=== PATIENT | male | born 1955 | race Caucasian/White ===

== ENCOUNTER 2022-06-01 15:01 | Emergency (ER) | payer MEDICARE, BC, SELFPAY ==
[2022-06-01] VITALS (10 sets, daily range): BP systolic 110–140; BP diastolic 61–76; PULSE 71–82; RESP 18–20; TEMP 37.1; O2SAT 93–95; BMI 34.2
[2022-06-01 15:33] LABS: Appearance Urine Clear (Clear); Bilirubin Urine Negative (Negative); Blood Urine Negative (Negative); Color Urine Yellow (Yellow); Glucose Urine 2+ (Negative); Ketones Urine 1+ (Negative); Leukocyte Esterase Urine Negative (Negative); Nitrite Urine Negative (Negative); Protein Urine Negative (Negative); Specific Gravity Urine <= 1.005 (1.000-1.030); Urobilinogen Urine 0.2 (0.2-1.0)
[2022-06-01] MEDS: 0.9 % SODIUM CHLORIDE 1000 ml 1,000 ML IV ×2 (15:42→17:25)
[2022-06-01 15:43] LABS: Basophils Absolute Auto 0.07 K/uL (0.00-0.30); Basophils Percent Auto 1.2 % (0.0-3.0); Eosinophils Absolute Auto 0.28 K/uL (0.00-0.50); Eosinophils Percent Auto 4.6 % (0.0-7.0); Hematocrit 47.5 % (37.0-53.0); Immature Granulocytes Abs Auto 0.03 K/uL (0.00-0.30); Lymphocytes Absolute Auto 1.66 K/uL (0.90-2.90); Lymphocytes Percent Auto 27.5 % (20-44); Mean Corpuscular HGB Conc 34 gm/dL (32-36); Mean Corpuscular Hemoglobin 29 pg (26-34); Mean Corpuscular Volume 86 fL (80-100); Monocytes Percent Auto 6.3 % (0.0-11.0); Neutrophils Absolute Auto 3.62 K/uL (1.7-7.0); Neutrophils Percent Auto 59.9 % (42.0-72.0); Platelet Count* 199 K/uL (140-440); Red Blood Count 5.53 m/uL (4.30-5.90); White Blood Count* 6.04 K/uL (4.50-11.00)
[2022-06-01 15:45] LABS: Slide Review Reflex No
--- NOTE | 2022-06-01 15:52 | ED.GENADULT ---
HPI - General Adult General Chief complaint: Diabetic Related Problem Stated complaint: Blood Sugar High Time Seen by Provider: 06/01/22 15:08 History of Present Illness HPI narrative: Patient is a 66-year-old gentleman with diabetes who presents with general malaise polyuria polydipsia fatigue and mild confusion. Patient's symptoms started today. He is had no focal neurologic defects. He describes no chest pain no shortness of breath orthopnea no PND no nausea no vomiting although his intake has been limited. Patient states his blood sugars have been in the 500 range today. Related Data Home Medications Medication Instructions Recorded Confirmed amlodipine 10 mg tablet mg 06/01/22 blood sugar diagnostic (OneTouch 06/01/22 06/01/22 Ultra Test strips) empagliflozin 10 mg tablet mg 06/01/22 (Jardiance) hydrochlorothiazide 25 mg tablet mg 06/01/22 lisinopril 40 mg tablet mg 06/01/22 metformin 500 mg tablet,extended mg PO 06/01/22 release 24 hr simvastatin 20 mg tablet mg 06/01/22 Allergies Allergy/AdvReac Type Severity Reaction Status Date / Time No Known Drug Allergies Allergy Verified 06/01/22 15:09 Review of Systems Status of ROS: Reports: 10 or more systems reviewed and unremarkable except as noted in History and below Exam Narrative: Exam Narrative: EXAM GENERAL: Patient appears comfortable and well. EYES: No scleral icterus. LYMPH: No supraclavicular or cervical lymphadenopathy. SKIN: Visible skin seen during exam normal or with benign process only. EXT: No dependent lower extremity pedal edema. HEART: Regular rate and rhythm with no murmurs, rubs, or gallops. LUNGS: Clear to auscultation bilaterally with no crackles or wheezes. ABD: Soft, non tender, non distended. PSYCH: Good eye contact, speech is not pressured. Const: Vital Signs, click to edit/add: Vital Signs - 24 hr 06/01/22 15:09 Temperature 98.7 F Pulse Rate [Pulse Oximeter] 82 Respiratory Rate 20 Blood Pressure [Ri ght Upper Arm] 135/75 Pulse Oximetry 95 Course Course Hospital Course: Comprehensive metabolic panel CBC and UA ordered and are pending. 1 L normal saline given Vital Signs Vital signs: Initial Vital Signs Temperature 98.7 F 06/01/22 15:09 Temperature Source Temporal Artery Scan 06/01/22 15:09 Pulse Rate 82 06/01/22 15:09 Pulse Rhythm 06/01/22 15:09 Respiratory Rate 20 06/01/22 15:09 Blood Pressure 135/75 06/01/22 15:09 Blood Pressure Mean 95 06/01/22 15:09 Pulse Oximetry 95 06/01/22 15:09 Oxygen Delivery Method 06/01/22 15:09 Vital Signs Temperature 98.7 F 06/01/22 15:09 Pulse Rate 82 06/01/22 15:09 Respiratory Rate 20 06/01/22 15:09 Blood Pressure 135/75 06/01/22 15:09 Pulse Oximetry 95 06/01/22 15:09 Temperature 98.7 F 06/01/22 15:09 Pulse Rate 82 06/01/22 15:09 Respiratory Rate 20 06/01/22 15:09 Blood Pressure 135/75 06/01/22 15:09 Pulse Oximetry 95 06/01/22 15:09 Medical Decision Making MDM Narrative Medical decision making narrative: At this time I am concerned that he may have a hyperosmotic hyperglycemia situation. Will begin aggressive hydration as labs are pending. [facility] Lab Data Labs: Lab Results 06/01/22 06/01/22 Range/Units 15:23 15:36 WBC 6.04 (4.50-11.00) K/uL RBC 5.53 (4.30-5.90) m/uL Hgb 16.0 (13.5-17.5) gm/dL Hct 47.5 (37.0-53.0) % MCV 86 (80-100) fL MCH 29 (26-34) pg MCHC 34 (32-36) gm/dL RDW Coeff of Dylan 12.0 (11.5-15.5) % Plt Count 199 (140-440) K/uL Neut % (Auto) 59.9 (42.0-72.0) % Lymph % (Auto) 27.5 (20-44) % [place] % (Auto) 6.3 (0.0-11.0) % Eos % (Auto) 4.6 (0.0-7.0) % Baso % (Auto) 1.2 (0.0-3.0) % Neut # (Auto) 3.62 (1.7-7.0) K/uL Lymph # (Auto) 1.66 (0.90-2.90) K/uL [place] # (Auto) 0.40 (0.00-0.90) K/UL Eos # (Auto) 0.28 (0.00-0.50) K/uL Baso # (Auto) 0.07 (0.00-0.30) K/uL Abs Immat Gran (auto) 0.03 (0.00-0.30) K/uL Urine Color Yellow (Yellow) Urine Appearance Clear (Clear) Urine pH 5.0 (5.0-8.5) Ur Specific [place] <= 1.005 (1.000-1.030) Urine Protein Negative (Negative) Urine Glucose (UA) 2+ A (Negative) Urine Ketones 1+ A (Negative) Urine Blood Negative (Negative) Urine Nitrite Negative (Negative) Urine Bilirubin Negative (Negative) Urine Urobilinogen 0.2 (0.2-1.0) Ur Leukocyte Esterase Negative (Negative) Discharge Plan Discharge Prescriptions: No Action (DME) OneTouch Ultra Test Strip MISCELLANEOUS 0RF Label Comments: USE 1 STRIP TO CHECK GLUCOSE TWICE DAILY NEEDED amlodipine 10 mg tablet 0RF Label Comments: TAKE 1 TABLET BY MOUTH ONCE DAILY simvastatin 20 mg tablet 0RF Label Comments: TAKE 1 TABLET BY MOUTH AT BEDTIME hydrochlorothiazide 25 mg tablet 0RF Label Comments: TAKE 1 TABLET BY MOUTH ONCE DAILY lisinopril 40 mg tablet 0RF Label Comments: TAKE 1 TABLET BY MOUTH ONCE DAILY metformin 500 mg tablet extended release 24 hr PO 0RF Label Comments: TAKE 2 TABLETS BY MOUTH ONCE DAILY Jardiance 10 mg tablet 0RF Label Comments: TAKE 1 TABLET BY MOUTH ONCE DAILY Follow Up/Referrals: Kang Mcgee MD [Primary Care Provider] -
[2022-06-01 15:55] LABS: Albumin* 4.8 g/dL (3.3-5.0); Chloride* 95 mmol/L (96-114); Potassium* 4.4 mmol/L (3.6-5.1); Sodium* 131 mmol/L (135-149)
[2022-06-01 15:57] LABS: Creatinine* 1.1 mg/dL (0.5-1.5); Est. Creatinine Clearance* 71.31
[2022-06-01 15:58] LABS: Alanine Aminotransferase* 33 U/L (4-50); Alkaline Phosphatase* 108 U/L (40-150); Aspartate Amino Transferase* 28 U/L (12-35); Bilirubin Total* 0.6 mg/dL (0.1-1.5); Blood Urea Nitrogen* 36 mg/dL (7-30); Calcium* 9.7 mg/dL (8.4-10.6); Carbon Dioxide* 27 mmol/L (20-32); Total Protein* 8.2 g/dL (6.0-8.3)
[2022-06-01 16:00] LABS: Glucose* 520 mg/dL (60-115)
--- NOTE | 2022-06-01 17:12 | ED.GENADULT ---
HPI - General Adult General Chief complaint: Diabetic Related Problem Stated complaint: Blood Sugar High Time Seen by Provider: 06/01/22 15:08 Related Data Home Medications Medication Instructions Recorded Confirmed amlodipine 10 mg tablet mg 06/01/22 blood sugar diagnostic (OneTouch 06/01/22 06/01/22 Ultra Test strips) empagliflozin 10 mg tablet mg 06/01/22 (Jardiance) hydrochlorothiazide 25 mg tablet mg 06/01/22 lisinopril 40 mg tablet mg 06/01/22 metformin 500 mg tablet,extended mg PO 06/01/22 release 24 hr simvastatin 20 mg tablet mg 06/01/22 Previous Rx's Medication Instructions Recorded pen needle, diabetic 32 gauge x #100 ea 06/01/22 (Ultra Thin Pen Needle) Allergies Allergy/AdvReac Type Severity Reaction Status Date / Time No Known Drug Allergies Allergy Verified 06/01/22 15:09 [facility] Social History Smoking Status: Former smoker What tobacco products do you use: cigarettes Smoking quit date/years: >15 years ago Do you use any of these nicotine containing products: None Second hand tobacco smoke exposure: No How often do you have a drink containing alcohol: never How often do you have six or more drinks on one occasion: Never AUDIT-C Alcohol total score: 0 Non-prescribed substance use: denies use Exam Const: Vital Signs, click to edit/add: Vital Signs - 24 hr 06/01/22 15:05 06/01/22 15:09 06/01/22 15:35 Temperature 98.7 F Pulse Rate [Pulse Oximeter] 82 Respiratory Rate 20 Blood Pressure [Ri ght Upper Arm] 135/75 135/75 140/61 H Pulse Oximetry 95 06/01/22 15:55 06/01/22 16:00 06/01/22 16:30 Temperature Pulse Rate [Pulse Oximeter] 78 77 76 Respiratory Rate Blood Pressure [Ri ght Upper Arm] 110/66 115/61 116/68 Pulse Oximetry 94 94 95 Course Course Hospital Course: Comprehensive metabolic panel CBC and UA ordered and are pending. 1 L normal saline given Reevaluation(s) Reevaluation #1: Have received Mr. Crooks in handoff from Dr. Macias change of shift. Labs reviewed. Corrected sodium would be 138. He has completed 1 L normal saline. He reports feeling better. Did review further recent events. About 3 weeks ago reports increasing Jardiance and metformin due to elevating blood sugars. Also reports a history of insulin use but discontinued that as got tired of giving himself injections. Jardiance was added at that point. Will give another L of normal saline Past medical also reviewed and listed here-- Medical Problems: Hyperlipidemia Hypertension Obstructive sleep apnea Detached retina, right S/p surgical correction Retinal detachment Diabetes mellitus, type II Cervical spinal stenosis s/p surgical intervention 2017 Obesity First degree AV block Allergic rhinitis Annual physical exam No actinve diabetic retinopathy Jha's palsy Pre-op exam Welcome to Medicare preventive visit Surgical Problems: History of colonoscopy Repeat in 5 yrs, Next Due- 04/29/2022. Time: 17:08 Vital Signs Vital signs: Initial Vital Signs Blood Pressure 135/75 06/01/22 15:05 Blood Pressure Mean 95 06/01/22 15:05 Blood Pressure Position Supine 06/01/22 15:05 Vital Signs Blood Pressure 135/75 06/01/22 15:05 Temperature 98.7 F 06/01/22 15:09 Pulse Rate 76 06/01/22 16:30 Respiratory Rate 20 06/01/22 15:09 Blood Pressure 116/68 06/01/22 16:30 Pulse Oximetry 95 06/01/22 16:30 Medical Decision Making MDM Narrative Medical decision making narrative: Spent some time looking in past medical and discussing with patient prior treatment. Looks like but we can document most recently was 15 units of Lantus daily. He will receive equivalent here 10 units though. Also 12 units of regular insulin. They do have Lantus at in the form of a Solostar pen. He unfortunately is out of needles; this is represcribed. Dosing here today as I think I will have trouble getting him those needles this evening on the 01 of June. Medical Records Medical records reviewed: Yes I reviewed the patient's medical records Lab Data Lab results reviewed: Yes I reviewed the patient's lab results Labs: Lab Results 06/01/22 06/01/22 06/01/22 Range/Units 15:23 15:36 15:36 WBC 6.04 (4.50-11.00) K/uL RBC 5.53 (4.30-5.90) m/uL Hgb 16.0 (13.5-17.5) gm/dL Hct 47.5 (37.0-53.0) % MCV 86 (80-100) fL MCH 29 (26-34) pg MCHC 34 (32-36) gm/dL RDW Coeff of Dylan 12.0 (11.5-15.5) % Plt Count 199 (140-440) K/uL Neut % (Auto) 59.9 (42.0-72.0) % Lymph % (Auto) 27.5 (20-44) % [place] % (Auto) 6.3 (0.0-11.0) % Eos % (Auto) 4.6 (0.0-7.0) % Baso % (Auto) 1.2 (0.0-3.0) % Neut # (Auto) 3.62 (1.7-7.0) K/uL Lymph # (Auto) 1.66 (0.90-2.90) K/uL [place] # (Auto) 0.40 (0.00-0.90) K/UL Eos # (Auto) 0.28 (0.00-0.50) K/uL Baso # (Auto) 0.07 (0.00-0.30) K/uL Abs Immat Gran (auto) 0.03 (0.00-0.30) K/uL Sodium 131 L (135-149) mmol/L Potassium 4.4 (3.6-5.1) mmol/L Chloride 95 L (96-114) mmol/L Carbon Dioxide 27 (20-32) mmol/L BUN 36 H (7-30) mg/dL Creatinine 1.1 (0.5-1.5) mg/dL Estimated Creat Clear 71.31 Glucose 520 H* (60-115) mg/dL Calcium 9.7 (8.4-10.6) mg/dL Total Bilirubin 0.6 (0.1-1.5) mg/dL AST 28 (12-35) U/L ALT 33 (4-50) U/L Alkaline Phosphatase 108 (40-150) U/L Total Protein 8.2 (6.0-8.3) g/dL Albumin 4.8 (3.3-5.0) g/dL Urine Color Yellow (Yellow) Urine Appearance Clear (Clear) Urine pH 5.0 (5.0-8.5) Ur Specific [place] <= 1.005 (1.000-1.030) Urine Protein Negative (Negative) Urine Glucose (UA) 2+ A (Negative) Urine Ketones 1+ A (Negative) Urine Blood Negative (Negative) Urine Nitrite Negative (Negative) Urine Bilirubin Negative (Negative) Urine Urobilinogen 0.2 (0.2-1.0) Ur Leukocyte Esterase Negative (Negative) Discharge Plan Discharge Clinical Impression: Hyperosmolar hyperglycemic state (HHS), Ketosis due to diabetes Patient Disposition: Home w/ Parent or Adult Condition: Improved Additional Instructions: Stay well hydrated with unsugared liquids Check your blood sugar before bed this evening. Start with 10 units evening dosing of Lantus. Aiming for blood sugars less than 150 fasting in the morning. Every 2-3 days could increase your Lantus dosing by 2 units to get into goal. I would also begin checking blood sugars a couple hours after eating 1 or 2 meals a day. Please schedule follow-up with your doctor for later this week. It is important to get exercise in daily if possible as this does lower your insulin resistance. As a team you both can also practice careful food/diet management together. Discharge Diet: Diabetic Prescriptions: New (DME) pen needle, diabetic [Ultra Thin Pen Needle] 32 gauge x 5/32 needle See Rx Instructions .Route Qty: 100 0RF Rx Instructions: As directed No Action (DME) OneTouch Ultra Test Strip MISCELLANEOUS 0RF Label Comments: USE 1 STRIP TO CHECK GLUCOSE TWICE DAILY NEEDED amlodipine 10 mg tablet 0RF Label Comments: TAKE 1 TABLET BY MOUTH ONCE DAILY simvastatin 20 mg tablet 0RF Label Comments: TAKE 1 TABLET BY MOUTH AT BEDTIME hydrochlorothiazide 25 mg tablet 0RF Label Comments: TAKE 1 TABLET BY MOUTH ONCE DAILY lisinopril 40 mg tablet 0RF Label Comments: TAKE 1 TABLET BY MOUTH ONCE DAILY metformin 500 mg tablet extended release 24 hr PO 0RF Label Comments: TAKE 2 TABLETS BY MOUTH ONCE DAILY Jardiance 10 mg tablet 0RF Label Comments: TAKE 1 TABLET BY MOUTH ONCE DAILY Follow Up/Referrals: Kang Mcgee MD [Primary Care Provider] - Stand Alone Forms: [facility] Info Instructions
--- NOTE | 2022-06-01 19:44 | ED.NURSE ---
pt sent with james ivory rx dr amaya
== END 2022-06-01 19:48 ==
PROVIDERS: Internal Medicine; Emergency Provider Family Medicine; PCP Family Medicine
DX: E11.00 Type 2 diabetes mellitus with hyperosmolarity without nonketotic hyperglycemic-hyperosmolar coma (NKHHC) (principal); Z79.4 Long term (current) use of insulin
CPT/HCPCS: 96360; 96361; 36415; 80053; 81003; 85025; 99283; 99284; J7030

== ENCOUNTER 2022-07-06 11:10 | Outpatient (CLI) | payer MEDICARE, BC, SELFPAY ==
[2022-07-06 22:51] LABS: Chloride* 107 mmol/L (96-114); Sodium* 140 mmol/L (135-149)
[2022-07-06 22:52] LABS: Potassium* 4.6 mmol/L (3.6-5.1)
[2022-07-06 22:54] LABS: Creatinine* 0.8 mg/dL (0.5-1.5); Estimated Glomerular Filt Rate 98 ml/min
[2022-07-06 22:55] LABS: Blood Urea Nitrogen* 20 mg/dL (7-30); Calcium* 9.3 mg/dL (8.4-10.6); Carbon Dioxide* 21 mmol/L (20-32); Glucose* 127 mg/dL (60-115)
== END 2022-07-06 11:11 | disposition home or self-care (01) ==
LOC: LKVREF 11:11
PROVIDERS: PCP Family Medicine; Visit Provider Family Medicine
DX: E11.10 Type 2 diabetes mellitus with ketoacidosis without coma (principal)
CPT/HCPCS: 80048

== ENCOUNTER 2022-08-11 08:22 | Outpatient (CLI) | payer MEDICARE, BC, SELFPAY ==
--- OUTSIDE RECORDS SUMMARY | 2022-08-11 08:29 | XMS_ITS | Clinical Summary ---
:1955 Author Organization [facility] Address [address] [place] [address] Care Team Providers Name Role Phone Nimesh Jo MD Primary Care Provider [phone] Allergies No known active allergies Medications Medication Sig Dispensed Refills Start Date End Date Status ORDER FOR Equipment being 1 each 0 11/03/2012 Act opal DMEIndications: HTN ordered: Blood (hypertension) pressure monitor aspirin 81 MG tablet Take 1 tablet by 0 Active mouth daily simvastatin (ZOCOR) 20 Take 1 tablet (20 90 tablet 3 4 Active MG tabletIndications: mg) by mouth At Hyperlipidemia LDL goal Bedtime MD/LABS <130 DUE NOW lisinopril Take 1 tablet (5 30 tablet 0 04/03/2015 A ctive (PRINIVIL,ZESTRIL) 5 MG mg) by mouth tabletIndications: daily SEE Benign hypertension amLODIPine (NORVASC) 5 Take 1 tablet (5 0 09/27/2015 Active MG tabletIndications: mg) by mouth HTN, goal below 140/90 daily Active Problems Problem Noted Date Ventral hernia 12/26/2012 LVH (left ventricular hypertrophy) 11/04/2012 HTN, goal below 140/90 11/04/2012 Hepatic steatosis 11/03/2012 Gallstones 11/03/2012 Advanced directives, counseling/discussion 11/03/2012 Overview: Discussed advance care planning with jarred alberto; however, patient declined at this time. 11/03/2012 Obesity 11/02/2012 ADRIEN (obstructive sleep apnea) 10/27/2012 Venous stasis of lower extremity 10/27/2012 HYPERLIPIDEMIA LDL GOAL <130 09/28/2010 Chronic rhinitis 01/30/2010 Trigger finger, acquired 01/30/2010 Overview: Problem list name updated by mack iraheta Provider to review Eczema 05/16/2008 Immunizations Name Administration Dates Next Due TD (ADULT, 7+) 11/29/2006 TDAP Vaccine (Adacel) 10/27/2012 Family History Medical History Relation Comments Heart Disease Father Relation Status Comments Brother 1 Alive Brother 2 Alive Brother 3 Alive Brother 4 Alive Brother 5 Alive Father (Age 52) heart Maternal Grandfather Maternal Grandmother Mother Alive Paternal Grandfather Paternal Grandmother Sister Alive Son 1 Alive Kasi Son 2 Alive Abiodun Son 3 Alive Lewis Social History Tobacco Use Types Packs/Day Years Used Date Former Smoker Cigarettes 1 35 Quit: 11/06/20 07 Smokeless Tobacco: Never Used Alcohol Use Standard Drinks/Week Comments No 0 (1 standard drink = 0.6 oz pure alcoho l) Sex Assigned at Date Recorded Not on file Last Filed Vital Signs Vital Sign Reading Time Taken Comments Blood Pressure 138/78 03/28/2014 9:35 AM CDT Pulse 52 03/28/2014 9:35 AM CDT Temperature 36.6 ??C (97.9 ??F) 03/28/2014 9:35 AM CDT Respiratory Rate 12 03/28/2014 9:35 AM CDT Oxygen Saturation 96% 03/28/2014 9:35 AM CDT Inhaled Oxygen Concentration - - Weight 120.7 kg (266 lb) 03/28/2014 9:35 AM CDT Height 182.9 cm (6') 03/28/2014 9:35 AM CDT Body Mass Index 36.08 03/28/2014 9:35 AM CDT Plan of Treatment Health Maintenance Due Date Last Done Comments ANNUAL REVIEW OF HM ORDERS 1955 CT COLONOGRAPHY 1955 FIT-DNA (Cologuard) 1955 FIT 1955 FLEX SIG 1955 HIV SCREENING 1971 HEPATITIS C SCREENING 1974 LUNG CANCER SCREENING 2006 ADVANCE CARE PLANNING 11/03/2017 11/03/2012 COLONOSCOPY 08/27/2018 08/27/2008 COLORECTAL CANCER SCREENING 08/27/2018 LIPID 03/28/2019 03/28/2014, 08/17/2012, 10/30/2010, Additional history exists COVID-19 Vaccine (3 - 08/04/2021 03/04/2021, 02/11/2021 Booster for Pfizer series) PHQ-2 (once per calendar 11/29/2021 year) AORTIC ANEURYSM SCREENING 2021 (SYSTEM ASSIGNED) FALL RISK ASSESSMENT 2021 MEDICARE ANNUAL WELLNESS 2021 03/28/2014, 11/12/2006 VISIT Pneumococcal Vaccine: 65+ 2021 Years (1 - PCV) INFLUENZA VACCINE (#1) 2022 DTAP/TDAP/TD IMMUNIZATION 10/27/2022 10/27/2012, 11/29/2006 (3 - Td or Tdap) ZOSTER IMMUNIZATION Completed 01/11/2020, 11/06/2019 HEPATITIS B IMMUNIZATION Aged Out No long er eligible based on patient 's age to complete this topic IPV IMMUNIZATION Aged Out No longer eligi ble based on patient 's age to complete this topic MENINGITIS IMMUNIZATION Aged Out No longe r eligible based on patient 's age to complete this topic Insurance Payer Benefit Plan / Subscriber ID Effective Phone Address T ype Group Dates BCBS [place] OF [place] [id number] 2021-Prese [phone] [address] [id number] [place] [address] MEDICARE MEDICARE [id number] 2021-Prese [phone] ATTN CLAI [place] Medicare nt 40 [address] [place] [address] SELECTCARE SELECTCARE - [id number] 2012-Pres [phone] [address] Indemnity [employer] ent [id number] [place] [address] 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
--- OUTSIDE RECORDS SUMMARY | 2022-08-11 08:29 | XMS_ITS | Encounter Summary ---
:1955 Author Organization [facility] Address [address] [place] [address] Care Team Providers Name Role Phone Nimesh Jo MD Primary Care Provider Encounter Details Date Type Department Care Team Description 12/31/2021 Travel Social History Tobacco Use Types Packs/Day Years Used Date Former Smoker Cigarettes 1 35 Quit: 11/06/20 07 Smokeless Tobacco: Never Used Alcohol Use Standard Drinks/Week Comments No 0 (1 standard drink = 0.6 oz pure alcoho l) Sex Assigned at Date Recorded Not on file COVID-19 Exposure Response Date Recorded In the last month, have you been in contact with No / Unsure 12/31/2021 10:41 AM 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 documented as of this encounter Plan of Treatment Not on filedocumented as of this encounter Visit Diagnoses Not on filedocumented in this encounter Care Teams Vocational Nursing Instructor Relationship Specialty Start Date End Date Nimesh Jo MD PCP - General 11/05/06 documented as of this encounter
--- OUTSIDE RECORDS SUMMARY | 2022-08-11 08:29 | XMS_ITS | Encounter Summary ---
:1955 Author Organization [facility] Address [address] [place] [address]. [place] [address] Care Team Providers Name Role Phone Nimesh Jo MD Primary Care Provider Reason for Referral Diagnostic Imaging Ultrasound (Routine) - Pending Review Specialty Diagnoses / Procedures Referred By Contact Refer red To Contact Diagnoses Cyst of epididymis Willie Buckner MD Procedures US Testicular & Scrotum w Doppler Ltd [facility] [address] [place] [address] Referral ID Status Reason Start Date Expiration Date Visits V isits Requested Authorized [id number] Pending 12/23/2021 12/23/2022 1 1 Review RAM DIR Reason for Visit Diagnostic Imaging Ultrasound (Routine) - Pending Review Specialty Diagnoses / Procedures Referred By Contact Refer red To Contact Diagnoses Cyst of epididymis Willie Buckner MD Procedures US Testicular & Scrotum w Kongregate Ltd [facility] [place] [address] [place] [address] Referral ID Status Reason Start Date Expiration Date Visits V isits Requested Authorized [id number] Pending 12/23/2021 12/23/2022 1 1 Review Encounter Details Date Type Department Care Team Description 12/31/2021 Hospital Encounter [facility] Willie Buckner C yst of epididymis [facility] [id number] [place] [address] [facility] [place] [address] [facility] [place] [facility] [address] [place] [address] [phone] Social History Tobacco Use Types Packs/Day Years [...] with No / Unsure 12/31/2021 10:41 AM PROGRAM DIR someone who was confirmed or suspected to have Coronavirus / COVID-19? documented as of this encounter Medications at Time of Discharge Medication Sig Dispensed Refills Start Date End Date amLODIPine (NORVASC) 5 MG Take 1 tablet (5 mg) 0 09/27/2015 tabletIndications: HTN, by mouth daily goal below 140/90 aspirin 81 MG tablet Take 1 tablet by 0 mouth daily lisinopril Take 1 tablet (5 mg) 30 tablet 0 04/03/2015 (PRINIVIL,ZESTRIL) 5 MG by mouth daily SEE MD tabletIndications: Benign hypertension ORDER FOR DMEIndications: Equipment being 1 each 0 11/03 HTN (hypertension) ordered: Blood pressure monitor simvastatin (ZOCOR) 20 MG Take 1 tablet (20 mg) 90 tablet 3 03/28/2014 tabletIndications: by mouth At Bedtime Hyperlipidemia LDL goal MD/LABS DUE NOW <130 documented as of this encounter Plan of Treatment Not on filedocumented as of this encounter Procedures Procedure Name Priority Date/Time Associated Comments Diagnosis US TESTICULAR AND Routine 12/31/2021 11:44 AM Cyst of epididym is Results for this SCROTUM WITH DOPPLER PROGRAM DIR procedu re are in LIMITED the results section. documented in this encounter Results US Testicular & Scrotum w Doppler Ltd (12/31/2021 11:44 AM PROGRAM DIR) Anatomical Region Laterality Modality Abdomen/Pelvis Ultrasound Specimen (Source) Anatomical Location Collection Method / Collectio n Time Received Time / Laterality Volume Impressions 12/31/2021 12:20 PM PROGRAM DIR IMPRESSION: 1. Large number of bilateral epididymal cysts, the largest on the right measures 5.8 cm in the epididymal body and the largest on the left measures 3.6 cm in the epididymal t ail. 2. Small left hydrocele. No right hydroc alana. 3. Diffuse scrotal skin thickening, of i ndeterminate etiology. AURORA BRUCE MD Narrative 12/31/2021 12:20 PM PROGRAM DIR US TESTICULAR AND SCROTUM WITH DOPPLER LIMITED 12/31/2021 11:44 AM HISTORY: Cyst of epididymis. FINDINGS: Right Scrotum: ? Testis: Measures 5.1 x 3.3 x 2.5 cm. It demonstrates normal parenchymal echogenicity. No focal lesio n. ? Epididymis: Multiple epididymal c ysts, including multiple small cysts in the epididymal head, with the l argest two cysts measuring 4.6 x 5.8 x 3.4 cm in the epididymal body an d 4.2 x 4.9 x 3.0 cm in the epididymal tail. ? No hydrocele. No varicocele. Left Scrotum ? Testis: Measures 5.2 x 2.9 x 2.3 cm. It demonstrates normal parenchymal echogenicity. No focal lesio n. ? Epididymis: Multiple epididymal c ysts, including multiple small cysts in the epididymal head and 3.5 x 3 .6 x 2.5 cm cyst in the epididymal tail. ? Small hydrocele. No varicocele. Doppler waveform analysis demonstrates b ilateral testicular flow without evidence for torsion. Diffuse scrotal skin thickening. ? Procedure Note Aurora Bruce MD - 12/31/2021Forma tting of this note might be different from the original. US TESTICULAR AND SCROTUM WITH DOPPLER L IMITED 12/31/2021 11:44 AM HISTORY: Cyst of epididymis. FINDINGS: Right Scrotum: Testis: Measures 5.1 x 3.3 x 2.5 cm. It demonstrates normal parenchymal echogenicity. No focal lesio n. Epididymis: Multiple epididymal cysts, including multiple small cysts in the epididymal head, with the l argest two cysts measuring 4.6 x 5.8 x 3.4 cm in the epididymal body an d 4.2 x 4.9 x 3.0 cm in the epididymal tail. No hydrocele. No varicocele. Left Scrotum Testis: Measures 5.2 x 2.9 x 2.3 cm. It demonstrates normal parenchymal echogenicity. No focal lesio n. Epididymis: Multiple epididymal cysts, including multiple small cysts in the epididymal head and 3.5 x 3 .6 x 2.5 cm cyst in the epididymal tail. Small hydrocele. No varicocele. Doppler waveform analysis demonstrates b ilateral testicular flow without evidence for torsion. Diffuse scrotal skin thickening. IMPRESSION: 1. Large number of bilateral epididymal cysts, the largest on the right measures 5.8 cm in the epididymal body and the largest on the left measures 3.6 cm in the epididymal t ail. 2. Small left hydrocele. No right hydroc alana. 3. Diffuse scrotal skin thickening, of i ndeterminate etiology. AURORA BRUCE MD Willie Buckner MD IMG US ORDERABLES documented in this encounter Visit Diagnoses Diagnosis Cyst of epididymis Other specified disorder of male genital organs documented in this encounter Care Teams Hospital Pharmacist Relationship Specialty Start Date End Date Nimesh Jo MD PCP - General 11/05/06 documented as of this encounter
--- OUTSIDE RECORDS SUMMARY | 2022-08-11 08:29 | XMS_ITS | Clinical Summary ---
:1955 Author Organization [facility] [place] [address] Care Team Providers Name Role Phone Kang Mcgee MD Primary Care Provider Allergies No known active allergies Medications Medication Sig Dispensed Refills Start Date End Date Status simvastatin (ZOCOR) 20 Take 1 tablet by 0 11/11/2010 Active mg tablet mouth at bedtime. amLODIPine (NORVASC) 5 Take 1 tablet by 30 tablet 5 11/11/2010 Active mg tablet mouth once daily. aspirin chewable 81 mg Take 81 mg by 0 Active chewable tablet mouth once daily with a meal. lisinopril (PRINIVIL; Take 40 mg by 0 Active ZESTRIL) 40 mg mouth once daily. tabletIndications: Indications: hypertension Hypertension metFORMIN (GLUCOPHAGE) Take 500 mg by 0 Active 500 mg mouth 2 times tabletIndications: daily with meals. type 2 diabetes Indications: type mellitus 2 diabetes [address] 1 Drop into 0 Active (DUREZOL) 0.05 % right eye once ophthalmic emulsion daily. ketorolac 0.5 % Place 1 Drop into 0 Active ophthalmic (ACULAR) right eye 3 times solution daily. oxyCODONE (ROXICODONE) Take 1-2 tablets 120 tablet 0 6 Active 5 mg immediate release by mouth every 4 tabletIndications: hours if needed Cervical spondylosis for Pain (For with myelopathy moderate pain). diazePAM (VALIUM) 5 mg Take 1/2 to 1 60 tablet 0 11/06/2016 Active tabletIndications: tablet by mouth Cervical spondylosis every 6 hours if with myelopathy needed for Muscle Spasm. prochlorperazine Take 1 tablet by 40 tablet 0 11/06/2016 Active (COMPAZINE) 10 mg mouth every 6 tabletIndications: hours if needed Cervical spondylosis for with myelopathy Nausea/Vomiting. sennosides-docusate, Take 1-4 tablets 120 tablet 0 11/06/2016 Active 8.6-50 mg, (SENOKOT S) by mouth 2 times 8.6-50 mg daily. tabletIndications: Cervical spondylosis with myelopathy Active Problems Problem Noted Date Episodic lightheadedness 07/26/2020 High coronary artery calcium score 07/26/2020 Morbid obesity due to excess calories 07/26/2020 SOB (shortness of breath) 07/26/2020 Type 2 diabetes mellitus 11/02/2016 Cervical spondylosis with myelopathy 11/02/2016 Sleep apnea 11/11/2010 Chest pain 11/11/2010 Family history of coronary arteriosclerosis 11/11/2010 Hyperlipidemia 11/11/2010 HTN (hypertension) 11/11/2010 Social History Tobacco Use Types Packs/Day Years Used Date Former Smoker Cigarettes 1.5 35 Quit: 11/29/19 07 Alcohol Use Standard Drinks/Week Comments No 0 (1 standard drink = 0.6 oz pure alcoho l) Sex Assigned at Date Recorded Not on file Obstetrics History Last Filed Vital Signs Vital Sign Reading Time Taken Comments Blood Pressure 135/76 11/06/2016 8:12 AM ORACLE OBIEE DEVELOPER Pulse 70 11/06/2016 8:12 AM ORACLE OBIEE DEVELOPER Temperature 36.9 ??C (98.5 ??F) 11/06/2016 8:12 AM ORACLE OBIEE DEVELOPER Respiratory Rate 16 11/06/2016 8:12 AM ORACLE OBIEE DEVELOPER Oxygen Saturation 97% 11/06/2016 8:12 AM ORACLE OBIEE DEVELOPER Inhaled Oxygen Concentration - - Weight 122.1 kg (269 lb 2.9 oz) 11/02/2016 8:25 AM ORACLE OBIEE DEVELOPER Height 182.9 cm (6') 11/02/2016 8:25 AM ORACLE OBIEE DEVELOPER Body Mass Index 36.51 11/02/2016 8:25 AM ORACLE OBIEE DEVELOPER Plan of Treatment Health Maintenance Due Date Last Done Comments Pneumococcal series for age 65+ (1 - PCV) 1962 Tdap 1967 Depression screening for age 12+ 1968 BMI (ht and wt on same day) for age 18+ 1974 Hepatitis C screening for age 18-79 1974 Tetanus booster 1976 Colonoscopy through age 75 2001 Lipids for age 45-75 2001 Zoster (shingles) series for age 50+ (1 of 2006 2) COVID-19 vaccine series (3 - Booster for 08/04/2021 021, 02/11/2021 Pfizer series) Influenza for age 65+ 07/30/2022 Medical Devices Implanted Type Area Timber Management Professor Device Shelf Model / Identifier Expiration Serial / Date Lot Strip Silcn 0.75x3.5x125 [id number] - [id number] Right : Lab[employer]ian 02/26/2022 [id number] / Implanted: Qty: 1 on 07/17/2015 by Sixto Becerril MD at [facility] [employer] / [id number] Screw Lmbr Post 5.5x25mm Solera 4.75 Va - [id number] N/A: Medtronic [id number] / Implanted: Qty: 2 on 11/02/2016 by Clarence Coyle MD at [facility] / Results Not on filefrom Last 3 Months Insurance Payer Benefit Plan / Subscriber ID Effective Dates Phone Addre ss Type Group BLUE CROSS BLUE CROSS OF [id number] 2020-Present [id number] [place] [address] Advance Directives Latest Code Status on File Code Status Date Activated Date Inactivated Comments Full Code 11/02/2016 6:12 PM 11/06/2016 10:20 PM Full Code 11/02/2016 6:41 AM 11/02/2016 6:12 PM Code Status Discussion: Not Discussed Full Code 07/17/2015 9:21 AM 07/17/2015 3:48 PM Care Teams Power Press Operator Relationship Specialty Start Date End Date Kang Mcgee MD PCP - General Family Practice 06/07/20 [id number] [address]
--- OUTSIDE RECORDS SUMMARY | 2022-08-11 08:29 | XMS_ITS ---
:1955 Author Care Team Providers Name Role Phone EMILY REHMAN MD Primary Care Provider [phone] Allergies Code Code System Name Reaction Severity Status Onset NKDA ? Medications Name Status Start Date Stop Date ? ? Accu-Chek Softclix Lancets Active ? Not a vailable USE 1 TO CHECK GLUCOSE TWICE DAILY NEEDED amlodipine Active ? Not available amlodipine 10 mg tablet Active ? Not avai lable TAKE 1 TABLET BY MOUTH ONCE DAILY Asprin Ec Low Dose 81 mg tablet,delayed release Active ? Not available Take 1 tablet every day by oral route. cephalexin 500 mg capsule Active ? Not av ailable TAKE 1 CAPSULE BY MOUTH TWICE DAILY hydrochlorothiazide Active ? Not availabl e hydrochlorothiazide 25 mg tablet Active ? Not available TAKE 1 TABLET BY MOUTH ONCE DAILY Jardiance 10 mg tablet Active ? Not avail able TAKE 1 TABLET BY MOUTH ONCE DAILY Lantus Solostar U-100 Insulin 100 unit/mL (3 mL) Active ? Not available subcutaneous pen lisinopril Active ? Not available lisinopril 40 mg tablet Active ? Not avai lable TAKE 1 TABLET BY MOUTH ONCE DAILY metformin Active ? Not available metformin 500 mg tablet Active ? Not avai lable TAKE 1 TABLET BY MOUTH TWICE DAILY WITH MEALS metformin ER 500 mg tablet,extended release 24 hr Active ? Not available TAKE 2 TABLETS BY MOUTH ONCE DAILY OneTouch Delica Plus Lancet 33 gauge Active ? Not available OneTouch Ultra Blue Test Strip Active ? N ot available USE 1 STRIP TO CHECK GLUCOSE TWICE DAILY NEEDED OneTouch Ultra Test strips Active ? Not a vailable pen needle, diabetic 31 gauge x 1/4 Active ? Not available USE DIRECTED simvastatin Active ? Not available simvastatin 20 mg tablet Active ? Not leo ilable TAKE 1 TABLET BY MOUTH AT BEDTIME tamsulosin 0.4 mg capsule Active ? Not av ailable TAKE 1 CAPSULE BY MOUTH ONCE DAILY tramadol 50 mg tablet Active ? Not availa ble TAKE 1 TABLET BY MOUTH EVERY 6 TO 8 HOURS NEEDED Problems Name Status Onset Date Source ? Benign Prostatic Hyperplasia Active 06/18/2020 ? Phimosis Active 06/18/2020 ? Procedures Date Name Performed by ? ? Procedure on Wrist Information not avai lable ? Cervical Arthrodesis Information not leo ilable ? Cataract Surgery Information not avai lable 12/23/2021 , [facility] (Radiology) [address] [place] [address] (Work Place) Results Lab Results Date Name Specimen Result Interpretation Description Value Range Status Address ? 07/03/2021 Urinalysis, Dipstick ? No observation ? ? ? recorded. 06/18/2020 Urinalysis, Dipstick Urine ? Nitrates-Status neg ative ? Urine ? Blood-Status Negative ? Urine ? Leuko-Status Trace ? Urine ? Specimen Type Voided ? ? 06/18/2020 Urinalysis, Dipstick ? No observation ? ? ? recorded. ? Urinalysis, Dipstick ? Color-Status Yellow ? Clarity-Status Clear ? Leuko-Status Moderate ? ? Past Encounters 02/20/2022 Spermatocele Willie Buckner MD: [address] [place] [address], Ph. 12/23/2021 Spermatocele Willie Buckner MD: [address] [place] [address], Ph. 07/03/2021 Benign Prostatic Hyperplasia; Balanitis; Benign Prostatic Hyperplasia with Outflow Obstruction; Type 2 Diabetes Mellitus without Complication Willie Buckner MD: [address] [place] [address], Ph. Social History Tobacco Smoking Status Former Smoker Notes: QUIT: 18 03 Vaccine List None recorded. Plan of Care Reminders Provider Appointments None recorded. ? ? Lab None recorded. ? ? Referral None recorded. ? ? Procedures None recorded. ? ? Surgeries None recorded. ? ? Imaging None recorded. ? ? Vitals 02/20/2022 08:30AM POST OP 10 Height Weight BMI 5 ft 11 in 270 lbs 37.7 kg/m2 12/23/2021 01:10PM ESTABLISHED 10 Height Weight BMI 5 ft 11 in 270 lbs 37.7 kg/m2 07/03/2021 10:30AM ESTABLISHED 10 Height Weight BMI 5 ft 11 in 270 lbs 37.7 kg/m2 06/18/2020 03:20PM ESTABLISHED 10 Height Weight BMI 5 ft 11 in 270 lbs 37.7 kg/m2
--- OUTSIDE RECORDS SUMMARY | 2022-08-11 08:30 | XMS_ITS | Encounter Summary ---
:1955 Author Organization [facility] Address [address] [place] [address] Care Team Providers Name Role Phone Nimesh Jo MD Primary Care Provider [phone] Encounter Details Date Type Department Care Team Description 11/05/2011 Therapy Visit [facility], Other per ipheral Rehabilitation [facility] [address] (Primary Dx) [address] [place] [address] [address] [place] [address] [phone] Social History Tobacco Use Types Packs/Day Years Used Date Former Smoker Cigarettes 1 35 Quit: 11/06/20 07 Smokeless Tobacco: Never Used Alcohol Use Standard Drinks/Week Comments No 0 (1 standard drink = 0.6 oz pure alcoho l) Sex Assigned at Date Recorded Not on file documented as of this encounter Progress Notes Chevy Beltran, PT - 12/07/2011 10:57 AM CST D/C per PN E ALIGNER Chevy Beltran - 11/05/2011 6:08 PM CST Subjective: HPI Objective: System Physical Exam General ROS Assessment/Plan: PROGRESS REPORT Progress reporting period is from 09/01/11 to 11/05/11. SUBJECTIVE Subjective changes noted by patient: . Subjective: doing good. mild pain in AM otherwise pain free during day Current pain level is Current Pain level: 1/10. Previous pain level was Initial Pain level: 4/10. Changes in function: Yes (See Goal flowsheet attached for changes in current functional level) Adverse reaction to treatment or activity: None OBJECTIVE Changes noted in objective findings: Objective: no palp pain. 5/5 strength. SLS 30sec EC with mod mm activity ASSESSMENT/PLAN Updated problem list and treatment plan: Diagnosis 1: R plantar fasciitis Pain - hot/cold therapy, US, manual therapy and home program Inflammation - cold therapy and US Impaired gait - gait training Impaired muscle performance - neuro re-education STG/LTGs have been met or progress has been made towards goals: Yes (See Goal flow sheet completed today.) Assessment of Progress: The patient's condition is improving. The patient's condition has potential to improve. Self Management Plans: Patient has been instructed in a home treatment program. Patient has been instructed in self management of symptoms. Sandeep continues to require the following intervention to meet STG and LTG's: PT Recommendations: Recommend pt cont with established HEP and return prn over next month or D/C with established HEP. Please refer to the daily flowsheet for treatment today, total treatment time and time spent performing 1:1 timed codes. E ALIGNER documented in this encounter Plan of Treatment Not on filedocumented as of this encounter Procedures Procedure Name Priority Date/Time Associated Diagnosis Comme nts Z[facility] MANUAL THER Routine 11/05/2011 6:08 PM Other peripheral TECH,1+REGIONS,EA 15 BLADE ALIGNER enthesopathies MIN [facility]ZC THERAPEUTIC Routine 11/05/2011 6:08 PM Other peripheral EXERCISES BLADE ALIGNER enthesopathies Z ULTRASOUND THERAPY Routine 11/05/2011 6:08 PM Other periph eral BLADE ALIGNER enthesopathies documented in this encounter Visit Diagnoses Diagnosis Other peripheral enthesopathies - Primar y documented in this encounter Care Teams Marketing Support Assistant Relationship Specialty Start Date End Date Nimesh Jo MD PCP - General 11/05/06 documented as of this encounter
--- OUTSIDE RECORDS SUMMARY | 2022-08-11 08:30 | XMS_ITS | Encounter Summary ---
:1955 Author Organization [facility] Address [address] [place] [address]. [place] [address] Care Team Providers Name Role Phone Nimesh Jo MD Primary Care Provider Reason for Visit Reason Onset Date Comments Refill Request 03/05/2014 zocor Encounter Details Date Type Department Care Team Description 03/05/2014 Refill [facility] Nimesh Jo Refill Request (zocor) Janeth Huizar MD [address] [place] [phone] (Wo rk) Social History Tobacco Use Types Packs/Day Years Used Date Former Smoker Cigarettes 1 35 Quit: 11/06/20 07 Smokeless Tobacco: Never Used Alcohol Use Standard Drinks/Week Comments No 0 (1 standard drink = 0.6 oz pure alcoho l) Sex Assigned at Date Recorded Not on file documented as of this encounter Miscellaneous Notes Telephone Encounter - Noemí Dalton RN - 03/05/2014 2:07 PM CDT Last OV: 02/06/13 Reason for visit: obesity, HTN Date last filled: 06/06/13 Recent Labs Lab Test 08/17/12 0935 06/30/11 0953 10/30/10 0949 CHOL 191 -- 155 HDL 33* -- 35* LDL 130* 97 -- TRIG 144 -- 94 CHOLHDLRATIO 5.9* -- 4.5 AST 53 10/27/2012 ALT 95 10/27/2012 Appointment letter sent, one month sent Medication approved per standing orders Noemí Dalton RN documented in this encounter Plan of Treatment Not on filedocumented as of this encounter Visit Diagnoses Diagnosis Mixed hyperlipidemia - Primary Hyperlipidemia LDL goal <130 Other and unspecified hyperlipidemia documented in this encounter Care Teams City Dispatcher Relationship Specialty Start Date End Date Nimesh Jo MD PCP - General 11/05/06 documented as of this encounter
--- OUTSIDE RECORDS SUMMARY | 2022-08-11 08:30 | XMS_ITS | Encounter Summary ---
:1955 Author Organization [facility] Address [address] [place] [address] Care Team Providers Name Role Phone Nimesh Jo MD Primary Care Provider Encounter Details Date Type Department Care Team Description 09/01/2011 Therapy Visit [facility], [facility] [address] (Primary Dx) [address] [place] [address] [address] [place] [phone] Social History Tobacco Use Types Packs/Day Years Used Date Former Smoker Cigarettes 1 35 Quit: 11/06/20 07 Smokeless Tobacco: Never Used Alcohol Use Standard Drinks/Week Comments No 0 (1 standard drink = 0.6 oz pure alcoho l) Sex Assigned at Date Recorded Not on file documented as of this encounter Progress Notes Lashonda Mckenzie - 09/02/2011 8:53 AM CDT Subjective: Pertinent medical history includes: High blood pressure and overweight. Medical allergies: no. Other surgeries include: Orthopedic surgery (Bunion, wrist). Current medications: High blood pressure medication and other ([place] for allergies). 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 Primary job tasks include: Prolonged standing, operating a machine andlifting. Barriers include: None as reported by patient. Red flags: None as reported by patient. Objective: System Physical Exam General ROS Assessment/Plan: Chevy Beltran - 09/01/2011 2:44 PM CDT Subjective: Sandeep Crooks is a 55 year old male with a right foot condition. Condition occurred with: Insidiousonset. Condition occurred: for unknown reasons. This is a new condition R heel pain x 2-3 months. Denies injury. Notes gradually worsening of pain. Pt states started jogging 6 months prior without pain.. Patient reports pain: Medial calcaneal tuberosity. Pain is described as sharp, shooting and stabbingand is intermittent and reported as 4/10. Pain is worse in the A.M.. Symptoms are exacerbated by weight bearing, standing and walking and relieved by rest. Since onset symptoms are gradually worsening.Special tests: X- ray (calc spur). General health as reported by patient is excellent. Objective: Standing Alignment: Ankle/Foot: Pes planus L and pes planus R (moderate arch B in NWBing) Flexibility/Screens: Lower Extremity: Decreased left lower extremity flexibility:Gastroc and Soleus Decreased right lower extremity flexibility: Gastroc and Soleus Ankle/Foot Evaluation ROM: AROM is normal.PROM is normal. Strength is normal. PALPATION: Right ankle tenderness present at: plantar fascia and medial calcaneal EDEMA: normal MOBILITY TESTING: normal FUNCTIONAL TESTS: Proprioception: Stork Balance Test: Left: 30 sec min mm activity Right: 30sec mod mm activity General ROS Assessment/Plan: Patient is a 55 year old male with right side ankle complaints. Patient has the following significant findings with corresponding treatment plan. Diagnosis 1: R plantar fasciitis Pain - hot/cold therapy, US, manual therapy and home program Decreased ROM/flexibility - manual therapy and therapeutic exercise Decreased strength - therapeutic exercise and therapeutic activities Decreased proprioception - neuro re-education and therapeutic activities Decreased function - therapeutic activities Previous and current functional limitations: (See Goal Flow Sheet for this information) Short term and half-way goals: (See Goal Flow Sheet for this information) Communication ability: Patient appears to be able to clearly communicate and understand verbal and written communication and follow directions correctly. Treatment Explanation - The following has been discussed with the patient: RX ordered/plan of care Anticipated outcomes Possible risks and side effects This patient would benefit from PT intervention to resume normal activities. Rehab potential is excellent. Frequency: 2 X week Duration: for 6 weeks Discharge Plan: Achieve all LTG. Independent in home treatment program. Reach maximal therapeutic benefit. Please refer to the daily flowsheet for treatment today, total treatment time and time spent performing 1:1 timed codes. documented in this encounter Plan of Treatment Not on filedocumented as of this encounter Procedures Procedure Name Priority Date/Time Associated Diagnosis Comme nts [facility] MANUAL THER Routine 09/01/2011 9:29 PM Other peripheral TECH,1+REGIONS,EA 15 CDT enthesopathies MIN [facility] ULTRASOUND THERAPY Routine 09/01/2011 9:29 PM Other periph eral CDT enthesopathies documented in this encounter Visit Diagnoses Diagnosis Other peripheral enthesopathies - Primar y documented in this encounter Care Teams Irrigation Equipment Installer Relationship Specialty Start Date End Date Nimesh Jo MD PCP - General 11/05/06 documented as of this encounter
--- OUTSIDE RECORDS SUMMARY | 2022-08-11 08:30 | XMS_ITS | Encounter Summary ---
:1955 Author Organization [facility] Address [address] [place] [address]. [place] [address] Care Team Providers Name Role Phone Nimesh Jo MD Primary Care Provider [phone] Reason for Visit Reason Onset Date Comments Refill Request 01/28/2011 Ibuprofen Encounter Details Date Type Department Care Team Description 01/28/2011 MyC Refill [facility] Nimesh Jo Refill Request Clinic TregoLaureano Huizar MD (Ibuprofen) [address] [place] [phone] (Wo rk) Social History Tobacco Use Types Packs/Day Years Used Date Former Smoker Cigarettes 1 35 Quit: 11/06/20 07 Alcohol Use Standard Drinks/Week Comments No 0 (1 standard drink = 0.6 oz pure alcoho l) Sex Assigned at Date Recorded Not on file documented as of this encounter Miscellaneous Notes Telephone Encounter - Noemí Dalton - 01/28/2011 4:07 PM CST MEDICATION(S) REQUESTED: Ibuprofen Last OV: 10/27/10 Reason for visit: presyncopes, ADRIEN, knee contusion Date last filled: 09/27/10 Creatinine Date Value Range Status 10/30/2010 0.86 0.66-1.25 (mg/dL) Final New IDMS-traceable calibration beginning 03/29/08 ] Medication approved per standing orders Noemí Dalton RN PING RECEIVING CLERK documented in this encounter Plan of Treatment Not on filedocumented as of this encounter Visit Diagnoses Diagnosis Low back pain - Primary Lumbago documented in this encounter Care Teams Auto Technician Relationship Specialty Start Date End Date Nimesh Jo MD PCP - General 11/05/06 documented as of this encounter
--- OUTSIDE RECORDS SUMMARY | 2022-08-11 08:30 | XMS_ITS | Encounter Summary ---
:1955 Author Organization [place] Address [address] [place] [address]. [place] [address] Care Team Providers Name Role Phone Rodney Jo MD Primary Care Provider [phone] Reason for Visit (Routine) - Closed Specialty Diagnoses / Procedures Referred By Contact Refer red To Contact Radiology Diagnoses US ABD LIMITED Procedure Notes: Hepatitis. Rh Ultrasound Procedures RADIOLOGY [address] [place], [place] [address] Phone: Fax: Referral ID Status Reason Start Date Expiration Date Visits Requ ested Visits Authorized [id number] Closed 11/03/2012 05/02/2013 1 1 Encounter Details Date Type Department Care Team Description 11/03/2012 Hospital Encounter [facility] Scotty Dahl MD Hepatitis Imaging [id number] [place] [address] [phone] Social History Tobacco Use Types Packs/Day Years Used Date Former Smoker Cigarettes 1 35 Quit: 11/06/20 07 Smokeless Tobacco: Never Used Alcohol Use Standard Drinks/Week Comments No 0 (1 standard drink = 0.6 oz pure alcoho l) Sex Assigned at Date Recorded Not on file documented as of this encounter Medications at Time of Discharge Medication Sig Dispensed Refills Start Date End Date ORDER FOR DMEIndications: Equipment being 1 each 0 11/03 HTN (hypertension) ordered: Blood pressure monitor amLODIPine (NORVASC) 5 MG Take 1 tablet by 90 tablet 2 05/201212/20/2012 tabletIndications: Benign mouth daily. hypertension cephALEXin (KEFLEX) 500 Take 1 capsule by 40 capsule 0 10/2712/26/2012 MG capsuleIndications: mouth 4 times Folliculitis daily. simvastatin (ZOCOR) 20 MG Take 1 tablet by 90 tablet 3 08/3103/05/2014 tabletIndications: Mixed mouth At Bedtime. hyperlipidemia sulfamethoxazole-trimetho Take 1 tablet by 20 tablet 0 09/3012/26/2012 prim (BACTRIM,SEPTRA) mouth 2 times 400-80 MG per daily. tabletIndications: Folliculitis documented as of this encounter Progress Notes Scotty Yuen MD - 11/03/2012 3:44 PM RADIATION OFFICER Quick Note: Gallstones AND fatty liver You can discuss this the next time you are seen Eboni Yuen MD ATION OFFICER documented in this encounter Plan of Treatment Not on filedocumented as of this encounter Procedures Procedure Name Priority Date/Time Associated Diagnosis Comme nts US ABDOMEN LIMITED Routine 11/03/2012 3:13 PM Hepatitis Res ults for this RADIATION OFFICER procedure are i n the results section. documented in this encounter Results US Abdomen Limited* (11/03/2012 3:13 PM RADIATION OFFICER) Anatomical Region Laterality Modality Abdomen/Pelvis Ultrasound Specimen (Source) Anatomical Collection Method Collection Time Re ceived Time Location / / Volume Laterality 11/03/2012 3:13 PM RADIATION OFFICER Impressions 11/03/2012 3:21 PM RADIATION OFFICER IMPRESSION: 1. Cholelithiasis. 2. Pancreas is obscured. 3. Fatty infiltration of the liver. 4. Remainder of the scan is unremarkable . RODNEY GARCIA MD Narrative 11/03/2012 3:21 PM RADIATION OFFICER RIGHT UPPER QUADRANT ULTRASOUND 2 3:13 PM HISTORY: ??Hepatitis. COMPARISON: ??None. FINDINGS: ??Gallbladder is normal in siz e with multiple gallstones within the gallbladder. Gallbladder wall is normal in thickness. Patient is nontender over the gallbladde r. No evidence for dilated intra or extrahepatic biliary tree. Incr eased echogenicity throughout the liver consistent with fatty infiltra tion. Liver is otherwise normal without evidence of mass. Pancrea s is obscured. Right kidney is normal. Remainder of the scan is unre markable. Procedure Note Rodney Garcia MD - 11/03/2012F ormatting of this note might be different from the original. RIGHT UPPER QUADRANT ULTRASOUND 2 3:13 PM HISTORY: Hepatitis. COMPARISON: None. FINDINGS: Gallbladder is normal in size with multiple gallstones within the gallbladder. Gallbladder wall is normal in thickness. Patient is nontender over the gallbladde r. No evidence for dilated intra or extrahepatic biliary tree. Incr eased echogenicity throughout the liver consistent with fatty infiltra tion. Liver is otherwise normal without evidence of mass. Pancrea s is obscured. Right kidney is normal. Remainder of the scan is unre markable. IMPRESSION IMPRESSION: 1. Cholelithiasis. 2. Pancreas is obscured. 3. Fatty infiltration of the liver. 4. Remainder of the scan is unremarkable . RODNEY GARCIA MD Scotty Yuen MD [facility] ORDERABLES documented in this encounter Visit Diagnoses Diagnosis Hepatitis Hepatitis, unspecified documented in this encounter Care Teams Skid Road Man Relationship Specialty Start Date End Date Rodney Jo MD PCP - General 11/05/06 documented as of this encounter
--- OUTSIDE RECORDS SUMMARY | 2022-08-11 08:30 | XMS_ITS | Encounter Summary ---
:1955 Author Organization [place] Address [address] [place] [address] Care Team Providers Name Role Phone Nimesh Jo MD Primary Care Provider Reason for Visit Reason Onset Date Comments Refill Request 06/05/2011 refill request for N orvasc 5mg Encounter Details Date Type Department Care Team Description 06/05/[address] [facility] Nimesh Jo Refill Request ([facility] [place] request for Norvasc 5mg) [id number] [place] [id number] (Wo rk) Social History Tobacco Use Types Packs/Day Years Used Date Former Smoker Cigarettes 1 35 Quit: 11/06/20 07 Alcohol Use Standard Drinks/Week Comments No 0 (1 standard drink = 0.6 oz pure alcoho l) Sex Assigned at Date Recorded Not on file documented as of this encounter Miscellaneous Notes Telephone Encounter - Noemí Dalton - 06/09/2011 9:34 AM CDT CARON, glove maker usually filled amlodipine for hypertension, can you refill?, if so approve and close Noemí Dalton RN, BSN Message handled by Nurse Triage . Telephone Encounter - Lisa Riggins - 06/05/2011 9:00 AM CDT LMOM to call jackie. NO dx in chart and does not look like our clinic rx'd the [facility]-clarify w/pt. Lisa Riggins RN Telephone Encounter - Gabriel Graysonlie - 06/05/2011 8:45 AM CDT [facility] Last Office Visit: 02/27/2011 with JOB for leg pain BP Readings from Last 3 Encounters: 02/27/11 124/78 10/27/10 138/80 01/30/10 130/70 Creatinine Date Value Range Status 10/30/2010 0.86 0.66-1.25 (mg/dL) Final New IDMS-traceable calibration beginning 03/29/08 ] CALCIUM CHANNEL BLOCKERS Calan/Verelan/IsoptinSR (verapamil) Cardizem/Dilacor/Cartia/Tiazac (diltiazem) Norvasc (amlodipine) Plendil, Procardia/Adalat, Sular OV AND REFILLS Q 12 MTHS IF BP <140/90 OV AND REFILLS Q 6 MTHS IF BP >140/90 DM <140/90 Vascular Disease: <130/80 Tests: Annual Creatinine If BP reviewed and plan is noted, can refill. Recheck BP and labs in 1-2 mths after dosage change If BP is still elevated and labs are abnormal, forward to provider. Brittany Grayson/NETO documented in this encounter Plan of Treatment Not on filedocumented as of this encounter Visit Diagnoses Diagnosis Benign hypertension - Primary Essential hypertension, benign documented in this encounter Care Teams Image Assembler Relationship Specialty Start Date End Date Nimesh Jo MD PCP - General 11/05/06 documented as of this encounter
--- OUTSIDE RECORDS SUMMARY | 2022-08-11 08:30 | XMS_ITS | Encounter Summary ---
:1955 Author Organization [place] Address [address] [place] [address]. [place] [address] Care Team Providers Name Role Phone Nimesh Jo MD Primary Care Provider [phone] Reason for Referral Referral not Required - Closed Specialty Diagnoses / Procedures Referred By Contact Refer red To Contact Diagnoses ADRIEN (obstructive sleep apnea) Nimesh JoSHERRILL, [facility] [address] [place] [address] [phone] [place] [phone] Fax: Referral ID Status Reason Start Date Expiration Date Visits Requ ested Visits Authorized [id number] Closed 10/27/2010 10/27/2010 1 1 eferral not Required - Closed Specialty Diagnoses / Procedures Referred By Contact Refer red To Contact Diagnoses Presyncopes [facility] [id number] [place] [address] [address] [place] [address] Phone: [phone] Referral ID Status Reason Start Date Expiration Date Visits Requ ested Visits Authorized [id number] Closed 10/27/2010 10/27/2010 1 1 X SYSTEMS ENGINEER Reason for Visit Reason Comments Joint Swelling left knee-painful X 2 weeks no trauma Dizziness X 1 month comes and goes for a few seconds Flu Shot declined Encounter Details Date Type Department Care Team Description 10/27/2010 Office Visit [facility] Nimesh Jo (Primary Dx); [facility] [place] Special screening for malignant neoplasm s of other sites; [address] [place] [address] Contusion of knee; [place], [place] ADRIEN (ob structive sleep apnea) [phone] Social History Tobacco Use Types Packs/Day Years Used Date Former Smoker Cigarettes 1 35 Quit: 11/06/20 07 Alcohol Use Standard Drinks/Week Comments No 0 (1 standard drink = 0.6 oz pure alcoho l) Sex Assigned at Date Recorded Not on file documented as of this encounter Last Filed Vital Signs Vital Sign Reading Time Taken Comments Blood Pressure 138/80 10/27/2010 2:13 PM LINUX SYSTEMS ENGINEER Pulse 76 10/27/2010 2:13 PM LINUX SYSTEMS ENGINEER Temperature 37.1 ??C (98.8 ??F) 10/27/2010 2:13 PM LINUX SYSTEMS ENGINEER Respiratory Rate - - Oxygen Saturation 96% 10/27/2010 2:13 PM LINUX SYSTEMS ENGINEER Inhaled Oxygen Concentration - - Weight 127 kg (280 lb) 10/27/2010 2:13 PM LINUX SYSTEMS ENGINEER Height 180.3 cm (5' 11) 10/27/2010 2:13 PM LINUX SYSTEMS ENGINEER Body Mass Index 39.05 10/27/2010 2:13 PM LINUX SYSTEMS ENGINEER documented in this encounter Progress Notes Nimesh Jo - 10/27/2010 6:31 PM CST SUBJECTIVE: CC: Sandeep Crooks is a 54 year old male who presents for multiple problems HPI: has chest tightness on exertion and a couple of episodes of light headedness this week, wants repeat Cardiac eval, needs stress echo and Consult, Prior smoker, obese, lipids, hypertension not an issue Knee pain left suprapatellar tendon, joint lines not tender, Meloxicam Arrange future labs, set up the stress test, flu shot, EKG normal here PROBLEM LIST: Patient Active Problem List Diagnoses Code ??? MIXED HYPERLIPIDEMIA 272.2 ??? TOBACCO USE DISORDER 305.1 ??? Eczema 692.9BU ??? Boil 680.9L ??? Chronic Rhinitis 472.0 ??? Trigger Finger (Acquired) 727.03 ? ? HYPERLIPIDEMIA LDL GOAL <130 272.4CK PAST MEDICAL HISTORY: History reviewed. No pertinent past medical history. PAST SURGICAL HISTORY: History reviewed. No pertinent past surgical history. CURRENT MEDICATIONS: Current outpatient prescriptions Medication Sig ??? meloxicam (MOBIC) 15 MG tablet Take 1 tablet by mouth daily. ??? SIMVASTATIN 40 MG PO TABS one half tab at bedtime ??? FLONASE 50 MCG/ACT NA SUSP USE 2 SPRAYS IN EACH NOSTRIL ONCE DAILY ??? IBUPROFEN 800 MG OR TABS TAKE ONE TABLET 3 TIMES A DAY WITH FOOD FAMILY HISTORY: Family History Problem Relation Age of Onset ??? Heart Father HEALTH MAINTENANCE: REVIEW OF OUTSIDE RECORDS: NO REVIEW OF SYSTEMS: C: NEGATIVE for fever, chills, change in weight I: NEGATIVE for worrisome rashes, moles or lesions E: NEGATIVE for vision changes or irritation E/M: NEGATIVE for ear, mouth and throat problems R: NEGATIVE for significant cough or SOB CV: NEGATIVE for chest pain, palpitations or peripheral edema GI: NEGATIVE for nausea, abdominal pain, heartburn, or change in bowel habits : NEGATIVE for frequency, dysuria, or hematuria MUSCULOSKELETAL:arthralgias right knee and back pain N: NEGATIVE for weakness, dizziness or paresthesias E: NEGATIVE for temperature intolerance, skin/hair changes H: NEGATIVE for bleeding problems P: NEGATIVE for changes in mood or affect EXAM: BP 140/82 Pulse 76 Temp(Src) 98.8 ??F (37.1 ??C) (Oral) Ht 5' 11 (1.803 m) Wt 280 lb (127.007 kg) SpO2 96% GENERAL APPEARANCE: healthy, alert and no distress EXAM: GENERAL APPEARANCE: healthy, alert and no distress EYES: EOMI, PERRL HENT: ear canals and TM's normal and nose and mouth without ulcers or lesions NECK: no adenopathy, no asymmetry, masses, or scars and thyroid normal to palpation RESP: lungs clear to auscultation - no rales, rhonchi or wheezes CV: regular rates and rhythm, normal S1 S2, no S3 or S4 and no murmur, click or rub - ABDOMEN: soft, nontender, no HSM or masses and bowel sounds normal MS: extremities normal- no gross deformities noted, no evidence of inflammation in joints, FROM in all extremities. SKIN: no suspicious lesions or rashes NEURO: Normal strength and tone, sensory exam grossly normal, mentation intact and speech normal PSYCH: mentation appears normal. and affect normal/bright LYMPHATICS: No axillary, cervical, inguinal, or supraclavicular nodes ASSESSMENT/PLAN 1. Presyncopes (780.2BK) 2. Special screening for malignant neoplasms of other sites (V76.49) 3. Contusion of knee (924.11) 4. ADRIEN (obstructive sleep apnea) (327.23H) Over 60 minutes face time with this patient mostly diagnostic workup for the cardiac issues I have discussed with patient the risks, benefits, medications, treatment options and modalities. I have instructed the patient to call or schedule a follow-up appointment if any problems or failureto improve. X SYSTEMS ENGINEER documented in this encounter Nursing Notes 10/27/2010 2:15 PM CST >> KAVITHA HASSAN Mon Oct 27, 2010 2:18 PM Patient presents with: Joint Swelling - left knee-painful X 2 weeks no trauma Dizziness - X 1 month comes and goes for a few seconds Flu Shot - declined Initial BP 140/82 Pulse 76 Temp(Src) 98.8 ??F (37.1 ??C) (Oral) Ht 5' 11 (1.803 m) Wt 280 lb (127.007 kg) SpO2 96% Estimated Body mass index is 39.05 kg/(m^2) as calculated from the following: Height as of this encounter: 5' 11(1.803 m). Weight as of this encounter: 280 lb(127.007 kg). BP completed using cuff size large r arm Health Maintenance Updated with Patient: Yes Kavitha Hassan MA documented in this encounter Plan of Treatment Pending Results Name Type Priority Associated Diagnoses Date/Ti wv EKG 12-lead complete w/read - Clinics EKG Routine Pre syncopes 10/27/2010 Scheduled Referrals Name Type Priority Associated Diagnoses Order S chedule PULMONARY MEDICINE Referral Routine ADRIEN (obstructive sleep Ordered: 10/27/2010 REFERRAL apnea) documented as of this encounter Procedures Procedure Name Priority Date/Time Associated Diagnosis Comme nts ADULT CARDIOLOGY EVAL [place] Routine 11/11/2010 Presyncop es REFERRAL documented in this encounter Results CARDIOLOGY EVAL ADULT REFERRAL (11/11/2010) Narrative This result has an attachment that is no t available. Nimesh Jo MD REFERRAL documented in this encounter Visit Diagnoses Diagnosis Presyncopes - Primary Syncope and collapse Special screening for malignant neoplasm s of other sites Contusion of knee ADRIEN (obstructive sleep apnea) Obstructive sleep apnea (adult) (pediatr ic) documented in this encounter Care Teams Sociology Instructor Relationship Specialty Start Date End Date Nimesh Jo MD PCP - General 11/05/06 documented as of this encounter
--- OUTSIDE RECORDS SUMMARY | 2022-08-11 08:30 | XMS_ITS | Encounter Summary ---
:1955 Author Organization [place] Address [address] [place] [address]. [place] [address] Care Team Providers Name Role Phone Nimesh Jo MD Primary Care Provider Reason for Visit Reason Comments Lipids f/u meds, cholesterol Derm Problem skin tag removal Allergies consult seasonal allergies Pre Visit Planning - Done PVP completed 06/29/2011 lf Encounter Details Date Type Department Care Team Description 06/30/2011 Office Visit [facility] Nimesh Jo Other specified congenital anomaly of skin (Primary Dx); [facility] [place] HTN (hypertension) [address] [place] [phone] [id number] Social History Tobacco Use Types Packs/Day Years Used Date Former Smoker Cigarettes 1 35 Quit: 11/06/20 07 Smokeless Tobacco: Never Used Alcohol Use Standard Drinks/Week Comments No 0 (1 standard drink = 0.6 oz pure alcoho l) Sex Assigned at Date Recorded Not on file documented as of this encounter Last Filed Vital Signs Vital Sign Reading Time Taken Comments Blood Pressure 138/78 06/30/2011 9:33 AM CDT Pulse 68 06/30/2011 9:33 AM CDT Temperature 36.8 ??C (98.2 ??F) 06/30/2011 9:33 AM CDT Respiratory Rate 18 06/30/2011 9:33 AM CDT Oxygen Saturation 95% 06/30/2011 9:33 AM CDT Inhaled Oxygen Concentration - - Weight 120.7 kg (266 lb) 06/30/2011 9:33 AM CDT Height 180.3 cm (5' 11) 06/30/2011 9:33 AM CDT Body Mass Index 37.1 06/30/2011 9:33 AM CDT documented in this encounter Progress Notes Brittany Grayson - 06/29/2011 5:57 PM CDT SUBJECTIVE: Sandeep Crooks is a 55 year old male is here for Ongoing Issue: BP and cholesterol check Is on Zocor, Norvasc (treatment or meds) for this. Condition/problem is: stable Side effects of Medications? no Any difficulty taking medications or doing treatments as ordered? no Any lifestyle or habit changes related to this problem? Any other concerns? Success with weight loss and regular exercise ROS: 5-Point Review of Systems Negative-- Except as stated above. EXAM: GENERAL APPEARANCE: healthy, alert and no distress PSYCH: Affect normal/bright. Mentation within normal limits. EYES: conjunctiva clear HENT: ear canals and TM's normal. Nose and mouth without ulcers, erythema or lesions NECK: supple, nontender, no lymphadenopathy RESP: lungs clear to auscultation - no rales, rhonchi or wheezes CV: regular rates and rhythm, normal S1 S2, no murmur noted ABDOMEN: soft, nontender, no HSM or masses and bowel sounds normal SKIN: no suspicious lesions or rashes ASSESSMENT/PLAN: 401.9AE HTN (hypertension) (primary encounter diagnosis) Comment: doing well Plan: improved Shave biopsy of multiple left axillary lesion , irritated and pedunculated, indication for removal is recurrent irriation and appearance is most likely tags* Options from expectant management to full thickness removal discussed with cosmetic results and technique of shave biopsy discussed and consented to. Lesion appears skin tags* and is 0.6 cm in size Hemostasis and residual tissue destruction with hyfercator. Topical antibiotic and prn for follow up care. documented in this encounter Nursing Notes 06/30/2011 9:15 AM CDT >> MARLENE Strickland Jun 30, 2011 9:36 AM Patient presents with: Lipids - f/u meds, cholesterol Derm Problem - skin tag removal Allergies - consult seasonal allergies Pre Visit Planning - Done - PVP completed 06/29/2011 lf Initial BP 140/70 Pulse 68 Temp(Src) 98.2 ??F (36.8 ??C) (Oral) Resp 18 Ht 5' 11 (1.803 m) Wt 266 lb (120.657 kg) BMI 37.10 kg/m2 SpO2 95% Estimated Body mass index is 37.10 kg/(m^2) as calculated from the following: Height as of this encounter: 5' 11(1.803 m). Weight as of this encounter: 266 lb(120.657 kg). BP completed using cuff size large Right Arm Health Maintenance reviewed - Yes: Tobacco Verified: Yes Payor/Verify RX Benefits/Reconcile Disp Completed if allowed: Yes Family History Updated: Yes MyChart Offered: Yes Immunizations Up to Date: Yes Marlene Leavitt LPN documented in this encounter Plan of Treatment Not on filedocumented as of this encounter Procedures Procedure Name Priority Date/Time Associated Comments Diagnosis HC REMOVAL OF SKIN Routine 06/30/2011 4:53 PM Other specified TAGS, FIRST 15 CDT congenital anomaly of skin ALBUMIN RANDOM URINE Routine 06/30/2011 9:54 AM HTN (hypertens ion) Results for this QUANTITATIVE CDT procedure are i n the results section. LDL CHOLESTEROL Routine 06/30/2011 9:53 AM HTN (hypertension) Results for this DIRECT CDT procedure are i n the results section. BASIC METABOLIC PANEL Routine 06/30/2011 9:53 AM HTN (hyperten nayana) Results for this CDT procedure are i n the results section. documented in this encounter Results Microalbumin quantitative random urine (06/30/2011 9:54 AM CDT) P athologist Signature Creatinine 161 mg/dL [facility] Albumin Urine 4 mg/L [facility] mg/L [facility] Albumin Urine 2.48 0 - 20 [facility] mg/g Cr mg/g Cr [facility] Specimen Anatomical Collection Method Collection Time Receive d Time (Source) Location / / Volume Laterality Urine specimen 06/30/2011 9:54 AM 011 9:56 (specimen) CDT AM CDT Nimesh Jo MD LAB - URINE ORDERABLES Performing Organization Address City/State/ZIP Code Phon e Number [facility] [address] [place] [address] [facility] (ABNORMAL) Basic metabolic panel (06/30/2011 9:53 AM CDT) athologist Signature Sodium 142 133 - 144 [place] mmol/L [facility] Potassium 4.5 3.4 - 5.3 [facility] mmol/L [facility] Chloride 105 94 - 109 [facility] mmol/L [facility] Carbon Dioxide 27 20 - 32 [facility] mmol/L [facility] Anion Gap 10 6 - 17 [facility] mmol/L [facility] Glucose 102 (H) 60 - 99 [facility] mg/dL [facility] Urea Nitrogen 15 7 - 30 [place] mg/dL [facility] Creatinine 0.88 0.66 - [facility] 1.25 mg/dL [facility] GFR Estimate >90 >60 [place] mL/min/1.7 [facility] m2 LAB GFR Estimate If >90 >60 [place] Black mL/min/1.7 [facility] m2 LAB Calcium 9.2 8.5 - 10.4 [place] mg/dL [facility] Specimen Anatomical Collection Method Collection Time Receive d Time (Source) Location / / Volume Laterality Blood specimen 06/30/2011 9:53 AM 011 9:55 (specimen) CDT AM CDT Nimesh Jo MD LAB - BLOOD ORDERABLES Performing Organization Address City/State/ZIP Code Phon e Number [facility] [address] [place] [address] [facility] LDL cholesterol direct (06/30/2011 9:53 AM CDT) athologist Signature LDL Cholesterol 97 0 - 129 [facility] Direct mg/dL [facility] Comment: Optimal: ? <100 mg/dL Near Optimal: ? 100-129 mg/dL Borderline High: ??130-159 mg/dL High: ? 160-189 mg/dL Very high: ??greater than or equal to 1 90 mg/dL Cannot estimate LDL when triglyceride e xceeds 400 mg/dL Specimen Anatomical Collection Method Collection Time Receive d Time (Source) Location / / Volume Laterality Blood specimen 06/30/2011 9:53 AM 011 9:55 (specimen) CDT AM CDT Nimesh Jo MD LAB - BLOOD ORDERABLES Performing Organization Address City/State/ZIP Code Phon e Number [facility] [address] [place] [address] [facility] documented in this encounter Visit Diagnoses Diagnosis Other specified congenital anomaly of sk in - Primary HTN (hypertension) Unspecified essential hypertension documented in this encounter Care Teams Vision Specialist Relationship Specialty Start Date End Date Nimesh Jo MD PCP - General 11/05/06 documented as of this encounter
--- OUTSIDE RECORDS SUMMARY | 2022-08-11 08:30 | XMS_ITS | Encounter Summary ---
:1955 Author Organization [place] Address [address] [place] [address]. [place] [address] Care Team Providers Name Role Phone Nimesh Jo MD Primary Care Provider Reason for Visit Reason Onset Date Comments Nurse Advice Line 08/11/2012 simvastatin refill Encounter Details Date Type Department Care Team Description 08/11/2012 Telephone [facility] Nimesh Jo Nurse Advice Line [facility] [place] MD (simvastatin refill) [address] [place] [phone] (Wo rk) Social History Tobacco Use Types Packs/Day Years Used Date Former Smoker Cigarettes 1 35 Quit: 11/06/20 07 Smokeless Tobacco: Never Used Alcohol Use Standard Drinks/Week Comments No 0 (1 standard drink = 0.6 oz pure alcoho l) Sex Assigned at Date Recorded Not on file documented as of this encounter Miscellaneous Notes Telephone Encounter - Noemí Dalton - 08/11/2012 2:31 PM CDT Pt calls, gave verbal approval to talk with , waiting on simvastatin refill, takes simvastatin 40 mg -20 mg qd, breaks in half, wants 20 mg refill, informed needs fasting MD appointment, agrees Recent Labs Lab Test 06/30/11 0953 10/30/10 0949 04/16/10 0755 CHOL -- 155 155 HDL -- 35* 27* LDL 97 102 -- TRIG -- 94 91 CHOLHDLRATIO -- 4.5 5.9* AST 43 10/30/2010 ALT 74 10/30/2010 Medication approved per standing orders Noemí Dalton RN documented in this encounter Plan of Treatment Not on filedocumented as of this encounter Visit Diagnoses Diagnosis Mixed hyperlipidemia - Primary documented in this encounter Care Teams Wet Process Miller Head Assistant Relationship Specialty Start Date End Date Nimesh Jo MD PCP - General 11/05/06 documented as of this encounter
--- OUTSIDE RECORDS SUMMARY | 2022-08-11 08:30 | XMS_ITS | Encounter Summary ---
:1955 Author Organization [facility] Address [address] [place] [address] Care Team Providers Name Role Phone Nimesh Jo MD Primary Care Provider [phone] Reason for Visit Reason Comments Consult EKG, EMG and Abdominal U/S r esults. Recheck Medication B/P medication dosage. Encounter Details Date Type Department Care Team Description 12/26/2012 Office Visit [facility] Nimesh Jo Benign hypertension (Primary Dx); [facility] [place] MD Obesity [address] [place] [phone] Social History Tobacco Use Types Packs/Day Years Used Date Former Smoker Cigarettes 1 35 Quit: 11/06/20 07 Smokeless Tobacco: Never Used Alcohol Use Standard Drinks/Week Comments No 0 (1 standard drink = 0.6 oz pure alcoho l) Sex Assigned at Date Recorded Not on file documented as of this encounter Last Filed Vital Signs Vital Sign Reading Time Taken Comments Blood Pressure 162/80 12/26/2012 10:32 AM SCREEN PRINTING PRESS OPERATOR Pulse 74 12/26/2012 10:32 AM SCREEN PRINTING PRESS OPERATOR Temperature 37 ??C (98.6 ??F) 12/26/2012 10:32 AM SCREEN PRINTING PRESS OPERATOR Respiratory Rate 16 12/26/2012 10:32 AM SCREEN PRINTING PRESS OPERATOR Oxygen Saturation 94% 12/26/2012 10:32 AM SCREEN PRINTING PRESS OPERATOR Inhaled Oxygen Concentration - - Weight 131.5 kg (290 lb) 12/26/2012 10:32 AM SCREEN PRINTING PRESS OPERATOR Height 180.3 cm (5' 11) 12/26/2012 10:32 AM SCREEN PRINTING PRESS OPERATOR Body Mass Index 40.45 12/26/2012 10:32 AM SCREEN PRINTING PRESS OPERATOR documented in this encounter Progress Notes Nimesh Jo MD - 12/26/2012 3:34 PM CST SUBJECTIVE: CC: Sandeep Crooks is a 56 year old male who presents for lipids, weight and bp HPI: he's taken up exercise and we spent more than half of todays 40 minute visit regarding counselling for diet and weight loss. Discussed lower carb, low fat reduced calorie approaches self directed and commercial PROBLEM LIST: Patient Active Problem List Diagnosis ??? Eczema ??? Chronic Rhinitis ??? Trigger Finger (Acquired) ? ? HYPERLIPIDEMIA LDL GOAL <130 ??? ADRIEN (obstructive sleep apnea) ??? Venous stasis of lower extremity ??? Obesity ??? Hepatic steatosis ??? Gallstones ??? Advanced directives, counseling/discussion ??? LVH (left ventricular hypertrophy) ??? HTN, goal below 140/90 ??? Ventral hernia PAST MEDICAL HISTORY: Past Medical History Diagnosis Date ??? Boil 05/16/2008 ??? Chronic rhinitis 01/30/2010 ??? Eczema 05/16/2008 ? ? Hyperlipidemia LDL goal <130 09/28/2010 ??? Mixed hyperlipidemia 11/12/2006 ??? Other peripheral enthesopathies 09/01/2011 ??? Tobacco use disorder 11/12/2006 ??? Trigger finger (acquired) 01/30/2010 ??? 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 ADRIEN (obstructive sleep apnea) 10/27/2012 ??? Venous stasis of lower extremity 10/27/2012 ??? HTN (hypertension) 10/27/2012 ??? Hepatic steatosis 11/03/2012 ??? Gallstones 11/03/2012 ??? LVH (left ventricular hypertrophy) 11/04/2012 ??? HTN, goal below 140/90 11/04/2012 PAST SURGICAL HISTORY: History reviewed. No pertinent past surgical history. CURRENT MEDICATIONS: Current Outpatient Prescriptions Medication Sig ??? amLODIPine (NORVASC) 5 MG tablet Take 5 mg by mouth daily. Patient takes (2) tabs daily. ??? omega-3 fatty acids (FISH OIL) 1200 MG capsule Take 1 capsule by mouth daily. Patient takes (2) capsules daily. ??? Idwueotqmts-Pcunycawu-Shx C-Mn (GLUCOSAMINE-CHONDROITINOITIN) CAPS Take by mouth. ??? lisinopril (PRINIVIL,ZESTRIL) 5 MG tablet Take 1 tablet by mouth daily. ??? ORDER FOR DME Equipment being ordered: Blood pressure monitor ??? simvastatin (ZOCOR) 20 MG tablet Take 1 tablet by mouth At Bedtime. FAMILY HISTORY: Family History Problem Relation Age of Onset ??? Heart Father HEALTH MAINTENANCE: REVIEW OF OUTSIDE RECORDS: NO REVIEW OF SYSTEMS: C: NEGATIVE for fever, chills E: NEGATIVE for vision changes R: NEGATIVE for significant cough or SOB CV: NEGATIVE for chest pain, palpitations GI: NEGATIVE for nausea, abdominal pain, heartburn, or change in bowel habits : NEGATIVE for frequency, dysuria, or hematuria M: NEGATIVE for significant arthralgias or myalgia N: NEGATIVE for weakness, dizziness or paresthesias or headache NVS:no headache or balance issus INTEG:no moles or new rashes LYMPH:no nodes or night sweats EXAM: BP 162/80 Pulse 74 Temp(Src) 98.6 ??F (37 ??C) (Oral) Resp 16 Ht 5' 11 (1.803 m) Wt 290 lb (131.543 kg) BMI 40.45 kg/m2 SpO2 94% GENERAL APPEARANCE: healthy, alert and no distress EXAM: GENERAL APPEARANCE: healthy, alert and no distress EYES: EOMI, PERRL HENT: ear canals and TM's normal and nose and mouth without ulcers or lesions RESP: lungs clear to auscultation - no rales, rhonchi or wheezes CV: regular rates and rhythm, normal S1 S2, no S3 or S4 and no murmur, click or rub - ABDOMEN: soft, nontender, no HSM or masses and bowel sounds normal BACK:no tenderness or pain on straight let raise ASSESSMENT/PLAN 1. Benign hypertension 2. Obesity I have discussed with patient the risks, benefits, medications, treatment options and modalities. I have instructed the patient to call or schedule a follow-up appointment if any problems or failureto improve. EN PRINTING PRESS OPERATOR documented in this encounter Nursing Notes 12/26/2012 10:30 AM CST >> LISA NICHOLSON Mon Dec 26, 2012 10:40 AM Patient presents with: Consult - EKG, EMG and Abdominal U/S results. Recheck Medication - B/P medication dosage. Initial BP 162/80 Pulse 74 Temp(Src) 98.6 ??F (37 ??C) (Oral) Resp 16 Ht 5' 11 (1.803 m) Wt 290 lb (131.543 kg) BMI 40.45 kg/m2 SpO2 94% Estimated Body mass index is 40.45 kg/(m^2) as calculated from the following: Height as of this encounter: 5' 11(1.803 m). Weight as of this encounter: 290 lb(131.543 kg). BP completed using cuff size large left arm. Lisa Nicholson CMA documented in this encounter Plan of Treatment Not on filedocumented as of this encounter Visit Diagnoses Diagnosis Benign hypertension - Primary Essential hypertension, benign Obesity Obesity, unspecified documented in this encounter Care Teams Vegetable Harvest Worker Relationship Specialty Start Date End Date Nimesh Jo MD PCP - General 11/05/06 documented as of this encounter
--- OUTSIDE RECORDS SUMMARY | 2022-08-11 08:30 | XMS_ITS | Encounter Summary ---
:1955 Author Organization [facility] Address [address] [place] [address] Care Team Providers Name Role Phone Nimesh Jo MD Primary Care Provider [phone] Reason for Visit Reason Onset Date Comments Refill Request 04/02/2011 flonase, simvastatin Encounter Details Date Type Department Care Team Description 04/02/2011 Refill [facility] Nimesh Jo Refill Request (flonase, Clinic Leeann Huizar MD simvastatin) [id number] [address] [place] [phone] Social History Tobacco Use Types Packs/Day Years Used Date Former Smoker Cigarettes 1 35 Quit: 11/06/20 07 Alcohol Use Standard Drinks/Week Comments No 0 (1 standard drink = 0.6 oz pure alcoho l) Sex Assigned at Date Recorded Not on file documented as of this encounter Miscellaneous Notes Telephone Encounter - Noemí Dalton - 04/02/2011 11:06 AM CDT MEDICATION(S) REQUESTED: flonase, simvastatin Last OV: 02/27/11 Reason for visit: leg pain, edema Date last filled: 06/07/10-Flonase 01/21/11-simvastatin Recent Labs Lab Test 10/30/10 0949 04/16/10 0755 ??? CHOL 155 155 ??? HDL 35* 27* ??? LDL 102 110 ??? TRIG 94 91 ??? CHOLHDLRATIO 4.5 5.9* AST 43 10/30/2010 ALT 74 10/30/2010 Medication approved per standing orders Noemí Dalton RN documented in this encounter Plan of Treatment Not on filedocumented as of this encounter Visit Diagnoses Diagnosis Mixed hyperlipidemia Chronic rhinitis documented in this encounter Care Teams Metal Reed Tuner Relationship Specialty Start Date End Date Nimesh Jo MD PCP - General 11/05/06 documented as of this encounter
--- OUTSIDE RECORDS SUMMARY | 2022-08-11 08:30 | XMS_ITS | Encounter Summary ---
:1955 Author Organization [facility] Address [address] [place] [address] Care Team Providers Name Role Phone Nimesh Jo MD Primary Care Provider Encounter Details Date Type Department Care Team Description 11/03/2012 Historic Results [facility] Heart Unknown, [address] [place] [address] Social History Tobacco Use Types Packs/Day Years Used Date Former Smoker Cigarettes 1 35 Quit: 11/06/20 07 Smokeless Tobacco: Never Used Alcohol Use Standard Drinks/Week Comments No 0 (1 standard drink = 0.6 oz pure alcoho l) Sex Assigned at Date Recorded Not on file documented as of this encounter Plan of Treatment Not on filedocumented as of this encounter Procedures Procedure Name Priority Date/Time Associated Diagnosis Comme nts ECHO CARDIAC - HIM SCAN 11/03/2012 12:[address] COMMISSIONER - ARCHIVE documented in this encounter Results ECHO CARDIAC - HIM SCAN - ARCHIVE (11/03/2012 12:[address] COMMISSIONER) Specimen (Source) Anatomical Location Collection Method / Collectio n Time Received Time / Laterality Volume 11/03/2012 Narrative This result has an attachment that is no t available. Provider Scan CV ECHO ORDERABLES documented in this encounter Visit Diagnoses Not on filedocumented in this encounter Care Teams Manual Arts Teacher Relationship Specialty Start Date End Date Nimesh Jo MD PCP - General 11/05/06 documented as of this encounter
--- OUTSIDE RECORDS SUMMARY | 2022-08-11 08:30 | XMS_ITS | Encounter Summary ---
:1955 Author Organization [facility] Address [address] [place] [address] Care Team Providers Name Role Phone Nimesh Jo MD Primary Care Provider Encounter Details Date Type Department Care Team Description 09/10/2011 Therapy Visit [facility], Other per [facility] enthesopathies Services [address] (Primary Dx) [address] [place] [address] [address] [place] [phone] Social History Tobacco Use Types Packs/Day Years [...] Priority Date/Time Associated Diagnosis Comme nts [facility] ULTRASOUND THERAPY Routine 09/10/2011 6:11 PM Other periph eral CDT enthesopathies [facility] MANUAL THER Routine 09/10/2011 6:11 PM Other peripheral TECH,1+REGIONS,EA 15 CDT enthesopathies MIN [facility] THERAPEUTIC Routine 09/10/2011 6:11 PM Other peripheral EXERCISES CDT enthesopathies documented in this encounter Visit Diagnoses Diagnosis Other peripheral enthesopathies - Primar y documented in this encounter Care Teams Perinatology Physician Relationship Specialty Start Date End Date Nimesh Jo MD PCP - General 11/05/06 documented as of this encounter
--- OUTSIDE RECORDS SUMMARY | 2022-08-11 08:30 | XMS_ITS | Encounter Summary ---
:1955 Author Organization [facility] Address [address] [place] [address] Care Team Providers Name Role Phone Rodney Akhtar MD Primary Care Provider Reason for Visit Reason Comments Allied Health Visit Encounter Details Date Type Department Care Team Description 04/02/2014 Allied Health/Nurse Health [facility] Allied Health Visit Visit [address] [phone] Social History Tobacco Use Types Packs/Day Years Used Date Former Smoker Cigarettes 1 35 Quit: 11/06/20 07 Smokeless Tobacco: Never Used Alcohol Use Standard Drinks/Week Comments No 0 (1 standard drink = 0.6 oz pure alcoho l) Sex Assigned at Date Recorded Not on file documented as of this encounter Nursing Notes Noemí Dalton RN - 04/02/2014 11:06 AM CDT Pt walks in, cardiology prescribed amlodipine 5 mg qd, RODNEY AKHTAR MD sent two tablets per day,reviewed, no increase found and pt was not aware, sent message to [facility]' informing, pt does not need now as will have 6 month supply, RODNEY AKHTAR MD fyi Medication approved per standing orders Noemí Dalton RN, BSN Message handled by Nurse Triage. documented in this encounter Plan of Treatment Not on filedocumented as of this encounter Visit Diagnoses Diagnosis HTN, goal below 140/90 - Primary Unspecified essential hypertension Benign hypertension Essential hypertension, benign documented in this encounter Care Teams Biological Plant Operator Relationship Specialty Start Date End Date Rodney Akhtar MD PCP - General 11/05/06 documented as of this encounter
--- OUTSIDE RECORDS SUMMARY | 2022-08-11 08:30 | XMS_ITS | Encounter Summary ---
:1955 Author Organization [place] [facility] Address [address] [place] [address] Care Team Providers Name Role Phone Nimesh Jo MD Primary Care Provider Reason for Referral Referral not Required - Closed Specialty Diagnoses / Procedures Referred By Contact Refer red To Contact Diagnoses Foot pain Plantar fascial fibromatosis Mason Griffin DPM [facility] [address] [facility] [address] [place] [address] [place] [address] Phone: [phone] Referral ID Status Reason Start Date Expiration Date Visits Requ ested Visits Authorized [id number] Closed 08/25/2011 02/21/2012 1 1 Specialty Diagnoses / Procedures Referred By Contact Refer red To Contact Mason Griffin DPM [address] [place] [address] Referral ID Status Reason Start Date Expiration Date Visits Requ ested Visits Authorized Reason for Visit Reason Comments Musculoskeletal Problem right heel pain. Sx for a co uple months. Encounter Details Date Type Department Care Team Description 08/25/2011 Office Visit [facility] Mason Griffin Foot p ain (Primary Dx); Clinic [place] F, DPM Plantar fascial fibromatosis [address] [phone] [place] [address] [place], [place] [address] Social History Tobacco Use Types Packs/Day Years Used Date Former Smoker Cigarettes 1 35 Quit: 11/06/20 07 Smokeless Tobacco: Never Used Alcohol Use Standard Drinks/Week Comments No 0 (1 standard drink = 0.6 oz pure alcoho l) Sex Assigned at Date Recorded Not on file documented as of this encounter Last Filed Vital Signs Vital Sign Reading Time Taken Comments Blood Pressure 132/80 08/25/2011 3:51 PM CDT Pulse 68 08/25/2011 3:51 PM CDT Temperature - - Respiratory Rate - - Oxygen Saturation - - Inhaled Oxygen Concentration - - Weight - - Height - - Body Mass Index - - documented in this encounter Progress Notes Mason Griffin, DPM - 09/01/2011 9:17 PM CDT Subjective: Patient is seen today as a new pt self referral with a 1-2 month hx of rt heel pain. Most painful upon rising in a.m. or after prolonged sitting. Denies history of trauma. Has tried changing shoewear, OTC inserts, and NSAIDS without much success. PMH, meds, all, PSH, PFH, and soc hx were reviewed Soc: Construction REVIEW OF SYSTEMS: CONSTITUTIONAL:NEGATIVE for fever, chills, change in weight INTEGUMENTARY/SKIN: NEGATIVE for worrisome rashes, moles or lesions MUSCULOSKELETAL:See HPI above NEURO: NEGATIVE for weakness, dizziness or paresthesias Objective: Pulses are palpable +2/4 DP & PT bilateral. Sensation to light touch is intact. Muscle strength and ROM is within normal limits. No sign of ulceration, infection, or drainage noted. Upon weightbearing there is a decrease in the medial longitudinal arch. Pain upon palpation to the medial slip of the plantar fascia and medial calcaneal tubercle rt. Assessment: Plantar Fasciitis rt Plan: Discussed etiology and treatment options with the patient. Recommended modifying activities, supportive shoes, ice, stretching, and not going barefoot. Referral for [facility] and [facility]. The potential causes and nature of plantar fasciitis were discussed with the patient. We reviewed the natural history/prognosis of the condition and risks if left untreated. These include chronic pain,other sites of pain due to gait changes, and potential plantar fascial rupture. We discussed possible causes of the condition as it relates to the patients specific situation. Conservative treatment options were reviewed: appropriate shoes, avoidance of barefoot walking, inserts/orthoses, stretching, ice, massage, immobilization and NSAIDs. We also reviewed the options of injection therapy and surgery. However, it was made clear that surgery is only considered when conservative therapy fails. The risks and benefits of injection therapy, and surgery were discussed. After thorough discussion and answering all questions, the patient elected to see above. documented in this encounter Nursing Notes 08/25/2011 3:30 PM CDT >> YOLY MAZA Marco A Aug 25, 2011 3:53 PM Patient presents with: Musculoskeletal Problem - right heel pain. Sx for a couple months. Initial BP 132/80 Pulse 68 Estimated Body mass index is 37.10 kg/(m^2) as calculated from the following: Height as of 06/30/11: 5' 11(1.803 m). Weight as of 06/30/11: 266 lb(120.657 kg). bp completed using cuff size: large left Yoly Maza CMA documented in this encounter Plan of Treatment Scheduled Referrals Name Type Priority Associated Diagnoses Order S chedule ORTHOTICS REFERRAL Referral Routine Foot pain Ordered: 08/25/2011 Plantar fascial fibromatosis [facility], [facility], AND Referral Routine Foot pain Ordered: 08/25/2011 CHIROPRACTIC REFERRAL Plantar fascial fibromatosis documented as of this encounter Procedures Procedure Name Priority Date/Time Associated Diagnosis Comme nts XR CALCANEUS RIGHT Routine 08/25/2011 4:26 PM Foot pain Res ults for this G/E 2 VIEWS CDT procedure are i n the results section. documented in this encounter Results X-ray rt Calcaneus/os calsis heel 2 vw (08/25/2011 4:26 PM CDT) Anatomical Region Laterality Modality Wrist Right Other Specimen (Source) Anatomical Collection Method Collection Time Re ceived Time Location / / Volume Laterality 08/25/2011 4:26 PM CDT Impressions 08/25/2011 4:44 PM CDT CALCANEUS/HEEL 2 VW RIGHT ?? Aug 25 4:26:00 PM HISTORY: ??FOOT PAIN,Weight bearing, COMPARISON: ?11/07/2007. FINDINGS: ?Contain is a small planta r calcaneal spur. No acute bony abnormalities or change since prior exam . Mason Griffin DPM [facility] ORDER SHAAN documented in this encounter Visit Diagnoses Diagnosis Foot pain - Primary Pain in limb Plantar fascial fibromatosis documented in this encounter Care Teams Sawmill Worker Relationship Specialty Start Date End Date Nimesh Jo MD PCP - General 11/05/06 documented as of this encounter
--- OUTSIDE RECORDS SUMMARY | 2022-08-11 08:30 | XMS_ITS | Encounter Summary ---
:1955 Author Organization [facility] Address [address] [place] [address]. [place] [address] Care Team Providers Name Role Phone Nimesh Jo MD Primary Care Provider Reason for Visit Reason Onset Date Comments Refill Request 09/28/2012 zocor Encounter Details Date Type Department Care Team Description 09/28/2012 Refill [facility] Nimesh Jo Refill Request (zocor) Janeth Huizar MD [address] [place] [phone] (Wo rk) Social History Tobacco Use Types Packs/Day Years Used Date Former Smoker Cigarettes 1 35 Quit: 11/06/20 07 Smokeless Tobacco: Never Used Alcohol Use Standard Drinks/Week Comments No 0 (1 standard drink = 0.6 oz pure alcoho l) Sex Assigned at Date Recorded Not on file documented as of this encounter Miscellaneous Notes Telephone Encounter - Noemí Dalton - 09/28/2012 10:58 AM CDT Last OV: 08/17/12 Reason for visit: lipid Date last filled: 08/11/12 Recent Labs Lab Test 08/17/12 0935 06/30/11 0953 10/30/10 0949 CHOL 191 -- 155 HDL 33* -- 35* LDL 130* 97 -- TRIG 144 -- 94 CHOLHDLRATIO 5.9* -- 4.5 AST 55 08/17/2012 ALT 90 08/17/2012 Medication approved per standing orders Noemí Dalton RN documented in this encounter Plan of Treatment Not on filedocumented as of this encounter Visit Diagnoses Diagnosis Mixed hyperlipidemia - Primary documented in this encounter Care Teams Supervisor Airplane Flight Attendant Relationship Specialty Start Date End Date Nimesh Jo MD PCP - General 11/05/06 documented as of this encounter
--- OUTSIDE RECORDS SUMMARY | 2022-08-11 08:30 | XMS_ITS | Encounter Summary ---
:1955 Author Organization [facility] Address [address] [place] [address]. [place] [address] Care Team Providers Name Role Phone Nimesh Jo MD Primary Care Provider Reason for Visit Reason Comments RECHECK BP was gurinder high at US and Ec hocardiogram today 160/90 and 168/100. Pt just started on and Keflex last Wednesday. Encounter Details Date Type Department Care Team Description 11/03/2012 Office Visit [facility] Devin Montelongo HTN (h ypertension) Clinic Janeth Tinsley MD (Primary Dx) [address] [id number] [phone] Social History Tobacco Use Types Packs/Day Years Used Date Former Smoker Cigarettes 1 35 Quit: 11/06/20 07 Smokeless Tobacco: Never Used Alcohol Use Standard Drinks/Week Comments No 0 (1 standard drink = 0.6 oz pure alcoho l) Sex Assigned at Date Recorded Not on file documented as of this encounter Last Filed Vital Signs Vital Sign Reading Time Taken Comments Blood Pressure 138/80 11/03/2012 4:11 PM SCHOOL ADJUSTMENT COUNSELOR Pulse 64 11/03/2012 4:05 PM SCHOOL ADJUSTMENT COUNSELOR Temperature 36.7 ??C (98 ??F) 11/03/2012 4:05 PM SCHOOL ADJUSTMENT COUNSELOR Respiratory Rate 14 11/03/2012 4:05 PM SCHOOL ADJUSTMENT COUNSELOR Oxygen Saturation - - Inhaled Oxygen Concentration - - Weight 130.2 kg (287 lb) 11/03/2012 4:05 PM SCHOOL ADJUSTMENT COUNSELOR Height 180.3 cm (5' 11) 11/03/2012 4:05 PM SCHOOL ADJUSTMENT COUNSELOR Body Mass Index 40.03 11/03/2012 4:05 PM SCHOOL ADJUSTMENT COUNSELOR documented in this encounter Progress Notes Devin Montelongo MD - 11/03/2012 4:34 PM CST SUBJECTIVE: Sandeep Crooks, a 56 year old male scheduled an appointment to discuss the following issues: HTN (hypertension) Medical, social, surgical, and family histories reviewed. ROS: C: NEGATIVE for fever, chills E: NEGATIVE for vision changes R: NEGATIVE for significant cough or SOB CV: NEGATIVE for chest pain, palpitations GI: NEGATIVE for nausea, abdominal pain, heartburn, or change in bowel habits : NEGATIVE for frequency, dysuria, or hematuria M: NEGATIVE for significant arthralgias or myalgia N: NEGATIVE for weakness, dizziness or paresthesias or headache OBJECTIVE: BP 138/80 Pulse 64 Temp(Src) 98 ??F (36.7 ??C) (Oral) Resp 14 Ht 5' 11 (1.803 m) Wt 287 lb (130.182 kg) BMI 40.03 kg/m2 EXAM: GENERAL APPEARANCE: healthy, alert and no [...] HSM or masses and bowel sounds normal ASSESSMENT/PLAN: HTN (hypertension) (primary encounter diagnosis) Comment: Plan: ORDER FOR DME 56-year-old who was seen for an echocardiogram and had an elevated blood pressure 160/92 greater than 190/100. During this time he was asymptomatic. It was suggested that he be seen in clinic. Review his chart and his history Appears to have essential hypertension and is not in good control. At this time we simply increase his amlodipine to 2 per day. His physical examination was encouraging that his cardiac sounds were normal and he is lungs were clear to auscultation. However he did on auscultation his abdomen have tenderness to palpation above the umbilicus and there was easily evident a ventral hernia. He was a smoker in the past and so I did suggest that we obtain a CT scan to rule out a AAA. Otherwise he is not complaining of abdominal pain. He also said that he did have a recent ultrasound of his abdomen to look at his gallbladder and I see suspect that they will be able to look at the aorta at that time. Since I did not feel a palpable mass and he is not complaining of abdominal pain I will await any recommendations from his primary care physician Dr. Archie Houston. He states he does have an appointment to come back and see Dr. Houston for review of his labs and at that time review of his blood pressure and echocardiogram and ultrasound of his abdomen OL ADJUSTMENT COUNSELOR documented in this encounter Plan of Treatment Not on filedocumented as of this encounter Visit Diagnoses Diagnosis HTN (hypertension) - Primary Unspecified essential hypertension documented in this encounter Care Teams Signal Maintainer Relationship Specialty Start Date End Date Nimesh Jo MD PCP - General 11/05/06 documented as of this encounter
--- OUTSIDE RECORDS SUMMARY | 2022-08-11 08:30 | XMS_ITS | Encounter Summary ---
:1955 Author Organization [facility] Address [address] [place] [address]. [place] [address] Care Team Providers Name Role Phone Nimesh Jo MD Primary Care Provider [phone] Reason for Visit Reason Comments RECHECK discuss OV with Dr. Edgar sanchez yesterday Encounter Details Date Type Department Care Team Description 10/28/2012 Office Visit [facility] Nimesh Jo Hyperl ipidemia LDL goal <130 (Primary Dx); Clinic [facility] ADRIEN (obstructive sleep apnea); [address] [place] [address] Venous stasis of lower extremity; [place], [place] HTN (hy pertension) [phone] Social History Tobacco Use Types Packs/Day Years Used Date Former Smoker Cigarettes 1 35 Quit: 11/06/20 07 Smokeless Tobacco: Never Used Alcohol Use Standard Drinks/Week Comments No 0 (1 standard drink = 0.6 oz pure alcoho l) Sex Assigned at Date Recorded Not on file documented as of this encounter Last Filed Vital Signs Vital Sign Reading Time Taken Comments Blood Pressure 140/86 10/28/2012 3:34 PM SENIOR J2EE DEVELOPER Pulse 72 10/28/2012 3:34 PM SENIOR J2EE DEVELOPER Temperature 36.7 ??C (98 ??F) 10/28/2012 3:34 PM SENIOR J2EE DEVELOPER Respiratory Rate 14 10/28/2012 3:34 PM SENIOR J2EE DEVELOPER Oxygen Saturation 96% 10/28/2012 3:34 PM SENIOR J2EE DEVELOPER Inhaled Oxygen Concentration - - Weight 130.2 kg (287 lb) 10/28/2012 3:34 PM SENIOR J2EE DEVELOPER Height - - Body Mass Index 40.03 10/27/2012 11:06 AM SENIOR J2EE DEVELOPER documented in this encounter Progress Notes Nimesh Jo MD - 10/28/2012 8:20 PM CST SUBJECTIVE: CC: Sandeep Crooks is a 56 year old male who presents for follow up of minimal sgot elevation, obesity, lipids, and follicular furuncle on his leg HPI: he has mild bilateral edema of obesity, Has echo and hepatic ultrasound pending, and I think this is [place] PROBLEM LIST: Patient Active Problem List Diagnoses ??? Eczema ??? Chronic Rhinitis ??? Trigger Finger (Acquired) ? ? HYPERLIPIDEMIA LDL GOAL <130 ??? ADRIEN (obstructive sleep apnea) ??? Venous stasis of lower extremity ??? HTN (hypertension) PAST MEDICAL HISTORY: Past Medical History Diagnosis [...] lower extremity 10/27/2012 ??? HTN (hypertension) 10/27/2012 PAST SURGICAL HISTORY: History reviewed. No pertinent past surgical history. CURRENT MEDICATIONS: Current Outpatient Prescriptions Medication Sig ??? sulfamethoxazole-trimethoprim (BACTRIM,SEPTRA) 400-80 MG per tablet Take 1 tablet by mouth 2 times daily. ??? cephALEXin (KEFLEX) 500 MG capsule Take 1 capsule by mouth 4 times daily. ??? simvastatin (ZOCOR) 20 MG tablet Take 1 tablet by mouth At Bedtime. ??? amLODIPine (NORVASC) 5 MG tablet Take 1 tablet by mouth daily. FAMILY HISTORY: Family History Problem Relation Age [...] LYMPH:no nodes or night sweats EXAM: BP 140/86 Pulse 72 Temp(Src) 98 ??F (36.7 ??C) (Oral) Resp 14 Wt 287 lb (130.182 kg) SpO2 96% GENERAL APPEARANCE: healthy, alert [...] pain on straight let raise ASSESSMENT/PLAN 1. Hyperlipidemia LDL goal <130 Hyperlipidemia LDL goal <130 (primary encounter diagnosis) Comment: Watch his glucose Hyperlipidemia LDL goal <130 (primary encounter diagnosis) Comment: Plan: ADRIEN (obstructive sleep apnea) Comment: Plan: Venous stasis of lower extremity Comment: Plan: weight loss ADRIEN (obstructive sleep apnea) Comment: Plan: Venous stasis of lower extremity Comment: Plan: HTN (hypertension) Comment: Plan: weight loss I have discussed with patient the risks, benefits, medications, treatment options and modalities. I have instructed the patient to call or schedule a follow-up appointment if any problems or failureto improve. OR J2EE DEVELOPER documented in this encounter Nursing Notes 10/28/2012 3:15 PM CST >> LUCAS SMITH WedOct 28, 2012 3:38 PM Patient presents with: RECHECK - discuss OV with Dr. Hernández from yesterday Initial BP 140/86 Pulse 72 Temp(Src) 98 ??F (36.7 ??C) (Oral) Resp 14 Wt 287 lb (130.182 kg) SpO2 96% Estimated Body mass index is 40.03 kg/(m^2) as calculated from the following: Height as of 12: 5' 11(1.803 m). Weight as of this encounter: 287 lb(130.182 kg).. BP completed using cuff size: large Lucas Simth CMA documented in this encounter Plan of Treatment Not on filedocumented as of this encounter Visit Diagnoses Diagnosis Hyperlipidemia LDL goal <130 - Primary Other and unspecified hyperlipidemia ADRIEN (obstructive sleep apnea) Obstructive sleep apnea (adult) (pediatr ic) Venous stasis of lower extremity Unspecified venous (peripheral) insuffic iency HTN (hypertension) Unspecified essential hypertension documented in this encounter Care Teams Multi Skilled Operator Relationship Specialty Start Date End Date Nimesh Jo MD PCP - General 11/05/06 documented as of this encounter
--- OUTSIDE RECORDS SUMMARY | 2022-08-11 08:30 | XMS_ITS | Encounter Summary ---
:1955 Author Organization [place] Address [address] [place] [address] Care Team Providers Name Role Phone Nimesh Jo MD Primary Care Provider Reason for Visit Reason Onset Date Comments Refill Request 01/05/2012 [facility] Encounter Details Date Type Department Care Team Description 01/05/2012 Refill [facility] Nimesh Jo Refill Request ([facility]) [facility] [place] [address] [place] [phone] (Wo rk) Social History Tobacco Use Types Packs/Day Years Used Date Former Smoker Cigarettes 1 35 Quit: 11/06/20 07 Smokeless Tobacco: Never Used Alcohol Use Standard Drinks/Week Comments No 0 (1 standard drink = 0.6 oz pure alcoho l) Sex Assigned at Date Recorded Not on file documented as of this encounter Miscellaneous Notes Telephone Encounter - Noemí Dalton - 01/05/2012 2:28 PM CST Last OV: 06/30/11 Reason for visit: HTN Date last filled: 09/14/11 BP Readings from Last 2 Encounters: 08/25/11 132/80 06/30/11 138/78 CR 0.88 06/30/2011 POTASSIUM 4.5 06/30/2011 Medication approved per standing orders Noemí Dalton RN ONAL INVESTMENT ADVISER documented in this encounter Plan of Treatment Not on filedocumented as of this encounter Visit Diagnoses Diagnosis Benign hypertension - Primary Essential hypertension, benign documented in this encounter Care Teams Final Inspector Motorcyles Relationship Specialty Start Date End Date Nimesh Jo MD PCP - General 11/05/06 documented as of this encounter
--- OUTSIDE RECORDS SUMMARY | 2022-08-11 08:30 | XMS_ITS | Encounter Summary ---
:1955 Author Organization [facility] Address [address] [place] [address] Care Team Providers Name Role Phone Nimesh Jo MD Primary Care Provider Reason for Visit Reason Onset Date Comments Refill Request 04/03/2015 lisinopril Encounter Details Date Type Department Care Team Description 04/03/2015 Refill [facility] Nimesh Jo Refill Request [facility] [place] [facility] (lisinopril) [address] [place] [phone] (Wo rk) Social History Tobacco Use Types Packs/Day Years Used Date Former Smoker Cigarettes 1 35 Quit: 11/06/20 07 Smokeless Tobacco: Never Used Alcohol Use Standard Drinks/Week Comments No 0 (1 standard drink = 0.6 oz pure alcoho l) Sex Assigned at Date Recorded Not on file documented as of this encounter Miscellaneous Notes Telephone Encounter - Noemí Dalton RN - 04/03/2015 8:26 AM CDT Last OV: 03/28/14 Reason for visit: ROUTINE, HYPERTENSION BP Readings from Last 2 Encounters: 03/28/14 138/78 02/06/13 130/80 CR 0.82 03/28/2014 POTASSIUM 4.4 03/28/2014 APPOINTMENT LETTER SENT Medication approved per standing orders Noemí Dalton RN documented in this encounter Plan of Treatment Not on filedocumented as of this encounter Visit Diagnoses Diagnosis Benign hypertension - Primary Essential hypertension, benign documented in this encounter Care Teams Lead Instructor/Flight Attendant Relationship Specialty Start Date End Date Nimesh Jo MD PCP - General 11/05/06 documented as of this encounter
--- OUTSIDE RECORDS SUMMARY | 2022-08-11 08:30 | XMS_ITS | Encounter Summary ---
:1955 Author Organization [facility] Address [address] [place] [address]. [place] [address] Care Team Providers Name Role Phone Nimesh Jo MD Primary Care Provider Reason for Visit Reason Onset Date Comments Refill Request 09/25/2015 Amlodipine Encounter Details Date Type Department Care Team Description 09/25/2015 Refill [facility] Nimesh Jo Refill Request [facility] [place] (Amlodipine) [address] [place] [phone] (Wo rk) Social History Tobacco Use Types Packs/Day Years Used Date Former Smoker Cigarettes 1 35 Quit: 11/06/20 07 Smokeless Tobacco: Never Used Alcohol Use Standard Drinks/Week Comments No 0 (1 standard drink = 0.6 oz pure alcoho l) Sex Assigned at Date Recorded Not on file documented as of this encounter Miscellaneous Notes Telephone Encounter - Noemí Dalton RN - 09/27/2015 2:34 PM CDT left message for call back, OVERDUE for visit, also sent message to pharmacy informing pt to call Noemí Dalton RN Telephone Encounter - Noemí Dalton RN - 09/27/2015 11:09 AM CDT See below, pt has been informed to make appointment, no appointment made, last refill in March Telephone Encounter - Noemí Pruett - 09/25/2015 4:29 PM CDT Pending Prescriptions: Disp Refills amLODIPine (NORVASC) 5 MG tablet 90 tab*1 Sig: Take 1 tablet (5 mg) by mouth daily FYI, SENDING UPDATED DIRECTIONS, PT DOES NOT NEED FILLED NOW Amlodipine Besylate 5MG Tab Last Written Prescription Date: 04/02/2014 Last Fill Quantity: 90, # refills: 1 Last [place] [facility] [place]: 03/28/2014 De[place] POTASSIUM Date Value Ref Range Status 03/28/2014 4.4 3.4 - 5.3 mmol/L Final CREATININE Date Value Ref Range Status 03/28/2014 0.82 0.66 - 1.25 mg/dL Final BP Readings from Last 3 Encounters: 03/28/14 138/78 02/06/13 130/80 12/26/12 162/80 documented in this encounter Plan of Treatment Not on filedocumented as of this encounter Visit Diagnoses Diagnosis Benign hypertension - Primary Essential hypertension, benign HTN, goal below 140/90 Unspecified essential hypertension documented in this encounter Care Teams Director Funds Development Relationship Specialty Start Date End Date Nimesh Jo MD PCP - General 11/05/06 documented as of this encounter
--- OUTSIDE RECORDS SUMMARY | 2022-08-11 08:30 | XMS_ITS | Encounter Summary ---
:1955 Author Organization [facility] Address [address] [place] [address] Care Team Providers Name Role Phone Nimesh Jo MD Primary Care Provider [phone] Reason for Visit Reason Onset Date Comments Refill Request 12/20/2012 [facility] Encounter Details Date Type Department Care Team Description 12/20/[address] [facility] Nimesh Jo Refill Request ([facility]) Clinic [place] MD Bhupendra [address] [place] [phone] (Wo rk) Social History Tobacco Use Types Packs/Day Years Used Date Former Smoker Cigarettes 1 35 Quit: 11/06/20 07 Smokeless Tobacco: Never Used Alcohol Use Standard Drinks/Week Comments No 0 (1 standard drink = 0.6 oz pure alcoho l) Sex Assigned at Date Recorded Not on file documented as of this encounter Miscellaneous Notes Telephone Encounter - Brianna Shaw - 12/20/2012 2:04 PM CST Date of last OV: 11/03/12 Reason for visit: HTN Date last filled: 09/23/12 #90 Labs pertaining to med: BP Readings from Last 2 Encounters: 11/03/12 138/80 10/28/12 140/86 CR 0.74 10/27/2012 POTASSIUM 4.3 10/27/2012 Unable to approve per standing orders, routed to provider. Brianna Shaw RN ERCIAL REAL ESTATE AGENT documented in this encounter Plan of Treatment Not on filedocumented as of this encounter Visit Diagnoses Diagnosis Benign hypertension - Primary Essential hypertension, benign documented in this encounter Care Teams Lead Software Architect Relationship Specialty Start Date End Date Nimesh Jo MD PCP - General 11/05/06 documented as of this encounter
--- OUTSIDE RECORDS SUMMARY | 2022-08-11 08:30 | XMS_ITS | Encounter Summary ---
:1955 Author Organization [facility] Address [address] [place] [address]. [place] [address] Care Team Providers Name Role Phone Nimesh Jo MD Primary Care Provider Reason for Visit Reason Comments Physical Blood Draw fasting Encounter Details Date Type Department Care Team Description 03/28/2014 Office Visit [facility] Nimesh Jo e general medical examination at a health care facility (Primary Dx); Clinic Janeth Huizar MD Hyperlipidemia LDL goal <130; [id number] [place] [phone] [phone] Social History Tobacco Use Types Packs/Day Years [...] Mass Index 36.08 03/28/2014 9:35 AM CDT documented in this encounter Patient Instructions Patient InstructionsJany Vincent CMA - 03/28/2014 9:37 AM CDT Preventive Health Recommendations Male Ages 50 - 64 Yearly exam: ?? See your health care provider every year in order to o Review health changes. o Discuss preventive care. o Review your medicines if your doctor has prescribed any. ??? Have a cholesterol test every 5 years, or more frequently if you are at risk for high cholesterol/heart disease. ??? Have a diabetes test (fasting glucose) every three years. If you are at risk for diabetes, you should have this test more often. ??? Have a colonoscopy at age 50, or have a yearly FIT test (stool test). These exams will check forcolon cancer. ??? Talk with your health care provider about whether or not a prostate cancer screening test (PSA) is right for you. ??? You should be tested each year for STDs (sexually transmitted diseases), if you???re at risk. Shots: Get a flu shot each year. Get a tetanus shot every 10 years. Nutrition: ??? Eat at least 5 servings of fruits and vegetables daily. ??? Eat whole-grain bread, whole-wheat pasta and brown rice instead of white grains and rice. ??? For bone health: Eat calcium-rich foods or take calcium pills (500 to 600 mg) twice a day with food. Also take vitamin D (1000 IU) each day. Lifestyle ??? Exercise for at least 150 minutes a week (30 minutes a day, 5 days a week). This will help you control your weight and prevent disease. ??? Limit alcohol to one drink per day. ??? No smoking. ??? Wear sunscreen to prevent skin cancer. ??? See your dentist every six months for an exam and cleaning. ??? See your eye doctor every 1 to 2 years. ??? documented in this encounter Progress Notes Nimesh Jo MD - 03/28/2014 9:37 AM CDT SUBJECTIVE: CC: Sandeep Crooks is an 58 year old male who presents for preventative health visit. Healthy Habits: ?? Do you get at least three servings of calcium containing foods daily (dairy, green leafy vegetables, etc.)? yes ?? Amount of exercise or daily activities, outside of work: 5 day(s) per week ?? Problems taking medications regularly No ?? Medication side effects: No ?? Have you had an eye exam in the past two years? yes ?? Do you see a dentist twice per year? yes ?? Do you have sleep apnea, excessive snoring or daytime drowsiness?yes, wears the CPAP Other concerns to address: none Today's PHQ-2 Score: Abuse: Current or Past(Physical, Sexual or Emotional)- No Do you feel safe in your environment - Yes History Substance Use Topics ??? Smoking status: Former Smoker -- 1.00 packs/day for 35 years Types: Cigarettes Quit date: 11/06/2007 ??? Smokeless tobacco: Never Used ??? Alcohol Use: No The patient does not drink >3 drinks per day nor >7 drinks per week. Last PSA: PSA Date Value Range Status 08/17/2012 0.80 0 - 4 ug/L Final Recent Labs Lab Test 08/17/12 0935 06/30/11 0953 10/30/10 0949 CHOL 191 -- 155 HDL 33* -- 35* LDL 130* 97 102 TRIG 144 -- 94 CHOLHDLRATIO 5.9* -- 4.5 Reviewed orders with patient. Reviewed health maintenance and updated orders accordingly - Yes All Histories reviewed and updated in [facility]. 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 ROS: C: NEGATIVE for fever, chills, change in weight I: NEGATIVE for worrisome rashes, moles or lesions E: NEGATIVE for vision changes or irritation ENT: NEGATIVE for ear, mouth and throat problems R: NEGATIVE for significant cough or SOB CV: NEGATIVE for chest pain, palpitations or peripheral edema GI: NEGATIVE for nausea, abdominal pain, heartburn, or change in bowel habits male: negative for dysuria, hematuria, decreased urinary stream, erectile dysfunction, urethral discharge M: NEGATIVE for significant arthralgias or myalgia N: NEGATIVE for weakness, dizziness or paresthesias P: NEGATIVE for changes in mood or affect Problem list, Medication list, Allergies, and Medical/Social/Surgical histories reviewed in EPIC andupdated as appropriate. OBJECTIVE: Ht 6' (1.829 m) Wt 266 lb (120.657 kg) BMI 36.07 kg/m2 Estimated body mass index is 36.07 kg/(m^2) as calculated from the following: Height as of this encounter: 6' (1.829 m). Weight as of this encounter: 266 lb (120.657 kg). GENERAL APPEARANCE: healthy, alert and no distress EYES: Eyes grossly normal to inspection, PERRL and conjunctivae and sclerae normal HENT: ear canals and TM's normal, nose and mouth without ulcers or lesions, oropharynx clear and oral mucous membranes moist NECK: no adenopathy, no asymmetry, masses, or scars and thyroid normal to palpation RESP: lungs clear to auscultation - no rales, rhonchi or wheezes CV: regular rates and rhythm, normal S1 S2, no S3 or S4, no murmur, click or rub, no peripheral edema and peripheral pulses strong ABDOMEN: soft, nontender, no hepatosplenomegaly, no masses and bowel sounds normal (male): normal male genitalia without lesions or urethral discharge, no hernia RECTAL: normal sphincter tone, no rectal masses, prostate of normal size, smooth, nontender without nodules or masses MS: no musculoskeletal defects are noted and gait is age appropriate without ataxia SKIN: no suspicious lesions or rashes NEURO: Normal strength and tone, sensory exam grossly normal, mentation intact and speech normal PSYCH: mentation appears normal and affect normal/bright ASSESSMENT/PLAN: (V70.0) Routine general medical examination at a health care facility (primary encounter diagnosis) Comment: Plan: Comprehensive metabolic panel, Lipid panel reflex to direct LDL, PSA, screen obesitty (272.4) Hyperlipidemia LDL goal <130 Comment: Plan: simvastatin (ZOCOR) 20 MG tablet (401.1) Benign hypertension Comment: Plan: amLODIPine (NORVASC) 5 MG tablet, lisinopril (PRINIVIL,ZESTRIL) 5 MG tablet Counseling Resources: ATP III Guidelines FRAX Risk Assessment ICSI Preventive Guidelines Dietary Guidelines for Americans, 2010 USDA's MyPlate regular exercise healthy diet/nutrition vision screening reports that he quit smoking about 6 years ago. His smoking use included Cigarettes. He has a 35 pack-year smoking history. He has never used smokeless tobacco. Estimated body mass index is 36.07 kg/(m^2) as calculated from the following: Height as of this encounter: 6' (1.829 m). Weight as of this encounter: 266 lb (120.657 kg). Weight management plan: Diet regimen was discussed and plan is self-directed dieting: reduce calories and reduce carbs. Nimesh Jo MD, MD [facility] documented in this encounter Nursing Notes Jany Vincent CMA - 03/28/2014 9:41 AM CDT Chief Complaint Patient presents with ??? Physical ??? Blood Draw fasting Initial BP 138/78 Pulse 52 Temp(Src) 97.9 ??F (36.6 ??C) (Oral) Resp 12 Ht 6' (1.829 m) Wt266 lb (120.657 kg) BMI 36.07 kg/m2 SpO2 96%BMIHIS@ BP completed using cuff size large rt Arm Health Maintenance Updated with Patient:Yes Tobacco Verified: Yes Payor/Verify RX Benefits/Reconcile Disp Completed if allowed: Yes Family History Updated: Yes Immunizations Up to Date: yes Mychart Offered: Yes Jany Vincent MA documented in this encounter Plan of Treatment Not on filedocumented as of this encounter Procedures Procedure Name Priority Date/Time Associated Comments Diagnosis PROSTATE SPECIFIC Routine 03/28/2014 10:11 Routine general Res ults for this ANTIGEN SCREEN AM CDT medical examination proced ure are in at a health care the results facility section. LIPID REFLEX TO DIRECT Routine 03/28/2014 10:11 Routine genera l Results for this LDL PANEL AM CDT medical examination procedur e are in at a health care the results facility section. COMPREHENSIVE Routine 03/28/2014 10:11 Routine general Results for this METABOLIC PANEL AM CDT medical examination proce dure are in at a health care the results facility section. documented in this encounter Results PSA, screen (03/28/2014 10:11 AM CDT) athologist Signature PSA 0.76 0 - 4 ug/L [facility] Specimen Anatomical Collection Method Collection Time Receive d Time (Source) Location / / Volume Laterality Blood specimen 03/28/2014 10:11 4 (specimen) AM CDT 10:12 AM CDT Nimesh Jo MD LAB - BLOOD ORDERABLES Performing Organization Address City/[facility] Code Phon e Number [facility] [place] [address] [place] [address] [facility] [address] [place], [place] [address] (ABNORMAL) Lipid panel reflex to direct LDL (03/28/2014 10:11 AM CDT) athologist Signature Cholesterol 158 <200 mg/dL [facility] Comment: LDL Cholesterol is the primary guide to therapy. The NCEP recommends further evaluation of: patients with cholesterol greater than 200 mg/dL if additional risk facto rs are present, cholesterol greater than 240 mg/dL, triglycerides greater than 1 50 mg/dL, or HDL less than 40 mg/dL. Triglycerides 95 0 - 150 mg/dL [facility] [place] HDL Cholesterol 31 (L) >40 mg/dL [facility] [place] LDL Cholesterol Calculated 107 0 - 129 mg/dL [facility] Comment: LDL Cholesterol is the primary guide to therapy: LDL-cholesterol goal in high risk patients is <100 mg/dL and in very high risk patients is <70 mg/dL. VLDL-Cholesterol 19 0 - 30 mg/dL [facility] [place] Cholesterol/HDL Ratio 5.0 0.0 - 5.0 [facility] Specimen Anatomical Collection Method Collection Time Receive d Time (Source) Location / / Volume Laterality Blood specimen 03/28/2014 10:11 4 (specimen) AM CDT 10:12 AM CDT Nimesh Jo MD LAB - BLOOD ORDERABLES Performing Organization Address City/[facility]/ZIP Code Phon e Number [facility] [address] [place] [address] Comprehensive metabolic panel (03/28/2014 10:11 AM CDT) P athologist Signature Sodium 143 133 - 144 [place] mmol/L [facility] Potassium 4.4 3.4 - 5.3 [place] mmol/L [facility] Chloride 104 94 - 109 [place] mmol/L [facility] Carbon Dioxide 25 20 - 32 [place] mmol/L [facility] Anion Gap 14 6 - 17 [place] mmol/L [facility] Glucose 98 60 - 99 [place] mg/dL [facility] Comment: Fasting specimen Urea Nitrogen 15 7 - 30 mg/dL [facility] [place] Creatinine 0.82 0.66 - 1.25 mg/dL [facility] [place] GFR Estimate >90 >60 mL/min/1.7m2 [facility] [facility] [place] GFR Estimate If Black >90 >60 mL/min/1.7m2 F [facility] Calcium 9.1 8.5 - 10.4 mg/dL [facility] [place] Bilirubin Total 0.6 0.2 - 1.3 mg/dL [facility] Albumin 4.2 3.3 - 4.9 g/dL [facility] [place] Comment: Reference range changed on 07/31. Protein Total 7.5 6.8 - 8.8 g/dL [facility] [place] Comment: As of 08, reference range reflects plasma specimen type. Alkaline Phosphatase 68 40 - 150 U/L [facility] [place] ALT 57 0 - 70 U/L [facility] [place] AST 37 0 - 45 U/L [facility] [place] Specimen Anatomical Collection Method Collection Time Receive d Time (Source) Location / / Volume Laterality Blood specimen 03/28/2014 10:11 4 (specimen) AM CDT 10:12 AM CDT Nimesh Jo MD LAB - BLOOD ORDERABLES Performing Organization Address City/State/ZIP Code Phon e Number [facility] [address] [place] [address] documented in this encounter Visit Diagnoses Diagnosis Routine general medical examination at a health care facility - Primary Hyperlipidemia LDL goal <130 Other and unspecified hyperlipidemia Benign hypertension Essential hypertension, benign documented in this encounter Care Teams Electric Refrigerator Preparer Relationship Specialty Start Date End Date Nimesh Jo MD PCP - General 11/05/06 documented as of this encounter
--- OUTSIDE RECORDS SUMMARY | 2022-08-11 08:30 | XMS_ITS | Encounter Summary ---
:1955 Author Organization [facility] Address [address] [place] [id number] Care Team Providers Name Role Phone Nimesh Jo MD Primary Care Provider Reason for Visit Reason Onset Date Comments Refill Request 02/04/2012 ibuprofen Encounter Details Date Type Department Care Team Description 02/04/2012 Refill [facility] Nimesh Jo Refill Request Clinic [place] MD Bhupendra (ibuprofen) [address] [place] [id number] [phone] (Wo rk) Social History Tobacco Use Types Packs/Day Years Used Date Former Smoker Cigarettes 1 35 Quit: 11/06/20 07 Smokeless Tobacco: Never Used Alcohol Use Standard Drinks/Week Comments No 0 (1 standard drink = 0.6 oz pure alcoho l) Sex Assigned at Date Recorded Not on file documented as of this encounter Miscellaneous Notes Telephone Encounter - Noemí Dalton - 02/04/2012 3:43 PM CST Last OV: 06/30/11 Reason for visit: HTN Date last filled: 07/27/11 Creatinine Date Value Range Status 06/30/2011 0.88 0.66-1.25 (mg/dL) Final ] Medication approved per standing orders Noemí Dalton RN HANDLER documented in this encounter Plan of Treatment Not on filedocumented as of this encounter Visit Diagnoses Diagnosis Low back pain - Primary Lumbago documented in this encounter Care Teams Analytics Intern Relationship Specialty Start Date End Date Nimesh Jo MD PCP - General 11/05/06 documented as of this encounter
--- OUTSIDE RECORDS SUMMARY | 2022-08-11 08:30 | XMS_ITS | Encounter Summary ---
:1955 Author Organization [facility] Address [address] [place] [address]. [place] [address] Care Team Providers Name Role Phone Nimesh Jo MD Primary Care Provider [phone] Reason for Referral - Closed Specialty Diagnoses / Procedures Referred By Contact Refer red To Contact Diagnoses Obesity Scotty Yuen MD [address] [place] [address] [facility] Referral ID Status Reason Start Date Expiration Date Visits Requ ested Visits Authorized [id number] Closed 10/27/2012 04/25/2013 1 1 eferral not Required - Closed Specialty Diagnoses / Procedures Referred By Contact Refer red To Contact Diagnoses Paresthesia of right arm Scotty Yuen MD [phone] [place] [address] [place] [address] Phone: Fax: Referral ID Status Reason Start Date Expiration Date Visits Requ ested Visits Authorized [id number] Closed 10/27/2012 04/25/2013 1 1 CTOR OF PHOTOGRAPHY Reason for Visit Reason Comments Derm Problem abcess on lt calf, drained, tender to the touch, little warm 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 Tingling all fingers in rt hand ting ling since Auguest, had fusion in rt wrist 12 yrs ago Encounter Details Date Type Department Care Team Description 10/27/2012 Office Visit [facility] Scotty Yuen, Sunitha vera (Primary Dx); Clinic Janeth Tinsley MD Hepatitis; [address] [facility] [phone] [place] [address] Dyspnea; [facility] [place] Venous stasis; [id number] Obesity; [phone] Paresthesia of right arm; (Work) Need for Tdap vaccination Social History Tobacco Use Types Packs/Day Years Used Date Former Smoker Cigarettes 1 35 Quit: 11/06/20 07 Smokeless Tobacco: Never Used Alcohol Use Standard Drinks/Week Comments No 0 (1 standard drink = 0.6 oz pure alcoho l) Sex Assigned at Date Recorded Not on file documented as of this encounter Last Filed Vital Signs Vital Sign Reading Time Taken Comments Blood Pressure 122/86 10/27/2012 11:06 AM DIRECTOR OF PHOTOGRAPHY Pulse 61 10/27/2012 11:06 AM DIRECTOR OF PHOTOGRAPHY Temperature 36.8 ??C (98.3 ??F) 10/27/2012 11:06 AM DIRECTOR OF PHOTOGRAPHY Respiratory Rate 12 10/27/2012 11:06 AM DIRECTOR OF PHOTOGRAPHY Oxygen Saturation 96% 10/27/2012 11:06 AM DIRECTOR OF PHOTOGRAPHY Inhaled Oxygen Concentration - - Weight 130.6 kg (288 lb) 10/27/2012 11:06 AM DIRECTOR OF PHOTOGRAPHY Height 180.3 cm (5' 11) 10/27/2012 11:06 AM DIRECTOR OF PHOTOGRAPHY Body Mass Index 40.17 10/27/2012 11:06 AM DIRECTOR OF PHOTOGRAPHY documented in this encounter Patient Instructions Patient InstructionsScotty Yuen MD - 10/27/2012 11:38 AM CST Knee high elastic socks CTOR OF PHOTOGRAPHY documented in this encounter Progress Notes Scotty Yuen MD - 10/31/2012 2:44 PM DIRECTOR OF PHOTOGRAPHY Quick Note: Wound culture is no help Scotty Yuen MD CTOR OF PHOTOGRAPHY Scotty Yuen MD - 10/27/2012 12:20 PM CST Slowly growing spot left lower leg lateral aspect upper third for about a week seems to be getting worse. No therapies tried Hepatitis On previous chem panel. Low-grade. 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 Palliatives and provocatives Not noted Venous stasis observed today. Obesity BMI over 40 Paresthesia of right arm Hypoesthesia and tingling. He has had numerous surgeries including carpal tunnel ORIF some sort of elbow surgery on the side. Lungs been the case is unclear Need for Tdap vaccination Will accept Past Medical History Diagnosis Date ??? Boil 05/16/2008 ??? Chronic rhinitis 01/30/2010 ??? Eczema 05/16/2008 ? ? Hyperlipidemia LDL goal <130 09/28/2010 ??? Mixed hyperlipidemia 11/12/2006 ??? Other peripheral enthesopathies 09/01/2011 ??? Tobacco use disorder 11/12/2006 ??? Trigger finger (acquired) 01/30/2010 ??? 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 ADRIEN (obstructive sleep apnea) 10/27/2012 ??? Venous stasis of lower extremity 10/27/2012 ??? HTN (hypertension) 10/27/2012 ROS no jaundice no pruritus no chest pain variable edema never great SOC quit smoking believes he exercises. Just retired BP 122/86 Pulse 61 Temp(Src) 98.3 ??F (36.8 ??C) (Oral) Resp 12 Ht 5' 11 (1.803 m) Wt 288lb (130.636 kg) BMI 40.17 kg/m2 SpO2 96% Scars about right arm Trace edema, brawny changes in legs Lesion is 8 mm infected follicle with no fluid, no streaking, slight pain No icterus Results for orders placed in visit on 10/27/12 HC SPIROMETRY, BREATH CAPACITY Component Value Range FEV-1 FVC FEV1/FVC FEF 25/75 Nl spirometry ASSESSMENT / PLAN: Folliculitis (primary encounter diagnosis) Comment: question MRSA Plan: Wound culture, sulfamethoxazole-trimethoprim (BACTRIM,SEPTRA) 400-80 MG per tablet, cephALEXin (KEFLEX) 500 MG capsule Hepatitis Comment: broaden data base Plan: Comprehensive metabolic panel, US Abdomen Limited* Dyspnea Comment: echo Plan: Spirometry, Breathing Capacity: Normal Order, Clinic Performed Discussed exercise, ADRIEN contributions Venous stasis Comment: recommend support hose Plan: Echocardiogram Obesity Comment: increasing Plan: BARIATRIC ADULT REFERRAL Paresthesia of right arm Comment: Plan: NEUROLOGY ADULT REFERRAL ncv Need for Tdap vaccination Comment: Will accept Plan: ADACEL (TDAP) Recheck post antibiotics Scotty Yuen MD CTOR OF PHOTOGRAPHY documented in this encounter Nursing Notes 10/27/2012 11:00 AM CST >> LISA NICHOLSON [facility] Oct 27, 2012 12:48 PM Tdap injection given. See Immunization section for details. Lisa Nicholson, 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 Tingling - all fingers in rt hand tingling since , had fusion in rt wrist 12 yrs ago Initial BP 122/86 Pulse 61 Temp(Src) 98.3 ??F (36.8 ??C) (Oral) Resp 12 Ht 5' 11 (1.803 m) Wt 288 lb (130.636 kg) BMI 40.17 kg/m2 SpO2 96%BMIHIS@ BP completed using cuff size large rt Arm Health Maintenance Updated with Patient:Yes Tobacco Verified: Yes Payor/Verify RX Benefits/Reconcile Disp Completed if allowed: Yes Family History Updated: Yes Immunizations Up to Date: no Mychart Offered: Yes Jany Craig MA documented in this encounter Plan of Treatment Scheduled Referrals Name Type Priority Associated Diagnoses Order S chedule BARIATRIC ADULT REFERRAL Referral Routine Obesity Ord ered: 10/27/2012 documented as of this encounter Procedures Procedure Name Priority Date/Time Associated Diagnosis Comme nts ADULT NEUROLOGY Routine 11/24/2012 Paresthesia of right FRAMING CONSULTANT REFERRAL arm WOUND CULTURE AEROBIC Routine 10/27/2012 12:08 Folliculitis Re sults for this BACTERIAL PM DIRECTOR OF PHOTOGRAPHY procedure are i n the results section. COMPREHENSIVE Routine 10/27/2012 12:05 Hepatitis Results fo r this METABOLIC PANEL PM DIRECTOR OF PHOTOGRAPHY procedure ar e in the results section. HC SPIROMETRY, BREATH Routine 10/27/2012 11:46 Dyspnea Re sults for this CAPACITY AM DIRECTOR OF PHOTOGRAPHY procedure are i n the results section. documented in this encounter Results NEUROLOGY ADULT REFERRAL (11/24/2012) Narrative This result has an attachment that is no t available. Scotty Yuen MD REFERRAL Wound culture (10/27/2012 12:08 PM DIRECTOR OF PHOTOGRAPHY) Patholo gist Method Time Signature Specimen Left Leg [facility] LAB Culture Micro Normal [facility] skin zoë MICROBIOLOGY Micro Report FINAL [facility] Status 10/29/2012 MICROBIOLOGY Specimen Anatomical Collection Method Collection Time Receive d Time (Source) Location / / Volume Laterality Specimen from 10/27/2012 12:08 10/27/2012 wound (specimen) PM DIRECTOR OF PHOTOGRAPHY 12:10 PM CS T Scotty Yuen MD LAB - MICRO GENERAL ORDERABL ES Performing Organization Address City/State/ZIP Code Phon e Number [id number] [place] [address] LAB [facility] MICROBIOLOGY (ABNORMAL) Comprehensive metabolic panel (10/27/2012 12:05 PM DIRECTOR OF PHOTOGRAPHY) athologist Signature Sodium 138 133 - 144 [place] mmol/L [facility] Potassium 4.3 3.4 - 5.3 [place] mmol/L [facility] Chloride 105 94 - 109 [place] mmol/L [facility] Carbon Dioxide 23 20 - 32 [place] mmol/L [facility] Anion Gap 10 6 - 17 [place] mmol/L [facility] Glucose 104 (H) 60 - 99 [place] mg/dL [facility] Urea Nitrogen 12 7 - 30 [place] mg/dL [facility] Creatinine 0.74 0.66 - [facility] 1.25 mg/dL [facility] GFR Estimate >90 >60 [place] mL/min/1.7 [facility] m2 LAB GFR Estimate If >90 >60 [place] Black mL/min/1.7 [facility] m2 LAB Calcium 8.9 8.5 - 10.4 [place] mg/dL [facility] Bilirubin Total 0.6 0.2 - 1.3 [place] mg/dL [facility] Albumin 4.1 3.3 - 4.9 [place] g/dL [facility] Comment: Reference range changed on 07/31. Protein Total 7.2 6.8 - 8.8 g/dL [facility] Comment: As of 08, reference range reflects plasma specimen type. Alkaline Phosphatase 76 40 - 150 U/L [facility] ALT 95 (H) 0 - 70 U/L [place] [facility] AST 53 (H) 0 - 45 U/L [facility] Specimen Anatomical Collection Method Collection Time Receive d Time (Source) Location / / Volume Laterality Blood specimen 10/27/2012 12:05 2 (specimen) PM DIRECTOR OF PHOTOGRAPHY 12:06 PM DIRECTOR OF PHOTOGRAPHY Scotty Yuen MD LAB - BLOOD ORDERABLES Performing Organization Address City/State/ZIP Code Phon e Number [facility] [address] [place] [address] [facility] LAB Spirometry, Breathing Capacity: Normal Order, Clinic Performed (10/27/2012 11:46 AM DIRECTOR OF PHOTOGRAPHY) P athologist Signature FEV-1 FVC FEV1/FVC FEF 25/75 Specimen (Source) Anatomical Collection Method Collection Time Re ceived Time Location / / Volume Laterality 10/27/2012 11:46 AM DIRECTOR OF PHOTOGRAPHY Narrative This result has an attachment that is no t available. Scotty Yuen MD PROCEDURES documented in this encounter Visit Diagnoses Diagnosis Folliculitis - Primary Other specified disease of hair and hair follicles Hepatitis Hepatitis, unspecified Dyspnea Other dyspnea and respiratory abnormalit y Venous stasis Unspecified venous (peripheral) insuffic iency Obesity Obesity, unspecified Paresthesia of right arm Disturbance of skin sensation Need for Tdap vaccination Need for prophylactic vaccination with c ombined [id number] (DTP) vaccine documented in this encounter Care Teams Bet Taker Relationship Specialty Start Date End Date Nimesh Jo MD PCP - General 11/05/06 documented as of this encounter
--- OUTSIDE RECORDS SUMMARY | 2022-08-11 08:30 | XMS_ITS | Encounter Summary ---
:1955 Author Organization [facility] Address [address] [place] [address]. [place] [address] Care Team Providers Name Role Phone Nimesh Jo MD Primary Care Provider Encounter Details Date Type Department Care Team Description 11/04/2012 Orders Only [facility] Nimesh Jo Holbrook MD [address] [place] [address] [phone] [place] [address] (Wo rk) Social History Tobacco Use Types [...] Name Priority Date/Time Associated Diagnosis Comme nts EMG Routine 11/04/2012 Results for thi s procedure are in the resu lts section. documented in this encounter Results EMG (11/04/2012) Narrative This result has an attachment that is no t available. Nimesh Jo MD IP NEUROLOGY ORDERABLES documented in this encounter Visit Diagnoses Not on filedocumented in this encounter Care Teams Oil Boiler Relationship Specialty Start Date End Date Nimesh Jo MD PCP - General 11/05/06 documented as of this encounter
--- OUTSIDE RECORDS SUMMARY | 2022-08-11 08:30 | XMS_ITS | Encounter Summary ---
:1955 Author Organization [facility] Address [address] [place] [address]. [place] [address] Care Team Providers Name Role Phone Nimesh Jo MD Primary Care Provider Reason for Visit Reason Comments Hypertension 6 week med check Weight Loss f/u on diet Encounter Details Date Type Department Care Team Description 02/06/2013 Office Visit [facility] Nimesh Jo Obesit y (Primary Dx); Clinic Janeth Huizar MD HTN, goal below 140/90; [id number] [facility] [id number] [place] [address] [place] [phone] [phone] Social History Tobacco Use Types Packs/Day Years Used Date Former Smoker Cigarettes 1 35 Quit: 11/06/20 07 Smokeless Tobacco: Never Used Alcohol Use Standard Drinks/Week Comments No 0 (1 standard drink = 0.6 oz pure alcoho l) Sex Assigned at Date Recorded Not on file documented as of this encounter Last Filed Vital Signs Vital Sign Reading Time Taken Comments Blood Pressure 130/80 02/06/2013 10:24 AM CDT Pulse 64 02/06/2013 10:24 AM CDT Temperature 36.9 ??C (98.5 ??F) 02/06/2013 10:24 AM CDT Respiratory Rate 16 02/06/2013 10:24 AM CDT Oxygen Saturation - - Inhaled Oxygen Concentration - - Weight 124.7 kg (275 lb) 02/06/2013 10:24 AM CDT Height 180.3 cm (5' 11) 02/06/2013 10:24 AM CDT Body Mass Index 38.35 02/06/2013 10:24 AM CDT documented in this encounter Progress Notes Nimesh Jo MD - 02/06/2013 10:27 AM CDT SUBJECTIVE: Sandeep Crooks is a 57 year old male who presents to clinic today for the following health issues: Hypertension Follow-up ?? Outpatient blood pressures are being checked at home. Results are 120/80. ?? Low Salt Diet: no added salt ?? Amount of exercise or daily activities, outside of work: 7 day(s) per week ?? Problems taking medications regularly No ?? Medication side effects: No ?? Diet: low salt and patient does carbohydrate counting History Substance Use Topics ??? Smoking status: Former Smoker -- 1.0 packs/day for 35 years Types: Cigarettes Quit date: 11/06/2007 ??? Smokeless tobacco: Never Used ??? Alcohol Use: No PROBLEMS TO ADD ON... Problem list and histories reviewed & adjusted, as indicated. Additional history: as documented ROS: C: NEGATIVE for fever, chills, change in weight I: NEGATIVE for worrisome rashes, moles or lesions E: NEGATIVE for vision changes or irritation E/M: NEGATIVE for ear, mouth and throat problems R: NEGATIVE for significant cough or SOB B: NEGATIVE for masses, tenderness or discharge CV: NEGATIVE for chest pain, palpitations or [...] reviewed in EPIC andupdated as appropriate. OBJECTIVE: BP 130/80 Pulse 64 Temp(Src) 98.5 ??F (36.9 ??C) (Oral) Resp 16 Ht 5' 11 (1.803 m) Wt 275lb (124.739 kg) BMI 38.35 kg/m2 Body mass index is 38.35 kg/(m^2). GENERAL: healthy, alert and no distress EYES: Eyes grossly normal to inspection, extraocular movements - intact, and PERRL HENT: ear canals- normal; TMs- normal; Nose- normal; Mouth- no ulcers, no lesions NECK: no tenderness, no adenopathy, no asymmetry, no masses, no stiffness; thyroid- normal to palpation RESP: lungs clear to auscultation - no rales, no rhonchi, no wheezes BREAST: no masses, no tenderness, no nipple discharge, no palpable axillary masses or adenopathy CV: regular rates and rhythm, normal S1 S2, no S3 or S4 and no murmur, no click or rub - ABDOMEN: soft, no tenderness, no hepatosplenomegaly, no masses, normal bowel sounds MS: extremities- no gross deformities noted, no edema SKIN: no suspicious lesions, no rashes NEURO: strength and tone- normal, sensory exam- grossly normal, mentation- intact, speech- normal, reflexes- symmetric BACK: no CVA tenderness, no paralumbar tenderness - male: testicles- normal, no atrophy, no masses; no inguinal hernias RECTAL- male: no masses, no hemorhoids, Prostate- symmetric, no nodularity, no masses, no hypertrophy PSYCH: Alert and oriented times 3; speech- coherent , normal rate and volume; able to articulate logical thoughts, able to abstract reason, no tangential thoughts, no hallucinations or delusions, affect- normal LYMPHATICS: ant. cervical- normal, post. cervical- normal, axillary- normal, supraclavicular- normal, inguinal- normal ASSESSMENT/PLAN: No diagnosis found. Thriving in weight loss program See Patient Instructions Estimated Body mass index is 38.35 kg/(m^2) as calculated from the following: Height as of this encounter: 5' 11(1.803 m). Weight as of this encounter: 275 lb(124.739 kg). Weight management plan: Established an exercise regimen with the patient. Activity goal: 30 minutes 5 days a week. New exercise routine: walking. Diet regimen was discussed and plan is self-directed dieting: reduce calories, reduce portions, reduce carbs, avoid sweets and chocahollic. Nimesh Jo MD [facility] documented in this encounter Nursing Notes 02/06/2013 10:00 AM CDT >> LUCAS SMITH Mon Feb 06, 2013 10:28 AM Patient presents with: Blood Pressure - 6 week med check Weight Loss - f/u on diet Initial BP 130/80 Pulse 64 Temp(Src) 98.5 ??F (36.9 ??C) (Oral) Resp 16 Ht 5' 11 (1.803 m) Wt 275 lb (124.739 kg) BMI 38.35 kg/m2 Estimated Body mass index is 38.35 kg/(m^2) as calculated from the following: Height as of this encounter: 5' 11(1.803 m). Weight as of this encounter: 275 lb(124.739 kg).. BP completed using cuff size: large Lucas Smith CMA documented in this encounter Plan of Treatment Not on filedocumented as of this encounter Visit Diagnoses Diagnosis Obesity - Primary Obesity, unspecified HTN, goal below 140/90 Unspecified essential hypertension Hepatic steatosis Other chronic nonalcoholic liver disease documented in this encounter Care Teams Email Engineer Relationship Specialty Start Date End Date Nimesh Jo MD PCP - General 11/05/06 documented as of this encounter
--- OUTSIDE RECORDS SUMMARY | 2022-08-11 08:30 | XMS_ITS | Encounter Summary ---
:1955 Author Organization [place] Address [address] [place] [address] Care Team Providers Name Role Phone Nimesh Jo MD Primary Care Provider [phone] Encounter Details Date Type Department Care Team Description 10/30/2010 Orders Only [facility] Pre syncopes; [facility] Special screening for malign ant neoplasms of other sites [address] [place] [phone] Social History Tobacco Use Types Packs/Day [...] Date/Time Associated Comments Diagnosis PROSTATE SPECIFIC Routine 10/30/2010 9:49 AM Special screening Results for this ANTIGEN SCREEN GRANULATOR TENDER for malignant procedure ar e in neoplasms of other the [facility] sites section. LIPID REFLEX TO DIRECT Routine 10/30/2010 9:49 AM Presyncopes Results for this LDL PANEL GRANULATOR TENDER procedure are i n the results section. COMPREHENSIVE Routine 10/30/2010 9:49 AM Presyncopes Results for this METABOLIC PANEL GRANULATOR TENDER procedure ar e in the results section. CBC WITH PLATELETS Routine 10/30/2010 9:49 AM Presyncopes Res ults for this GRANULATOR TENDER procedure are i n the results section. documented in this encounter Results CBC with platelets (10/30/2010 9:49 AM GRANULATOR TENDER) athologist Signature WBC 4.7 4.0 - 11.0 [place] 10e9/L [facility] RBC Count 4.72 4.4 - 5.9 [place] 10e12/L [facility] Hemoglobin 14.3 13.3 - [place] 17.7 g/dL [facility] Hematocrit 41.4 40.0 - [facility] % [facility] MCV 88 78 - 100 [facility] fl [facility] MCH 30.3 26.5 - [place] [place] 33.0 pg [facility] MCHC 34.5 31.5 - [place] [place] 36.5 g/dL [facility] RDW 12.8 10.0 - [place] 15.0 % [facility] Platelet Count 150 150 - 450 [facility] 10e9/L [facility] Specimen Anatomical Collection Method Collection Time Receive d Time (Source) Location / / Volume Laterality Blood specimen 10/30/2010 9:49 AM 010 9:53 (specimen) GRANULATOR TENDER AM GRANULATOR TENDER Nimesh Jo MD LAB - BLOOD ORDERABLES Performing Organization Address City/[facility] Phon e Number [facility] [address] [place] [address] [facility] Prostate spec antigen screen (10/30/2010 9:49 AM GRANULATOR TENDER) athologist Signature PSA 0.79 0 - 4 ug/L [facility] Specimen Anatomical Collection Method Collection Time Receive d Time (Source) Location / / Volume Laterality Blood specimen 10/30/2010 9:49 AM 010 9:53 (specimen) GRANULATOR TENDER AM GRANULATOR TENDER Nimesh Jo MD LAB - BLOOD ORDERABLES Performing Organization Address City/[facility] Phon e Number [facility] [address] [place] [address] [facility] (ABNORMAL) Comprehensive metabolic panel (10/30/2010 9:49 AM GRANULATOR TENDER) P athologist Signature Sodium 141 133 - 144 [place] mmol/L [facility] Potassium 4.2 3.4 - 5.3 [place] mmol/L [facility] Chloride 107 94 - 109 [facility] mmol/L [facility] Carbon Dioxide 25 20 - 32 [facility] [place] mmol/L [facility] Anion Gap 9 6 - 17 [facility]/L [facility] Glucose 96 60 - 99 [facility] mg/dL [facility] Urea Nitrogen 16 7 - 30 [facility] mg/dL [facility] Creatinine 0.86 0.66 - [facility] 1.25 mg/dL [facility] Comment: New IDMS-traceable calibration beginning 03/29/08 GFR Estimate >90 >60 mL/min/1.7m2 [facility] [place] [facility] GFR Estimate If Black >90 >60 mL/min/1.7m2 [facility] [place] [facility] Calcium 8.8 8.5 - 10.4 mg/dL [facility] N [facility] Bilirubin Total 0.4 0.2 - 1.3 mg/dL [facility] Albumin 3.9 3.9 - 5.1 g/dL [facility] Comment: Reference range changed on 07/31. Protein Total 6.9 6.8 - 8.8 g/dL [facility] Comment: As of 08, reference range reflects plasma specimen type. Alkaline Phosphatase 77 40 - 150 U/L [facility] ALT 74 (H) 0 - 70 U/L [facility] AST 43 0 - 55 U/L [facility] Specimen Anatomical Collection Method Collection Time Receive d Time (Source) Location / / Volume Laterality Blood specimen 10/30/2010 9:49 AM 010 9:53 (specimen) GRANULATOR TENDER AM GRANULATOR TENDER Nimesh Jo MD LAB - BLOOD ORDERABLES Performing Organization Address City/State/ZIP Code Phon e Number [facility] [address] [place] [address] [facility] (ABNORMAL) Lipid panel reflex to direct LDL (10/30/2010 9:49 AM GRANULATOR TENDER) P athologist Signature Cholesterol 155 0 - 200 [facility] mg/dL [facility] Comment: LDL Cholesterol is the primary guide to therapy. The NCEP recommends further evaluation of: patients with cholesterol <200 mg/dL if additional risk factors are present, cholesterol >240 mg/dL, triglycerides >150 mg/dL, or HDL <40 mg/dL. Triglycerides 94 0 - 150 mg/dL [facility] HDL Cholesterol 35 (L) 40 - 110 mg/dL [facility] LDL Cholesterol Calculated 102 0 - 129 mg/dL [facility] Comment: LDL Cholesterol is the primary guide to therapy: LDL-cholesterol goal in high risk patients is <100 mg/dL and in very high risk patients is <70 mg/dL. VLDL-Cholesterol 19 0 - 30 mg/dL [facility] Cholesterol/HDL Ratio 4.5 0.0 - 5.0 [facility] Specimen Anatomical Collection Method Collection Time Receive d Time (Source) Location / / Volume Laterality Blood specimen 10/30/2010 9:49 AM 010 9:53 (specimen) GRANULATOR TENDER AM GRANULATOR TENDER Nimesh Jo MD LAB - BLOOD ORDERABLES Performing Organization Address City/State/ZIP Code Phon e Number [address] [address] [facility] documented in this encounter Visit Diagnoses Diagnosis Presyncopes Syncope and collapse Special screening for malignant neoplasm s of other sites documented in this encounter Care Teams News Commentator Relationship Specialty Start Date End Date Nimesh Jo MD PCP - General 11/05/06 documented as of this encounter
--- OUTSIDE RECORDS SUMMARY | 2022-08-11 08:30 | XMS_ITS | Encounter Summary ---
:1955 Author Organization [place] Address [address] [place] [address] Care Team Providers Name Role Phone Nimesh Jo MD Primary Care Provider [phone] Reason for Visit Referral not Required - Closed Specialty Diagnoses / Procedures Referred By Contact Refer red To Contact Diagnoses Foot pain Plantar fascial fibromatosis Mason Griffin, DPM [facility] [address] [place] [address] [place] [address] Phone: [phone] Referral ID Status Reason Start Date Expiration Date Visits Requ ested Visits Authorized [id number] Closed 08/25/2011 02/21/2012 1 1 Encounter Details Date Type Department Care Team Description 09/07/2011 Therapy Visit [facility] Devin, Other per ipherwa Rehabilitation [facility] enthesopathies Services [address] (Primary Dx) [id number] [place] [address] [address] [place] [phone] Social History Tobacco Use Types Packs/Day Years [...] Name Priority Date/Time Associated Diagnosis Comme nts [facility] MANUAL THER Routine 09/07/2011 4:25 PM Other peripheral TECH,1+REGIONS,EA 15 CDT enthesopathies MIN [facility] ULTRASOUND THERAPY Routine 09/07/2011 4:25 PM Other periph eral CDT enthesopathies documented in this encounter Visit Diagnoses Diagnosis Other peripheral enthesopathies - Primar y documented in this encounter Care Teams Customer Success Associate Relationship Specialty Start Date End Date Nimesh Jo MD PCP - General 11/05/06 documented as of this encounter
--- OUTSIDE RECORDS SUMMARY | 2022-08-11 08:30 | XMS_ITS | Encounter Summary ---
:1955 Author Organization [facility] Address [address] [place] [address]. [place] [address] Care Team Providers Name Role Phone Nimesh Jo MD Primary Care Provider Reason for Referral Referral not Required - Closed Specialty Diagnoses / Procedures Referred By Contact Refer red To Contact Diagnoses Special screening for malignant neoplasms of other sites Hyperlipidemia LDL goal <130 [place] (hard of hearing) Nimesh Jo [facility] [address] [address] [place] [address] [place], [place] [address] Referral ID Status Reason Start Date Expiration Date Visits Requ ested Visits Authorized [id number] Closed 08/17/2012 02/13/2013 1 1 Reason for Visit Reason Comments Lipids Encounter Details Date Type Department Care Team Description 08/17/[address] [facility] Nimesh Jo ipidemia LDL goal <130 (Primary Dx); Clinic Janeth Huizar MD Special screening for malignant neoplasm s of other sites; [address] [place] [id number] [place] [address] [place] (hard of hearing) [place] [address] [phone] Social History Tobacco Use Types Packs/Day Years Used Date Former Smoker Cigarettes 1 35 Quit: 11/06/20 07 Smokeless Tobacco: Never Used Alcohol Use Standard Drinks/Week Comments No 0 (1 standard drink = 0.6 oz pure alcoho l) Sex Assigned at Date Recorded Not on file documented as of this encounter Last Filed Vital Signs Vital Sign Reading Time Taken Comments Blood Pressure 120/80 08/17/2012 9:14 AM CDT Pulse 60 08/17/2012 9:14 AM CDT Temperature 36.6 ??C (97.8 ??F) 08/17/2012 9:14 AM CDT Respiratory Rate 14 08/17/2012 9:14 AM CDT Oxygen Saturation 95% 08/17/2012 9:14 AM CDT Inhaled Oxygen Concentration - - Weight 127.9 kg (282 lb) 08/17/2012 9:14 AM CDT Height 180.3 cm (5' 11) 08/17/2012 9:14 AM CDT Body Mass Index 39.33 08/17/2012 9:14 AM CDT documented in this encounter Progress Notes Nimesh Jo MD - 08/17/2012 9:17 AM CDT SUBJECTIVE: Sandeep Crooks is a 56 year old male who presents to clinic today for the following health issues: Hyperlipidemia Follow-Up ?? Watching cholesterol in diet?: Yes ?? Any muscle aches?: no REVIEW OF SYSTEMS Generally has been feeling well until this episode. No problems with vision, hearing, dental or neckpain.Has no airborne or ingestion allergy No chest pain, palpitations, dyspnea, change in bowel habits, blood in stool or dyspepsia. No rashes, changing moles, weakness, lassitude or back problems. No chronic issues . No dysuria or menstrual irregularity. Patient not a smoker. No problems with significant headaches. He retired a month ago On exam the vital signs are stable Weight is up this summer Eyes show jaymie No neck masses or thyromegaly.Ear nose and throat shows normal No bruits, murmers, rubs or extrasounds. No cardiomegaly or chest wall tenderness. Lungs clear, no abdominal masses or organomegaly. No CVA tenderness. Skin eval clear No hernias, good range of motion neck, back and extremities. No abnormal skin lesions. Normal genitalia. Good peripheral pulses. No adenopathy. Normal gait and stance. Neck is supple. Back exam shows full rom ?? Amount of exercise or daily activities, outside of work: 7 day(s) per week ?? Problems taking medications regularly No ?? Medication side effects: No Other concerns to address: none Staff Signature:Lucas Smith CMA Hyperlipidemia LDL goal <130 (primary encounter diagnosis) Comment: Plan: Lipid Profile with reflex to direct LDL, Comprehensive metabolic panel, OTOLARYNGOLOGY REFERRAL Check labs, consider med change Special screening for malignant neoplasms of other sites Comment: Plan: PSA, screen, OTOLARYNGOLOGY REFERRAL Get hearing eval, screen his psa [place]IGHINI (hard of hearing) Comment: Plan: OTOLARYNGOLOGY REFERRAL documented in this encounter Nursing Notes 08/17/2012 9:30 AM CDT >> LUCAS SMITH Wed Aug 17, 2012 9:18 AM Patient presents with: Lipids Initial BP 120/80 Pulse 60 Temp(Src) 97.8 ??F (36.6 ??C) (Oral) Resp 14 Ht 5' 11 (1.803 m) Wt 282 lb (127.914 kg) BMI 39.33 kg/m2 SpO2 95% Estimated Body mass index is 39.33 kg/(m^2) as calculated from the following: Height as of this encounter: 5' 11(1.803 m). Weight as of this encounter: 282 lb(127.914 kg).. BP completed using cuff size: large Lucas Smith CMA documented in this encounter Plan of Treatment Scheduled Referrals Name Type Priority Associated Diagnoses Order S chedule OTOLARYNGOLOGY REFERRAL Referral Routine Special screening for Ordered: 08/17/2012 malignant neoplasms of other sites Hyperlipidemia LDL goal <130 [place] (hard of hearing) documented as of this encounter Procedures Procedure Name Priority Date/Time Associated Diagnosis Comme nts PROSTATE SPECIFIC Routine 08/17/2012 9:35 Special screening fo r Results for this ANTIGEN SCREEN AM CDT malignant neoplasms of pro cedure are in other sites the results section. LIPID REFLEX TO Routine 08/17/2012 9:35 Hyperlipidemia LDL Res ults for this DIRECT LDL PANEL AM CDT goal <130 procedure a re in the results section. COMPREHENSIVE Routine 08/17/2012 9:35 Hyperlipidemia LDL Resul ts for this METABOLIC PANEL AM CDT goal <130 procedure ar e in the results section. documented in this encounter Results PSA, screen (08/17/2012 9:35 AM CDT) athologist Signature PSA 0.80 0 - 4 ug/L [facility] Specimen Anatomical Collection Method Collection Time Receive d Time (Source) Location / / Volume Laterality Blood specimen 08/17/2012 9:35 AM 012 9:38 (specimen) CDT AM CDT Nimesh Jo MD LAB - BLOOD ORDERABLES Performing Organization Address City/State/ZIP Code Phon e Number [facility] [address] [place] [address] [facility] (ABNORMAL) Comprehensive metabolic panel (08/17/2012 9:35 AM CDT) athologist Signature Sodium 141 133 - 144 [place] mmol/L [facility] Potassium 4.1 3.4 - 5.3 [place] mmol/L [facility] Chloride 107 94 - 109 [place] mmol/L [facility] Carbon Dioxide 23 20 - 32 [facility] mmol/L [facility] Anion Gap 12 6 - 17 [place] mmol/L [facility] Glucose 106 (H) 60 - 99 [place] mg/dL [facility] Urea Nitrogen 14 7 - 30 [place] mg/dL [facility] Creatinine 0.79 0.66 - [facility] 1.25 mg/dL [facility] GFR Estimate >90 >60 [place] mL/min/1.7 [facility] m2 LAB GFR Estimate If >90 >60 [place] Black mL/min/1.7 [facility] m2 LAB Calcium 9.4 8.5 - 10.4 [place] mg/dL [facility] Bilirubin Total 0.5 0.2 - 1.3 [facility] mg/dL [facility] Albumin 4.1 3.3 - 4.9 [facility] g/dL [facility] Comment: Reference range changed on 07/31. Protein Total 7.3 6.8 - 8.8 g/dL [facility] Comment: As of 08, reference range reflects plasma specimen type. Alkaline Phosphatase 79 40 - 150 U/L [facility] ALT 90 (H) 0 - 70 U/L [facility] AST 55 (H) 0 - 45 U/L [facility] Specimen Anatomical Collection Method Collection Time Receive d Time (Source) Location / / Volume Laterality Blood specimen 08/17/2012 9:35 AM 012 9:38 (specimen) CDT AM CDT Nimesh Jo MD LAB - BLOOD ORDERABLES Performing Organization Address City/[facility]/ZIP Code Phon e Number [address] [address] [facility] (ABNORMAL) Lipid Profile with reflex to direct LDL (08/17/2012 9:35 AM CDT) athologist Signature Cholesterol 191 0 - 200 [facility] mg/dL [facility] Comment: LDL Cholesterol is the primary guide to therapy. The NCEP recommends further evaluation of: patients with cholesterol greater than 200 mg/dL if additional risk facto rs are present, cholesterol greater than 240 mg/dL, triglycerides greater than 1 50 mg/dL, or HDL less than 40 mg/dL. Triglycerides 144 0 - 150 mg/dL [facility] HDL Cholesterol 33 (L) 40 - 110 mg/dL [facility] LDL Cholesterol Calculated 130 (H) 0 - 129 mg/dL [facility] Comment: LDL Cholesterol is the primary guide to therapy: LDL-cholesterol goal in high risk patients is <100 mg/dL and in very high risk patients is <70 mg/dL. VLDL-Cholesterol 29 0 - 30 mg/dL [facility] Cholesterol/HDL Ratio 5.9 (H) 0.0 - 5.0 [facility] Specimen Anatomical Collection Method Collection Time Receive d Time (Source) Location / / Volume Laterality Blood specimen 08/17/2012 9:35 AM 012 9:38 (specimen) CDT AM CDT Nimesh Jo MD LAB - BLOOD ORDERABLES Performing Organization Address City/[facility]/ZIP Code Phon e Number [facility] [address] [place] [address] [facility] documented in this encounter Visit Diagnoses Diagnosis Hyperlipidemia LDL goal <130 - Primary Other and unspecified hyperlipidemia Special screening for malignant neoplasm s of other sites [place]INI (hard of hearing) Unspecified hearing loss documented in this encounter Care Teams Mainspring Winder And Oiler Relationship Specialty Start Date End Date Nimesh Jo MD PCP - General 11/05/06 documented as of this encounter
--- OUTSIDE RECORDS SUMMARY | 2022-08-11 08:30 | XMS_ITS | Encounter Summary ---
:1955 Author Organization [facility] Address [address] [place] [address]. [place] [address] Care Team Providers Name Role Phone Nimesh Jo MD Primary Care Provider [phone] Reason for Visit Reason Onset Date Comments Medication Question 06/23/2010 zocor dose Encounter Details Date Type Department Care Team Description 06/23/2010 Telephone [facility] Nimesh Jo Medica tion Question Clinic BowdonLaureano Huizar MD (zocor dose) [address] [place] [phone] [phone] (Wo rk) Social History Tobacco Use Types Packs/Day Years Used Date Former Smoker Cigarettes 1 35 Quit: 11/06/20 07 Alcohol Use Standard Drinks/Week Comments No 0 (1 standard drink = 0.6 oz pure alcoho l) Sex Assigned at Date Recorded Not on file documented as of this encounter Miscellaneous Notes Telephone Encounter - Lisa Riggins - 06/26/2010 10:07 AM CDT Pt informed. I realized a new rx was NOT faxed but listed as historical. Informed pt to call us when he is needing a refill and we get the correct rx to the pharmacy. Lisa Riggins RN Telephone Encounter - Lisa Riggins - 06/25/2010 8:49 AM CDT lmom to call jackie. Can inform pt OK 1/2 tablet QHS of Zocor is correct--new rx faxed. Lisa Riggins RN Telephone Encounter - Nimesh Jo - 06/23/2010 5:35 PM CDT So far so good, I made a note and next label should be right Telephone Encounter - Lisa Riggins - 06/23/2010 3:53 PM CDT Pt's calling with permission from Sandeep. Sandeep has been filling Zocor 40mg but taking 1/2 tablet qd. Bottle and Epic state to take 1 tablet qhs. Can you clarify--1/2 or whole tablet qhs? Recent Labs Lab Test 04/16/10 0755 06/12/09 0806 ??? CHOL 155 171 ??? HDL 27* 27* ??? LDL 110 117 ??? TRIG 91 135 ??? CHOLHDLRATIO 5.9* 6.4* AST 46 03/02/2008 ALT 51 04/16/2010 Lisa Riggins RN documented in this encounter Plan of Treatment Not on filedocumented as of this encounter Visit Diagnoses Diagnosis Mixed hyperlipidemia - Primary documented in this encounter Care Teams Bladder Cleaner Relationship Specialty Start Date End Date Nimesh Jo MD PCP - General 11/05/06 documented as of this encounter
--- OUTSIDE RECORDS SUMMARY | 2022-08-11 08:30 | XMS_ITS | Encounter Summary ---
:1955 Author Organization [place] Address [address] [place] [address] Care Team Providers Name Role Phone Nimesh Jo MD Primary Care Provider [phone] Reason for Visit Reason Comments Knee Pain left knee pain Encounter Details Date Type Department Care Team Description 02/27/2011 Office Visit [facility] Debbie Olson leslee n (Primary Dx); Clinic Gary CORNELIUS Reyes Edema leg [address] [place] [phone] [facility] [address] [address] Social History Tobacco Use Types Packs/Day Years Used Date Former Smoker Cigarettes 1 35 Quit: 11/06/20 07 Alcohol Use Standard Drinks/Week Comments No 0 (1 standard drink = 0.6 oz pure alcoho l) Sex Assigned at Date Recorded Not on file documented as of this encounter Last Filed Vital Signs Vital Sign Reading Time Taken Comments Blood Pressure 124/78 02/27/2011 10:52 AM CDT Pulse 72 02/27/2011 10:52 AM CDT Temperature 37.1 ??C (98.8 ??F) 02/27/2011 10:52 AM CDT Respiratory Rate 22 02/27/2011 10:52 AM CDT Oxygen Saturation 95% 02/27/2011 10:52 AM CDT Inhaled Oxygen Concentration - - Weight 127 kg (280 lb) 02/27/2011 10:52 AM CDT Height 180.3 cm (5' 11) 02/27/2011 10:52 AM CDT Body Mass Index 39.05 02/27/2011 10:52 AM CDT documented in this encounter Progress Notes Debbie Moreira - 03/02/2011 8:46 AM CDT Cc: Leg pain [729.5H] Edema leg [782.3AD] Pt presents with pain in the L lower leg. This initially started with swelling in the L knee. 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 Pt's L knee continued to be swollen, but pain developed in the lower L leg. Pain is global, but work along the lateral aspect. Pt denies any pain in the foot. Pt has edema in both legs equally. Pt did recently have a cardiac workup and was put on a BP medication. Pt has been trying to walk to lose weight. Pt denies any hx of blood clots in self or family. Exam: Legs: 2+ edema BP, mild crepitus in L knee, edema of L knee, nontender to palpation of knee,normal gait Pulses: diminished L lower pedal pulse compared to R I/P: Edema leg [782.3AD] Leg pain [729.5H] Pt to undergo L LE ultrasound to r/o clot. Pt to work on ice, possible compression of L leg and kneeto improve edema, pt to have legs elevated, pain medication prn for night to assist in sleep, pt to f/u by phone after weekend to inform on status. May entertain PAD NET for pt. documented in this encounter Nursing Notes 02/27/2011 10:45 AM CDT >> RAMÓN BARRERA Fri Feb 27, 2011 10:54 AM Patient presents with: Knee Pain - left knee pain Initial BP 124/78 Pulse 72 Temp(Src) 98.8 ??F (37.1 ??C) (Oral) Resp 22 Ht 5' 11 (1.803 m) Wt 280 lb (127.007 kg) BMI 39.05 kg/m2 SpO2 95% Estimated Body mass index is 39.05 kg/(m^2) as calculated from the following: Height as of this encounter: 5' 11(1.803 m). Weight as of this encounter: 280 lb(127.007 kg).. BP completed using cuff size: large HEALTH MAINTENANCE REVIEWED WITH PT Ramón Barrera CMA documented in this encounter Plan of Treatment Not on filedocumented as of this encounter Procedures Procedure Name Priority Date/Time Associated Diagnosis Comme nts US LOWER EXTREMITY Routine 02/27/2011 12:28 PM Leg pain Results for this VENOUS DUPLEX LEFT CDT Edema leg procedure are in the results section. documented in this encounter Results US leg lt venous (02/27/2011 12:28 PM CDT) Anatomical Region Laterality Modality Vascular, Thigh, Leg Other Specimen (Source) Anatomical Collection Method Collection Time Re ceived Time Location / / Volume Laterality 02/27/2011 12:28 PM CDT Impressions 02/27/2011 12:43 PM CDT US VENOUS LOWER EXT UNI LEFT-1 Feb 27 12:28:00 PM HISTORY: Pain. TECHNIQUE: Imaged deep venous structures of the left lower extremity include the left common femoral vein, maldonado perficial femoral vein, popliteal vein, and visualized posterior deep calf veins. COMPARISON: None. FINDINGS: No DVT is demonstrated. IMPRESSION: Negative. Debbie Olson PA-C IMG US ORDERABLES documented in this encounter Visit Diagnoses Diagnosis Leg pain - Primary Pain in limb Edema leg Edema documented in this encounter Care Teams Digital Research Analyst Relationship Specialty Start Date End Date Nimesh Jo MD PCP - General 11/05/06 documented as of this encounter
--- OUTSIDE RECORDS SUMMARY | 2022-08-11 08:30 | XMS_ITS | Encounter Summary ---
:1955 Author Organization [facility] Address [address] [place] [address] Care Team Providers Name Role Phone Nimesh Jo MD Primary Care Provider [phone] Encounter Details Date Type Department Care Team Description 09/14/2011 Therapy Visit [facility], Other per [facility] enthesopathies Services [address] (Primary Dx) [address] [place] [address] [address] [place] [id number] Social History Tobacco Use Types Packs/Day Years [...] Diagnosis Comme nts ZZC MANUAL THER Routine 09/14/2011 5:02 PM Other peripheral TECH,1+REGIONS,EA 15 CDT enthesopathies MIN ZZC THERAPEUTIC Routine 09/14/2011 5:02 PM Other peripheral EXERCISES CDT enthesopathies ZZC ULTRASOUND THERAPY Routine 09/14/2011 5:02 PM Other periph eral CDT enthesopathies documented in this encounter Visit Diagnoses Diagnosis Other peripheral enthesopathies - Primar y documented in this encounter Care Teams Separator Operator Shell[employer] Meats Relationship Specialty Start Date End Date Nimesh Jo MD PCP - General 11/05/06 documented as of this encounter
--- OUTSIDE RECORDS SUMMARY | 2022-08-11 08:30 | XMS_ITS | Encounter Summary ---
:1955 Author Organization [facility] Address [address] [place] [address]. [place] [address] Care Team Providers Name Role Phone Nimesh Jo MD Primary Care Provider Reason for Visit (Routine) - Closed Specialty Diagnoses / Procedures Referred By Contact Refer red To Contact Cardiology Diagnoses ECHO COMPLETE ADULT W/O CONTRAST Procedure Notes: VENOUS STASIS Zz Rh Echocardiography Procedures RADIOLOGY [address] [place], [place] [address] Phone: Referral ID Status Reason Start Date Expiration Date Visits Requ ested Visits Authorized [id number] Closed 11/03/2012 11/02/2013 1 1 Encounter Details Date Type Department Care Team Description 11/03/2012 Hospital Encounter [facility] Scotty Yuen MD Cardiopulmonary [id number] [place], [place] [phone] Social History Tobacco Use Types Packs/Day Years [...] encounter Progress Notes Scotty Yuen MD - 11/04/2012 11:01 AM MACHINE HAMPER MAKER Quick Note: Heart works OK, although it is a bit thick. Controlling your blood pressure is the treatment Scotty Yuen MD INE HAMPER MAKER documented in this encounter Plan of Treatment Not on filedocumented as of this encounter Procedures Procedure Name Priority Date/Time Associated Diagnosis Comme nts ECHO COMPLETE Routine 11/03/2012 2:07 PM Results for this MACHINE HAMPER MAKER procedure are i n the results section . documented in this encounter Results Echocardiogram (11/03/2012 2:07 PM MACHINE HAMPER MAKER) [facility] Method Time [facility] Interpretation Summary RESULTS The study was technically difficult. Left ventricular systolic function is normal. Th e visual ejection fraction is estimated at 55-60%. There is mild concentric left ventric ular hypertrophy. The right ventricular systolic function is normal thou gh the right ventricle is not well visualized. Right atrial pressure is estimated t o be normal at 5-10mmHg but right ventricular systolic pressure could not be approximated. PatientHeight: 71 in PatientWeight: 285 lbs SystolicPressure: 160 mmHg DiastolicPressure: 100 mmHg HeartRate: 62 bpm BSA 2.5 m^2 Left Ventricle The left ventricle is normal in size. There is mild concentric left ventricular hypertrophy. Left ventricular systolic function is normal. The visual ejection fraction is estimated at 55-60%. The transmitral spectral Doppler flow pattern is suggestive of impaired LV relaxation. E by E prime ratio is less than 8, that likely suggests norm al left ventricular filling pressures. No regional wall motion abnormalities noted. Right Ventricle The right ventricle is normal size. The right ventricular systolic function is normal. The right ventricle is not well visualized. Atria The left atrium is mildly dilated. Borderline right atrial enlargement. There is no atrial shunt seen. Tricuspid Valve Normal IVC (1.5-2.5cm) with >50% respiratory collapse; right atrial pressure is estimated at 5-10mmHg. There is trace tricuspid regurgitation. Right ventricular systolic pressure could not be approximate d due to inadequate tricuspid regurgitation. Aortic Valve No aortic regurgitation is present. No hemodynamically significant valvular aortic stenosis. Pulmonic Valve There is trace pulmonic valvular regurgitation. There is no pulmonic valvular stenosis. Vessels The aortic root is normal size. Pericardium The pericardium appears normal. Rhythm The rhythm was normal sinus. Procedure Complete Echo Adult. MMode 2D Measurements & Calculations IVSd: 1.0 cm LVIDd: 5.7 cm LVIDs: 4.5 cm LVPWd: 0.92 cm FS: 20 % LV mass(C)d: 216 grams Ao root diam: 3.5 cm LA dimension: 4.4 cm LA/Ao: 1.3 Doppler Measurements & Calculations MV E point: 81 cm/sec MV A point: 74 cm/sec MV E/A: 1.1 MV dec time: 0.23 sec Interpreting Physician: ??Suzanne Hopkins MD electronically signed on 11-03-2012 16:18:13 Anatomical Region Laterality Modality Echocardiography Specimen (Source) Anatomical Collection Method Collection Time Re ceived Time Location / / Volume Laterality 11/03/2012 2:07 PM MACHINE HAMPER MAKER Scotty Yuen MD CV ECHO ORDERABLES documented in this encounter Visit Diagnoses Not on filedocumented in this encounter Care Teams Mimeographer Relationship Specialty Start Date End Date Nimesh Jo MD PCP - General 11/05/06 documented as of this encounter
--- OUTSIDE RECORDS SUMMARY | 2022-08-11 08:31 | XMS_ITS | Encounter Summary ---
:1955 Author Organization [facility] Address [address] [place] [address]. [place] [address] Care Team Providers Name Role Phone Nimesh Jo MD Primary Care Provider Reason for Visit Reason Onset Date Comments Refill Request 04/10/2010 simmvastatin Encounter Details Date Type Department Care Team Description 04/10/2010 Refill [facility] Nimesh Jo Refill Request [facility] [place] (sim[place]vastatin) [address] [place] [id number] [phone] (Wo rk) Social History Tobacco Use Types Packs/Day Years Used Date Former Smoker Cigarettes 1 35 Quit: 11/06/20 07 Alcohol Use Standard Drinks/Week Comments No 0 (1 standard drink = 0.6 oz pure alcoho l) Sex Assigned at Date Recorded Not on file documented as of this encounter Miscellaneous Notes Telephone Encounter - Brianna Shaw - 04/10/2010 2:49 PM CDT Date of last OV: 01/30/10 Reason for visit: allergies R thumb pain Date last filled: 01/28/10 Labs pertaining to med: Recent Labs Lab Test 06/12/09 0806 03/02/08 0740 ??? CHOL 171 182 ??? HDL 27* 33* ??? LDL 117 130* ??? TRIG 135 97 ??? CHOLHDLRATIO 6.4* 5.5* AST 46 03/02/2008 ALT 64 06/12/2009 Medication approved per standing orders for one month, letter sent to have labs. Brianna Shaw RN documented in this encounter Plan of Treatment Not on filedocumented as of this encounter Visit Diagnoses Diagnosis Mixed hyperlipidemia - Primary documented in this encounter Care Teams Stamping Die Try Out Worker Relationship Specialty Start Date End Date Nimesh Jo MD PCP - General 11/05/06 documented as of this encounter
--- OUTSIDE RECORDS SUMMARY | 2022-08-11 08:31 | XMS_ITS | Encounter Summary ---
:1955 Author Organization [facility] Address [address] [place] [address]. [place] [address] Care Team Providers Name Role Phone Nimesh Jo MD Primary Care Provider [phone] Reason for Visit Reason Comments Refill Request cholesterol medication Encounter Details Date Type Department Care Team Description 10/25/2009 Office Visit [facility] Nimesh Jo Mixed Hyperlipidemia (Primary Dx); [facility] [place] Mixed Hyperlipidemia; [address] [place] [address] Special Screening for Malignant Neoplasm s of Other Sites; [place], [place] Low Emi k Pain [phone] Social History Tobacco Use Types Packs/Day Years Used Date Former Smoker Cigarettes 1 35 Quit: 11/06/20 07 Alcohol Use Standard Drinks/Week Comments No 0 (1 standard drink = 0.6 oz pure alcoho l) Sex Assigned at Date Recorded Not on file documented as of this encounter Last Filed Vital Signs Vital Sign Reading Time Taken Comments Blood Pressure 122/80 10/25/2009 9:47 AM BILLING SERVICES MANAGER Pulse 96 10/25/2009 9:47 AM BILLING SERVICES MANAGER Temperature - - Respiratory Rate 16 10/25/2009 9:47 AM BILLING SERVICES MANAGER Oxygen Saturation - - Inhaled Oxygen Concentration - - Weight 125.2 kg (276 lb) 10/25/2009 9:47 AM BILLING SERVICES MANAGER Height - - Body Mass Index 39.6 09/03/2008 4:15 PM CDT documented in this encounter Progress Notes Nimesh Jo - 10/25/2009 2:09 PM CST SUBJECTIVE: CC: Sandeep Crooks is a 53 year old male who presents for follow up of cholesterol therapy HPI: HE HAS QUIT SMOKING:gained some weight, feels much better, no side effects from meds PROBLEM LIST: Patient Active Problem List Diagnoses Code ??? MIXED HYPERLIPIDEMIA 272.2 ??? TOBACCO USE DISORDER 305.1 ??? Eczema 692.9BU ??? Boil 680.9L PAST MEDICAL HISTORY: No past medical history on file. PAST SURGICAL HISTORY: No past surgical history on file. CURRENT MEDICATIONS: Current outpatient prescriptions Medication Sig ??? SIMVASTATIN 40 MG OR TABS 1 TABLET AT BEDTIME ??? IBUPROFEN 800 MG OR TABS TAKE ONE TABLET 3 TIMES A DAY WITH FOOD FAMILY HISTORY: Family History Problem Relation ??? Heart Father HEALTH MAINTENANCE: REVIEW OF [...] changes in mood or affect EXAM: BP 122/80 Pulse 96 Resp 16 Wt 276 lb (125.193 kg) GENERAL APPEARANCE: healthy, alert and no distress [...] PSYCH: mentation appears normal. and affect normal/bright ASSESSMENT/PLAN Encounter Diagnoses Code Name Primary? Qualifier ??? 272.2 Mixed Hyperlipidemia Yes ??? 272.2 Mixed Hyperlipidemia ??? V76.49 Special Screening for Malignant Neoplasms of Other Sites ??? 724.2A Low Back Pain Get psa, screen lipids and liver, I have discussed with patient the risks, benefits, medications, treatment options and modalities. I have instructed the patient to call or schedule a follow-up appointment if any problems or failureto improve. ING SERVICES MANAGER documented in this encounter Nursing Notes 10/25/2009 9:45 AM CST >> DERIAN GRISSOM Fri Oct 25, 2009 9:50 AM Patient presents with: Refill Request - cholesterol medication Initial BP 122/80 Pulse 96 Resp 16 Wt 276 lb (125.193 kg) Estimated Body mass index is 39.60 kg/(m^2) as calculated from: Height of 5' 10 (1.778 m) as of 09/03/08 Weight of 276 lb (125.193 kg) as of this encounter BP completed using cuff size large, right arm Derian Grissom LPN documented in this encounter Plan of Treatment Not on filedocumented as of this encounter Visit Diagnoses Diagnosis Mixed hyperlipidemia - Primary Special screening for malignant neoplasm s of other sites Low back pain Lumbago documented in this encounter Care Teams Bias Machine Operator Helper Relationship Specialty Start Date End Date Nimesh Jo MD PCP - General 11/05/06 documented as of this encounter
--- OUTSIDE RECORDS SUMMARY | 2022-08-11 08:31 | XMS_ITS | Encounter Summary ---
:1955 Author Organization [facility] Address [address] [place] [address]. [place] [address] Care Team Providers Name Role Phone Nimesh Jo MD Primary Care Provider [phone] Reason for Visit Reason Onset Date Comments Refill Request 06/19/2010 simvastatin Encounter Details Date Type Department Care Team Description 06/19/2010 Refill [facility] Nimesh Jo Refill Request Clinic [place] MD Bhupendra (simvastatin) [address] [place] [phone] (Wo rk) Social History Tobacco Use Types Packs/Day Years Used Date Former Smoker Cigarettes 1 35 Quit: 11/06/20 07 Alcohol Use Standard Drinks/Week Comments No 0 (1 standard drink = 0.6 oz pure alcoho l) Sex Assigned at Date Recorded Not on file documented as of this encounter Miscellaneous Notes Telephone Encounter - Noemí Dalton - 06/19/2010 10:23 AM CDT Last OV: 01/30/10 Reason for visit: thumb pain, trigger finger, chronic rhinitis Date last filled: 04/10/10 Recent Labs Lab Test 04/16/10 0755 06/12/09 0806 ??? CHOL 155 171 ??? HDL 27* 27* ??? LDL 110 117 ??? TRIG 91 135 ??? CHOLHDLRATIO 5.9* 6.4* AST 46 03/02/2008 ALT 51 04/16/2010 Medication approved per standing orders Noemí Dalton RN documented in this encounter Plan of Treatment Not on filedocumented as of this encounter Visit Diagnoses Diagnosis Mixed hyperlipidemia - Primary documented in this encounter Care Teams Reading Aide Relationship Specialty Start Date End Date Nimesh Jo MD PCP - General 11/05/06 documented as of this encounter
--- OUTSIDE RECORDS SUMMARY | 2022-08-11 08:31 | XMS_ITS | Encounter Summary ---
:1955 Author Organization [facility] Address [address] [place] [address] Care Team Providers Name Role Phone Nimesh Jo MD Primary Care Provider [phone] Encounter Details Date Type Department Care Team Description 04/16/2010 Orders Only [facility] Mix ed Hyperlipidemia; [facility] Special Screening for Malign ant Neoplasms of Other Sites [address] [place] [phone] Social History Tobacco Use Types Packs/Day [...] Name Priority Date/Time Associated Diagnosis Comme nts HCL PROSTATE SPEC Routine 04/16/2010 7:55 AM Special Screening for Results for this ANTIGEN,SCREEN CDT Malignant Neoplasms of pro cedure are in Other Sites the results section. HCL ALT Routine 04/16/2010 7:55 AM Mixed Hyperlipidemia R esults for this CDT procedure are i n the results section. CL AFF A.M.A. Routine 04/16/2010 7:55 AM Mixed Hyperlipidemia Results for this LIPID PANEL CDT procedure are i n the results section. documented in this encounter Results PROSTATE SPEC ANTIGEN,SCREEN (04/16/2010 7:55 AM CDT) P athologist Signature PSA 0.63 0 - 4 ug/L [facility] Specimen Anatomical Collection Method Collection Time Receive d Time (Source) Location / / Volume Laterality 04/16/2010 7:55 AM 0 7:57 CDT AM CDT Nimesh Jo MD LABORATORY Performing Organization Address City/State/ZIP Code Phon e Number [facility] [address] [place] [address] [facility] ALANINE AMINO (ALT) (SGPT) (04/16/2010 7:55 AM CDT) athologist Signature ALT 51 0 - 70 U/L [facility] Specimen Anatomical Collection Method Collection Time Receive d Time (Source) Location / / Volume Laterality 04/16/2010 7:55 AM 0 7:57 CDT AM CDT Nimesh Jo MD LABORATORY Performing Organization Address City/[facility]/ZIP Code Phon e Number [facility] [address] [place] [address] [facility] (ABNORMAL) A.M.A. LIPID PANEL (04/16/2010 7:55 AM CDT) athologist Signature Cholesterol 155 0 - 200 [facility] mg/dL CLINIC LAB Comment: LDL Cholesterol is the primary guide to therapy. The NCEP recommends further evaluation of: patients with cholesterol <200 mg/dL if additional risk factors are present, cholesterol >240 mg/dL, triglycerides >150 mg/dL, or HDL <40 mg/dL. Triglycerides 91 0 - 150 mg/dL [facility] HDL Cholesterol 27 (L) 40 - 110 mg/dL [facility] LDL Cholesterol Calculated 110 0 - 129 mg/dL [facility] Comment: LDL Cholesterol is the primary guide to therapy: LDL-cholesterol goal in high risk patients is <100 mg/dL and in very high risk patients is <70 mg/dL. VLDL-Cholesterol 18 0 - 30 mg/dL [facility] Cholesterol/HDL Ratio 5.9 (H) 0.0 - 5.0 [facility] Specimen Anatomical Collection Method Collection Time Receive d Time (Source) Location / / Volume Laterality 04/16/2010 7:55 AM 0 7:57 CDT AM CDT Nimesh Jo MD LABORATORY Performing Organization Address City/State/ZIP Code Phon e Number [address] [address] [facility] documented in this encounter Visit Diagnoses Diagnosis Mixed hyperlipidemia Special screening for malignant neoplasm s of other sites documented in this encounter Care Teams Rag Production Worker Relationship Specialty Start Date End Date Nimesh Jo MD PCP - General 11/05/06 documented as of this encounter
--- OUTSIDE RECORDS SUMMARY | 2022-08-11 08:31 | XMS_ITS | Encounter Summary ---
:1955 Author Organization [facility] Address [address] [place] [address]. [place] [address] Care Team Providers Name Role Phone Nimesh Jo MD Primary Care Provider [phone] Reason for Visit Reason Comments Allergic Rhinitis nasal congestion and sneezin g x2 months Thumb Discomfort right thumb pain Encounter Details Date Type Department Care Team Description 01/30/2010 Office Visit [facility] Nimesh Jo Thumb Pain; [facility] [place] Trigger Finger (Acquired); [address] [place] [address] [place] [address] [phone] Social History Tobacco Use Types Packs/Day Years Used Date Former Smoker Cigarettes 1 35 Quit: 11/06/20 07 Alcohol Use Standard Drinks/Week Comments No 0 (1 standard drink = 0.6 oz pure alcoho l) Sex Assigned at Date Recorded Not on file documented as of this encounter Last Filed Vital Signs Vital Sign Reading Time Taken Comments Blood Pressure 130/70 01/30/2010 1:54 PM GLOBAL PRESIDENT Pulse 60 01/30/2010 1:54 PM GLOBAL PRESIDENT Temperature 36.6 ??C (97.9 ??F) 01/30/2010 1:54 PM GLOBAL PRESIDENT Respiratory Rate 16 01/30/2010 1:54 PM GLOBAL PRESIDENT Oxygen Saturation - - Inhaled Oxygen Concentration - - Weight 121.1 kg (267 lb) 01/30/2010 1:54 PM GLOBAL PRESIDENT Height 180.3 cm (5' 11) 01/30/2010 1:54 PM GLOBAL PRESIDENT Body Mass Index 37.24 01/30/2010 1:54 PM GLOBAL PRESIDENT documented in this encounter Progress Notes Nimesh Jo - 01/30/2010 2:02 PM CST Patient complains of congestion with sore throat, nasal congestion and sinus pain. Some mucopurulantdischarge but no upper dental pain and no sustained fever. Duration less than one month, uses cpap, nose clogs up at night. Has history of airborn allergy or asthma. No chest pain, diaphoresis, or sob. nonproductive cough. TMs dull no*red, sinus tenderness none, left nasal polyp, mild to moderate try steroid spray lungs clear, s1s2,soft abd,no distress, cyanosis or stridor. A:URI with nasal polyp, P:fluids, antipyretics,rest and medsas directed. Recheck PRN worsening or non-improvement over 5 days. Discussed signs of systemic or constutional illness. Triggering of his right thumb at the ip joint. No specific trauma, xrays neg nsaid then consider ortho if not ressolving AL PRESIDENT documented in this encounter Nursing Notes 01/30/2010 1:45 PM CST >> BRITTANY GRAYSON Lisa Jan 30, 2010 1:56 PM Patient presents with: Allergic Rhinitis - nasal congestion and sneezing x2 months Thumb Discomfort - right thumb pain Initial BP 130/70 Pulse 60 Temp(Src) 97.9 ??F (36.6 ??C) (Oral) Resp 16 Ht 5' 11 (1.803 m) Wt 267 lb (121.11 kg) Estimated Body mass index is 37.24 kg/(m^2) as calculated from the following: Height as of this encounter: 5' 11(1.803 m). Weight as of this encounter: 267 lb(121.11 kg).. BP completed using cuff size large. Brittany Grayson/NETO documented in this encounter Plan of Treatment Not on filedocumented as of this encounter Procedures Procedure Name Priority Date/Time Associated Diagnosis Comme [facility] RT X-RAY EXAM Routine 01/30/2010 2:14 PM Thumb pain Resu lts for this OF FINGER(S) GLOBAL PRESIDENT procedure are i n the results section. documented in this encounter Results RT X-RAY EXAM OF FINGER(S) (01/30/2010 2:14 PM GLOBAL PRESIDENT) Specimen (Source) Anatomical Collection Method Collection Time Re ceived Time Location / / Volume Laterality 01/30/2010 2:14 PM GLOBAL PRESIDENT Impressions RADIOLOGY RESULTS - 01/31/2010 8:[address] FINGER(S) RIGHT 2-3 VW Jan 30, 2010 2:14: 00 PM HISTORY: ??THUMB PAIN, FINDINGS: Three views of the right thumb show no a cute fractures. Early osteoarthritic changes in the first carp ometacarpal articulation is noted. Nimesh Jo MD GENERAL IMAGING Performing Organization Address City/State/ZIP Code Phon e Number RADIOLOGY RESULTS documented in this encounter Visit Diagnoses Diagnosis Thumb pain Pain in limb Trigger finger (acquired) Chronic rhinitis documented in this encounter Care Teams Communication Center Operator Relationship Specialty Start Date End Date Nimesh Jo MD PCP - General 11/05/06 documented as of this encounter
--- OUTSIDE RECORDS SUMMARY | 2022-08-11 08:31 | XMS_ITS | Encounter Summary ---
:1955 Author Organization [facility] Address [address] [place] [address] Care Team Providers Name Role Phone Nimesh Jo MD Primary Care Provider Reason for Visit Reason Onset Date Comments Refill Request 08/28/2009 simvastatin Encounter Details Date Type Department Care Team Description 08/28/2009 Refill [facility] Nimesh Jo Refill Request Clinic [place] MD Bhupendra (simvastatin) [address] [place] [phone] (Wo rk) Social History Tobacco Use Types Packs/Day Years Used Date Former Smoker Cigarettes 1 35 Quit: 11/06/20 07 Alcohol Use Standard Drinks/Week Comments No 0 (1 standard drink = 0.6 oz pure alcoho l) Sex Assigned at Date Recorded Not on file documented as of this encounter Miscellaneous Notes Telephone Encounter - Noemí Dalton - 08/28/2009 2:16 PM CDT Last OV: 09/03/08 Reason for visit: preop Date last filled: 06/05/09 Lab Test 06/12/09 03/02/08 CHOL 171 182 HDL 27* 33* LDL 117 130* TRIG 135 97 CHOLHDLRATIO 6.4* 5.5* AST 46 03/02/08 ALT 64 06/12/09 Pt due for annual exam, rx reminder letter sent Medication approved per standing orders Noemí Dalton RN documented in this encounter Plan of Treatment Not on filedocumented as of this encounter Visit Diagnoses Diagnosis Mixed hyperlipidemia documented in this encounter Care Teams Rubbish Collector Relationship Specialty Start Date End Date Nimesh Jo MD PCP - General 11/05/06 documented as of this encounter
--- OUTSIDE RECORDS SUMMARY | 2022-08-11 08:32 | XMS_ITS | Clinical Summary ---
:1955 Author Organization [facility] Address [address] [place] [address] Care Team Providers Name Role Phone Unavailable Primary Care Provider Unavailable Source Comments You are receiving this document as you are listed as the primary care provider,follow-up provider, or the patient has been referred to you for consultation.This is in compliance with the Medicare and Medicaid EHR Incentive Program,which states Providers who transition their patient to another setting of careor provider of care or refers their patient to another provider of care shouldprovide summarycare record for each transition of care or referral. [facility] Allergies No known active allergies Medications Medication Sig Dispensed Refills Start Date End Date Status lisinopril (ZESTRIL) 10 Take 10 mg by 0 Active MG tablet mouth daily. amLODIPine (NORVASC) 10 Take 10 mg by 0 Active MG tablet mouth daily. metFORMIN (GLUCOPHAGE) Take 1,000 mg by 0 Active 1000 MG tablet mouth two times a day with meals. Active Problems No known active problems Social History Tobacco Use Types Packs/Day Years Used Date Smoking Tobacco: Never Sex Assigned at Date Recorded Not on file Last Filed Vital Signs Vital Sign Reading Time Taken Comments Blood Pressure - - Pulse - - Temperature - - Respiratory Rate - - Oxygen Saturation - - Inhaled Oxygen Concentration - - Weight 120.2 kg (265 lb) 10/07/2016 8:37 AM LABORER HEADING Height 180.3 cm (5' 11) 10/07/2016 8:37 AM LABORER HEADING Body Mass Index 36.96 10/07/2016 8:37 AM LABORER HEADING Plan of Treatment Health Maintenance Due Date Last Done Comments Colon Cancer Screening Plan Due 1955 Hep C Screening (Preventive 1955 Services) COVID-19 Vaccine (#1) 06/26/1956 Adult Preventive Visit 1974 DTaP/Tdap/Td (1 - Tdap) 1975 Cholesterol 1991 Zoster/Shingles (1 of 2) 2006 Pneumococcal 65+ Yrs (1 - PCV) 2021 Influenza (#1) 2022 HepA Aged Out No longer eligib le based on patient's age to complete this topic HepB Aged Out No longer eligib le based on patient's age to complete this topic Hib Aged Out No longer eligib le based on patient's age to complete this topic IPV (Polio) Aged Out No longer eligib le based on patient's age to complete this topic MCV4 Aged Out No longer eligib le based on patient's age to complete this topic Insurance Payer Benefit Plan / Subscriber ID Effective Dates Phone Addre ss Type Group BCBS BCBS CCS BLUE [id number] 2016-Present [address] [address] [place] [address]
--- OUTSIDE RECORDS SUMMARY | 2022-08-11 08:32 | XMS_ITS | Encounter Summary ---
:1955 Author Organization [facility] Address [address] [place] [address]. [place] [address] Care Team Providers Name Role Phone Nimesh Jo MD Primary Care Provider Encounter Details Date Type Department Care Team Description 08/27/2008 GI Procedure [facility] Nimesh Jo, None Care Jagdish CONRAD [address] [place] [address] [phone] [place], [place] [phone] (Wo rk) Social History Tobacco Use Types Packs/Day Years Used Date Former Smoker Cigarettes 1 35 Quit: 11/06/20 06 Alcohol Use Standard Drinks/Week Comments No 0 (1 standard drink = 0.6 oz pure alcoho l) Sex Assigned at Date Recorded Not on file documented as of this encounter Plan of Treatment Not on filedocumented as of this encounter Procedures Procedure Name Priority Date/Time Associated Diagnosis Comme nts COLONOSCOPY Routine 08/27/2008 9:40 AM Results f or this CDT procedure are i n the results section . documented in this encounter Results COLONOSCOPY (08/27/2008 9:40 AM CDT) [facility] Method Time Signature COLONOSCOPY Endoscopy RADIOLOGY RESULTS Patient Name: Sandeep Crooks ?Gender: M ? Procedure Date: 08/27/2008 9: 40 AM ? Date of : 1955 ?Age: 52 ? Admit Type: Outpatient ? Attending MD: Tain Juarez MD ? Procedure: ? Colonoscopy Indications: ? Average risk screening for malignant neoplasm in the ? colon Providers: ? Tian Juarez MD Referring MD: ?Nimesh Jo MD Medicines: ? Fe ntanyl 100 micrograms IV, Midazolam 2 mg IV, Atropine ? 0.6 mg IV Complications: ? No immediate complications Procedure: ? - Prior to the procedure, a History and Physical was ? performed, and patient medication allergies were ? reviewed. The patient is competent. The risks and ? benefits of the procedure and the sedation options and ? risks were discussed with the patient. All questions ? were answered and informed consent was obtained. Patient ? identification and proposed procedure were verified by ? the physician in the procedure room. Mental Status ? Examination: alert and oriented. Airway Examination: ? normal oropharyng eal airway and neck mobility. ? Respiratory Examination: clear to auscultation. CV ? Examination: normal. ASA Grade Assessment: II - A ? patient with mild systemic disease. After reviewing the ? risks and benefits, the patient was deemed in ? satisfactory condition to undergo the procedure. The ? anesthesia plan was to use moderate sedation / analgesia ? (conscious sedation). Immedia tely prior to ? administration of medications, the patient was ? re-assessed for adequacy to receive sedatives. The heart ? rate, respiratory rate, oxygen saturations, blood ? pressure, adequacy of pulmonary ventilation, and ? response to care were monitored throughout the ? procedure. The physical status of the patient was ? re-assessed after the procedu re. ? After obtaining informed consent, the colonoscope was ? passed under direct vision. Throughout the procedure, ? the patie nt's blood pressure, pulse, and oxygen ? saturations were monitored continuously. The [id number] ? #[id number] was introduced through the anus and advanced to ? the cecum, identified by appendiceal orifice & IC valve. ? The colonoscopy was performed without difficulty. The ? patient tolerated the procedure well. The quality of the ? prep was good. ? Findings: ? The digital rectal exam was normal. The rectum, sigmo id colon, ? descending colon, splenic flexure, transverse c olon, hepatic flexure, ? ascending colon, cecum and ileocecal valve appeared n ormal. The ? retroflexed view of the anal verge was normal and benny wed no anal or ? rectal abnormalities. ? Impression: ?- The rectum, sigmoid colon, descending colon, splenic ? flexure, transverse colon, hepatic flexure, ascending ? colon, cecum and ileocecal valve are normal. Recommendation: ?- Discharge patient to home (ambulat ory). ? - Collect Hemoccults on three spontaneously passed ? stools annually. ? - Flexible Sigmoidoscopy in 3 years. ? - Return to primary care phys ician PRN. ? Anjel Juarez M.D Tian Juarez MD Signed Date: 08/27/2008 9:54 AM Number of Addenda: 0 I was physically present for the entire viewing portion of t he exam. Note initiated on 08/27/2008 9:38 AM COLONOSCOPY RADIOLOGY RESULTS Specimen (Source) Anatomical Collection Method Collection Time Re ceived Time Location / / Volume Laterality 08/27/2008 9:40 AM CDT Nimesh Jo MD PROCEDURES Performing Organization Address City/State/ZIP Code Phon e Number RADIOLOGY RESULTS documented in this encounter Visit Diagnoses Not on filedocumented in this encounter Care Teams Supervisor [employer] Relationship Specialty Start Date End Date Nimesh Jo MD PCP - General 11/05/06 documented as of this encounter
--- OUTSIDE RECORDS SUMMARY | 2022-08-11 08:32 | XMS_ITS | Encounter Summary ---
:1955 Author Organization [facility] Address [address] [place] [address] Care Team Providers Name Role Phone Nimesh Jo MD Primary Care Provider [phone] Encounter Details Date Type Department Care Team Description 03/02/2008 Orders Only [facility] MIX ED HYPERLIPIDEMIA; [facility] or SCREENING MAL NEOP-PROSTATE [address] [place] [address] Social History Tobacco Use Types Packs/Day Years Used Date Current Every Day Smoker Cigarettes 1 35 Carl t: 11/06/2006 Alcohol Use Standard Drinks/Week Comments No 0 (1 standard drink = 0.6 oz pure alcoho l) Sex Assigned at Date Recorded Not on file documented as of this encounter Plan of Treatment Not on filedocumented as of this encounter Procedures Procedure Name Priority Date/Time Associated Diagnosis Comme nts HCL PROSTATE SPEC Routine 03/02/2008 7:40 Mixed Hyperlip idemia Results for this ANTIGEN,SCREEN AM CDT Screening Mal procedure ar e in Neop-Prostate the results section. HCL COMPREHENSIVE Routine 03/02/2008 7:40 Mixed Hyperlipidemia Results for this METABOLIC PANEL AM CDT procedure ar e in the results section. CL AFF A.M.A. LIPID Routine 03/02/2008 7:40 Mixed Hyperlipidem ia Results for this PANEL AM CDT procedure are i n the results section. documented in this encounter Results PROSTATE SPEC ANTIGEN,SCREEN (03/02/2008 7:40 AM CDT) athologist Signature PSA 0.63 0 - 4 ug/L [facility] Specimen Anatomical Collection Method Collection Time Receive d Time (Source) Location / / Volume Laterality 03/02/2008 7:40 AM 8 7:45 CDT AM CDT Nimesh Jo MD LABORATORY Performing Organization Address City/State/ZIP Code Phon e Number [facility] [address] [place] [address] [facility] (ABNORMAL) A.M.A. COMPREHENSIVE MET.PANEL (03/02/2008 7:40 AM CDT) Analysis Performed At Patho logist Time Signature Sodium 143 133 - 144 [place] mmol/L [facility] Potassium 4.6 3.4 - 5.3 [place] mmol/L [facility] Chloride 108 94 - 109 [place] mmol/L [facility] Carbon Dioxide 26 20 - 32 [place] mmol/L [facility] Anion Gap 9 6 - 17 [place] mmol/L [facility] Glucose 107 (H) 60 - 99 [place] mg/dL [facility] Urea Nitrogen 21 7 - 30 [place] mg/dL [facility] Creatinine 1.04 0.80 - [facility] 1.50 mg/dL [facility] GFR Estimate 80 >60 [place] mL/min/1.7 [facility] m2 LAB GFR Estimate If >90 >60 [place] Black mL/min/1.7 [facility] m2 LAB Calcium 9.2 8.5 - 10.4 [place] mg/dL [facility] Bilirubin Total 0.5 0.2 - 1.3 [place] mg/dL [facility] Albumin 4.3 3.3 - 4.6 [place] g/dL [facility] Protein Total 7.3 6.0 - 8.2 [place] g/dL [facility] Alkaline 89 40 - 150 [place] Phosphatase U/L [facility] ALT 53 0 - 70 U/L [facility] AST 46 0 - 55 U/L [facility] Specimen Anatomical Collection Method Collection Time Receive d Time (Source) Location / / Volume Laterality 03/02/2008 7:40 AM 8 7:45 CDT AM CDT Nimesh Jo MD LABORATORY Performing Organization Address City/State/ZIP Code Phon e Number [facility] [address] [facility] [address] [phone] [facility] (ABNORMAL) A.M.A. LIPID PANEL (03/02/2008 7:40 AM CDT) athologist Signature Cholesterol 182 0 - 200 [facility] mg/dL CLINIC LAB Comment: LDL Cholesterol is the primary guide to therapy: LDL-cholesterol goal in high risk patients is <100 mg/dL and in very high risk patients is <70 mg/dL. The NCEP recommends further evaluation of: patients with cholesterol <200 mg/dL if additional risk factors are present, cholesterol >240 mg/dL, triglycerides >150 mg/dL, or HDL <40 mg/dL. Triglycerides 97 0 - 150 mg/dL [facility] HDL Cholesterol 33 (L) 40 - 110 mg/dL [facility] LDL Cholesterol Calculated 130 (H) 0 - 129 mg/dL [facility] Comment: LDL Cholesterol is the primary guide to therapy: LDL-cholesterol goal in high risk patients is <100 mg/dL and in very high risk patients is <70 mg/dL. VLDL-Cholesterol 19 0 - 30 mg/dL [place] [facility] Cholesterol/HDL Ratio 5.5 (H) 0.0 - 5.0 [facility] Specimen Anatomical Collection Method Collection Time Receive d Time (Source) Location / / Volume Laterality 03/02/2008 7:40 AM 8 7:45 CDT AM CDT Nimesh Jo MD LABORATORY Performing Organization Address City/State/ZIP Code Phon e Number [facility] [address] [facility] [place] [address] [phone] [facility] documented in this encounter Visit Diagnoses Diagnosis Mixed hyperlipidemia Special screening for malignant neoplasm of prostate documented in this encounter Care Teams Study Abroad Advisor Relationship Specialty Start Date End Date Nimesh Jo MD PCP - General 11/05/06 documented as of this encounter
--- OUTSIDE RECORDS SUMMARY | 2022-08-11 08:32 | XMS_ITS | Encounter Summary ---
:1955 Author Organization [facility] Address [address] [place] [address] Care Team Providers Name Role Phone Nimesh Jo MD Primary Care Provider Reason for Visit Reason Onset Date Comments Refill Request 07/10/2008 Simvastatin Encounter Details Date Type Department Care Team Description 07/10/2008 Refill [facility] Nimesh Jo Refill Request Clinic [place] MD Bhupendra (Simvastatin) [address] [place] [phone] (Wo rk) Social History Tobacco Use Types Packs/Day Years Used Date Former Smoker Cigarettes 1 35 Quit: 11/06/20 06 Alcohol Use Standard Drinks/Week Comments No 0 (1 standard drink = 0.6 oz pure alcoho l) Sex Assigned at Date Recorded Not on file documented as of this encounter Miscellaneous Notes Telephone Encounter - Simi Gallardo - 07/10/2008 4:46 PM CDT Refill request for: Simvastatin Last OV: 05/16/08 Reason: derm Lab Test 03/02/08 11/12/06 CHOL 182 151 HDL 33* 36* LDL 130* 102 TRIG 97 66 CHOLHDLRATIO 5.5* 4.2 AST 46 03/02/08 ALT 53 03/02/08 Medication approved per standing orders. Simi Gallardo RN documented in this encounter Plan of Treatment Not on filedocumented as of this encounter Visit Diagnoses Diagnosis Mixed hyperlipidemia documented in this encounter Care Teams Decal Maker Relationship Specialty Start Date End Date Nimesh Jo MD PCP - General 11/05/06 documented as of this encounter
--- OUTSIDE RECORDS SUMMARY | 2022-08-11 08:32 | XMS_ITS | Encounter Summary ---
:1955 Author Organization [facility] Address [address] [place] [address] Care Team Providers Name Role Phone Nimesh Jo MD Primary Care Provider Encounter Details Date Type Department Care Team Description 11/15/2006 Historic Results [facility] Heart Unknown, [address] [place] [address] Social History Tobacco Use Types Packs/Day Years Used Date Current Every Day Smoker Cigarettes 1 35 Comments: working on quitting Alcohol Use Standard Drinks/Week Comments No 0 (1 standard drink = 0.6 oz pure alcoho l) Sex Assigned at Date Recorded Not on file documented as of this encounter Plan of Treatment Not on filedocumented as of this encounter Procedures Procedure Name Priority Date/Time Associated Diagnosis Comme nts ECHO CARDIAC - HIM SCAN 11/15/2006 12:00 AM OPERATORS TEACHER - ARCHIVE documented in this encounter Results ECHO CARDIAC - HIM SCAN - ARCHIVE (11/15/2006 12:00 AM OPERATORS TEACHER) Specimen (Source) Anatomical Location Collection Method / Collectio n Time Received Time / Laterality Volume 11/15/2006 Narrative This result has an attachment that is no t available. Provider Scan CV ECHO ORDERABLES documented in this encounter Visit Diagnoses Not on filedocumented in this encounter Care Teams Private Eye Relationship Specialty Start Date End Date Nimesh Jo MD PCP - General 11/05/06 documented as of this encounter
--- OUTSIDE RECORDS SUMMARY | 2022-08-11 08:32 | XMS_ITS | Encounter Summary ---
:1955 Author Organization [facility] Address [address] [place] [address] Care Team Providers Name Role Phone Unavailable Primary Care Provider Unavailable Reason for Visit Reason Comments Neck Pain Back Pain Encounter Details Date Type Department Care Team Description 10/01/2016 Surgical Consult [facility] Woody Sanchez Ost eoarthritis of CORNELIO Martin MD cervical spine with [address] [facility] [address] [facility] D r myelopathy ([address] [place], [place] Dx) [place] [address] [phone] Social History Tobacco Use Types Packs/Day Years Used Date Smoking Tobacco: Never Sex Assigned at Date Recorded Not on file documented as of this encounter Last Filed Vital Signs Vital Sign Reading Time Taken Comments Blood Pressure - - Pulse - - Temperature - - Respiratory Rate - - Oxygen Saturation - - Inhaled Oxygen Concentration - - Weight 120.2 kg (265 lb) 10/01/2016 9:24 AM CDT Height 180.3 cm (5' 11) 10/01/2016 9:24 AM CDT Body Mass Index 36.96 10/01/2016 9:24 AM CDT documented in this encounter Progress Notes Woody Sanchez MD - 10/01/2016 11:38 AM CDT NAME: SURINDER GOETZ MR#: [id number] CSN: [id number] AUTHENTICATING CLINICIAN: Woody Sanchez MD CONFIRM #: [id number] LOC: 711 CLINIC PROGRESS NOTE DATE OF VISIT: 10/01/2016 : 1955 CHIEF COMPLAINT: 1.Neck pain. 2.Bilateral arm pain and numbness. HPI: Surinder is an extremely pleasant 60-year-old gentleman who is now retired. He is seen today at the request of Dr. Amos. He was also advised by his chiropractor, Joanne Mccain, to see a environmental management specialist as well. Surinder states his symptoms began gradually approximately 6 months ago. At first his states that he began complaining of a tingling sensation in the tips of his fingers and the central hand. He saw his primary physician and was sent for physical therapy which really did not seem to help anything. He then started seeing a chiropractor who recognized that he needed MRI imaging of the cervical spine.He was sent to [facility] by his chiropractor and he has clearly abnormal findings. Firstly, he has evidence of myelomalacia worst at C3-4 and C5-6. There is multilevel degenerative disc disease with disc bulging at the above-noted levels. He has significant central canal stenosis and impingement into the anjana tral cord. Once again, there is evidence of myelomalacia findings on his MRI imaging. From a cervical myelopathy point of view, he does notice that he is getting a little bit clumsy. There has even been one episode of falling. He is certainly not staggering around and the fall was related to uneven ground, etc. He has also noticed that his handwriting is deteriorating. 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 PAST MEDICAL HISTORY: Hypertension and diabetes. SOCIAL HISTORY: He is now retired. He is accompanied today by his . REVIEW OF SYSTEMS: Positive for mild gait and balance disturbance. He also has some mild difficulty with fine motor task skills in the upper extremities. There is radicular arm numbness in particular as well as some weakness that he notices when he goes to the gym and tries weights. PHYSICAL EXAM: Physical exam today shows a large heavyset gentleman. Gait is not grossly myelopathic. When I ask him to tandem heel and toe walk, however, he very definitely is clumsy and struggles with it, although he is able to perform the task, he does not fall. In the sitting position, he has normal objective light touch to all digits. 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 He is aware of some weakness with curls and bench pressing. He has subtle but definite hyperreflexia at the brachioradialis on the right compared to the left. Left side reflex is normoreflexic. Biceps and triceps reflexes are both normal on the right side. Handis well perfused and he has a negative Navarrete's. IMAGING: MRI imaging was reviewed in detail with Surinder and his . It clearly shows quite prominent disc herniations at C3-4 and C5-6. There is evidence of myelomalacia streaking in the cord and the cord is being deformed ventrally. Firstly, I have advised Surinder he is not to undergo any further chiropractic adjustments. His chiropractor has told him the same. I will expedite a consultation appointment with Dr. Vasques to see if Dr. Vasques recommends ACDF versus posterior approach laminoplasty. Further treatment recommendations will be by Dr. Vasques, but I do think that Surinder requires surgical intervention. FINAL ASSESSMENT: Cervical myelopathy. 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
--- OUTSIDE RECORDS SUMMARY | 2022-08-11 08:32 | XMS_ITS | Encounter Summary ---
:1955 Author [facility] Address [address] [place] [address] Care Team Providers Name Role Phone Unavailable Primary Care Provider Unavailable Reason for Visit Reason Comments Neck Pain Neck pain with Bilateral arm pain Encounter Details Date Type Department Care Team Description 10/07/2016 Surgical Consult [facility] Clarence Vasques al stenosis in CENTER MD Gia cervical region [address] [facility] [address] (Primary Dx) [place], [place] [address] [place], [place] [phone] Social History Tobacco Use Types Packs/Day Years [...] 120.2 kg (265 lb) 10/07/2016 8:37 AM MONITORING TECH Height 180.3 cm (5' 11) 10/07/2016 8:37 AM MONITORING TECH Body Mass Index 36.96 10/07/2016 8:37 AM MONITORING TECH documented in this encounter Progress Notes Clarence Vasques MD - 10/07/2016 11:06 AM CST NAME: SURINDER GOETZ MR#: [id number] CSN: [id number] AUTHENTICATING CLINICIAN: Clarence Vasques MD CONFIRM #: [id number] LOC: 711 CLINIC PROGRESS NOTE DATE OF VISIT: 10/07/2016 : 1955 This very pleasant patient is here today at the behest of Dr. Deven Sanchez. 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 In fact, he has a frankLhermitte's phenomenon with sneezing and coughing. The patient has been noticing weakness to his right upper extremity and has significant dysfunction with ambulation and gait or tasks requiring fine motor detail. He undoubtedly is a myelopathic individual who has cord compression with intrinsic cord signal change at both C3-4 as well as C5-6. He also presents with radicular arm dysfunction in natureas well. In a C6, 7 and 8th distribution, right greater than left. He has problems with balance, prob lems with handwriting, tasks requiring fine motor detail. Problems with coughing and sneezing, and tilting his head back with extension. He has been seen by Dr. Parker Amos who sent him to Dr. Sanchez who then referred him on to my clinic as a thorough workup of x-rays at [facility] and an MRI at [facility] on 09/09/2016 and 08/31/2016 shows undoubted cord compression as well as foraminal stenosis. PAST MEDICAL HISTORY: Significant for hypertension and type 2 diabetes. MEDICATIONS: He takes Norvasc, Zestril, Glucophage. ALLERGIES: He has no listed drug allergies. He is a nonsmoker. He is . He presents today with his . He has had previous surgeries to his right wrist which was a fusion after what appears to be potentially a scaphoid collapse and this was done through a dorsal exposure. PHYSICAL EXAM: Clinical exam shows he is 5 feet 10 inches and weighs 265 pounds. Extremely pleasant. He has hyperreflexic reflexes. He has a fused right wrist. He is grossly myelopathic. Tandem gait is not intact. Romberg is grossly abnormal. Strength testing in his right upper extremity; intrinsics, insole doubler strength, biceps and deltoids, triceps 4/5. His left upper extremity 4+/5. He has hyperreflexia in both upper and lower extremities as well. His cranial nerve function 2-12 is grossly intact. He has absolutely nosigns of symptom amplification. He is extremely pleasant overall. His MRI shows again intrinsic cord signal change, both at the C3-4 as well as the 5-6 levels best inthe sagittal series 6, image 8. He also has severe foraminal stenosis on the right at C6-7 as well as C7-T1. He has a loss of cervical lordosis and significant spondylosis at C5-6 and C6-7. ASSESSMENT: Cervical spondylo myeloradiculopathy, weakness and progressive deterioration in function with a positive Lhermitte's phenomenon with sneezing, coughing and cervical extension which was not tested today. Undoubtedly this patient requires surgical intervention. The question is what scope of surgery is christian performed. PLAN: My recommendation would be for a more global based approach to address his cord compression as well as his radiculopathy. I think that a posterior-based approach initially with laminectomy C3-T1 with posterior spinal fusion instrumentation from C3-T1 with possible laminectomy with autograft fusion vers us crest graft posterior autograft fusion with staged or same-day anterior cervical decompression fusion at C3-4, C4-5, C5-6, C6-7, C7-T1. I think that to do surgery for his cord compression at C3-4 aswell as C5-6 and to leave the C4-5 segment out of the construct with its already degenerative changes to the left C4-5 facet joint with left-sided C4-5 foraminal stenosis, would be unwise; floating fusion would not be recommended in my opinion. I think that a fusion at C3-4, 4-5 and5-6 leaving his degree of foraminal stenosis at C6-7 C7-T1 will leave him with hand dysfunction on the right upper extremity; he is right hand dominant. Therefore, I believe that a more global approach is indicated and eth ical. I asked him to get a second opinion as I think the priority is undoubtedly to decompress the spinal cord at C3-4 as well as C5-6 and one could argue to do an isolated fusion anteriorly at C3-4, 4-5 and5-6, but again I think he would be back having surgery to address the degrees of foraminal stenosis at C6-7 and C7-T1. Risks, benefits and alternatives to surgery inclusive but not limited to bleeding, infection, dural laceration requiring repair, battered nerve root syndrome, iatrogenic instability, errant screw/implant placement requiring revision surgery, adjacent segment degenerative changes, position complications, stroke, , clot and blindness. This will be required to be done at [facility] only under spinal cord monitoring. [place] J collar for 6 weeks to 3 months postoperatively. He understands swallowing difficulties postsurgical as well. KJM:TH C: R:10/07/16 09:16 CONFIRM#:[id number] TORING TECH documented in this encounter Plan of Treatment Not on filedocumented as of this encounter Visit Diagnoses Diagnosis Spinal stenosis in cervical region - Katie trujillo documented in this encounter
--- OUTSIDE RECORDS SUMMARY | 2022-08-11 08:32 | XMS_ITS | Encounter Summary ---
:1955 Author Organization [facility] Address [address] [place] [address] Care Team Providers Name Role Phone Nimesh Jo MD Primary Care Provider [phone] Encounter Details Date Type Department Care Team Description 11/07/2007 Operative Report Yadi Pulido DPM (Crime Scene Technician) [facility] [address] [place] [address] (Wo rk) Social History Tobacco Use Types Packs/Day Years Used Date Current Every Day Smoker Cigarettes 1 35 Carl t: 11/06/2006 Alcohol Use Standard Drinks/Week Comments No 0 (1 standard drink = 0.6 oz pure alcoho l) Sex Assigned at Date Recorded Not on file documented as of this encounter Progress Notes Yadi Pulido - 11/25/2007 10:30 AM POSTAL TRANSPORTATION CLERK FINAL PREOPERATIVE DIAGNOSES: 1. Capsulitis secondary to hallux abductovalgus, first metatarsophalangeal joint, right, 2. Underlapping right fourth digit (hammertoe and IPK just medial to the medial border of the nail.) POSTOPERATIVE DIAGNOSES: 1. Capsulitis secondary to hallux abductovalgus, first metatarsophalangeal joint, right.. 2. Underlapping right fourth digit (hammertoe and IPK just medial to the medial border of the nail.) PROCEDURE: 1. Ankit bunion correction with K-wire fixation (3). 2. Hammertoe repair, right fourth digit. TOURNIQUET TIME: 95 minutes using an ankle tourniquet at a pressure of 250 mmHg. ESTIMATED BLOOD LOSS: Minimal. INDICATIONS: This 51-year-old male presented to clinic complaining of right bunion pain and extremepain involving the right fourth digit. The right fourth digit was noted to be underlapping with an IPK just medial to the medial border of the nail. The patient has had previous bunion correction and was noted to have partial K-wire remaining in the distal shaft of the right first metatarsal. The patient requests surgical correction. PREOPERATIVE MEDICATIONS: A gram of Ancef, 30 cc of 50:50 mixture of 0.5% Sensorcaine plain and 1% Xylocaine plain was given as given in a modified Rahman block around the right first MPJ, right fourth MPJ. Postoperatively, the patient received 10 cc of 1% Xylocaine plain, 10 cc of 0.5% Sensorcaine plain and 1 cc of dexamethasone phosphate and a gram of Ancef. DESCRIPTION OF PROCEDURE: The patient was brought into the OR, placed in the operating table in supine position. After adequate anesthesia, the right foot was prepped and draped using the usual sterile and aseptic technique. The right foot was then exsanguinated with an Esmarch bandage and ankle tourniquet was inflated to 250 mmHg. Attention was then directed to the dorsomedial aspect of the first MPJ of the right foot where a 3.5 cm curvilinear incision was effected through the previous incision site. Sharp and blunt dissection were then performed to expose the capsule of the first MPJ. Much fibrous tissue was encountered. The capsule and fibrous tissue was incised, exposing the head and neck ofthe first metatarsal. It should be noted at this time the end of the K- wire was observed. Multiple attempts with multiple instruments were made attempting to retrieve and removed the K-wire which were unproductive. Attention was then directed to the first interspace where continued sharp and blunt diss ection were performed. The transverse intermetatarsal ligament was identified and transected. The adductor hallucis tendon was identified and transected and the fibular sesamoid was freed distally, proximally and laterally, and lateral capsulotomy was then performed. Attention was then directed back to the medial aspect of the first metatarsal head where dorsal and medial bony prominences were resected with an oscillating saw. The medial base of the proximal phalanx of the hallux was noted to be prominent and was resected. All rough edges were rongeured and rasped smooth. The operative site was flushed with copious amounts of sterile saline. Attention was then directed to the head of the first metatarsal, where a V osteotomy was effected. The head of the first metatarsal was then distracted, shifted laterally, impacted on the shaft of thefirst metatarsal. The osteotomy was then fixated with a 0.062 K-wire. It should be noted at this time and the hallux was noted to take a rectus attitude. The osteotomy was stable upon challenging. The remaining medial eminence on the shaft of the 1st metarsal was resected. Continued attempts at retrieval of the previous K-wire from the previous bunion correction were made to include the use of a bur.Again, these were unproductive at removing the K-wire. The K-wire was then ground down with a bur flat so that it would not cause irritation in the future. The operative site was flushed with copious amounts of sterile saline. It should be noted at this time that the aggressive attempts had allowed the osteotomy which was previously fixated to come loose. Two more K-wires were then applied to ensure stability of the osteotomy site. The operative site was flushed with copious amounts of sterile saline. This was done repeatedly in an attempt to remove all metal filings. The capsule was repaired with 3-0 Vicryl and the skin incision was repaired with 3-0 Ethilon in a simple interrupted suture pattern. The correction resulted in a splitting of the integument in the sulcus of the first interspace which was then repaired with 3-0 Ethilon. PROCEDURE #2: Attention was then directed to the dorsal aspect of the right fourth digit, where a 2cm linear incision was effected. Sharp and blunt dissection were then performed to expose the extensor apparatus which was incised at the level of the DIPJ. The collateral ligaments were transected, exp osing the head of the intermediate phalanx which was resected. All rough edges were rongeured and rasped smooth. The operative site was flushed with copious amounts of sterile saline. The extensor apparatus was repaired with 3-0 Vicryl and the skin incision was closed with 4-0 Ethilon in a simple interrupted suture pattern. After postoperative injections, Adaptic, bacitracin and dry sterile compression dressings were applied. The patient tolerated the procedure well and left the operative to recovery in satisfactory condition. The patient has a follow-up at the [facility] office on 09/10/2007. The patient did receive a prescription for Percodan and will initiate ibuprofen. The patient will initiate Omnicef today. Electronically signed on 11/25/2007 10:30 by YADI PULIDO DPM MT: [id number] Name: SURINDER GOETZ Account: [id number] : 1955 Procedure Date: 11/07/2007 Document: [id number] AL TRANSPORTATION CLERK documented in this encounter Plan of Treatment Not on filedocumented as of this encounter Visit Diagnoses Not on filedocumented in this encounter Care Teams Umbrella Tipper Relationship Specialty Start Date End Date Nimesh Jo MD PCP - General 11/05/06 documented as of this encounter
--- OUTSIDE RECORDS SUMMARY | 2022-08-11 08:32 | XMS_ITS | Encounter Summary ---
:1955 Author Organization [facility] Address [address] [place] [address]. [place] [address] Care Team Providers Name Role Phone Rodney Akhtar MD Primary Care Provider Reason for Visit Reason Comments Pre-Op Exam Left knee surgery 09/07/08 Encounter Details Date Type Department Care Team Description 09/03/2008 Office Visit [facility] Rodney Akhtar Other Specified Clinic [place] MD Pre-Operative [id number] [place] [id number] [place] [address] Examination (Primary [place], [place] Dx) [phone] Social History Tobacco Use Types Packs/Day Years Used Date Former Smoker Cigarettes 1 35 Quit: 11/06/20 07 Alcohol Use Standard Drinks/Week Comments No 0 (1 standard drink = 0.6 oz pure alcoho l) Sex Assigned at Date Recorded Not on file documented as of this encounter Last Filed Vital Signs Vital Sign Reading Time Taken Comments Blood Pressure 140/78 09/03/2008 4:15 PM CDT Pulse - - Temperature 36.7 ??C (98 ??F) 09/03/2008 4:15 PM CDT Respiratory Rate - - Oxygen Saturation - - Inhaled Oxygen Concentration - - Weight 122.9 kg (271 lb) 09/03/2008 4:15 PM CDT Height 177.8 cm (5' 10) 09/03/2008 4:15 PM CDT Body Mass Index 38.88 09/03/2008 4:15 PM CDT documented in this encounter Progress Notes Lisa Smith - 09/03/2008 4:14 PM CDT PRE-OP EVALUATION: Today's date: 09/03/2008 Sandeep Crooks (: 1955) presents for pre-operative evaluation as requested by Dr. Prabhakar. He requires evaluation and anesthesia clearance prior to undergoing surgery/procedure for treatment of meniscus tear . Proposed procedure: Left arthroscopic knee surgery Date of Surgery/ Procedure: 09/07/08 Time of Surgery/ Procedure: 8:00 a.m. Hospital/Surgical Facility: [facility] Primary Physician: Rodney Akhtar MD Type of Anesthesia Anticipated: to be determined History of anesthesia complications: NONE History of abnormal bleeding: NONE History of blood transfusions: NO Patient has a Health Care Directive or Living Will: NO PREOP QUESTIONNAIRE 1- NO - Do you ever have any pain or discomfort in your chest? 2- NO - Have you ever had a severe pain across the front of your chest lasting for half an hour or more? 3- NO - Do you have swelling in your feet or ankles at times? 4- NO - Are you troubled by shortness of breath when: walking on the level/ up a slight hill/ at night? 5- NO - Does your chest ever sound wheezy or whistling? 6- NO - Do you currently have a cold, bronchitis or other respiratory infection? 7- NO - Have you had a cold, bronchitis or other respiratory infection within the last 2 weeks? 8- NO - Do you usually have a cough? 9- NO - Do you sometimes get pains in the calves of your legs when you walk? 10-NO - Do you or anyone in your family have previous history of blood clots? 11-NO - Do you or does anyone in your family have serious bleeding problem such as prolonged bleeding following surgeries or cuts? 12-NO - Have you ever had problems with anemia or been told to take iron pills? 13-NO - Have you had any abnormal blood loss such as black, tarry or bloody stools, or abnormal vaginal bleeding? 14-NO - Have you or any of your relatives ever had problems with anesthesia? 15-NO - Do you snore or stop breathing at night? 16-NO - Do you have any prosthetic heart valves or joints? 17-NO - Is there any chance that you may be ? Lisa Smith/NETO HPI: See problem list for active medical problems. Problems all longstanding and stable, except as noted/documented. See ROS for pertinent symptoms related to these conditions. . Patient Active Problem List Diagnoses Date Noted ??? Eczema [692.9BU] 05/16/2008 ??? Boil [680.9L] 05/16/2008 ??? MIXED HYPERLIPIDEMIA [272.2] 11/12/2006 ??? TOBACCO USE DISORDER [305.1] 11/12/2006 No past medical history on file. No past surgical history on file. Current outpatient prescriptions Medication Sig ??? SIMVASTATIN 40 MG OR TABS 1 TABLET AT BEDTIME ??? ORDER FOR DME Night Splint : Wear at night as directed. OTC products: None, except as noted above No Known Allergies. Latex Allergy: NO History Substance Use Topics ??? Tobacco Use: Quit -- 1.0 packs/day for 35 years Quit date: 11/06/2007 ??? Alcohol Use: No History Drug Use No REVIEW OF SYSTEMS: C: NEGATIVE for fever, [...] changes in mood or affect EXAM: BP 140/78 Temp (Src) 98 ??F (36.7 ??C) (Oral) Ht 5' 10 (1.778 m) Wt 271 lb (122.925 kg) GENERAL APPEARANCE: healthy, alert and no distress EYES: EOMI, - PERRL HENT: ear canals and TM's normal and nose and mouth without ulcers or lesions NECK: no adenopathy, no asymmetry, masses, or scars and thyroid normal to palpation RESP: lungs clear to auscultation - no rales, rhonchi or wheezes BREAST: normal without masses, tenderness or nipple discharge and no palpable axillary masses or adenopathy CV: [...] No axillary, cervical, inguinal, or supraclavicular nodes DIAGNOSTICS: EKG: appears normal, NSR, normal axis, normal intervals, no acute ST/T changes c/w ischemia, no LVH by voltage criteria, unchanged from previous tracings IMPRESSION: Reason for surgery/procedure: Left knee meniscal tear Diagnosis/reason for consult: preop clearance, smoking history For above listed surgery and anesthesia: Patient is at LOW risk for surgery/procedure and perioperative/procedure complications. RECOMMENDATIONS: Approval given to proceed with proposed procedure, without further diagnostic evaluation. Signed Electronically by: RODNEY AKHTAR MD Copy of this evaluation report is provided to requesting physician. documented in this encounter Plan of Treatment Not on filedocumented as of this encounter Procedures Procedure Name Priority Date/Time Associated Diagnosis Comme nts HCL HEMOGLOBIN Routine 09/03/2008 4:26 PM Other Specified Resu lts for this NONLAB CDT Pre-Operative procedure are in Examination the results section. ZZC Routine 09/03/2008 Other Specified Results for this ELECTROCARDIOGRAM, Pre-Operative procedur e are in COMP W/READ Examination the results section. documented in this encounter Results HGB (09/03/2008 4:26 PM CDT) P athologist Signature Hemoglobin 14.4 13.3 - 17.7 [facility] g/dL [facility] Specimen Anatomical Collection Method Collection Time Receive d Time (Source) Location / / Volume Laterality 09/03/2008 4:26 PM 8 4:27 CDT PM CDT Rodney Akhtar MD LABORATORY Performing Organization Address City/State/ZIP Code Phon e Number [facility] [address] [place] [address] [facility] ELECTROCARDIOGRAM, COMP W/READ (09/03/2008) Narrative This result has an attachment that is no t available. Rodney Akhtar MD EKG TECHNICAL documented in this encounter Visit Diagnoses Diagnosis Other specified pre-operative examinatio n - Primary documented in this encounter Care Teams Mold Finisher Relationship Specialty Start Date End Date Rodney Akhtar MD PCP - General 11/05/06 documented as of this encounter
--- OUTSIDE RECORDS SUMMARY | 2022-08-11 08:32 | XMS_ITS | Encounter Summary ---
:1955 Author Organization [facility] Address [address] [place] [address]. [place] [address] Care Team Providers Name Role Phone Nimesh Jo MD Primary Care Provider Reason for Visit Reason Onset Date Comments Refill Request 07/04/2007 Encounter Details Date Type Department Care Team Description 07/04/2007 Refill [facility] Nimesh Jo, Refill Request [facility] [address] [place] [phone] [place], [place] [phone] (Wo rk) Social History Tobacco Use Types Packs/Day Years Used Date Former Smoker Cigarettes 1 35 Quit: 11/06/20 06 Comments: quit 11/06/06 Alcohol Use Standard Drinks/Week Comments No 0 (1 standard drink = 0.6 oz pure alcoho l) Sex Assigned at Date Recorded Not on file documented as of this encounter Miscellaneous Notes Telephone Encounter - Ken Webster - 07/04/2007 4:43 PM CDT Staff Message copied by KEN WEBSTER on 07/04/2007 at 4:43 PM ------ Message from: ELISEO BUSH Created: 07/04/2007 at 4:28 PM Regarding: marcelle Hopkins gave the wrong pharm ( pt was in last Oct. ) He would like zocor sent to [facility] in [place] pls call him he has questions on the dosage [phone] documented in this encounter Plan of Treatment Not on filedocumented as of this encounter Visit Diagnoses Diagnosis Mixed hyperlipidemia - Primary documented in this encounter Care Teams Fac Engineer Relationship Specialty Start Date End Date Nimesh Jo MD PCP - General 11/05/06 documented as of this encounter
--- OUTSIDE RECORDS SUMMARY | 2022-08-11 08:32 | XMS_ITS | Encounter Summary ---
:1955 Author Organization [facility] Address [address] [place] [address] Care Team Providers Name Role Phone Nimesh Jo MD Primary Care Provider Reason for Visit Reason Onset Date Comments Refill Request 11/30/2007 chantix julianne fajardo Encounter Details Date Type Department Care Team Description 11/30/2007 Refill [facility] Nimesh Jo Refill Request ([facility] [place] [address] [place] [phone] (Wo rk) Social History Tobacco Use Types Packs/Day Years Used Date Current Every Day Smoker Cigarettes 1 35 Carl t: 11/06/2006 Alcohol Use Standard Drinks/Week Comments No 0 (1 standard drink = 0.6 oz pure alcoho l) Sex Assigned at Date Recorded Not on file documented as of this encounter Miscellaneous Notes Telephone Encounter - Noemí Dalton - 11/30/2007 4:27 PM CST Fax received for refill of chantix julianne fajardo, ? Should be new rx for continuing month, julianne fajardogiven last month, JM gone, will route to Torrie Dalton RN MATIC COIN MACHINE MECHANIC documented in this encounter Plan of Treatment Not on filedocumented as of this encounter Visit Diagnoses Diagnosis Mixed hyperlipidemia Tobacco use disorder documented in this encounter Care Teams Golf Sales Manager Relationship Specialty Start Date End Date Nimesh Jo MD PCP - General 11/05/06 documented as of this encounter
--- OUTSIDE RECORDS SUMMARY | 2022-08-11 08:32 | XMS_ITS | Encounter Summary ---
:1955 Author Organization [facility] Address [address] [place] [address]. [place] [address] Care Team Providers Name Role Phone Rodney Akhtar MD Primary Care Provider Reason for Visit Reason Comments Pre-Op Exam Encounter Details Date Type Department Care Team Description 11/02/2007 Office Visit [facility] Rodney Akhtar PREOP EXAM OTHER SPECIFIED (Primary Dx); [facility] [place] TOBACCO USE DISORDER; [address] [place] [address] MIXED HYPERLIPIDEMIA; [place], [place] SCREENI NG MAL NEOP-PROSTATE [phone] Social History Tobacco Use Types Packs/Day Years Used Date Current Every Day Smoker Cigarettes 1 35 Carl t: 11/06/2006 Alcohol Use Standard Drinks/Week Comments No 0 (1 standard drink = 0.6 oz pure alcoho l) Sex Assigned at Date Recorded Not on file documented as of this encounter Last Filed Vital Signs Vital Sign Reading Time Taken Comments Blood Pressure 140/70 11/02/2007 4:30 PM INTERNAL SALES Pulse 72 11/02/2007 4:30 PM INTERNAL SALES Temperature 37 ??C (98.6 ??F) 11/02/2007 4:30 PM INTERNAL SALES Respiratory Rate - - Oxygen Saturation - - Inhaled Oxygen Concentration - - Weight 109.3 kg (241 lb) 11/02/2007 4:30 PM INTERNAL SALES Height 180.3 cm (5' 11) 11/02/2007 4:30 PM INTERNAL SALES Body Mass Index 33.61 11/02/2007 4:30 PM INTERNAL SALES documented in this encounter Progress Notes Ronaldo Pierce - 11/02/2007 4:38 PM CST PRE-OP EVALUATION: Today's date: 11/02/2007 Sandeep Crooks (: 1955) presents for pre-operative evaluation as requested by Dr. Silverman. He requires evaluation and anesthesia clearance prior to undergoing surgery/procedure for treatment of right foot . Proposed procedure: bunion surgery Date of Surgery/ Procedure: 11/07/07 Time of Surgery/ Procedure: 11:00 Hospital/Surgical Facility: [facility] Fax number for surgical facility: [phone] Primary Physician: Dr. Rodney Akhtar Type of Anesthesia Anticipated: to be determined [...] infection within the last 2 weeks? 8- YES - Do you usually have a cough? [...] any chance that you may be ? HPI: See problem list for active medical problems. Problems all longstanding and stable, except as noted/documented. See ROS for pertinent symptoms related to these conditions. . Patient Active Problem List Diagnoses Date Noted ??? MIXED HYPERLIPIDEMIA [272.2] 11/12/2006 ??? TOBACCO USE DISORDER [305.1] 11/12/2006 No past medical history on file. No past surgical history on file. Current outpatient prescriptions Medication Sig ??? SIMVASTATIN 40 MG OR TABS 1 TABLET AT BEDTIME OTC products: None, except as noted above No Known Allergies. Latex Allergy: NO History Substance Use Topics ??? Tobacco Use: Yes -- 1.0 packs/day for 35 years Last Attempt to Quit: 11/06/2006 ??? Alcohol Use: No History Drug Use Not on file REVIEW OF SYSTEMS: C: NEGATIVE for fever, [...] changes in mood or affect EXAM: BP 140/70 Pulse 72 Temp (Src) 98.6 (Oral) Ht 5' 11 (1.80m) Wt 241 lbs (109.3kg) GENERAL APPEARANCE: healthy, alert and no distress EYES: EOMI, fundi benign- PERRL HENT: ear canals and TM's normal [...] from previous tracings IMPRESSION: Reason for surgery/procedure: Foot pain For above listed surgery and anesthesia: Patient is at LOW risk for surgery/procedure and perioperative/procedure complications. RECOMMENDATIONS: Approval given to proceed with proposed procedure, without further diagnostic evaluation. Signed Electronically by: RODNEY AKHTAR MD Copy of this evaluation report is provided to requesting physician. RNAL SALES documented in this encounter Nursing Notes 11/02/2007 4:30 PM CST >> RONALDO PIERCE 11/02/2007 4:41 pm Patient presents with: Pre-Op Exam Initial BP 140/70 Pulse 72 Temp (Src) 98.6 (Oral) Ht 5' 11 (1.80m) Wt 241 lbs (109.3kg) Body mass index is 33.63 kg/(m^2).. BP completed using cuff size large Ronaldo Pierce CMA documented in this encounter Plan of Treatment Not on filedocumented as of this encounter Procedures Procedure Name Priority Date/Time Associated Comments Diagnosis HCL HEMOGLOBIN Routine 11/02/2007 4:46 PM Preop Exam Other Res ults for this NONLAB INTERNAL SALES Specified procedure are i n the results section. ZZC Routine 11/02/2007 Preop Exam Other ELECTROCARDIOGRAM, Specified COMP W/READ documented in this encounter Results HGB (11/02/2007 4:46 PM INTERNAL SALES) athologist Signature Hemoglobin 14.8 13.3 - 17.7 [place] C[place]AR g/dL [facility] Specimen Anatomical Collection Method Collection Time Receive d Time (Source) Location / / Volume Laterality 11/02/2007 4:46 PM 7 4:48 INTERNAL SALES PM INTERNAL SALES Rodney Akhtar MD LABORATORY Performing Organization Address City/State/ZIP Code Phon e Number [facility] [address] [place] [address] [facility] ELECTROCARDIOGRAM, COMP W/READ (11/02/2007) Narrative This result has an attachment that is no t available. Rodney Akhtar MD EKG TECHNICAL documented in this encounter Visit Diagnoses Diagnosis Other specified pre-operative examinatio n - Primary Tobacco use disorder Mixed hyperlipidemia Special screening for malignant neoplasm of prostate documented in this encounter Care Teams Marketing Finance Specialist Relationship Specialty Start Date End Date Rodney Akhtar MD PCP - General 11/05/06 documented as of this encounter
--- OUTSIDE RECORDS SUMMARY | 2022-08-11 08:32 | XMS_ITS | Encounter Summary ---
:1955 Author Organization [facility] Address [address] [place] [address] Care Team Providers Name Role Phone Nimesh Jo MD Primary Care Provider Reason for Visit Reason Onset Date Comments Refill Request 06/05/2009 Simvastatin Encounter Details Date Type Department Care Team Description 06/05/2009 Refill [facility] Nimesh Jo Refill Request [facility] [place] MD Bhupendra (Simvastatin) [address] [place] [phone] (Wo rk) Social History Tobacco Use Types Packs/Day Years Used Date Former Smoker Cigarettes 1 35 Quit: 11/06/20 07 Alcohol Use Standard Drinks/Week Comments No 0 (1 standard drink = 0.6 oz pure alcoho l) Sex Assigned at Date Recorded Not on file documented as of this encounter Miscellaneous Notes Telephone Encounter - Noemí Dalton - 06/05/2009 10:52 AM CDT Last OV: 09/03/08 Reason for visit: preop Date last filled: 03/11/09 Lab Test 03/02/08 11/12/06 CHOL 182 151 HDL 33* 36* LDL 130* 102 TRIG 97 66 CHOLHDLRATIO 5.5* 4.2 AST 46 03/02/08 ALT 53 03/02/08 Future orders placed, rx reminder letter sent-need lipid panel Medication approved per standing orders Noemí Dalton RN documented in this encounter Plan of Treatment Not on filedocumented as of this encounter Visit Diagnoses Diagnosis Mixed hyperlipidemia - Primary documented in this encounter Care Teams Unisaw Operator Relationship Specialty Start Date End Date Nimesh Jo MD PCP - General 11/05/06 documented as of this encounter
--- OUTSIDE RECORDS SUMMARY | 2022-08-11 08:32 | XMS_ITS | Encounter Summary ---
:1955 Author Organization [facility] Address [address] [place] [address] Care Team Providers Name Role Phone Nimesh Jo MD Primary Care Provider [phone] Encounter Details Date Type Department Care Team Description 06/12/2009 Orders Only [facility] Mixed Hyperlipidemia [facility] [id number] [place] [address] [phone] Social History Tobacco Use Types Packs/Day Years [...] Priority Date/Time Associated Diagnosis Comme nts HCL ALT Routine 06/12/2009 8:06 AM Mixed Hyperlipidemia R esults for this CDT procedure are i n the results section. CL AFF A.M.A. LIPID Routine 06/12/2009 8:06 AM Mixed Hyperlipi demia Results for this PANEL CDT procedure are i n the results section. documented in this encounter Results (ABNORMAL) A.M.A. LIPID PANEL (06/12/2009 8:06 AM CDT) athologist Signature Cholesterol 171 0 - 200 [place] mg/dL [facility] Comment: LDL Cholesterol is the primary guide to therapy: LDL-cholesterol goal in high risk patients is <100 mg/dL and in very high risk patients is <70 mg/dL. The NCEP recommends further evaluation of: patients with cholesterol <200 mg/dL if additional risk factors are present, cholesterol >240 mg/dL, triglycerides >150 mg/dL, or HDL <40 mg/dL. Triglycerides 135 0 - 150 mg/dL [facility] HDL Cholesterol 27 (L) 40 - 110 mg/dL [facility] LDL Cholesterol Calculated 117 0 - 129 mg/dL [facility] Comment: LDL Cholesterol is the primary guide to therapy: LDL-cholesterol goal in high risk patients is <100 mg/dL and in very high risk patients is <70 mg/dL. VLDL-Cholesterol 27 0 - 30 mg/dL [facility] Cholesterol/HDL Ratio 6.4 (H) 0.0 - 5.0 [facility] Specimen Anatomical Collection Method Collection Time Receive d Time (Source) Location / / Volume Laterality 06/12/2009 8:06 AM 9 8:11 CDT AM CDT Nimesh Jo MD LABORATORY Performing Organization Address City/[facility]/ZIP Code Phon e Number [address] [address] [phone] [facility] ALANINE AMINO (ALT) (SGPT) (06/12/2009 8:06 AM CDT) P athologist Signature ALT 64 0 - 70 U/L [facility] Specimen Anatomical Collection Method Collection Time Receive d Time (Source) Location / / Volume Laterality 06/12/2009 8:06 AM 9 8:11 CDT AM CDT Nimesh Jo MD LABORATORY Performing Organization Address City/[facility] Phon e Number [address] [address] [phone] [facility] documented in this encounter Visit Diagnoses Diagnosis Mixed hyperlipidemia documented in this encounter Care Teams Theoretical Physics Teacher Relationship Specialty Start Date End Date Nimesh Jo MD PCP - General 11/05/06 documented as of this encounter
--- OUTSIDE RECORDS SUMMARY | 2022-08-11 08:32 | XMS_ITS | Encounter Summary ---
:1955 Author Organization [place] Address [address] [place] [address]. [place] [address] Care Team Providers Name Role Phone Nimesh Jo MD Primary Care Provider Reason for Referral Referral not Required - Closed Specialty Diagnoses / Procedures Referred By Contact Refer red To Contact Diagnoses Special screening for malignant neoplasms of other sites Nimesh Jo, ASHIA DIAZ MD FACP [address] [place] [address] [address] [place], [place] [address] [place] [address] Phone: [phone] Fax: Referral ID Status Reason Start Date Expiration Date Visits Requ ested Visits Authorized [id number] Closed 05/16/2008 11/28/2011 1 1 Reason for Visit Reason Comments Derm Problem spot on abdomen with red rin g around it Ear Problem R ear pressure on top of can nal Musculoskeletal Problem achy joints Referral colonoscopy Derm Problem lower R leg x 6 months Derm Problem spot on L cheek Encounter Details Date Type Department Care Team Description 05/16/2008 Office Visit [facility] Nimesh Jo; Clinic Janeth Huizar MD Cyst Epidermal; [address] [place] [address] [facility] Ear Pain; [place], [place] Special Screening for Malignant Neoplasms of Other Sites; [phone] Eczema [phone] Social History Tobacco Use Types Packs/Day Years Used Date Former Smoker Cigarettes 1 35 Quit: 11/06/20 06 Alcohol Use Standard Drinks/Week Comments No 0 (1 standard drink = 0.6 oz pure alcoho l) Sex Assigned at Date Recorded Not on file documented as of this encounter Last Filed Vital Signs Vital Sign Reading Time Taken Comments Blood Pressure 140/86 05/16/2008 3:04 PM CDT Pulse 74 05/16/2008 3:04 PM CDT Temperature 36.9 ??C (98.4 ??F) 05/16/2008 3:04 PM CDT Respiratory Rate - - Oxygen Saturation - - Inhaled Oxygen Concentration - - Weight 119.3 kg (263 lb) 05/16/2008 3:04 PM CDT Height 180.3 cm (5' 11) 05/16/2008 3:04 PM CDT Body Mass Index 36.68 05/16/2008 3:04 PM CDT documented in this encounter Progress Notes Nimesh Jo - 05/16/2008 6:14 PM CDT SUBJECTIVE: CC: Sandeep Crooks is a 52 year old male who presents for multiple concerns, had a boil on his left anterior chest very small HPI: dermatitis on his right miller for months, needs colon check, Discussed possible but unlikely tick bite and lyme risk PROBLEM LIST: Patient Active Problem List Diagnoses Code ??? MIXED HYPERLIPIDEMIA 272.2 ??? TOBACCO USE DISORDER 305.1 ??? Eczema 692.9BU ??? Boil 680.9L PAST MEDICAL HISTORY: No past medical history on file. PAST SURGICAL HISTORY: No past surgical history on file. CURRENT MEDICATIONS: Current outpatient prescriptions Medication Sig ??? KEFLEX 500 MG OR CAPS one twice daily with food ??? SIMVASTATIN 40 MG OR TABS 1 TABLET AT BEDTIME FAMILY HISTORY: Family History Problem Relation ??? Heart Father HEALTH MAINTENANCE: REVIEW OF OUTSIDE RECORDS: NO REVIEW OF SYSTEMS: C: NEGATIVE for fever, chills, change in weight I: NEGATIVE for worrisome rashes, moles or lesions E/M: NEGATIVE for ear, mouth and throat problems R: NEGATIVE for significant cough or SOB CV: NEGATIVE for chest pain, palpitations or peripheral edema GI: NEGATIVE for nausea, abdominal pain, heartburn, or change in bowel habits : NEGATIVE for frequency, dysuria, or hematuria EXAM: BP 140/86 Pulse 74 Temp (Src) 98.4 ??F (36.9 ??C) (Oral) Ht 5' 11 (1.803 m) Wt 263 lb (119.296 kg) GENERAL APPEARANCE: healthy, alert and no [...] HSM or masses and bowel sounds normal ASSESSMENT/PLAN Encounter Diagnoses Code Name Primary? Qualifier ??? 680.9L Boil ??? 706.2K Cyst Epidermal Left face ??? 388.70B Ear Pain ??? V76.49 Special Screening for Malignant Neoplasms of Other Sites ??? 692.9BU Eczema I have discussed with patient the risks, benefits, medications, treatment options and modalities. I have instructed the patient to call or schedule a follow-up appointment if any problems or failureto improve. documented in this encounter Nursing Notes 05/16/2008 3:00 PM CDT >> KEN WEBSTER Wed May 16, 2008 3:07 PM Patient presents with: Derm Problem - spot on abdomen with red ring around it Ear Problem - R ear pressure on top of cannal Musculoskeletal Problem - achy joints Referral - colonoscopy Derm Problem - lower R leg x 6 months Derm Problem - spot on L cheek Initial BP 140/86 Pulse 74 Temp (Src) 98.4 ??F (36.9 ??C) (Oral) Ht 5' 11 (1.803 m) Wt 263 lb (119.296 kg) Body mass index is 36.68 kg/(m^2).. BP completed using cuff size large-r Shalom Webster CMA documented in this encounter Plan of Treatment Not on filedocumented as of this encounter Procedures Procedure Name Priority Date/Time Associated Diagnosis Comme nts LYME CONF G&M WB Routine 05/16/2008 3:22 PM Resul ts for this CDT procedure are i n the results section. HCL LYMES SCREEN (B Routine 05/16/2008 3:22 PM Boil Re sults for this BURGDORFERI) CDT procedure are i n the results section. HCL GLUCOSE Routine 05/16/2008 3:22 PM Boil Results f or this CDT procedure are i n the results section. documented in this encounter Results LYME CONF G&M WB (05/16/2008 3:22 PM CDT) [facility] gist Method Time Signature Lyme Confirm NEGATIVE DONNER IgG by (Note) [employer] Immunoblot Band(s) present: NONE CLINIC LAB (Insufficient number of bands for positive result) TEST INFORMATION: Borrelia Burgdorferi Ab, IgG Western Blot IgG Positive: ??Any 5 of the following 10 bands: 18, 23, 28, 30, 39, 41, 45, 58, 66, or 93 kDa. IgG Negative: ??Any pattern that does not meet the IgG positive criteria. Lyme Confirm NEGATIVE DONNER IgM by (Note) [facility] Immunoblot Band(s) present: NONE CLINIC LAB (Insufficient number of bands for positive result) TEST INFORMATION: Borrelia Burgdorferi Ab, IgM Western Blot IgM Positive: ??Any 2 of the following 3 bands: 23, 39, or 41 kDa. IgM Negative: ??Any pattern that does not meet the IgM positive criteria. Performed by [email or web address], [address] [place] [id number] [email or web address], ??Ishaan Denton MD - Lab. Director Specimen Anatomical Collection Method Collection Time Receive d Time (Source) Location / / Volume Laterality 05/16/2008 3:22 PM 200 8 3:27 CDT PM CDT Nimesh Jo MD LABORATORY Performing Organization Address City/State/ZIP Code Phon e Number [facility] [address] [place], [place] [phone] [facility] GLUCOSE (05/16/2008 3:22 PM CDT) athologist Signature Glucose 88 60 - 99 [place] mg/dL CLINIC LAB Specimen Anatomical Collection Method Collection Time Receive d Time (Source) Location / / Volume Laterality 05/16/2008 3:22 PM 8 3:27 CDT PM CDT Nimesh Jo MD LABORATORY Performing Organization Address City/State/ZIP Code Phon e Number [facility] [address] [place] [address] [facility] B. BURGDORFERI (LYME) HAYDER (05/16/2008 3:22 PM CDT) [facility] Method Time Signature Specimen Serum [facility] Lyme Screen IgG Test value: > or = 1.00....I nterpretation: Positive.... Specimen submitted to [facility] and IgM [facility] ([facility]) for IgG and IgM [facility] Blot assays because of positive result. [facility] Specimen Anatomical Collection Method Collection Time Receive d Time (Source) Location / / Volume Laterality 05/16/2008 3:22 PM 8 3:27 CDT PM CDT Nimesh Jo MD LABORATORY Performing Organization Address City/State/ZIP Code Phon e Number [address] [address] [facility] documented in this encounter Visit Diagnoses Diagnosis Boil Carbuncle and furuncle of unspecified si te Cyst epidermal Sebaceous cyst Ear pain Otalgia, unspecified Special screening for malignant neoplasm s of other sites Eczema Contact dermatitis and other eczema, due to unspecified cause documented in this encounter Care Teams Hand Cloth Folder Relationship Specialty Start Date End Date Nimesh Jo MD PCP - General 11/05/06 documented as of this encounter
--- OUTSIDE RECORDS SUMMARY | 2022-08-11 08:32 | XMS_ITS | Encounter Summary ---
:1955 Author Organization [facility] Address [address] [place] [address] Care Team Providers Name Role Phone Unavailable Primary Care Provider Unavailable Reason for Visit Reason Comments Urgent Care Mass lump on epigastric area-noti enmanuel it today, but had soeness on right side since . Encounter Details Date Type Department Care Team Description 08/30/2005 Office Visit [facility] Provider, [facility] ERPES ZOSTER NOS Urgent Care Jagdish Wyatt MD (Primary Dx) [address] [place] [address] [phone] Social History Tobacco Use Types Packs/Day Years Used Date Current Every Day Smoker Cigarettes 1 35 Alcohol Use Standard Drinks/Week Comments Not Asked 0 (1 standard drink = 0.6 oz pure alcoho l) Sex Assigned at Date Recorded Not on file documented as of this encounter Last Filed Vital Signs Vital Sign Reading Time Taken Comments Blood Pressure 128/74 08/30/2005 5:30 PM CDT Pulse - - Temperature 36.9 ??C (98.5 ??F) 08/30/2005 5:30 PM CDT Respiratory Rate - - Oxygen Saturation - - Inhaled Oxygen Concentration - - Weight 107.9 kg (237 lb 12.8 oz) 08/30/2005 5:30 PM CDT Height - - Body Mass Index - - documented in this encounter Progress Notes Shon Copeland - 08/30/2005 6:06 PM CDT SUBJECTIVE: Sandeep Crooks, a 49 year old male scheduled an appointment to discuss the following issues: HERPES ZOSTER NOS patient notes several days of sharp at times pain across my ribs to my back. Saw his regualr who thought that it was MS back pain but gave him a rx for acyclovir in case he got a rash( he had similar pain with shingles 5 years ago). Today he notes a sore but not painful swelling at his right lower rib margin. nO trauma but is under a lot of stress. No fever or chills . Medical, social, surgical, and family histories reviewed. ROS: C: NEGATIVE for fever, chills, change in weight E: NEGATIVE for vision changes or irritation E/M: NEGATIVE for ear, mouth and throat problems R: NEGATIVE for significant cough or SOB CV: NEGATIVE for chest pain, palpitations or peripheral edema GI: NEGATIVE for nausea, abdominal pain, heartburn, or change in bowel habits N: NEGATIVE for weakness, dizziness or paresthesias E: NEGATIVE for temperature intolerance, skin/hair changes OBJECTIVE: BP 128/74 Temp (Src) 98.5 (Oral) Wt 237 lbs 12.8 oz (107.9kg) EXAM: GENERAL APPEARANCE: healthy, alert and no distress RESP: lungs clear to auscultation - no rales, rhonchi or wheezes CV: regular rates and rhythm, normal S1 S2, no S3 or S4 and no murmur, click or rub - ABDOMEN: soft, nontender, no HSM or masses and bowel sounds normal SKIN: erythematous based vesicular patch on his right lower back in the same dermatone as a slightlytender swelling at his right lower rib margin ASSESSMENT/PLAN: 053.9 HERPES ZOSTER NOS (primary encounter diagnosis) Note: take acyclovir Plan: he declined other meds, call if concerns Shon Copeland MD documented in this encounter Nursing Notes 08/30/2005 5:30 PM CDT >> SAMIR GOTTLIEB 08/30/2005 5:41 pm Sandeep Crooks presents for lump on epigastric area. Just noticed it today, but has been sore on hisright side since Thurs. (4 days ago.) Initial BP 128/74 Temp (Src) 98.5 (Oral) Wt 237 lbs 12.8 oz (107.9kg) There is no height information to calculate BMI.. BP completed using cuff size: large Qi Gottlieb LPN documented in this encounter Plan of Treatment Not on filedocumented as of this encounter Visit Diagnoses Diagnosis Herpes zoster without mention of complic ation - Primary documented in this encounter
--- OUTSIDE RECORDS SUMMARY | 2022-08-11 08:32 | XMS_ITS | Encounter Summary ---
:1955 Author Organization [facility] Address [address] [place] [address]. [place] [address] Care Team Providers Name Role Phone Nimesh Jo MD Primary Care Provider Reason for Referral - Closed Specialty Diagnoses / Procedures Referred By Contact Refer red To Contact Diagnoses Chest pain, unspecified Nimesh Jo MD [address] [place] [address] 77 57 Referral ID Status Reason Start Date Expiration Date Visits Requ ested Visits Authorized [id number] Closed 11/12/2006 11/28/2011 1 1 EGE OR UNIVERSITY BUSINESS MANAGER Reason for Visit Reason Comments Physical with fasting labs Refill Request Zocor Encounter Details Date Type Department Care Team Description 11/12/2006 Office Visit [facility] Nimesh Jo MEDICAL EXAM; Clinic Janeth Huizar MD MIXED HYPERLIPIDEMIA; [address] [place] [address] TOBACCO USE DISORDER; [place], [place] [id number] [phone] Social History Tobacco Use Types Packs/Day Years Used Date Current Every Day Smoker Cigarettes 1 35 Comments: working on quitting Alcohol Use Standard Drinks/Week Comments No 0 (1 standard drink = 0.6 oz pure alcoho l) Sex Assigned at Date Recorded Not on file documented as of this encounter Last Filed Vital Signs Vital Sign Reading Time Taken Comments Blood Pressure 130/90 11/12/2006 9:00 AM COLLEGE OR UNIVERSITY BUSINESS MANAGER Pulse 60 11/12/2006 9:00 AM COLLEGE OR UNIVERSITY BUSINESS MANAGER Temperature 36.6 ??C (97.9 ??F) 11/12/2006 9:00 AM COLLEGE OR UNIVERSITY BUSINESS MANAGER Respiratory Rate - - Oxygen Saturation - - Inhaled Oxygen Concentration - - Weight 110.7 kg (244 lb) 11/12/2006 9:00 AM COLLEGE OR UNIVERSITY BUSINESS MANAGER Height 180.3 cm (5' 11) 11/12/2006 9:00 AM COLLEGE OR UNIVERSITY BUSINESS MANAGER Body Mass Index 34.03 11/12/2006 9:00 AM COLLEGE OR UNIVERSITY BUSINESS MANAGER documented in this encounter Progress Notes Nimesh Jo - 11/12/2006 9:42 AM CST SUBJECTIVE: CC: Sandeep Crooks is a 50 year old male who presents for well exam HPI: longtime smoker 40 plus pack years, on simvastatin for cholesterol, quit smoking two weeks ago,had a single episode of sharp achey left chest pain with 30 second duration while at rest and has no exertional pain. 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 MIXED HYPERLIPIDEMIA 272.2 ??? TOBACCO USE DISORDER 305.1 PAST MEDICAL HISTORY: No past medical history on file. PAST SURGICAL HISTORY: No past surgical history on file. CURRENT MEDICATIONS: Current outpatient prescriptions Medication Sig ??? ZOCOR 10 MG OR TABS 1 TABLET AT BEDTIME [...] changes in mood or affect EXAM: BP 130/90 Pulse 60 Temp (Src) 97.9 (Oral) Ht 5' 11 (1.80m) Wt 244 lbs (110.7kg) GENERAL APPEARANCE: healthy, alert and no distress [...] HSM or masses and bowel sounds normal Rectal exam: prostate symmetric w/o nodularity, no masses palpated GU_male: testicles normal without atrophy or masses MS: extremities normal- no gross deformities noted, no evidence of inflammation in joints, FROM in all extremities. SKIN: no suspicious lesions or rashes NEURO: Normal strength and tone, sensory exam grossly normal, mentation intact and speech normal PSYCH: mentation appears normal. and affect normal/bright LYMPHATICS: No axillary, cervical, inguinal, or supraclavicular nodes ASSESSMENT/PLAN Encounter Diagnoses Code Name Primary? Qualifier ??? V70.0 ROUTINE MEDICAL EXAM ??? 272.2 MIXED HYPERLIPIDEMIA ??? 305.1 TOBACCO USE DISORDER He'll get a stress ekg I have discussed with patient the risks, benefits, medications, treatment options and modalities. I have instructed the patient to call or schedule a follow-up appointment if any problems or failureto improve. EGE OR UNIVERSITY BUSINESS MANAGER documented in this encounter Nursing Notes 11/12/2006 9:00 AM CST >> RONALDO PIERCE 11/12/2006 9:19 am Patient presents with: Physical - with fasting labs Refill Request - Zocor Initial BP 130/90 Pulse 60 Temp (Src) 97.9 (Oral) Ht 5' 11 (1.80m) Wt 244 lbs (110.7kg) Body mass index is 34.05 kg/(m^2).. BP completed using cuff size large Last Td: Unsure, but within last 10 years Last Colonoscopy: N/a Last PSA: N/a Ronaldo Pierce CMA documented in this encounter Plan of Treatment Not on filedocumented as of this encounter Procedures Procedure Name Priority Date/Time Associated Comments Diagnosis ZZC ELECTROCARDIOGRAM, Routine 11/12/2006 9:53 AM Chest Pain N os COMP W/READ COLLEGE OR UNIVERSITY BUSINESS MANAGER HCL COMPREHENSIVE Routine 11/12/2006 9:43 AM Routine Medical R esults for this METABOLIC PANEL COLLEGE OR UNIVERSITY BUSINESS MANAGER Exam procedure ar e in the results section. CL AFF A.M.A. LIPID Routine 11/12/2006 9:43 AM Routine Medical Results for this PANEL COLLEGE OR UNIVERSITY BUSINESS MANAGER Exam procedure are i n the results section. documented in this encounter Results ELECTROCARDIOGRAM, COMP W/READ (11/12/2006 9:53 AM COLLEGE OR UNIVERSITY BUSINESS MANAGER) Narrative This result has an attachment that is no t available. Nimesh Jo MD EKG TECHNICAL A.M.A. COMPREHENSIVE MET.PANEL (11/12/2006 9:43 AM COLLEGE OR UNIVERSITY BUSINESS MANAGER) Component Value Ref Test Analysis Performed At [facility] gist Range Method Time Signature Sodium 142 133 - [facility] 144 [facility] mmol/L LAB Potassium 4.4 3.4 - [facility] 5.3 [facility] mmol/L LAB Chloride 105 94 - 109 [facility] mmol/L [facility] Carbon Dioxide 25 20 - 32 [facility] mmol/L [facility] Anion Gap 12 6 - 17 [facility] mmol/L [facility] Glucose 109 60 - 110 [facility] mg[facility]dL [facility] Urea Nitrogen 15 5 - 24 [facility] mg/dL [facility] Creatinine 1.00 0.80 - [facility] 1.50 [facility] mg/dL LAB GFR Estimate 84 >60 [facility] mL/min/1 [facility] .7m2 LAB GFR Estimate If >90 >60 [facility] Black Stages of Chronic Kidney Disease mL/min/1 [facility] Stage 1: ??GFR 90 or greater and other evidence of kidney da mage* .7m2 LAB Stage 2: ??GFR 60-89 and other evidence of kidney damage * Stage 3: ??GFR 30-59 Stage 4: ??GFR 15-29 Stage 5: ??GFR less than 15 or dialysis *Chronic kidney disease is defined as kidney damage or GFR l ess than 60 mL/min/1.73 m2 for three months or greater. ??Kidney damage is defined as pathologic abnormalities or markers or damage, including abnormalities in blood or urine tests or imaging studies. Calcium 9.1 8.5 - [facility] 10.4 [facility] mg/dL LAB Bilirubin Total 0.3 0.2 - [place] 1.3 [facility] mg/dL LAB Albumin 4.2 3.3 - [place] 4.6 g/dL [facility] LAB Protein Total 7.6 6.0 - [place] 8.2 g/dL [facility] LAB Alkaline 88 40 - 150 [place] Phosphatase U/L [facility] ALT 59 0 - 70 [place] U/L [facility] AST 36 0 - 55 [place] U/L [facility] LAB Specimen Anatomical Collection Method Collection Time Receive d Time (Source) Location / / Volume Laterality 11/12/2006 9:43 AM 6 9:45 COLLEGE OR UNIVERSITY BUSINESS MANAGER AM COLLEGE OR UNIVERSITY BUSINESS MANAGER Nimesh Jo MD LABORATORY Performing Organization Address City/State/ZIP Code Phon e Number [facility] [address] [place] [id number] [facility] (ABNORMAL) A.M.A. LIPID PANEL (11/12/2006 9:43 AM COLLEGE OR UNIVERSITY BUSINESS MANAGER) athologist Signature Cholesterol 151 0 - 200 [facility] mg/dL CLINIC LAB Comment: LDL Cholesterol is the primary guide to therapy: LDL-cholesterol goal in high risk patients is <100 mg/dL and in very high risk patients is <70 mg/dL. The NCEP recommends further evaluation of: patients with cholesterol <200 mg/dL if additional risk factors are present, cholesterol >240 mg/dL, triglycerides >150 mg/dL, or HDL <40 mg/dL. Triglycerides 66 0 - 150 mg/dL [facility] HDL Cholesterol 36 (L) 40 - 110 mg/dL [facility] LDL Cholesterol Calculated 102 0 - 129 mg/dL [facility] Comment: LDL Cholesterol is the primary guide to therapy: LDL-cholesterol goal in high risk patients is <100 mg/dL and in very high risk patients is <70 mg/dL. VLDL-Cholesterol 13 0 - 30 mg/dL [facility] Cholesterol/HDL Ratio 4.2 0.0 - 5.0 [facility] Specimen Anatomical Collection Method Collection Time Receive d Time (Source) Location / / Volume Laterality 11/12/2006 9:43 AM 9:45 COLLEGE OR UNIVERSITY BUSINESS MANAGER AM COLLEGE OR UNIVERSITY BUSINESS MANAGER Nimesh Jo MD LABORATORY Performing Organization Address City/State/ZIP Code Phon e Number [facility] [address] [place] [address] [facility] documented in this encounter Visit Diagnoses Diagnosis Routine general medical examination at [facility] Mixed hyperlipidemia Tobacco use disorder Chest pain, unspecified documented in this encounter Care Teams Transportation Coordinator Relationship Specialty Start Date End Date Nimesh Jo MD PCP - General 11/05/06 documented as of this encounter
--- OUTSIDE RECORDS SUMMARY | 2022-08-11 08:32 | XMS_ITS | Encounter Summary ---
:1955 Author Organization [facility] Address [address] [place] [address] Care Team Providers Name Role Phone Nimesh Jo MD Primary Care Provider [phone] Encounter Details Date Type Department Care Team Description 11/15/2006 Results Only [facility] Nimesh Jo, [facility] Results [address] [place] [address] (Wo rk) Social History Tobacco [...] Procedure Name Priority Date/Time Associated Diagnosis Comme [facility] ECHO HEART Routine 11/15/2006 1:22 PM Result s for this XTHORACIC, ECONOMIC GEOGRAPHER procedure are i n STRESS/REST the results section. documented in this encounter Results ECHO HEART, FULL STRESS/REST (11/15/2006 1:22 PM ECONOMIC GEOGRAPHER) Specimen (Source) Anatomical Collection Method Collection Time Re ceived Time Location / / Volume Laterality 11/15/2006 1:22 PM ECONOMIC GEOGRAPHER Impressions RADIOLOGY RESULTS - 11/18/2006 2:[address] Tape #[id number] ?? Technologist Initials: ??CR ?? The patient is a 50-year-old man sent by Dr. Nimesh Jo for evaluation of chest discomfort. ??He did stop smoking three weeks ago. ?? He has elevated cholesterol and an incre ased body mass index being 5'11 and weighing 244 pounds. ? STRESS PORTION: ??The patient exercised 12 minutes and 28 seconds according to the Pradeep protocol limited by miller discomfort and shortness of breath. ??He increased hear t rate from 79 to 162 bpm, 95% of age-predicted maximum, and increased blood pressure from 150/90 to 220/70 for a rate pressure product of 35 ,640. ??He achieved a workload estimated at 14.2 METS. ??The baseline e lectrocardiogram was normal, and with exercise no significant ST segm ent shift was observed and an occasional ectopic was noted. ??This is a negative EKG portion of the study. ?? ECHO PORTION: ??The echo portion at rest and poststress are of very good quality. ??Both the digitized and t he tape were reviewed with the patient. ??All mckeon show normal motion at rest and increased motion and thickening poststress. ? CONCLUSION: ??Diagnostic quality normal stress echo evaluation. ? These results were discussed with the brooklynn lipscomb whose hypertensive response to stress was also discussed. ? ?The possibility of cardiac disease is not totally ruled out by this study, although prognostically it is an excellent study to identify a low likelihood of cardiac events within the next few ye ars. Nimesh Jo MD SPECIAL IMAGING STUDIES Performing Organization Address City/State/ZIP Code Phon e Number RADIOLOGY RESULTS documented in this encounter Visit Diagnoses Not on filedocumented in this encounter Care Teams Lime Mixer Relationship Specialty Start Date End Date Nimesh Jo MD PCP - General 11/05/06 documented as of this encounter
--- OUTSIDE RECORDS SUMMARY | 2022-08-11 08:32 | XMS_ITS | Encounter Summary ---
:1955 Author Organization [place] Address [address] [place] [address] Care Team Providers Name Role Phone Nimesh Jo MD Primary Care Provider Reason for Visit Reason Comments Abdominal Pain right side pain x2 weeks Encounter Details Date Type Department Care Team Description 12/09/2006 Office Visit [facility] Nimesh Jo ABDOMI NAL PAIN RUQ [facility] [place] MD Bhupendra (Primary Dx) [address] [place] [phone] Social History Tobacco Use Types Packs/Day Years Used Date Former Smoker Cigarettes 1 35 Quit: 11/06/20 06 Comments: quit 11/06/06 Alcohol Use Standard Drinks/Week Comments No 0 (1 standard drink = 0.6 oz pure alcoho l) Sex Assigned at Date Recorded Not on file documented as of this encounter Last Filed Vital Signs Vital Sign Reading Time Taken Comments Blood Pressure 132/84 12/09/2006 9:15 AM FRONT DESK MONITOR Pulse - - Temperature 36.9 ??C (98.4 ??F) 12/09/2006 9:15 AM FRONT DESK MONITOR Respiratory Rate - - Oxygen Saturation - - Inhaled Oxygen Concentration - - Weight 115.2 kg (254 lb) 12/09/2006 9:15 AM FRONT DESK MONITOR Height 182.9 cm (6') 12/09/2006 9:15 AM FRONT DESK MONITOR Body Mass Index 34.45 12/09/2006 9:15 AM FRONT DESK MONITOR documented in this encounter Progress Notes Nimesh Jo - 12/09/2006 9:43 AM CST SUBJECTIVE: CC: Sandeep Crooks is a 50 year old male who presents for two weeks of on and off abdominal pain in the right upper quadrant at the rib margin. Noticed sitting or recumbant, not food aggravated HPI: no hx GI issues, takes zocor for his lipids, no blood or stool irregularity PROBLEM LIST: Patient Active Problem List Diagnoses [...] changes in mood or affect EXAM: BP 132/84 Temp (Src) 98.4 (Oral) Ht 6' 0 (1.83m) Wt 254 lbs (115.2kg) GENERAL APPEARANCE: healthy, alert and no distress [...] HSM or masses and bowel sounds normal ABDOMEN: soft, nontender, without hepatosplenomegaly or masses, aorta normal, bowel sounds normal and not high pitched GU_male: testicles normal without atrophy or masses MS: extremities normal- no gross deformities noted, no evidence of inflammation in joints, FROM in all extremities. SKIN: no suspicious lesions or rashes ASSESSMENT/PLAN Enteritis,:BRAT diet. Follow up: Report any increase in pain Report any new symptoms of vomittingurgently. See me in six weeks for requested follow up and observation. I have discussed with patient the risks, benefits, medications, treatment options and modalities. I have instructed the patient to call or schedule a follow-up appointment if any problems or failureto improve. T DESK MONITOR documented in this encounter Nursing Notes 12/09/2006 9:15 AM CST >> RONALDO PIERCE 12/09/2006 9:28 am Patient presents with: Abdominal Pain - right side pain x2 weeks Initial BP 132/84 Temp (Src) 98.4 (Oral) Ht 6' 0 (1.83m) Wt 254 lbs (115.2kg) Body mass indexis 34.44 kg/(m^2).. BP completed using cuff size large Ronaldo Pierce CMA documented in this encounter Plan of Treatment Not on filedocumented as of this encounter Procedures Procedure Name Priority Date/Time Associated Comments Diagnosis HCL HELICOBACTER Routine 12/09/2006 9:49 AM Abdominal Pain Ruq Results for this PYLORI HAYDER IGG FRONT DESK MONITOR procedure are in the results section. HCL UA MICRO IF Routine 12/09/2006 9:48 AM Abdominal Pain Ruq Results for this POSITIVE FRONT DESK MONITOR procedure are i n the results section. CL AFF CBC WITH Routine 12/09/2006 9:48 AM Abdominal Pain Ruq Results for this PLATELETS, DIFF FRONT DESK MONITOR procedure ar e in the results section. documented in this encounter Results HELICOBACTER PYLORI HAYDER IGG (12/09/2006 9:49 AM FRONT DESK MONITOR) Component Value Ref Test Analysis Performed At [facility] gist Range Method Time Signature Specimen Serum [facility] Description [facility] Heliobacter No detectable IgG antibody t o Helicobacter pylori. If current infection is [facility] pylori Antibody suspected, please submit a new specimen in 4 to 6 weeks. Assayed at COUNT INCLUDES THE [facility] [employer] [address] CLINIC LAB Report status FINAL [id number] [facility] Specimen Anatomical Collection Method Collection Time Receive d Time (Source) Location / / Volume Laterality 12/09/2006 9:49 AM 7 9:54 FRONT DESK MONITOR AM FRONT DESK MONITOR Narrative This result has an attachment that is no t available. Nimesh Jo MD LABORATORY Performing Organization Address [facility]/ZIP [facility] [place] Number [address] [address] [facility] UA MICRO IF POSITIVE (12/09/2006 9:48 AM FRONT DESK MONITOR) [facility] gist Method Time Signature Color Urine Yellow [facility] Appearance Urine Clear [facility] Glucose Urine Negative NEG mg/dL [facility] Bilirubin Urine Negative NEG [facility] Ketones Urine Negative NEG mg/dL [facility] Specific Ramona <=1.005 1.003 - [place] Urine 1.035 [facility] Blood Urine Negative NEG [facility] pH Urine 5.0 5.0 - 7.0 [place] pH [facility] Protein Albumin Negative NEG mg/dL [place] Urine [facility] Urobilinogen 0.2 0.2 - 1.0 [place] Urine EU/dL [facility] Nitrite Urine Negative NEG [facility] Leukocyte Negative NEG [place] Esterase Urine [facility] Source Midstream [place] Urine [facility] Specimen Anatomical Collection Method Collection Time Receive d Time (Source) Location / / Volume Laterality 12/09/2006 9:48 AM 7 9:54 FRONT DESK MONITOR AM FRONT DESK MONITOR Nimesh Jo MD LABORATORY Performing Organization Address City/[facility]/ZIP Code Phon e Number [address] [address] [facility] CBC WITH PLATELETS, DIFF (12/09/2006 9:48 AM FRONT DESK MONITOR) [facility] Method Time Signature WBC 6.9 4.0 - [place] 11.0 [facility] 10e9/L [facility] RBC Count 5.04 4.4 - 5.9 [place] 10e12/L [facility] Hemoglobin 15.4 13.3 - [place] 17.7 g/dL [facility] Hematocrit 45.7 40.0 - [place] 53.0 % [facility] MCV 91 78 - 100 [place] fl [facility] MCH 30.6 26.5 - [place] 33.0 pg [facility] MCHC 33.7 32.0 - [place] 36.0 g/dL [facility] RDW 13.6 10.0 - [place] 15.0 % [facility] Platelet Count 160 150 - 450 [place] 10e9/L [facility] Diff Method Automated [place] Method [facility] % Lymphocytes 41 20 - 48 % [facility] % Monocytes 10 0 - 12 % [facility] % Granulocytes 49 40 - 75 % [facility] Absolute 2.8 0.8 - 5.3 [place] Lymphocytes 10e9/L [facility] Absolute 0.7 0.0 - 1.3 [place] Monocytes 10e9/L [facility] Absolute 3.4 1.6 - 8.3 [place] Granulocytes 10e9/L [facility] Specimen Anatomical Collection Method Collection Time Receive d Time (Source) Location / / Volume Laterality 12/09/2006 9:48 AM 7 9:53 FRONT DESK MONITOR AM FRONT DESK MONITOR Nimesh Jo MD LABORATORY Performing Organization Address City/State/ZIP Code Phon e Number [facility] [id number] [place] [address] [facility] documented in this encounter Visit Diagnoses Diagnosis Abdominal pain, right upper quadrant - P rimary documented in this encounter Care Teams Shredder/Granulator Operator Relationship Specialty Start Date End Date Nimesh Jo MD PCP - General 11/05/06 documented as of this encounter
--- OUTSIDE RECORDS SUMMARY | 2022-08-11 08:32 | XMS_ITS | Encounter Summary ---
:1955 Author Organization [place] Address [address] [place] [address] Care Team Providers Name Role Phone Nimesh Jo MD Primary Care Provider [phone] Reason for Visit Reason Onset Date Comments Refill Request 02/22/2008 simvastatin Encounter Details Date Type Department Care Team Description 02/22/2008 Refill [facility] Nimesh Jo Refill Request Clinic [place] MD Bhupendra (simvastatin) [address] [place] [phone] (Wo rk) Social History Tobacco Use Types Packs/Day Years Used Date Current Every Day Smoker Cigarettes 1 35 Carl t: 11/06/2006 Alcohol Use Standard Drinks/Week Comments No 0 (1 standard drink = 0.6 oz pure alcoho l) Sex Assigned at Date Recorded Not on file documented as of this encounter Miscellaneous Notes Telephone Encounter - Brianna Shaw - 02/22/2008 2:12 PM CDT Date of last OV: 11/02/07 Reason for visit: pre-op bunion Date last filled: 01/14/08 Labs pertaining to med: Lab Test 11/12/06 CHOL 151 HDL 36* LDL 102 TRIG 66 CHOLHDLRATIO 4.2 AST 36 11/12/2006 ALT 59 11/12/2006 Needs labs- letter sent previously, appt set up for 03/02/08, OKed one month refill. Brianna Shaw RN documented in this encounter Plan of Treatment Not on filedocumented as of this encounter Visit Diagnoses Diagnosis Mixed hyperlipidemia - Primary documented in this encounter Care Teams Coordinator Cardiopulmonary Services Relationship Specialty Start Date End Date Nimesh Jo MD PCP - General 11/05/06 documented as of this encounter
--- OUTSIDE RECORDS SUMMARY | 2022-08-11 08:32 | XMS_ITS | Encounter Summary ---
:1955 Author Organization [place] Address [address] [place] [address] Care Team Providers Name Role Phone Nimesh Jo MD Primary Care Provider Encounter Details Date Type Department Care Team Description 11/07/[address] [facility] Gia Silverman ohn, DPM Hospital Results [facility] [address] [place] [address] (Wo rk) Social History Tobacco [...] Procedure Name Priority Date/Time Associated Diagnosis Comme [facility] RT X-RAY FOOT 2 Routine 11/07/2007 1:55 PM Re sults for this VW RING SPINNER procedure are i n the results section. documented in this encounter Results RT X-RAY FOOT 2 VW (11/07/2007 1:55 PM RING SPINNER) Specimen (Source) Anatomical Collection Method Collection Time Re ceived Time Location / / Volume Laterality 11/07/2007 1:55 PM RING SPINNER Impressions RADIOLOGY RESULTS - 11/07/2007 3:[address] FOOT 2VIEW PORTABLE RIGHT ?Nov 07, 2007 1:55:00 PM HISTORY: ??Postop evaluation. FINDINGS: ?Bones are in near anatomi c alignment following hallux valgus reduction. Pins reduce the first metatarsal bone fragments. Air within the soft tissues is likely postop erative. No acute fracture or dislocation is evident. Carlos Silverman DPM GENERAL IMAGING Performing Organization Address City/State/ZIP Code Phon e Number RADIOLOGY RESULTS documented in this encounter Visit Diagnoses Not on filedocumented in this encounter Care Teams Gambling Monitor Relationship Specialty Start Date End Date Nimesh oJ MD PCP - General 11/05/06 documented as of this encounter
--- OUTSIDE RECORDS SUMMARY | 2022-08-11 08:32 | XMS_ITS | Encounter Summary ---
:1955 Author Organization [place] Address [address] [place] [address] Care Team Providers Name Role Phone Nimesh Jo MD Primary Care Provider [phone] Reason for Visit Reason Comments Foot Problems L heel pain; Pt dx'd with guido ne spur by Dr Silverman Encounter Details Date Type Department Care Team Description 06/11/2008 Office Visit [facility] Sixto Zafar Fascial Fibromatosis; Clinic [place] L, DPM Pain in Soft Tissues of Limb [address] [place], [place] [facility] [address] [address] [place] [phone] [facility] [address] [place] [address] Social History Tobacco Use Types Packs/Day Years Used Date Former Smoker Cigarettes 1 35 Quit: 11/06/20 06 Alcohol Use Standard Drinks/Week Comments No 0 (1 standard drink = 0.6 oz pure alcoho l) Sex Assigned at Date Recorded Not on file documented as of this encounter Last Filed Vital Signs Vital Sign Reading Time Taken Comments Blood Pressure 124/86 06/11/2008 4:15 PM CDT Pulse - - Temperature - - Respiratory Rate - - Oxygen Saturation - - Inhaled Oxygen Concentration - - Weight 119.3 kg (263 lb) 06/11/2008 4:15 PM CDT Height 180.3 cm (5' 11) 06/11/2008 4:15 PM CDT Body Mass Index 36.68 06/11/2008 4:15 PM CDT documented in this encounter Progress Notes Sixto Zafar - 06/11/2008 4:30 PM CDT CC: left foot heelpain Subjective: Sandeep Crooks 52 year old male complains of left heel pain for 3 month(s). Worse with first step after being seated/sleeping. Denies trauma, instability, weakness. Positive post static dyskinesia. Hastried anti-inflamatories with little relief. No trauma history. No past medical history on file. No past surgical history on file. Message Review Of Systems Skin: negative Respiratory: negative Cardiovascular: negative Musculoskeletal: as above Neurologic: negative Current outpatient prescriptions : SIMVASTATIN 40 MG OR TABS, 1 TABLET AT BEDTIME, Disp: 30, Rfl: 0 BP 124/86 Ht 5' 11 (1.803 m) Wt 263 lb (119.296 kg) Exam: Sandeep Crooks 52 year old male in NAD. CMS is intact to bilateral lower extremities. Muscle strength 5/5 all stacy. DTR intact bilateral lower extremities. Point of maximum tenderness is over the medial tubercle of the calcaneus at the insertion of the plantar fascia ligament. Slight discomfort over medial and central band of plantar fascia ligament, as well. No pain with lateral compression of the calcaneus. Tinel sign negative with percussion over the tibial nerve. Ankle, STJ, MTJ range of motion without pain/crepitus. On weight bearing there is over pronation ofthe subtalar joint with rearfoot eversion. Talo navicular subluxation with medial column collapse. Slight Gastrocnemius equinus noted with ankle dorsiflexion. No ecchymosis, edema, signs of infection or trauma. Able to toe rise with good rearfoot inversion. 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 Ice Stretching See orders Continue orthotics Had injections x 2 Rtc prn documented in this encounter Nursing Notes 06/11/2008 4:15 PM CDT >> CORIE HOOVER Mon Jun 11, 2008 4:17 PM Patient presents with: Foot Problems - L heel pain; Pt dx'd with bone spur by Dr Silverman Initial BP 124/86 Ht 5' 11 (1.803 m) Wt 263 lb (119.296 kg) Body mass index is 36.68 kg/(m^2).. BP completed using cuff size: jose juan Hoover CMA documented in this encounter Plan of Treatment Not on filedocumented as of this encounter Visit Diagnoses Diagnosis Plantar fascial fibromatosis Pain in limb documented in this encounter Care Teams Venetian Blind Washer Relationship Specialty Start Date End Date Nimesh Jo MD PCP - General 11/05/06 documented as of this encounter
[2022-08-11 15:41] LABS: Albumin* 4.4 g/dL (3.3-5.0); Chloride* 104 mmol/L (96-114)
[2022-08-11 15:42] LABS: Potassium* 4.2 mmol/L (3.6-5.1); Sodium* 138 mmol/L (135-149)
[2022-08-11 15:44] LABS: Bilirubin Total* 0.4 mg/dL (0.1-1.5); Blood Urea Nitrogen* 25 mg/dL (7-30); Carbon Dioxide* 23 mmol/L (20-32); Cholesterol* 149 mg/dL (90-199); Creatinine* 1.2 mg/dL (0.5-1.5); Estimated Glomerular Filt Rate 67 ml/min; Total Protein* 7.2 g/dL (6.0-8.3)
[2022-08-11 15:45] LABS: Alanine Aminotransferase* 30 U/L (4-50); Alkaline Phosphatase* 77 U/L (40-150); Aspartate Amino Transferase* 31 U/L (12-35); Calcium* 9.3 mg/dL (8.4-10.6); Glucose* 135 mg/dL (60-115); HDL Cholesterol* 31 mg/dL (>=40); LDL Cholesterol Calculated 82 mg/dL (<100); Triglycerides* 180 mg/dL (40-149)
[2022-08-14 10:27] LABS: PSA Screen* 0.49 ng/mL (0.10-4.00)
== END 2022-08-11 08:23 | disposition home or self-care (01) ==
PROVIDERS: PCP Family Medicine; Visit Provider Family Medicine
DX: Z00.00 Encounter for general adult medical examination without abnormal findings (principal); E11.10 Type 2 diabetes mellitus with ketoacidosis without coma; E78.00 Pure hypercholesterolemia, unspecified; N40.0 Benign prostatic hyperplasia without lower urinary tract symptoms; Z12.5 Encounter for screening for malignant neoplasm of prostate
CPT/HCPCS: 80053; 80061; 84153

== ENCOUNTER 2022-08-14 08:42 | Outpatient (CLI) | payer MEDICARE, BC, SELFPAY ==
--- OUTSIDE RECORDS SUMMARY | 2022-08-14 08:45 | XMS_ITS | Encounter Summary ---
:1955 Author Organization [place] Address [address] [place] [address] Care Team Providers Name Role Phone Nimesh Jo MD Primary Care Provider [phone] Encounter Details Date Type Department Care [...] with No / Unsure 12/31/2021 10:41 AM LOADER MAGAZINE GRINDER someone who was confirmed or suspected to have Coronavirus / COVID-19? documented as of this encounter Plan of Treatment Not on filedocumented as of this encounter Visit Diagnoses Not on filedocumented in this encounter Care Teams Solderer Dipper Relationship Specialty Start Date End Date Nimesh Jo MD PCP - General 11/05/06 documented as of this encounter
--- OUTSIDE RECORDS SUMMARY | 2022-08-14 08:45 | XMS_ITS | Encounter Summary ---
:1955 Author Organization [place] Address [address] [place] [address] Care Team Providers Name Role Phone Rodney Akhtar MD Primary Care Provider Reason for Visit Reason Comments Allied Health Visit Encounter Details Date Type Department Care Team Description 04/02/2014 Allied Health/Nurse Health [facility] Allied Health Visit Visit [address] [address] Social History Tobacco Use Types [...] pt was not aware, sent message to [facility]' informing, pt does not need now as [...] benign documented in this encounter Care Teams Sand Mill Operator Facing Sand Relationship Specialty Start Date End Date Rodney Akhtar MD PCP - General 11/05/06 documented as of this encounter
--- OUTSIDE RECORDS SUMMARY | 2022-08-14 08:45 | XMS_ITS | Encounter Summary ---
:1955 Author Organization [place] Address [address] [place] [address]. [place] [address] Care Team Providers Name Role Phone Nimesh Jo MD Primary Care Provider [phone] Reason for Visit Reason Comments Physical Blood Draw fasting Encounter Details Date Type Department Care Team Description 03/28/2014 Office Visit [facility] Nimesh Jo e general medical examination at a health care facility (Primary Dx); Clinic Janeth Huizar MD Hyperlipidemia LDL goal <130; [address] [place] [address] [phone] Social History Tobacco Use Types Packs/Day Years [...] Yes All Histories reviewed and updated in [facility]. 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 Nimesh Jo MD, MD [facility] documented in this encounter Nursing Notes [...] Signature PSA 0.76 0 - 4 ug/L [facility] Specimen Anatomical Collection Method Collection Time Receive d Time (Source) Location / / Volume Laterality Blood specimen 03/28/2014 10:11 4 (specimen) AM CDT 10:12 AM CDT Nimesh Jo MD LAB - BLOOD ORDERABLES Performing Organization Address City/[facility]/RUST Code Phon e Number [facility] [place] [address] [place] [address] [facility] [address] [place], [place] [address] (ABNORMAL) Lipid panel reflex to direct LDL (03/28/2014 10:11 AM CDT) athologist Signature Cholesterol 158 <200 mg/dL [facility] Comment: LDL Cholesterol is the primary guide to therapy. The NCEP recommends further evaluation of: patients with cholesterol greater than 200 mg/dL if additional risk facto rs are present, cholesterol greater than 240 mg/dL, triglycerides greater than 1 50 mg/dL, or HDL less than 40 mg/dL. Triglycerides 95 0 - 150 mg/dL [facility] [place] HDL Cholesterol 31 (L) >40 mg/dL [facility] [place] LDL Cholesterol Calculated 107 0 - 129 mg/dL [facility] Comment: LDL Cholesterol is the primary guide to therapy: LDL-cholesterol goal in high risk patients is <100 mg/dL and in very high risk patients is <70 mg/dL. VLDL-Cholesterol 19 0 - 30 mg/dL [facility] [place] Cholesterol/HDL Ratio 5.0 0.0 - 5.0 [facility] Specimen Anatomical Collection Method Collection Time Receive d Time (Source) Location / / Volume Laterality Blood specimen 03/28/2014 10:11 4 (specimen) AM CDT 10:12 AM CDT Nimesh Jo MD LAB - BLOOD ORDERABLES Performing Organization Address City/[facility]/ZIP Code Phon e Number [facility] [address] [place] [address] Comprehensive metabolic panel (03/28/2014 10:11 AM CDT) P athologist Signature Sodium 143 133 - 144 [place] mmol/L [facility] Potassium 4.4 3.4 - 5.3 [place] mmol/L [facility] Chloride 104 94 - 109 [place] mmol/L [facility] Carbon Dioxide 25 20 - 32 [place] mmol/L [facility] Anion Gap 14 6 - 17 [place] mmol/L [facility] Glucose 98 60 - 99 [place] mg/dL [facility] Comment: Fasting specimen Urea Nitrogen 15 7 - 30 mg/dL [facility] [place] Creatinine 0.82 0.66 - 1.25 mg/dL [facility] [place] GFR Estimate >90 >60 mL/min/1.7m2 [facility] [place] GFR Estimate If Black >90 >60 mL/min/1.7m2 F [facility] Calcium 9.1 8.5 - 10.4 mg/dL [facility] [place] Bilirubin Total 0.6 0.2 - 1.3 mg/dL [facility] Albumin 4.2 3.3 - 4.9 g/dL [facility] [place] Comment: Reference range changed on 07/31. Protein Total 7.5 6.8 - 8.8 g/dL [facility] [place] Comment: As of 08, reference range reflects plasma specimen type. Alkaline Phosphatase 68 40 - 150 U/L [facility] [place] ALT 57 0 - 70 U/L [facility] [place] AST 37 0 - 45 U/L [facility] [place] Specimen Anatomical Collection Method Collection Time Receive d Time (Source) Location / / Volume Laterality Blood specimen 03/28/2014 10:11 4 (specimen) AM CDT 10:12 AM CDT Nimesh Jo MD LAB - BLOOD ORDERABLES Performing Organization Address City/State/ZIP Code Phon e Number [facility] [address] [place] [address] documented in this encounter Visit Diagnoses Diagnosis Routine general medical examination at a health care facility - Primary Hyperlipidemia LDL goal <130 Other and unspecified hyperlipidemia Benign hypertension Essential hypertension, benign documented in this encounter Care Teams Parking Meter Servicer Relationship Specialty Start Date End Date Nimesh Jo MD PCP - General 11/05/06 documented as of this encounter
--- OUTSIDE RECORDS SUMMARY | 2022-08-14 08:45 | XMS_ITS | Encounter Summary ---
:1955 Author Organization [place] Address [address] [place] [address] Care Team Providers Name Role Phone Nimesh Jo MD Primary Care Provider [phone] Reason for Visit Reason Onset Date Comments Refill Request 04/03/2015 lisinopril Encounter Details Date Type Department Care Team Description 04/03/2015 Refill [facility] Nimesh Jo Refill Request Clinic [place] (lisinopril) [address] [place] [address] [phone] (Wo rk) Social History Tobacco Use Types [...] benign documented in this encounter Care Teams Granite Installer Relationship Specialty Start Date End Date Nimesh Jo MD PCP - General 11/05/06 documented as of this encounter
--- OUTSIDE RECORDS SUMMARY | 2022-08-14 08:45 | XMS_ITS | Encounter Summary ---
:1955 Author Organization [place] Address [address] [place] [address]. [place] [address] Care Team Providers Name Role Phone Nimesh Jo MD Primary Care Provider [phone] Reason for Visit (Routine) - Closed Specialty Diagnoses / Procedures Referred By Contact Refer red To Contact Cardiology Diagnoses ECHO COMPLETE ADULT W/O CONTRAST Procedure Notes: VENOUS STASIS Zz Rh Echocardiography Procedures RADIOLOGY [address] [place], [place] [address] Phone: Referral ID Status Reason Start Date Expiration Date Visits Requ ested Visits Authorized [id number] Closed 11/03/2012 11/02/2013 1 1 Encounter Details Date Type Department Care Team Description 11/03/2012 Hospital Encounter [facility] Scotty Yuen MD Cardiopulmonary [address] [place], [place] [id number] [phone] Social History Tobacco Use Types Packs/Day Years [...] Scotty Yuen MD - 11/04/2012 11:01 AM BUSINESS DEVELOPMENT ASSOCIATE Quick Note: Heart works OK, although it is a bit thick. Controlling your blood pressure is the treatment Scotty Yuen MD NESS DEVELOPMENT ASSOCIATE documented in this encounter Plan of Treatment Not on filedocumented as of this encounter Procedures Procedure Name Priority Date/Time Associated Diagnosis Comme nts ECHO COMPLETE Routine 11/03/2012 2:07 PM Results for this BUSINESS DEVELOPMENT ASSOCIATE procedure are i n the results section . documented in this encounter Results Echocardiogram (11/03/2012 2:07 PM BUSINESS DEVELOPMENT ASSOCIATE) [facility] Method Time Signature [facility] Interpretation Summary RESULTS The study was [...] / / Volume Laterality 11/03/2012 2:07 PM BUSINESS DEVELOPMENT ASSOCIATE Scotty Yuen MD CV ECHO ORDERABLES documented in this encounter Visit Diagnoses Not on filedocumented in this encounter Care Teams Clinical Support Associate Relationship Specialty Start Date End Date Nimesh Jo MD PCP - General 11/05/06 documented as of this encounter
--- OUTSIDE RECORDS SUMMARY | 2022-08-14 08:45 | XMS_ITS | Encounter Summary ---
:1955 Author Organization [place] Address [address] [place] [address]. [place] [address] Care Team Providers Name Role Phone Nimesh Jo MD Primary Care Provider Reason for Referral Diagnostic Imaging Ultrasound (Routine) - Pending Review Specialty Diagnoses / Procedures Referred By Contact Refer red To Contact Diagnoses Cyst of epididymis Willie Buckner MD Procedures US Testicular & Scrotum w Doppler Ltd [facility] [address] [place] [address] Referral ID Status Reason Start Date Expiration Date Visits V isits Requested Authorized [id number] Pending 12/23/2021 12/23/2022 1 1 Review HOUSE DISTRIBUTION SPECIALIST Reason for Visit Diagnostic Imaging Ultrasound (Routine) - Pending Review Specialty Diagnoses / Procedures Referred By Contact Refer red To Contact Diagnoses Cyst of epididymis Willie Buckner MD Procedures US Testicular & Scrotum w AquaMobile Ltd [facility] [address] [place] [address] Referral ID Status Reason Start Date Expiration Date Visits V isits Requested Authorized [id number] Pending 12/23/2021 12/23/2022 1 1 Review Encounter Details Date Type Department Care Team Description 12/31/2021 Hospital Encounter [facility] Willie Buckner C yst of epididymis [place] [facility] MD Care Center [facility] [address] [place] [address] UROLOGY [place] [address] [facility] [address] [place] [address] [phone] Social History Tobacco Use Types Packs/Day Years [...] with No / Unsure 12/31/2021 10:41 AM WAREHOUSE DISTRIBUTION SPECIALIST someone who was confirmed or suspected to [...] is Results for this SCROTUM WITH DOPPLER WAREHOUSE DISTRIBUTION SPECIALIST procedu re are in LIMITED the results section. documented in this encounter Results US Testicular & Scrotum w Doppler Ltd (12/31/2021 11:44 AM WAREHOUSE DISTRIBUTION SPECIALIST) Anatomical Region Laterality Modality Abdomen/Pelvis Ultrasound Specimen (Source) Anatomical Location Collection Method / Collectio n Time Received Time / Laterality Volume Impressions 12/31/2021 12:20 PM WAREHOUSE DISTRIBUTION SPECIALIST IMPRESSION: 1. Large number of bilateral epididymal cysts, the largest on the right measures 5.8 cm in the epididymal body and the largest on the left measures 3.6 cm in the epididymal t ail. 2. Small left hydrocele. No right hydroc alana. 3. Diffuse scrotal skin thickening, of i ndeterminate etiology. AURORA BRUCE MD Narrative 12/31/2021 12:20 PM WAREHOUSE DISTRIBUTION SPECIALIST US TESTICULAR AND SCROTUM WITH DOPPLER LIMITED [...] organs documented in this encounter Care Teams Software Development Coordinator Relationship Specialty Start Date End Date Nimesh Jo MD PCP - General 11/05/06 documented as of this encounter
--- OUTSIDE RECORDS SUMMARY | 2022-08-14 08:45 | XMS_ITS | Encounter Summary ---
:1955 Author Organization [place] Address [address] [place] [address] Care Team Providers Name Role Phone Nimesh Jo MD Primary Care Provider [phone] Reason for Visit Reason Comments Consult EKG, EMG and Abdominal U/S r esults. Recheck Medication B/P medication dosage. Encounter Details Date Type Department Care Team Description 12/26/2012 Office Visit [facility] Nimesh Jo Benign hypertension (Primary Dx); Clinic [place] MD Obesity [address] [place] [address] [phone] Social History Tobacco Use Types Packs/Day Years [...] Comments Blood Pressure 162/80 12/26/2012 10:32 AM STEAM PRESSER Pulse 74 12/26/2012 10:32 AM STEAM PRESSER Temperature 37 ??C (98.6 ??F) 12/26/2012 10:32 AM STEAM PRESSER Respiratory Rate 16 12/26/2012 10:32 AM STEAM PRESSER Oxygen Saturation 94% 12/26/2012 10:32 AM STEAM PRESSER Inhaled Oxygen Concentration - - Weight 131.5 kg (290 lb) 12/26/2012 10:32 AM STEAM PRESSER Height 180.3 cm (5' 11) 12/26/2012 10:32 AM STEAM PRESSER Body Mass Index 40.45 12/26/2012 10:32 AM STEAM PRESSER documented in this encounter Progress Notes Nimesh [...] daily. Patient takes (2) capsules daily. ??? Znwzkyvzrib-Teawvrslr-Hdi C-Mn (GLUCOSAMINE-CHONDROITINOITIN) CAPS Take by mouth. ??? [...] appointment if any problems or failureto improve. M PRESSER documented in this encounter Nursing Notes 12/26/2012 [...] unspecified documented in this encounter Care Teams Auto Glass Installer Relationship Specialty Start Date End Date Nimesh Jo MD PCP - General 11/05/06 documented as of this encounter
--- OUTSIDE RECORDS SUMMARY | 2022-08-14 08:45 | XMS_ITS | Clinical Summary ---
:1955 Author Organization [employer] [employer] [facility] [employer] [place] [address] Care Team Providers Name Role Phone Kang [...] Comments Blood Pressure 135/76 11/06/2016 8:12 AM DRESS SHOE INSPECTOR Pulse 70 11/06/2016 8:12 AM DRESS SHOE INSPECTOR Temperature 36.9 ??C (98.5 ??F) 11/06/2016 8:12 AM DRESS SHOE INSPECTOR Respiratory Rate 16 11/06/2016 8:12 AM DRESS SHOE INSPECTOR Oxygen Saturation 97% 11/06/2016 8:12 AM DRESS SHOE INSPECTOR Inhaled Oxygen Concentration - - Weight 122.1 kg (269 lb 2.9 oz) 11/02/2016 8:25 AM DRESS SHOE INSPECTOR Height 182.9 cm (6') 11/02/2016 8:25 AM DRESS SHOE INSPECTOR Body Mass Index 36.51 11/02/2016 8:25 AM DRESS SHOE INSPECTOR Plan of Treatment Health Maintenance Due Date [...] 65+ 07/30/2022 Medical Devices Implanted Type Area Sheet Sorter Device Shelf Model / Identifier Expiration Serial / Date Lot Strip Silcn 0.75x3.5x125 [id number] - [id number] Right : Lab[employer] 02/26/2022 [id number] / Implanted: Qty: 1 on 07/17/2015 by Sixto Becerril MD at [facility] [employer] / [id number] Screw Lmbr Post 5.5x25mm Solera 4.75 Va - [id number] N/A: Medtronic [id number] / Implanted: Qty: 2 on 11/02/2016 by Clarence Coyle MD at [facility] Spine Spine/Ortho / Results Not on filefrom Last 3 Months Insurance Payer Benefit Plan / Subscriber ID Effective Dates Phone Addre ss Type Group BLUE CROSS BLUE [employer] OF [id number] 2020-Present [address] [place] [address] Advance Directives Latest Code Status on File Code Status Date Activated Date Inactivated Comments Full Code 11/02/2016 6:12 PM 11/06/2016 10:20 PM Full Code 11/02/2016 6:41 AM 11/02/2016 6:12 PM Code Status Discussion: Not Discussed Full Code 07/17/2015 9:21 AM 07/17/2015 3:48 PM Care Teams Agile Scrum Coach Relationship Specialty Start Date End Date Kang Mcgee MD PCP - General Family Practice 06/07/20 [address] [address]
--- OUTSIDE RECORDS SUMMARY | 2022-08-14 08:45 | XMS_ITS | Encounter Summary ---
:1955 Author Organization [place] Address [address] [place] [address]. [place] [address] Care Team Providers Name Role Phone Rodney Jo MD Primary Care Provider [phone] Reason for Visit (Routine) - Closed Specialty Diagnoses / Procedures Referred By Contact Refer red To Contact Radiology Diagnoses US ABD LIMITED Procedure Notes: Hepatitis. Rh Ultrasound Procedures RADIOLOGY [address] [place], [place] [address] Phone: Fax: Referral ID Status Reason Start Date Expiration Date Visits Requ ested Visits Authorized [id number] Closed 11/03/2012 05/02/2013 1 1 Encounter Details Date Type Department Care Team Description 11/03/2012 Hospital Encounter [facility] Scotty Dahl MD Hepatitis Imaging [address] [place] [id number] [phone] Social History Tobacco Use Types Packs/Day Years [...] Scotty Yuen MD - 11/03/2012 3:44 PM AGRONOMIST Quick Note: Gallstones AND fatty liver You can discuss this the next time you are seen Eboni Yuen MD NOMIST documented in this encounter Plan of Treatment Not on filedocumented as of this encounter Procedures Procedure Name Priority Date/Time Associated Diagnosis Comme nts US ABDOMEN LIMITED Routine 11/03/2012 3:13 PM Hepatitis Res ults for this AGRONOMIST procedure are i n the results section. documented in this encounter Results US Abdomen Limited* (11/03/2012 3:13 PM AGRONOMIST) Anatomical Region Laterality Modality Abdomen/Pelvis Ultrasound Specimen (Source) Anatomical Collection Method Collection Time Re ceived Time Location / / Volume Laterality 11/03/2012 3:13 PM AGRONOMIST Impressions 11/03/2012 3:21 PM AGRONOMIST IMPRESSION: 1. Cholelithiasis. 2. Pancreas is obscured. 3. Fatty infiltration of the liver. 4. Remainder of the scan is unremarkable . RODNEY GARCIA MD Narrative 11/03/2012 3:21 PM AGRONOMIST RIGHT UPPER QUADRANT ULTRASOUND 2 3:13 PM [...] . RODNEY GARCIA MD Scotty Yuen MD [facility] US ORDERABLES documented in this encounter Visit Diagnoses Diagnosis Hepatitis Hepatitis, unspecified documented in this encounter Care Teams Sliver Lap Tender Relationship Specialty Start Date End Date Rodney Jo MD PCP - General 11/05/06 documented as of this encounter
--- OUTSIDE RECORDS SUMMARY | 2022-08-14 08:45 | XMS_ITS ---
:1955 Author Care Team Providers Name Role Phone EMILY REHMAN MD Primary Care Provider [phone] Allergies Code Code System Name Reaction Severity [...] Surgery Information not avai lable 12/23/2021 , [facility] (Radiology) [address] [place] [address] (Work Place) Results Lab Results [...] 02/20/2022 Spermatocele Willie Buckner MD: [address] [place] [address], Ph. 12/23/2021 Spermatocele Willie Buckner MD: [address] [place] [address], Ph. 07/03/2021 Benign Prostatic Hyperplasia; Balanitis; Benign Prostatic Hyperplasia with Outflow Obstruction; Type 2 Diabetes Mellitus without Complication Willie Buckner MD: [address] [place] [address], Ph. Social History Tobacco Smoking Status Former [...]
--- OUTSIDE RECORDS SUMMARY | 2022-08-14 08:45 | XMS_ITS | Encounter Summary ---
:1955 Author Organization [place] Address [address] [place] [address]. [place] [address] Care Team Providers Name Role Phone Nimesh Jo MD Primary Care Provider [phone] Reason for Visit Reason Comments Hypertension 6 week med check Weight Loss f/u on diet Encounter Details Date Type Department Care Team Description 02/06/2013 Office Visit [facility] Nimesh Jo Obesit y (Primary Dx); Clinic Janeth Huizar MD HTN, goal below 140/90; [address] [facility] [id number] [place] [address] Hepatic [place] [address] [phone] Social History Tobacco Use Types Packs/Day Years [...] avoid sweets and chocahollic. Nimesh Jo MD [facility] documented in this encounter Nursing Notes 02/06/2013 [...] kg).. BP completed using cuff size: large Lcuas Smith CMA documented in this encounter Plan of Treatment Not on filedocumented as of this encounter Visit Diagnoses Diagnosis Obesity - Primary Obesity, unspecified HTN, goal below 140/90 Unspecified essential hypertension Hepatic steatosis Other chronic nonalcoholic liver disease documented in this encounter Care Teams Overnight Cashier Relationship Specialty Start Date End Date Nimesh Jo MD PCP - General 11/05/06 documented as of this encounter
--- OUTSIDE RECORDS SUMMARY | 2022-08-14 08:45 | XMS_ITS | Encounter Summary ---
:1955 Author Organization [facility] Address [address] [place] [address]. [place] [address] Care Team Providers Name Role Phone Nimesh Jo MD Primary Care Provider Encounter Details Date Type Department Care Team Description 11/04/2012 Orders Only [facility] Nimesh Jo [place] MD [address] [place] [address] [phone] [place] [address] (Wo rk) Social History Tobacco [...] on filedocumented in this encounter Care Teams Brake Operator Relationship Specialty Start Date End Date Nimesh Jo MD PCP - General 11/05/06 documented as of this encounter
--- OUTSIDE RECORDS SUMMARY | 2022-08-14 08:45 | XMS_ITS | Encounter Summary ---
:1955 Author Organization [place] Address [address] [place] [address]. [place] [address] Care Team Providers Name Role Phone Nimesh Jo MD Primary Care Provider Reason for Visit Reason Comments RECHECK discuss OV with Dr. Edgar sanchez yesterday Encounter Details Date Type Department Care Team Description 10/28/2012 Office Visit [facility] Nimesh Jo Hyperl ipidemia LDL goal <130 (Primary Dx); [facility] [place] ADRIEN (obstructive sleep apnea); [address] [place] [address] Venous stasis of lower extremity; [place], [place] HTN (hy pertension) [phone] [phone] Social History Tobacco Use Types Packs/Day Years [...] Comments Blood Pressure 140/86 10/28/2012 3:34 PM TELEPHONE SALES AGENT Pulse 72 10/28/2012 3:34 PM TELEPHONE SALES AGENT Temperature 36.7 ??C (98 ??F) 10/28/2012 3:34 PM TELEPHONE SALES AGENT Respiratory Rate 14 10/28/2012 3:34 PM TELEPHONE SALES AGENT Oxygen Saturation 96% 10/28/2012 3:34 PM TELEPHONE SALES AGENT Inhaled Oxygen Concentration - - Weight 130.2 kg (287 lb) 10/28/2012 3:34 PM TELEPHONE SALES AGENT Height - - Body Mass Index 40.03 10/27/2012 11:06 AM TELEPHONE SALES AGENT documented in this encounter Progress Notes Nimesh [...] appointment if any problems or failureto improve. PHONE SALES AGENT documented in this encounter Nursing Notes 10/28/2012 [...] hypertension documented in this encounter Care Teams Ophthalmology Technician Relationship Specialty Start Date End Date Nimesh Jo MD PCP - General 11/05/06 documented as of this encounter
--- OUTSIDE RECORDS SUMMARY | 2022-08-14 08:45 | XMS_ITS | Clinical Summary ---
:1955 Author Organization [facility] Address [address] [place] [address] Care Team Providers Name Role Phone Nimesh Jo MD Primary Care Provider [phone] Allergies No known active allergies Medications [...] ype Group Dates BCBS [place] OF [place] [id number] 2021-Prese [phone] [address] [phone] [place] [address] MEDICARE MEDICARE [id number] 2021-Prese [phone] ATTN CLAI [place] Medicare nt 40 [address] [facility] [address] SELECTCARE SELECTCARE - [id number] 2012-Pres [phone] [address] Ind[address] [facility] ent [phone] [id number] [place] [address] Care Teams Director Sanitation Bureau Relationship Specialty Start Date End Date Nimesh Jo MD PCP - General 11/05/06
--- OUTSIDE RECORDS SUMMARY | 2022-08-14 08:45 | XMS_ITS | Encounter Summary ---
:1955 Author Organization [facility] Address [address] [place] [address] Care Team Providers Name Role Phone Nimesh Jo MD Primary Care Provider [phone] Encounter Details Date Type Department Care Team Description 11/03/2012 Historic Results [facility] Heart Unknown, [address] [place] [address] Social History Tobacco Use Types [...] CARDIAC - HIM SCAN 11/03/2012 12:00 AM FURS SALESPERSON - ARCHIVE documented in this encounter Results ECHO CARDIAC - HIM SCAN - ARCHIVE (11/03/2012 12:00 AM FURS SALESPERSON) Specimen (Source) Anatomical Location Collection Method / Collectio n Time Received Time / Laterality Volume 11/03/2012 Narrative This result has an attachment that is no t available. Provider Scan CV ECHO ORDERABLES documented in this encounter Visit Diagnoses Not on filedocumented in this encounter Care Teams Head Of Store Operations Relationship Specialty Start Date End Date Nimesh Jo MD PCP - General 11/05/06 documented as of this encounter
--- OUTSIDE RECORDS SUMMARY | 2022-08-14 08:45 | XMS_ITS | Encounter Summary ---
:1955 Author Organization [facility] Address [address] [place] [address]. [place] [address] Care Team Providers Name Role Phone Nimesh Jo MD Primary Care Provider Reason for Visit Reason Onset Date Comments Refill Request 03/05/2014 zocor Encounter Details Date Type Department Care Team Description 03/05/2014 Refill [facility] Nimesh Jo Refill Request (zocor) Janeth Huizar MD [address] [place] [phone] [phone] (Wo rk) Social History Tobacco Use Types [...] hyperlipidemia documented in this encounter Care Teams Bag Machine Helper Relationship Specialty Start Date End Date Nimesh Jo MD PCP - General 11/05/06 documented as of this encounter
--- OUTSIDE RECORDS SUMMARY | 2022-08-14 08:45 | XMS_ITS | Encounter Summary ---
:1955 Author Organization [place] [facility] Address [address] [place] [address]. [place] [address] Care Team Providers Name Role Phone Nimesh Jo MD Primary Care Provider Reason for Visit Reason Comments RECHECK BP was gurinder high at US and Ec hocardiogram today 160/90 and 168/100. Pt just started on and Keflex last Wednesday. Encounter Details Date Type Department Care Team Description 11/03/[address] [facility] Devin [place] HTN (h ypertension) Clinic Janeth Tinsley MD (Primary Dx) [address] [address] [phone] Social History Tobacco Use Types Packs/Day Years [...] Comments Blood Pressure 138/80 11/03/2012 4:11 PM TELEVISION INSTALLER HELPER Pulse 64 11/03/2012 4:05 PM TELEVISION INSTALLER HELPER Temperature 36.7 ??C (98 ??F) 11/03/2012 4:05 PM TELEVISION INSTALLER HELPER Respiratory Rate 14 11/03/2012 4:05 PM TELEVISION INSTALLER HELPER Oxygen Saturation - - Inhaled Oxygen Concentration - - Weight 130.2 kg (287 lb) 11/03/2012 4:05 PM TELEVISION INSTALLER HELPER Height 180.3 cm (5' 11) 11/03/2012 4:05 PM TELEVISION INSTALLER HELPER Body Mass Index 40.03 11/03/2012 4:05 PM TELEVISION INSTALLER HELPER documented in this encounter Progress Notes Devin [...] and echocardiogram and ultrasound of his abdomen VISION INSTALLER HELPER documented in this encounter Plan of Treatment Not on filedocumented as of this encounter Visit Diagnoses Diagnosis HTN (hypertension) - Primary Unspecified essential hypertension documented in this encounter Care Teams Radiation Oncologist Relationship Specialty Start Date End Date Nimesh Jo MD PCP - General 11/05/06 documented as of this encounter
--- OUTSIDE RECORDS SUMMARY | 2022-08-14 08:46 | XMS_ITS | Encounter Summary ---
:1955 Author Organization [place] Address [address] [place] [address]. [place] [address] Care Team Providers Name Role Phone Nimesh Jo MD Primary Care Provider Reason for Visit Reason Onset Date Comments Refill Request 09/28/2012 zocor Encounter Details Date Type Department Care Team Description 09/28/2012 Refill [facility] Nimesh Jo Refill Request (zocor) Janeth Huizar MD [address] [place] [phone] [phone] (Wo rk) Social History Tobacco Use Types [...] Primary documented in this encounter Care Teams Program Facilitator Relationship Specialty Start Date End Date Nimesh Jo MD PCP - General 11/05/06 documented as of this encounter
--- OUTSIDE RECORDS SUMMARY | 2022-08-14 08:46 | XMS_ITS | Encounter Summary ---
:1955 Author Organization [facility] Address [address] [place] [address]. [place] [address] Care Team Providers Name Role Phone Nimesh Jo MD Primary Care Provider Encounter Details Date Type Department Care Team Description 08/27/2008 GI Procedure [facility] Nimesh Jo, None Care Jagdish CONRAD [address] [place] [address] [phone] [place], [place] [phone] (Wo rk) Social History Tobacco Use Types [...] encounter Results COLONOSCOPY (08/27/2008 9:40 AM CDT) [facility] Method Time Signature COLONOSCOPY Endoscopy RADIOLOGY RESULTS Patient Name: Sandeep Crooks ?Gender: M ? Procedure Date: 08/27/2008 9: 40 AM ? Date of : 1955 ?Age: 52 ? Admit Type: Outpatient ? Attending MD: Tian Juarez MD ? Procedure: ? Colonoscopy Indications: [...] oxygen ? saturations were monitored continuously. The [id number] ? #[id number] was introduced through the anus and advanced [...] on filedocumented in this encounter Care Teams Banquet Prep Cook Relationship Specialty Start Date End Date Nimesh Jo MD PCP - General 11/05/06 documented as of this encounter
--- OUTSIDE RECORDS SUMMARY | 2022-08-14 08:46 | XMS_ITS | Encounter Summary ---
:1955 Author Organization [facility] Address [address] [place] [address] Care Team Providers Name Role Phone Nimesh Jo MD Primary Care Provider Reason for Referral Referral not Required - Closed Specialty Diagnoses / Procedures Referred By Contact Refer red To Contact Diagnoses Foot pain Plantar fascial fibromatosis Mason Griffin DPM [facility] 1021 PPTV [facility] [address] [place] [address] [place] [address] Phone: [phone] Referral ID Status Reason Start Date Expiration Date Visits Requ ested Visits Authorized [id number] Closed 08/25/2011 02/21/2012 1 1 Specialty Diagnoses / Procedures Referred By Contact Refer red To Contact Mason Griffin DPM [address] [place] [address] Referral ID Status Reason Start Date Expiration Date Visits Requ ested Visits Authorized Reason for Visit Reason Comments Musculoskeletal Problem right heel pain. Sx for a co uple months. Encounter Details Date Type Department Care Team Description 08/25/2011 Office Visit [facility] Mason Griffin Foot p ain (Primary Dx); Clinic [place] F, DPM Plantar fascial fibromatosis [address] [address] [place] [address] [place], [place] [address] Social History Tobacco Use Types [...] fibromatosis documented in this encounter Care Teams Cornice Upholsterer Relationship Specialty Start Date End Date Nimesh Jo MD PCP - General 11/05/06 documented as of this encounter
--- OUTSIDE RECORDS SUMMARY | 2022-08-14 08:46 | XMS_ITS | Encounter Summary ---
:1955 Author Organization [facility] Address [address] [place] [address]. [place] [address] Care Team Providers Name Role Phone Nimesh Jo MD Primary Care Provider Reason for Visit Reason Onset Date Comments Refill Request 04/10/2010 simmvastatin Encounter Details Date Type Department Care Team Description 04/10/2010 Refill [facility] Nimesh Jo Refill Request [facility] [place] (simmvastatin) [address] [place] [address] [phone] (Wo rk) Social History Tobacco Use Types [...] Primary documented in this encounter Care Teams Property Underwriter Relationship Specialty Start Date End Date Nimesh Jo MD PCP - General 11/05/06 documented as of this encounter
--- OUTSIDE RECORDS SUMMARY | 2022-08-14 08:46 | XMS_ITS | Encounter Summary ---
:1955 Author Organization [facility] Address [address] [place] [address]. [place] [address] Care Team Providers Name Role Phone Nimesh Jo MD Primary Care Provider [phone] Reason for Visit Reason Comments Lipids f/u meds, cholesterol Derm Problem skin tag removal Allergies consult seasonal allergies Pre Visit Planning - Done PVP completed 06/29/2011 lf Encounter Details Date Type Department Care Team Description 06/30/2011 Office Visit [facility] Nimesh Jo Other specified congenital anomaly of skin (Primary Dx); [facility] [place] HTN (hypertension) [address] [place] [phone] Social History Tobacco Use Types Packs/Day Years [...] CDT) P athologist Signature Creatinine 161 mg/dL [facility] Albumin Urine 4 mg/L [facility] mg/L [facility] Albumin Urine 2.48 0 - 20 [facility] mg/g Cr mg/g Cr [facility] Specimen Anatomical Collection Method Collection Time Receive d Time (Source) Location / / Volume Laterality Urine specimen 06/30/2011 9:54 AM 011 9:56 (specimen) CDT AM CDT Nimesh Jo MD LAB - URINE ORDERABLES Performing Organization Address City/State/ZIP Code Phon e Number [facility] [address] [place] [address] [facility] (ABNORMAL) Basic metabolic panel (06/30/2011 9:53 AM CDT) athologist Signature Sodium 142 133 - 144 [facility] [place] mmol/L [facility] Potassium 4.5 3.4 - 5.3 [facility] mmol/L [facility] Chloride 105 94 - 109 [facility] mmol/L [facility] [place] Dioxide 27 20 - 32 [facility] mmol/L [facility] Anion Gap 10 6 - 17 [facility] mmol/L [facility] Glucose 102 (H) 60 - 99 [facility] mg/dL [facility] Urea Nitrogen 15 7 - 30 [place] mg/dL [facility] Creatinine 0.88 0.66 - [facility] 1.25 mg/dL [facility] GFR Estimate >90 >60 [place] mL/min/1.7 [facility] m2 LAB GFR Estimate If >90 >60 [place] Black mL/min/1.7 [facility] m2 LAB Calcium 9.2 8.5 - 10.4 [place] mg/dL [facility] Specimen Anatomical Collection Method Collection Time Receive d Time (Source) Location / / Volume Laterality Blood specimen 06/30/2011 9:53 AM 011 9:55 (specimen) CDT AM CDT Nimesh Jo MD LAB - BLOOD ORDERABLES Performing Organization Address City/State/ZIP Code Phon e Number [facility] [address] [place] [address] [facility] LDL cholesterol direct (06/30/2011 9:53 AM CDT) athologist Signature LDL Cholesterol 97 0 - 129 [facility] Direct mg/dL [facility] Comment: Optimal: ? <100 mg/dL Near [...] Organization Address City/State/ZIP Code Phon e Number [facility] [address] [place] [address] [facility] documented in this encounter Visit Diagnoses Diagnosis Other specified congenital anomaly of sk in - Primary HTN (hypertension) Unspecified essential hypertension documented in this encounter Care Teams Highway Maintenance Worker Relationship Specialty Start Date End Date Nimesh Jo MD PCP - General 11/05/06 documented as of this encounter
--- OUTSIDE RECORDS SUMMARY | 2022-08-14 08:46 | XMS_ITS | Encounter Summary ---
:1955 Author Organization [facility] Address [address] [place] [address] Care Team Providers Name Role Phone Nimesh Jo MD Primary Care Provider Reason for Visit Reason Onset Date Comments Refill Request 06/05/2009 Simvastatin Encounter Details Date Type Department Care Team Description 06/05/2009 Refill [facility] Nimesh Jo Refill Request Clinic [place] MD Bhupendra (Simvastatin) [address] [place] [phone] [phone] (Wo rk) Social History Tobacco Use Types [...] Primary documented in this encounter Care Teams Chief Librarian Work With Blind Relationship Specialty Start Date End Date Nimesh Jo MD PCP - General 11/05/06 documented as of this encounter
--- OUTSIDE RECORDS SUMMARY | 2022-08-14 08:46 | XMS_ITS | Encounter Summary ---
:1955 Author Organization [place] Address [address] [place] [address] Care Team Providers Name Role Phone Nimesh Jo MD Primary Care Provider [phone] Reason for Visit Referral not Required - Closed Specialty Diagnoses / Procedures Referred By Contact Refer red To Contact Diagnoses Foot pain Plantar fascial fibromatosis Mason Griffin, DPM [facility] [address] [place] [address] [place] [address] Phone: [phone] Referral ID Status Reason Start Date Expiration Date Visits Requ ested Visits Authorized [id number] Closed 08/25/2011 02/21/2012 1 1 Encounter Details Date Type Department Care Team Description 09/07/2011 Therapy Visit [facility] Devin, Other per [facility] enthesopathies Services [address] (Primary Dx) [address] [place] [address] [address] [place] [phone] Social History Tobacco Use Types Packs/Day Years [...] Name Priority Date/Time Associated Diagnosis Comme nts [facility] MANUAL THER Routine 09/07/2011 4:25 PM Other peripheral TECH,1+REGIONS,EA 15 CDT enthesopathies MIN [facility] ULTRASOUND THERAPY Routine 09/07/2011 4:25 PM Other periph eral CDT enthesopathies documented in this encounter Visit Diagnoses Diagnosis Other peripheral enthesopathies - Primar y documented in this encounter Care Teams Command And Control Systems Integrator Relationship Specialty Start Date End Date Nimesh Jo MD PCP - General 11/05/06 documented as of this encounter
--- OUTSIDE RECORDS SUMMARY | 2022-08-14 08:46 | XMS_ITS | Encounter Summary ---
:1955 Author Organization [facility] Address [address] [place] [address] Care Team Providers Name Role Phone Nimesh Jo MD Primary Care Provider Reason for Visit Reason Onset Date Comments Refill Request 06/05/2011 refill request for N orvasc 5mg Encounter Details Date Type Department Care Team Description 06/05/2011 Refill [facility] Nimesh Jo Refill Request (refill Clinic [place] Huizar MD request for Norvasc 5mg) [id number] [place] [phone] (Wo rk) Social History Tobacco Use Types Packs/Day Years Used Date Former Smoker Cigarettes 1 35 Quit: 11/06/20 07 Alcohol Use Standard Drinks/Week Comments No 0 (1 standard drink = 0.6 oz pure alcoho l) Sex Assigned at Date Recorded Not on file documented as of this encounter Miscellaneous Notes Telephone Encounter - Noemí Dalton - 06/09/2011 9:34 AM CDT CARON, outbound call center representative usually filled amlodipine for hypertension, can you refill?, if so approve and close Noemí Dalton RN, BSN Message handled by Nurse Triage . Telephone Encounter - Lisa Riggins - 06/05/2011 9:00 AM CDT LMOM to call jackie. NO dx in chart and does not look like our clinic rx'd the [facility]-clarify w/pt. Lisa Riggins RN Telephone Encounter - Gabriel Graysonlie - 06/05/2011 8:45 AM CDT [facility] Last Office Visit: 02/27/2011 with JOB for [...] benign documented in this encounter Care Teams Chlorination Operator Relationship Specialty Start Date End Date Nimesh Jo MD PCP - General 11/05/06 documented as of this encounter
--- OUTSIDE RECORDS SUMMARY | 2022-08-14 08:46 | XMS_ITS | Encounter Summary ---
:1955 Author Organization [facility] Address [address] [place] [address] Care Team Providers Name Role Phone Nimesh Jo MD Primary Care Provider [phone] Reason for Visit Reason Onset Date Comments Refill Request 07/10/2008 Simvastatin Encounter Details Date Type Department Care Team Description 07/10/2008 Refill [facility] Nimesh Jo Refill Request Clinic [place] MD Bhupendra (Simvastatin) [address] [place] [phone] [phone] (Wo rk) Social History Tobacco Use Types [...] hyperlipidemia documented in this encounter Care Teams Service Coordinator Relationship Specialty Start Date End Date Nimesh Jo MD PCP - General 11/05/06 documented as of this encounter
--- OUTSIDE RECORDS SUMMARY | 2022-08-14 08:46 | XMS_ITS | Encounter Summary ---
:1955 Author Organization [place] Address [address] [place] [address] Care Team Providers Name Role Phone Nimesh Jo MD Primary Care Provider Encounter Details Date Type Department Care Team Description 09/10/2011 Therapy Visit [facility] enthesopathies Services [address] (Primary Dx) [address] [place] [address] [address] [place] [phone] Social History Tobacco Use Types Packs/Day Years [...] y documented in this encounter Care Teams Patient Transport Orderly Relationship Specialty Start Date End Date Nimesh Jo MD PCP - General 11/05/06 documented as of this encounter
--- OUTSIDE RECORDS SUMMARY | 2022-08-14 08:46 | XMS_ITS | Encounter Summary ---
:1955 Author Organization [facility] Address [address] [place] [address] Care Team Providers Name Role Phone Nimesh Jo MD Primary Care Provider [phone] Reason for Visit Reason Comments Knee Pain left knee pain Encounter Details Date Type Department Care Team Description 02/27/2011 Office Visit [facility] Debbie Olson leslee n (Primary Dx); [facility] [place] CORNELIUS Reyes Edema leg [address] [place] [phone] [facility] [address] [place] [address] Social History Tobacco Use Types Packs/Day [...] Edema documented in this encounter Care Teams Gaming Pit Boss Relationship Specialty Start Date End Date Nimesh Jo MD PCP - General 11/05/06 documented as of this encounter
--- OUTSIDE RECORDS SUMMARY | 2022-08-14 08:46 | XMS_ITS | Encounter Summary ---
:1955 Author Organization [facility] Address [address] [place] [address]. [place] [address] Care Team Providers Name Role Phone Nimesh Jo MD Primary Care Provider [phone] Reason for Visit Reason Comments Allergic Rhinitis nasal congestion and sneezin g x2 months Thumb Discomfort right thumb pain Encounter Details Date Type Department Care Team Description 01/30/2010 Office Visit [facility] Nimesh Jo Thumb Pain; Clinic [place] [facility] Huizar MD Trigger Finger (Acquired); [address] [place] [address] [place] [address] [phone] Social History Tobacco Use Types Packs/Day Years Used Date Former Smoker Cigarettes 1 35 Quit: 11/06/20 07 Alcohol Use Standard Drinks/Week Comments No 0 (1 standard drink = 0.6 oz pure alcoho l) Sex Assigned at Date Recorded Not on file documented as of this encounter Last Filed Vital Signs Vital Sign Reading Time Taken Comments Blood Pressure 130/70 01/30/2010 1:54 PM CONVEYOR BELT OPERATOR Pulse 60 01/30/2010 1:54 PM CONVEYOR BELT OPERATOR Temperature 36.6 ??C (97.9 ??F) 01/30/2010 1:54 PM CONVEYOR BELT OPERATOR Respiratory Rate 16 01/30/2010 1:54 PM CONVEYOR BELT OPERATOR Oxygen Saturation - - Inhaled Oxygen Concentration - - Weight 121.1 kg (267 lb) 01/30/2010 1:54 PM CONVEYOR BELT OPERATOR Height 180.3 cm (5' 11) 01/30/2010 1:54 PM CONVEYOR BELT OPERATOR Body Mass Index 37.24 01/30/2010 1:54 PM CONVEYOR BELT OPERATOR documented in this encounter Progress Notes [...] nsaid then consider ortho if not ressolving EYOR BELT OPERATOR documented in this encounter Nursing Notes 01/30/2010 [...] Procedure Name Priority Date/Time Associated Diagnosis Comme [facility] RT X-RAY EXAM Routine 01/30/2010 2:14 PM Thumb pain Resu lts for this OF FINGER(S) CONVEYOR BELT OPERATOR procedure are i n the results section. documented in this encounter Results RT X-RAY EXAM OF FINGER(S) (01/30/2010 2:14 PM CONVEYOR BELT OPERATOR) Specimen (Source) Anatomical Collection Method Collection Time Re ceived Time Location / / Volume Laterality 01/30/2010 2:14 PM CONVEYOR BELT OPERATOR Impressions RADIOLOGY RESULTS - 01/31/2010 8:26 AM [...] rhinitis documented in this encounter Care Teams Electrician Apprentice Powerhouse Relationship Specialty Start Date End Date Nimesh Jo MD PCP - General 11/05/06 documented as of this encounter
--- OUTSIDE RECORDS SUMMARY | 2022-08-14 08:46 | XMS_ITS | Encounter Summary ---
:1955 Author Organization [place] Address [address] [place] [address]. [place] [address] Care Team Providers Name Role Phone Nimesh Jo MD Primary Care Provider Reason for Visit Reason Onset Date Comments Nurse Advice Line 08/11/2012 simvastatin refill Encounter Details Date Type Department Care Team Description 08/11/[address] [facility] Nimesh Jo Nurse Advice Line Clinic [place] Huizar MD (simvastatin refill) [address] [place] [phone] (Wo rk) Social History Tobacco Use Types [...] Primary documented in this encounter Care Teams Transfer Machine Operator Relationship Specialty Start Date End Date Nimesh Jo MD PCP - General 11/05/06 documented as of this encounter
--- OUTSIDE RECORDS SUMMARY | 2022-08-14 08:46 | XMS_ITS | Encounter Summary ---
:1955 Author Organization [place] Address [address] [place] [address] Care Team Providers Name Role Phone Nimesh Jo MD Primary Care Provider [phone] Encounter Details Date Type Department Care Team Description 04/16/2010 Orders Only [facility] Mix ed Hyperlipidemia; [facility] Special Screening for Malign ant Neoplasms of Other Sites [address] [place] [phone] Social History Tobacco Use Types Packs/Day [...] Signature PSA 0.63 0 - 4 ug/L [facility] Specimen Anatomical Collection Method Collection Time Receive d Time (Source) Location / / Volume Laterality 04/16/2010 7:55 AM 0 7:57 CDT AM CDT Nimesh Jo MD LABORATORY Performing Organization Address City/State/ZIP Code Phon e Number [facility] [address] [place] [address] [facility] ALANINE AMINO (ALT) (SGPT) (04/16/2010 7:55 AM CDT) athologist Signature ALT 51 0 - 70 U/L [facility] Specimen Anatomical Collection Method Collection Time Receive d Time (Source) Location / / Volume Laterality 04/16/2010 7:55 AM 0 7:57 CDT AM CDT Nimesh Jo MD LABORATORY Performing Organization Address City/[facility]/ZIP Code Phon e Number [facility]3] [address] [place] [address] [facility] (ABNORMAL) A.M.A. LIPID PANEL (04/16/2010 7:55 AM CDT) athologist Signature Cholesterol 155 0 - 200 [facility] mg/dL CLINIC LAB Comment: LDL Cholesterol is the primary guide to therapy. The NCEP recommends further evaluation of: patients with cholesterol <200 mg/dL if additional risk factors are present, cholesterol >240 mg/dL, triglycerides >150 mg/dL, or HDL <40 mg/dL. Triglycerides 91 0 - 150 mg/dL [facility] HDL Cholesterol 27 (L) 40 - 110 mg/dL [facility] LDL Cholesterol Calculated 110 0 - 129 mg/dL [facility] Comment: LDL Cholesterol is the primary guide to therapy: LDL-cholesterol goal in high risk patients is <100 mg/dL and in very high risk patients is <70 mg/dL. VLDL-Cholesterol 18 0 - 30 mg/dL [facility] Cholesterol/HDL Ratio 5.9 (H) 0.0 - 5.0 [facility] Specimen Anatomical Collection Method Collection Time Receive d Time (Source) Location / / Volume Laterality 04/16/2010 7:55 AM 0 7:57 CDT AM CDT Nimesh Jo MD LABORATORY Performing Organization Address City/State/ZIP Code Phon e Number [address] [address] [facility] documented in this encounter Visit Diagnoses Diagnosis Mixed hyperlipidemia Special screening for malignant neoplasm s of other sites documented in this encounter Care Teams Flexo Press Operator Relationship Specialty Start Date End Date Nimesh Jo MD PCP - General 11/05/06 documented as of this encounter
--- OUTSIDE RECORDS SUMMARY | 2022-08-14 08:46 | XMS_ITS | Encounter Summary ---
:1955 Author Organization [place] Address [address] [place] [address] Care Team Providers Name Role Phone Nimesh Jo MD Primary Care Provider [phone] Reason for Visit Reason Onset Date Comments Refill Request 01/05/2012 [facility] Encounter Details Date Type Department Care Team Description 01/05/2012 Refill [facility] Nimesh Jo Refill Request ([facility]) Clinic HeckerLaureano Huizar MD [address] [place] [phone] (Wo rk) Social History Tobacco Use Types [...] approved per standing orders Noemí Dalton RN ET ASSEMBLER documented in this encounter Plan of Treatment Not on filedocumented as of this encounter Visit Diagnoses Diagnosis Benign hypertension - Primary Essential hypertension, benign documented in this encounter Care Teams Loop Tacker Relationship Specialty Start Date End Date Nimesh Jo MD PCP - General 11/05/06 documented as of this encounter
--- OUTSIDE RECORDS SUMMARY | 2022-08-14 08:46 | XMS_ITS | Encounter Summary ---
:1955 Author Organization [place] Address [address] [place] [address]. [place] [address] Care Team Providers Name Role Phone Rodney Akhtar MD Primary Care Provider [phone] Reason for Visit Reason Comments Pre-Op Exam Left knee surgery 09/07/08 Encounter Details Date Type Department Care Team Description 09/03/2008 Office Visit [facility] Rodney Akhtar Other Specified Clinic [place] Hu[place] MD Pre-Operative [id number] [place] [phone] [place] [address] Examination (Primary [place], [place] Dx) [phone] Social History Tobacco Use Types Packs/Day Years [...] of Surgery/ Procedure: 8:00 a.m. Hospital/Surgical Facility: [facility] Primary Physician: Rodney Akhtar MD Type of [...] athologist Signature Hemoglobin 14.4 13.3 - 17.7 [place] g/dL [facility] Specimen Anatomical Collection Method Collection Time Receive d Time (Source) Location / / Volume Laterality 09/03/2008 4:26 PM 8 4:27 CDT PM CDT Rodney Akhtar MD LABORATORY Performing Organization Address City/State/ZIP Code Phon e Number [facility] [address] [place] [address] [facility] ELECTROCARDIOGRAM, COMP W/READ (09/03/2008) Narrative This result has an attachment that is no t available. Rodney Akhtar MD EKG TECHNICAL documented in this encounter Visit Diagnoses Diagnosis Other specified pre-operative examinatio n - Primary documented in this encounter Care Teams Backrest Assembler Relationship Specialty Start Date End Date Rodney Akhtar MD PCP - General 11/05/06 documented as of this encounter
--- OUTSIDE RECORDS SUMMARY | 2022-08-14 08:46 | XMS_ITS | Encounter Summary ---
:1955 Author Organization [place] Address [address] [place] [address]. [place] [address] Care Team Providers Name Role Phone Nimesh Jo MD Primary Care Provider Reason for Referral Referral not Required - Closed Specialty Diagnoses / Procedures Referred By Contact Refer red To Contact Diagnoses Special screening for malignant neoplasms of other sites Nimesh Jo, ASHIA DIAZ MD FACP [address] [place] [address] [address] [place], [place] [address] [place] [address] Phone: [phone] Fax: Referral ID Status Reason Start Date Expiration Date Visits Requ ested Visits Authorized [id number] Closed 05/16/2008 11/28/2011 1 1 Reason for Visit Reason Comments Derm Problem spot on abdomen with red rin g around it Ear Problem R ear pressure on top of can nal Musculoskeletal Problem achy joints Referral colonoscopy Derm Problem lower R leg x 6 months Derm Problem spot on L cheek Encounter Details Date Type Department Care Team Description 05/16/2008 Office Visit [facility] Nimesh Jo; Clinic Janeth Huizar MD Cyst Epidermal; [address] [place] [address] [facility] Ear Pain; [place], [place] Special Screening for Malignant Neoplasms of Other Sites; [phone] Eczema [phone] Social History Tobacco Use Types Packs/Day Years [...] CONF G&M WB (05/16/2008 3:22 PM CDT) [facility] gist Method Time Signature Lyme Confirm NEGATIVE [place] IgG by (Note) [email or web address] Immunoblot Band(s) present: NONE CLINIC LAB (Insufficient number of bands for positive result) TEST INFORMATION: Borrelia Burgdorferi Ab, IgG Western Blot IgG Positive: ??Any 5 of the following 10 bands: 18, 23, 28, 30, 39, 41, 45, 58, 66, or 93 kDa. IgG Negative: ??Any pattern that does not meet the IgG positive criteria. Lyme Confirm NEGATIVE [place] IgM by (Note) [facility] Immunoblot Band(s) present: NONE CLINIC LAB (Insufficient number of bands for positive result) TEST INFORMATION: Borrelia Burgdorferi Ab, IgM Western Blot IgM Positive: ??Any 2 of the following 3 bands: 23, 39, or 41 kDa. IgM Negative: ??Any pattern that does not meet the IgM positive criteria. Performed by [employer], [address] [place] [id number] [email or web address], ??Ishaan Denton MD - Lab. Director Specimen Anatomical Collection Method Collection Time Receive d Time (Source) Location / / Volume Laterality 05/16/2008 3:22 PM 200 8 3:27 CDT PM CDT Nimesh Jo MD LABORATORY Performing Organization Address City/State/ZIP Code Phon e Number [facility] [address] [place], [place] [id number] [facility] GLUCOSE (05/16/2008 3:22 PM CDT) athologist Signature Glucose 88 60 - 99 [place] mg/dL CLINIC LAB Specimen Anatomical Collection Method Collection Time Receive d Time (Source) Location / / Volume Laterality 05/16/2008 3:22 PM 8 3:27 CDT PM CDT Nimesh Jo MD LABORATORY Performing Organization Address City/State/ZIP Code Phon e Number [facility] [address] [place] [address] [facility] B. BURGDORFERI (LYME) HAYDER (05/16/2008 3:22 PM CDT) [facility] Method Time Signature Specimen Serum [facility] Lyme Screen IgG Test value: > or = 1.00....I nterpretation: Positive.... Specimen submitted to [facility] and IgM [place] ([facility]) for IgG and IgM [facility] Blot assays because of positive result. [facility] Specimen Anatomical Collection Method Collection Time Receive d Time (Source) Location / / Volume Laterality 05/16/2008 3:22 PM 8 3:27 CDT PM CDT Nimesh Jo MD LABORATORY Performing Organization Address City/State/ZIP Code Phon e Number [address] [address] [facility] documented in this encounter Visit Diagnoses Diagnosis Boil Carbuncle and furuncle of unspecified si te Cyst epidermal Sebaceous cyst Ear pain Otalgia, unspecified Special screening for malignant neoplasm s of other sites Eczema Contact dermatitis and other eczema, due to unspecified cause documented in this encounter Care Teams Manufacturing Scheduler Relationship Specialty Start Date End Date Nimesh Jo MD PCP - General 11/05/06 documented as of this encounter
--- OUTSIDE RECORDS SUMMARY | 2022-08-14 08:46 | XMS_ITS | Encounter Summary ---
:1955 Author Organization [place] Address [address] [place] [address] Care Team Providers Name Role Phone Nimesh Jo MD Primary Care Provider [phone] Encounter Details Date Type Department Care Team Description 03/02/2008 Orders Only [facility] MIX ED HYPERLIPIDEMIA; [facility] or SCREENING MAL NEOP-PROSTATE [address] [place] [address] Social History Tobacco Use Types [...] Signature PSA 0.63 0 - 4 ug/L [facility] Specimen Anatomical Collection Method Collection Time Receive d Time (Source) Location / / Volume Laterality 03/02/2008 7:40 AM 8 7:45 CDT AM CDT Nimesh Jo MD LABORATORY Performing Organization Address City/State/ZIP Code Phon e Number [facility] [address] [place] [address] [facility] (ABNORMAL) A.M.A. COMPREHENSIVE MET.PANEL (03/02/2008 7:40 AM CDT) Analysis Performed At Patho logist Time Signature Sodium 143 133 - 144 [place] mmol/L [facility] Potassium 4.6 3.4 - 5.3 [place] mmol/L [facility] Chloride 108 94 - 109 [place] mmol/L [facility] Carbon Dioxide 26 20 - 32 [place] mmol/L [facility] Anion Gap 9 6 - 17 [place] mmol/L [facility] Glucose 107 (H) 60 - 99 [place] mg/dL [facility] Urea Nitrogen 21 7 - 30 [place] mg/dL [facility] Creatinine 1.04 0.80 - [facility] 1.50 mg/dL [facility] GFR Estimate 80 >60 [place] mL/min/1.7 [facility] m2 LAB GFR Estimate If >90 >60 [place] mL/min/1.7 [facility] m2 LAB Calcium 9.2 8.5 - 10.4 [place] mg/dL [facility] Bilirubin Total 0.5 0.2 - 1.3 [place] mg/dL [facility] Albumin 4.3 3.3 - 4.6 [place] g/dL [facility] Protein Total 7.3 6.0 - 8.2 [place] g/dL [facility] Alkaline 89 40 - 150 [place] Phosphatase U/L [facility] ALT 53 0 - 70 U/L [facility] AST 46 0 - 55 U/L [facility] Specimen Anatomical Collection Method Collection Time Receive d Time (Source) Location / / Volume Laterality 03/02/2008 7:40 AM 8 7:45 CDT AM CDT Nimesh Jo MD LABORATORY Performing Organization Address City/State/ZIP Code Phon e Number [facility] [address] [place] [address] [phone] [facility] (ABNORMAL) A.M.A. LIPID PANEL (03/02/2008 7:40 AM CDT) athologist Signature Cholesterol 182 0 - 200 [facility] mg/dL CLINIC LAB Comment: LDL Cholesterol is the primary guide to therapy: LDL-cholesterol goal in high risk patients is <100 mg/dL and in very high risk patients is <70 mg/dL. The NCEP recommends further evaluation of: patients with cholesterol <200 mg/dL if additional risk factors are present, cholesterol >240 mg/dL, triglycerides >150 mg/dL, or HDL <40 mg/dL. Triglycerides 97 0 - 150 mg/dL [facility] HDL Cholesterol 33 (L) 40 - 110 mg/dL [facility] LDL Cholesterol Calculated 130 (H) 0 - 129 mg/dL [facility] Comment: LDL Cholesterol is the primary guide to therapy: LDL-cholesterol goal in high risk patients is <100 mg/dL and in very high risk patients is <70 mg/dL. VLDL-Cholesterol 19 0 - 30 mg/dL [place] [facility] Cholesterol/HDL Ratio 5.5 (H) 0.0 - 5.0 [facility] Specimen Anatomical Collection Method Collection Time Receive d Time (Source) Location / / Volume Laterality 03/02/2008 7:40 AM 8 7:45 CDT AM CDT Nimesh Jo MD LABORATORY Performing Organization Address City/State/ZIP Code Phon e Number [facility] [address] [place] [address] [phone] [facility] documented in this encounter Visit Diagnoses Diagnosis Mixed hyperlipidemia Special screening for malignant neoplasm of prostate documented in this encounter Care Teams Mold Shaker Relationship Specialty Start Date End Date Nimesh Jo MD PCP - General 11/05/06 documented as of this encounter
--- OUTSIDE RECORDS SUMMARY | 2022-08-14 08:46 | XMS_ITS | Encounter Summary ---
:1955 Author Organization [place] Address [address] [place] [address] Care Team Providers Name Role Phone Nimesh Jo MD Primary Care Provider Reason for Visit Reason Onset Date Comments Refill Request 08/28/2009 simvastatin Encounter Details Date Type Department Care Team Description 08/28/2009 Refill [facility] Nimesh Jo Refill Request Clinic [place] MD Bhupendra (simvastatin) [address] [place] [phone] (Wo rk) Social History Tobacco Use Types [...] hyperlipidemia documented in this encounter Care Teams Planograph Operator Relationship Specialty Start Date End Date Nimesh Jo MD PCP - General 11/05/06 documented as of this encounter
--- OUTSIDE RECORDS SUMMARY | 2022-08-14 08:46 | XMS_ITS | Encounter Summary ---
:1955 Author Organization [place] Address [address] [place] [address]. [place] [address] Care Team Providers Name Role Phone Nimesh Jo MD Primary Care Provider Reason for Visit Reason Onset Date Comments Refill Request 01/28/2011 Ibuprofen Encounter Details Date Type Department Care Team Description 01/28/2011 MyC Refill [facility] Nimesh Jo Refill Request Clinic [place] Huizar MD (Ibuprofen) [address] [place] [phone] [phone] (Wo rk) Social History Tobacco Use Types [...] approved per standing orders Noemí Dalton RN DESIGN INSTRUCTOR documented in this encounter Plan of Treatment Not on filedocumented as of this encounter Visit Diagnoses Diagnosis Low back pain - Primary Lumbago documented in this encounter Care Teams Mixer Helper Relationship Specialty Start Date End Date Nimesh oJ MD PCP - General 11/05/06 documented as of this encounter
--- OUTSIDE RECORDS SUMMARY | 2022-08-14 08:46 | XMS_ITS | Encounter Summary ---
:1955 Author Organization [place] Address [address] [place] [address] Care Team Providers Name Role Phone Nimesh Jo MD Primary Care Provider [phone] Encounter Details Date Type Department Care Team Description 06/12/2009 Orders Only [facility] Mixed Hyperlipidemia [facility] [phone] [place] [phone] Social History Tobacco Use Types Packs/Day [...] athologist Signature Cholesterol 171 0 - 200 [place] mg/dL [facility] Comment: LDL Cholesterol is the primary guide to therapy: LDL-cholesterol goal in high risk patients is <100 mg/dL and in very high risk patients is <70 mg/dL. The NCEP recommends further evaluation of: patients with cholesterol <200 mg/dL if additional risk factors are present, cholesterol >240 mg/dL, triglycerides >150 mg/dL, or HDL <40 mg/dL. Triglycerides 135 0 - 150 mg/dL [facility] HDL Cholesterol 27 (L) 40 - 110 mg/dL [facility] LDL Cholesterol Calculated 117 0 - 129 mg/dL [facility] Comment: LDL Cholesterol is the primary guide to therapy: LDL-cholesterol goal in high risk patients is <100 mg/dL and in very high risk patients is <70 mg/dL. VLDL-Cholesterol 27 0 - 30 mg/dL [facility] Cholesterol/HDL Ratio 6.4 (H) 0.0 - 5.0 [facility] Specimen Anatomical Collection Method Collection Time Receive d Time (Source) Location / / Volume Laterality 06/12/2009 8:06 AM 9 8:11 CDT AM CDT Nimesh Jo MD LABORATORY Performing Organization Address City/[facility]/ZIP Code Phon e Number [address] [address] [phone] [facility] ALANINE AMINO (ALT) (SGPT) (06/12/2009 8:06 AM CDT) P athologist Signature ALT 64 0 - 70 U/L [facility] Specimen Anatomical Collection Method Collection Time Receive d Time (Source) Location / / Volume Laterality 06/12/2009 8:06 AM 9 8:11 CDT AM CDT Nimesh Jo MD LABORATORY Performing Organization Address City/[facility] Phon e Number [address] [address] [phone] [facility] documented in this encounter Visit Diagnoses Diagnosis Mixed hyperlipidemia documented in this encounter Care Teams Head Of Conservation Relationship Specialty Start Date End Date Nimesh Jo MD PCP - General 11/05/06 documented as of this encounter
--- OUTSIDE RECORDS SUMMARY | 2022-08-14 08:46 | XMS_ITS | Encounter Summary ---
:1955 Author Organization [place] Address [address] [place] [address]. [place] [address] Care Team Providers Name Role Phone Nimesh Jo MD Primary Care Provider [phone] Reason for Visit Reason Onset Date Comments Refill Request 06/19/2010 simvastatin Encounter Details Date Type Department Care Team Description 06/19/2010 Refill [facility] Nimesh Jo Refill Request Clinic [place] MD Bhupendra (simvastatin) [address] [place] [phone] (Wo rk) Social History Tobacco Use Types [...] Primary documented in this encounter Care Teams Social Insurance Analyst Relationship Specialty Start Date End Date Nimesh Jo MD PCP - General 11/05/06 documented as of this encounter
--- OUTSIDE RECORDS SUMMARY | 2022-08-14 08:46 | XMS_ITS | Encounter Summary ---
:1955 Author Organization [place] Address [address] [place] [address] Care Team Providers Name Role Phone Nimesh Jo MD Primary Care Provider [phone] Encounter Details Date Type Department Care Team Description 09/01/2011 Therapy Visit [facility] [address] (Primary Dx) [address] [place] [address] [address] [place] [phone] Social History Tobacco Use Types Packs/Day Years [...] medications: High blood pressure medication and other ([place] for allergies). 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 Patient [...] Sheet for this information) Short term and intermediate goals: (See Goal Flow Sheet for this [...] Name Priority Date/Time Associated Diagnosis Comme nts [facility] Routine 09/01/2011 9:29 PM Other peripheral TECH,1+REGIONS,EA 15 CDT enthesopathies MIN [facility] ULTRASOUND THERAPY Routine 09/01/2011 9:29 PM Other periph eral CDT enthesopathies documented in this encounter Visit Diagnoses Diagnosis Other peripheral enthesopathies - Primar y documented in this encounter Care Teams Graduate Advisor Relationship Specialty Start Date End Date Nimesh Jo MD PCP - General 11/05/06 documented as of this encounter
--- OUTSIDE RECORDS SUMMARY | 2022-08-14 08:46 | XMS_ITS | Encounter Summary ---
:1955 Author Organization [place] Address [address] [place] [address]. [place] [address] Care Team Providers Name Role Phone Nimesh Jo MD Primary Care Provider [phone] Reason for Referral Referral not Required - Closed Specialty Diagnoses / Procedures Referred By Contact Refer red To Contact Diagnoses Special screening for malignant neoplasms of other sites Hyperlipidemia LDL goal <130 [place] (hard of hearing) Nimesh Jo [place] [facility] [address] [address] [place] [address] [place], [place] [address] Referral ID Status Reason Start Date Expiration Date Visits Requ ested Visits Authorized [id number] Closed 08/17/2012 02/13/2013 1 1 Reason for Visit Reason Comments Lipids Encounter Details Date Type Department Care Team Description 08/17/2012 Office Visit [facility] Nimesh Jo ipidemia LDL goal <130 (Primary Dx); Clinic Janeth Huizar MD Special screening for malignant neoplasm s of other sites; [address] [place] [address] [place] [address] [place] (hard of hearing) [place] [address] [phone] Social History Tobacco Use Types Packs/Day Years [...] REFERRAL Get hearing eval, screen his psa [place] (hard of hearing) Comment: Plan: OTOLARYNGOLOGY REFERRAL [...] of other sites Hyperlipidemia LDL goal <130 [place] (hard of hearing) documented as of this [...] Signature PSA 0.80 0 - 4 ug/L [facility] Specimen Anatomical Collection Method Collection Time Receive d Time (Source) Location / / Volume Laterality Blood specimen 08/17/2012 9:35 AM 012 9:38 (specimen) CDT AM CDT Nimesh Jo MD LAB - BLOOD ORDERABLES Performing Organization Address City/State/ZIP Code Phon e Number [facility] [address] [place] [address] [facility] (ABNORMAL) Comprehensive metabolic panel (08/17/2012 9:35 AM CDT) athologist Signature Sodium 141 133 - 144 [place] mmol/L [facility] Potassium 4.1 3.4 - 5.3 [place] mmol/L [facility] Chloride 107 94 - 109 [place] mmol/L [facility] Carbon Dioxide 23 20 - 32 [facility]L [facility] Anion Gap 12 6 - 17 [place] mmol/L [facility] Glucose 106 (H) 60 - 99 [place] mg/dL [facility] Urea Nitrogen 14 7 - 30 [place] mg/dL [facility] Creatinine 0.79 0.66 - [facility] 1.25 mg/dL [facility] GFR Estimate >90 >60 [place] mL/min/1.7 [facility] m2 LAB GFR Estimate If >90 >60 [place] Black mL/min/1.7 [facility] m2 LAB Calcium 9.4 8.5 - 10.4 [place] mg/dL [facility] Bilirubin Total 0.5 0.2 - 1.3 [facility] mg/dL [facility] Albumin 4.1 3.3 - 4.9 [facility] g/dL [facility] Comment: Reference range changed on 07/31. Protein Total 7.3 6.8 - 8.8 g/dL [facility] Comment: As of 08, reference range reflects plasma specimen type. Alkaline Phosphatase 79 40 - 150 U/L [facility] ALT 90 (H) 0 - 70 U/L [facility] AST 55 (H) 0 - 45 U/L [facility] Specimen Anatomical Collection Method Collection Time Receive d Time (Source) Location / / Volume Laterality Blood specimen 08/17/2012 9:35 AM 012 9:38 (specimen) CDT AM CDT Nimesh Jo MD LAB - BLOOD ORDERABLES Performing Organization Address City/[facility]/ZIP Code Phon e Number [address] [address] [facility] (ABNORMAL) Lipid Profile with reflex to direct LDL (08/17/2012 9:35 AM CDT) athologist Signature Cholesterol 191 0 - 200 [facility] mg/dL CLINIC LAB Comment: LDL Cholesterol is the primary guide to therapy. The NCEP recommends further evaluation of: patients with cholesterol greater than 200 mg/dL if additional risk facto rs are present, cholesterol greater than 240 mg/dL, triglycerides greater than 1 50 mg/dL, or HDL less than 40 mg/dL. Triglycerides 144 0 - 150 mg/dL [facility] HDL Cholesterol 33 (L) 40 - 110 mg/dL [facility] LDL Cholesterol Calculated 130 (H) 0 - 129 mg/dL [facility] Comment: LDL Cholesterol is the primary guide to therapy: LDL-cholesterol goal in high risk patients is <100 mg/dL and in very high risk patients is <70 mg/dL. VLDL-Cholesterol 29 0 - 30 mg/dL [facility] LAB Cholesterol/HDL Ratio 5.9 (H) 0.0 - 5.0 [facility] Specimen Anatomical Collection Method Collection Time Receive d Time (Source) Location / / Volume Laterality Blood specimen 08/17/2012 9:35 AM 012 9:38 (specimen) CDT AM CDT Nimesh Jo MD LAB - BLOOD ORDERABLES Performing Organization Address City/[facility]/ZIP Code Phon e Number [facility] [address] [place] [address] [facility] documented in this encounter Visit Diagnoses Diagnosis Hyperlipidemia LDL goal <130 - Primary Other and unspecified hyperlipidemia Special screening for malignant neoplasm s of other sites [place] (hard of hearing) Unspecified hearing loss documented in this encounter Care Teams Chainstitch Elastic Attacher Relationship Specialty Start Date End Date Nimesh Jo MD PCP - General 11/05/06 documented as of this encounter
--- OUTSIDE RECORDS SUMMARY | 2022-08-14 08:46 | XMS_ITS | Encounter Summary ---
:1955 Author Organization [facility] Address [address] [place] [address] Care Team Providers Name Role Phone Nimesh Jo MD Primary Care Provider [phone] Reason for Visit Reason Comments Foot Problems L heel pain; Pt dx'd with guido ne spur by Dr Silverman Encounter Details Date Type Department Care Team Description 06/11/2008 Office Visit [facility] Sixto Zafar Fascial Fibromatosis; Clinic [place] L, DPM Pain in Soft Tissues of Limb [address] [place], [place] [facility] [address] [address] [phone] [facility] [address] [place] [address] Social History Tobacco Use Types Packs/Day Years [...] limb documented in this encounter Care Teams Press Brake Operator Relationship Specialty Start Date End Date Nimesh Jo MD PCP - General 11/05/06 documented as of this encounter
--- OUTSIDE RECORDS SUMMARY | 2022-08-14 08:46 | XMS_ITS | Encounter Summary ---
:1955 Author Organization [facility] Address [address] [place] [address] Care Team Providers Name Role Phone Nimesh Jo MD Primary Care Provider [phone] Encounter Details Date Type Department Care Team Description 11/05/2011 Therapy Visit [facility] Devin, Other per ipheral Rehabilitation [facility] [address] (Primary Dx) [address] [place] [address] [address] [place] [phone] Social History Tobacco Use Types Packs/Day Years Used Date Former Smoker Cigarettes 1 35 Quit: 11/06/20 07 Smokeless Tobacco: Never Used Alcohol Use Standard Drinks/Week Comments No 0 (1 standard drink = 0.6 oz pure alcoho l) Sex Assigned at Date Recorded Not on file documented as of this encounter Progress Notes Chevy Beltran, PT - 12/07/2011 10:57 AM CST D/C per PN GAGE LOAN ORIGINATOR Chevy Beltran - 11/05/2011 6:08 PM CST [...] and time spent performing 1:1 timed codes. GAGE LOAN ORIGINATOR documented in this encounter Plan of Treatment Not on filedocumented as of this encounter Procedures Procedure Name Priority Date/Time Associated Diagnosis Comme nts ZZC MANUAL THER Routine 11/05/2011 6:08 PM Other peripheral TECH,1+REGIONS,EA 15 MORTGAGE LOAN ORIGINATOR enthesopathies MIN ZZC THERAPEUTIC Routine 11/05/2011 6:08 PM Other peripheral EXERCISES MORTGAGE LOAN ORIGINATOR enthesopathies Z ULTRASOUND THERAPY Routine 11/05/2011 6:08 PM Other periph eral MORTGAGE LOAN ORIGINATOR enthesopathies documented in this encounter Visit Diagnoses Diagnosis Other peripheral enthesopathies - Primar y documented in this encounter Care Teams Claims Processor Relationship Specialty Start Date End Date Nimesh Jo MD PCP - General 11/05/06 documented as of this encounter
--- OUTSIDE RECORDS SUMMARY | 2022-08-14 08:46 | XMS_ITS | Encounter Summary ---
:1955 Author Organization [facility] Address [address] [place] [address]. [place] [address] Care Team Providers Name Role Phone Nimesh Jo MD Primary Care Provider Reason for Referral - Closed Specialty Diagnoses / Procedures Referred By Contact Refer red To Contact Diagnoses Obesity Scotty Yuen MD [address] [place] [address] [facility] Referral ID Status Reason Start Date Expiration Date Visits Requ ested Visits Authorized [id number] Closed 10/27/2012 04/25/2013 1 1 eferral not Required - Closed Specialty Diagnoses / Procedures Referred By Contact Refer red To Contact Diagnoses Paresthesia of right arm Scotty Yuen MD [phone] [place] [address] [place] [address] Phone: Fax: Referral ID Status Reason Start Date Expiration Date Visits Requ ested Visits Authorized [id number] Closed 10/27/2012 04/25/2013 1 1 [employer] [employer] Reason for Visit Reason Comments Derm Problem abcess on lt calf, drained, tender to the touch, little warm Referral record retrieval specialist Tingling all fingers in rt hand ting ling since Auguest, had fusion in rt wrist 12 yrs ago Encounter Details Date Type Department Care Team Description 10/27/2012 Office Visit [facility] Scotty Yuen, Sunitha vera (Primary Dx); Clinic Janeth Tinsley MD Hepatitis; [address] [facility] [address] [place] [address] Dyspnea; [facility] [place] Venous stasis; [phone] Obesity; [phone] Paresthesia of right arm; (Work) Need for [...] Comments Blood Pressure 122/86 10/27/2012 11:06 AM [facility] [employer] Pulse 61 10/27/2012 11:06 AM [employer] [employer] Temperature 36.8 ??C (98.3 ??F) 10/27/2012 11:06 AM [employer] [employer] Respiratory Rate 12 10/27/2012 11:06 AM [employer] [employer] Oxygen Saturation 96% 10/27/2012 11:06 AM [employer] [employer] Inhaled Oxygen Concentration - - Weight 130.6 kg (288 lb) 10/27/2012 11:06 AM [employer] [employer] C[employer] Height 180.3 cm (5' 11) 10/27/2012 11:06 AM [employer] [employer] Body Mass Index 40.17 10/27/2012 11:06 AM [employer] LINE COOK documented in this encounter Patient Instructions Patient InstructionsScotty Yuen MD - 10/27/2012 11:38 AM CST Knee high elastic socks [employer] COOK documented in this encounter Progress Notes Scotty Yuen MD - 10/31/2012 2:44 PM [employer] [employer] Quick Note: Wound culture is no help Scotty Yuen MD [employer] Scotty Yuen MD - 10/27/2012 12:20 PM [...] (TDAP) Recheck post antibiotics Scotty Yuen MD [employer] COOK documented in this encounter Nursing Notes 10/27/2012 11:00 AM CST >> LISA NICHOLSON [facility] Oct 27, 2012 12:48 PM Tdap injection given. See Immunization section for details. 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 COMPREHENSIVE Routine 10/27/2012 12:05 Hepatitis Results fo r this METABOLIC PANEL PM [employer] [employer] procedure ar e in the results section. HC SPIROMETRY, BREATH Routine 10/27/2012 11:46 Dyspnea Re sults for this CAPACITY AM [employer] [employer] procedure are i n the results section. documented in this encounter Results NEUROLOGY ADULT REFERRAL (11/24/2012) Narrative This result has an attachment that is no t available. Scotty Yuen MD REFERRAL Wound culture (10/27/2012 12:08 PM [employer] [employer]) Patholo gist Method Time Signature Specimen Left Leg [facility] LAB Culture Micro Normal F[facility] skin zoë MICROBIOLOGY Micro Report FINAL [facility] Status 10/29/2012 MICROBIOLOGY Specimen Anatomical Collection Method Collection Time Receive d Time (Source) Location / / Volume Laterality Specimen from 10/27/2012 12:08 10/27/2012 wound (specimen) PM [employer] [employer] 12:10 PM CS T Scotty Yuen MD LAB - MICRO GENERAL ORDERABL ES Performing Organization Address City/State/ZIP Code Phon e Number [id number] [place] [address] LAB [facility] MICROBIOLOGY (ABNORMAL) Comprehensive metabolic panel (10/27/2012 12:05 PM [employer] [employer] C[employer]) athologist Signature Sodium 138 133 - 144 [place] mmol/L [facility] Potassium 4.3 3.4 - 5.3 [place] mmol/L [facility] Chloride 105 94 - 109 [place] mmol/L [facility] Carbon Dioxide 23 20 - 32 [place] mmol/L [facility] Anion Gap 10 6 - 17 [place] mmol/L [facility] Glucose 104 (H) 60 - 99 [place] mg/dL [facility] Urea Nitrogen 12 7 - 30 [place] mg/dL [facility] Creatinine 0.74 0.66 - [facility] 1.25 mg/dL [facility] GFR Estimate >90 >60 [place] mL/min/1.7 [facility] m2 LAB GFR Estimate If >90 >60 [place] mL/min/1.7 [facility] m2 LAB Calcium 8.9 8.5 - 10.4 [place] mg/dL [facility] Bilirubin Total 0.6 0.2 - 1.3 [place] mg/dL [facility] Albumin 4.1 3.3 - 4.9 [place] g/dL [facility] Comment: Reference range changed on 07/31. Protein Total 7.2 6.8 - 8.8 g/dL [facility] Comment: As of 08, reference range reflects plasma specimen type. Alkaline Phosphatase 76 40 - 150 U/L [facility] ALT 95 (H) 0 - 70 U/L [place] [facility] AST 53 (H) 0 - 45 U/L [facility] LAB Specimen Anatomical Collection Method Collection Time Receive d Time (Source) Location / / Volume Laterality Blood specimen 10/27/2012 12:05 2 (specimen) PM [facility] [employer] [facility] 12:06 PM [employer] [employer] Scotty Yuen MD LAB - BLOOD ORDERABLES Performing Organization Address City/State/ZIP Code Phon e Number [facility] [address] [place] [address] [facility] Spirometry, Breathing Capacity: Normal Order, Clinic Performed (10/27/2012 11:46 AM [employer]A[facility] [employer] COOK) P athologist Signature FEV-1 FVC FEV1/FVC FEF 25/75 Specimen (Source) Anatomical Collection Method Collection Time Re ceived Time Location / / Volume Laterality 10/27/2012 11:46 AM [employer] [employer] Narrative This result has an attachment that [...] Need for prophylactic vaccination with c ombined rrtavrssdv-sccyhgk-vuabnknao (DTP) vaccine documented in this encounter Care Teams Tour Narrator Relationship Specialty Start Date End Date Nimesh Jo MD PCP - General 11/05/06 documented as of this encounter
--- OUTSIDE RECORDS SUMMARY | 2022-08-14 08:46 | XMS_ITS | Encounter Summary ---
:1955 Author Organization [place] Address [address] [place] [address]. [place] [address] Care Team Providers Name Role Phone Nimesh Jo MD Primary Care Provider [phone] Reason for Referral Referral not Required - Closed Specialty Diagnoses / Procedures Referred By Contact Refer red To Contact Diagnoses [place] (obstructive sleep apnea) Nimesh JoCORONADO, [facility] [address] [place] [address] [phone] [phone] Fax: Referral ID Status Reason Start Date Expiration Date Visits Requ ested Visits Authorized [id number] Closed 10/27/2010 10/27/2010 1 1 eferral not Required - Closed Specialty Diagnoses / Procedures Referred By Contact Refer red To Contact Diagnoses Presyncopes [facility] [address] [place] [address] [address] [place] [address] Phone: [phone] Referral ID Status Reason Start Date Expiration Date Visits Requ ested Visits Authorized [id number] Closed 10/27/2010 10/27/2010 1 1 UDER Reason for Visit Reason Comments Joint Swelling left knee-painful X 2 weeks no trauma Dizziness X 1 month comes and goes for a few seconds Flu Shot declined Encounter Details Date Type Department Care Team Description 10/27/2010 Office Visit [facility] Nimesh Jo (Primary Dx); Clinic ManvelLaureano Huizar MD Special screening for malignant neoplasm s of other sites; [address] [place] [address] Contusion of knee; [place], [place] (ob structive sleep apnea) [id number] [phone] Social History Tobacco Use Types Packs/Day Years Used Date Former Smoker Cigarettes 1 35 Quit: 11/06/20 07 Alcohol Use Standard Drinks/Week Comments No 0 (1 standard drink = 0.6 oz pure alcoho l) Sex Assigned at Date Recorded Not on file documented as of this encounter Last Filed Vital Signs Vital Sign Reading Time Taken Comments Blood Pressure 138/80 10/27/2010 2:13 PM EXTRUDER Pulse 76 10/27/2010 2:13 PM EXTRUDER Temperature 37.1 ??C (98.8 ??F) 10/27/2010 2:13 PM EXTRUDER Respiratory Rate - - Oxygen Saturation 96% 10/27/2010 2:13 PM EXTRUDER Inhaled Oxygen Concentration - - Weight 127 kg (280 lb) 10/27/2010 2:13 PM EXTRUDER Height 180.3 cm (5' 11) 10/27/2010 2:13 PM EXTRUDER Body Mass Index 39.05 10/27/2010 2:13 PM EXTRUDER documented in this encounter Progress Notes Nimesh [...] appointment if any problems or failureto improve. UDER documented in this encounter Nursing Notes 10/27/2010 [...] Results Name Type Priority Associated Diagnoses Date/Ti mi EKG 12-lead complete w/read - Clinics EKG Routine Pre syncopes 10/27/2010 Scheduled Referrals Name Type Priority Associated Diagnoses Order S chedule PULMONARY MEDICINE Referral Routine ADRIEN (obstructive sleep Ordered: 10/27/2010 REFERRAL apnea) documented as of this encounter Procedures Procedure Name Priority Date/Time Associated Diagnosis Comme nts ADULT CARDIOLOGY EVAL FIELD CROP I FARMWORKER Routine 11/11/2010 Presyncop es REFERRAL documented in [...] ic) documented in this encounter Care Teams Instrument Maker Apprentice Relationship Specialty Start Date End Date Nimesh Jo MD PCP - General 11/05/06 documented as of this encounter
--- OUTSIDE RECORDS SUMMARY | 2022-08-14 08:46 | XMS_ITS | Encounter Summary ---
:1955 Author Organization [place] Address [address] [place] [address] Care Team Providers Name Role Phone Nimesh Jo MD Primary Care Provider [phone] Reason for Visit Reason Onset Date Comments Refill Request 04/02/2011 flonase, simvastatin Encounter Details Date Type Department Care Team Description 04/02/2011 Refill [facility] Nimesh Jo Refill Request (flonase, Clinic Leeann Huizar MD simvastatin) [address] [address] [place] [phone] Social History Tobacco Use Types Packs/Day Years [...] rhinitis documented in this encounter Care Teams Tank Truck Mechanic Relationship Specialty Start Date End Date Nimesh Jo MD PCP - General 11/05/06 documented as of this encounter
--- OUTSIDE RECORDS SUMMARY | 2022-08-14 08:46 | XMS_ITS | Encounter Summary ---
:1955 Author Organization [place] Address [address] [place] [address] Care Team Providers Name Role Phone Nimesh Jo MD Primary Care Provider [phone] Encounter Details Date Type Department Care Team Description 10/30/[address] [facility] Pre syncopes; [facility] Special screening for malign ant neoplasms of other sites [address] [place] [phone] Social History Tobacco Use Types Packs/Day [...] Special screening Results for this ANTIGEN SCREEN LENS GENERATOR for malignant procedure ar e in neoplasms of other the [facility] sites section. LIPID REFLEX TO DIRECT Routine 10/30/2010 9:49 AM Presyncopes Results for this LDL PANEL LENS GENERATOR procedure are i n the results section. COMPREHENSIVE Routine 10/30/2010 9:49 AM Presyncopes Results for this METABOLIC PANEL LENS GENERATOR procedure ar e in the results section. CBC WITH PLATELETS Routine 10/30/2010 9:49 AM Presyncopes Res ults for this LENS GENERATOR procedure are i n the results section. documented in this encounter Results CBC with platelets (10/30/2010 9:49 AM LENS GENERATOR) athologist Signature WBC 4.7 4.0 - 11.0 [place] 10e9/L [facility] RBC Count 4.72 4.4 - 5.9 [place] 10e12/L [facility] Hemoglobin 14.3 13.3 - [place] 17.7 g/dL [facility] Hematocrit 41.4 40.0 - [facility] 53.0 % [facility] MCV 88 78 - 100 [facility] fl [facility] MCH 30.3 26.5 - [place] 33.0 pg [facility] MCHC 34.5 31.5 - [place] 36.5 g/dL [facility] RDW 12.8 10.0 - [place] 15.0 % [facility] Platelet Count 150 150 - 450 [facility] 10e9/L [facility] Specimen Anatomical Collection Method Collection Time Receive d Time (Source) Location / / Volume Laterality Blood specimen 10/30/2010 9:49 AM 010 9:53 (specimen) LENS GENERATOR AM LENS GENERATOR Nimesh Jo MD LAB - BLOOD ORDERABLES Performing Organization Address City/[facility] Phon e Number [facility] [address] [place] [address] [facility] Prostate spec antigen screen (10/30/2010 9:49 AM LENS GENERATOR) athologist Signature PSA 0.79 0 - 4 ug/L [facility] Specimen Anatomical Collection Method Collection Time Receive d Time (Source) Location / / Volume Laterality Blood specimen 10/30/2010 9:49 AM 010 9:53 (specimen) LENS GENERATOR AM LENS GENERATOR Nimesh Jo MD LAB - BLOOD ORDERABLES Performing Organization Address City/[facility] Phon e Number [facility] [address] [place] [address] [facility] (ABNORMAL) Comprehensive metabolic panel (10/30/2010 9:49 AM LENS GENERATOR) P athologist Signature Sodium 141 133 - 144 [place] mmol/L [facility] Potassium 4.2 3.4 - 5.3 [place] mmol/L [facility] Chloride 107 94 - 109 [facility] mmol/L [facility] Carbon Dioxide 25 20 - 32 [place] mmol/L [facility] Anion Gap 9 6 - 17 [facility] mmol/L [facility] Glucose 96 60 - 99 [facility] mg/dL [facility] LAB Urea Nitrogen 16 7 - 30 [facility] mg/dL [facility] Creatinine 0.86 0.66 - [facility] 1.25 mg/dL [facility] LAB Comment: New IDMS-traceable calibration beginning 03/29/08 GFR Estimate >90 >60 mL/min/1.7m2 [place] [facility] GFR Estimate If Black >90 >60 mL/min/1.7m2 [facility] Calcium 8.8 8.5 - 10.4 mg/dL [facility] Bilirubin Total 0.4 0.2 - 1.3 mg/dL [facility] Albumin 3.9 3.9 - 5.1 g/dL [facility] Comment: Reference range changed on 07/31. Protein Total 6.9 6.8 - 8.8 g/dL [place] [facility] Comment: As of 08, reference range reflects plasma specimen type. Alkaline Phosphatase 77 40 - 150 U/L [facility] ALT 74 (H) 0 - 70 U/L [facility] CLIN IC LAB AST 43 0 - 55 U/L [facility] LAB Specimen Anatomical Collection Method Collection Time Receive d Time (Source) Location / / Volume Laterality Blood specimen 10/30/2010 9:49 AM 010 9:53 (specimen) LENS GENERATOR AM LENS GENERATOR Nimesh Jo MD LAB - BLOOD ORDERABLES Performing Organization Address City/State/ZIP Code Phon e Number [facility] [address] [place] [address] [facility] (ABNORMAL) Lipid panel reflex to direct LDL (10/30/2010 9:49 AM LENS GENERATOR) P athologist Signature Cholesterol 155 0 - 200 [facility] mg/dL CLINIC LAB Comment: LDL Cholesterol is the primary guide to therapy. The NCEP recommends further evaluation of: patients with cholesterol <200 mg/dL if additional risk factors are present, cholesterol >240 mg/dL, triglycerides >150 mg/dL, or HDL <40 mg/dL. Triglycerides 94 0 - 150 mg/dL [facility] HDL Cholesterol 35 (L) 40 - 110 mg/dL [facility] LDL Cholesterol Calculated 102 0 - 129 mg/dL [facility] Comment: LDL Cholesterol is the primary guide to therapy: LDL-cholesterol goal in high risk patients is <100 mg/dL and in very high risk patients is <70 mg/dL. VLDL-Cholesterol 19 0 - 30 mg/dL [facility] Cholesterol/HDL Ratio 4.5 0.0 - 5.0 [facility] Specimen Anatomical Collection Method Collection Time Receive d Time (Source) Location / / Volume Laterality Blood specimen 10/30/2010 9:49 AM 010 9:53 (specimen) LENS GENERATOR AM LENS GENERATOR Nimesh Jo MD LAB - BLOOD ORDERABLES Performing Organization Address City/State/ZIP Code Phon e Number [address] [address] [facility] documented in this encounter Visit Diagnoses Diagnosis Presyncopes Syncope and collapse Special screening for malignant neoplasm s of other sites documented in this encounter Care Teams Investment Associate Relationship Specialty Start Date End Date Nimesh Jo MD PCP - General 11/05/06 documented as of this encounter
--- OUTSIDE RECORDS SUMMARY | 2022-08-14 08:47 | XMS_ITS | Encounter Summary ---
:1955 Author Organization [place] Address [address] [place] [address] Care Team Providers Name Role Phone Nimesh Jo MD Primary Care Provider [phone] Encounter Details Date Type Department Care Team Description 11/07/2007 Operative Report Yadi Pulido DPM (Diet Clerk) [facility] [address] [place] [address] (Wo rk) Social History Tobacco Use Types Packs/Day Years Used Date Current Every Day Smoker Cigarettes 1 35 Carl t: 11/06/2006 Alcohol Use Standard Drinks/Week Comments No 0 (1 standard drink = 0.6 oz pure alcoho l) Sex Assigned at Date Recorded Not on file documented as of this encounter Progress Notes Yadi Pulido - 11/25/2007 10:30 AM CASE PREPARER AND LINER FINAL PREOPERATIVE DIAGNOSES: 1. Capsulitis secondary to [...] The patient has a follow-up at the [place] office on 09/10/2007. The patient did receive a prescription for Percodan and will initiate ibuprofen. The patient will initiate Omnicef today. Electronically signed on 11/25/2007 10:30 by YADI PULIDO DPM MT: [id number] Name: SURINDER GOETZ Account: [id number] : 1955 Procedure Date: 11/07/2007 Document: [id number] PREPARER AND LINER documented in this encounter Plan of Treatment Not on filedocumented as of this encounter Visit Diagnoses Not on filedocumented in this encounter Care Teams Scientific Diver Relationship Specialty Start Date End Date Nimesh Jo MD PCP - General 11/05/06 documented as of this encounter
--- OUTSIDE RECORDS SUMMARY | 2022-08-14 08:47 | XMS_ITS | Encounter Summary ---
:1955 Author Organization [facility] Address [address] [place] [address] Care Team Providers Name Role Phone Unavailable Primary Care Provider Unavailable Reason for Visit Reason Comments Neck Pain Back Pain Encounter Details Date Type Department Care Team Description 10/01/2016 Surgical Consult [facility] Woody Sanchez Ost eoarthritis of CORNELIO Martin MD cervical spine with [address] [facility] [address] [facility] D r myelopathy ([address] [place], [place] Dx) [place] [address] [phone] Social History Tobacco Use Types Packs/Day Years [...] 11:38 AM CDT NAME: SURINDER GOETZ MR#: [id number] CSN: [id number] AUTHENTICATING CLINICIAN: Woody Sanchez MD CONFIRM #: [id number] LOC: 711 CLINIC PROGRESS NOTE DATE OF VISIT: 10/01/2016 : 1955 CHIEF COMPLAINT: 1.Neck pain. 2.Bilateral arm pain and numbness. HPI: Surinder is an extremely pleasant 60-year-old gentleman who is now retired. He is seen today at the request of Dr. Amos. He was also advised by his chiropractor, Joanne Mccain, to see a lead sustainability specialist as well. Surinder states his symptoms [...] of the cervical spine.He was sent to [facility] by his chiropractor and he has clearly [...] objective light touch to all digits. 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 He is aware of [...] ASSESSMENT: Cervical myelopathy. 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
--- OUTSIDE RECORDS SUMMARY | 2022-08-14 08:47 | XMS_ITS | Encounter Summary ---
:1955 Author Organization [place] Address [address] [place] [address]. [place] [address] Care Team Providers Name Role Phone Rodney Akhtar MD Primary Care Provider [phone] Reason for Visit Reason Comments Pre-Op Exam Encounter Details Date Type Department Care Team Description 11/02/2007 Office Visit [facility] Rodney Akhtar PREOP EXAM OTHER SPECIFIED (Primary Dx); [facility] [place] TOBACCO USE DISORDER; [address] [place] [address] MIXED HYPERLIPIDEMIA; [place], [place] SCREENI NG MAL NEOP-PROSTATE [id number] [phone] Social History Tobacco Use Types Packs/Day Years [...] Comments Blood Pressure 140/70 11/02/2007 4:30 PM PROCUREMENT MANAGER Pulse 72 11/02/2007 4:30 PM PROCUREMENT MANAGER Temperature 37 ??C (98.6 ??F) 11/02/2007 4:30 PM PROCUREMENT MANAGER Respiratory Rate - - Oxygen Saturation - - Inhaled Oxygen Concentration - - Weight 109.3 kg (241 lb) 11/02/2007 4:30 PM PROCUREMENT MANAGER Height 180.3 cm (5' 11) 11/02/2007 4:30 PM PROCUREMENT MANAGER Body Mass Index 33.61 11/02/2007 4:30 PM PROCUREMENT MANAGER documented in this encounter Progress Notes Ronaldo Pierce - 11/02/2007 4:38 PM CST PRE-OP EVALUATION: Today's date: 11/02/2007 Sandeep Crooks (: 1955) presents for pre-operative evaluation as requested by Dr. Silverman. He requires evaluation and anesthesia clearance prior to undergoing surgery/procedure for treatment of right foot . Proposed procedure: bunion surgery Date of Surgery/ Procedure: 11/07/07 Time of Surgery/ Procedure: 11:00 Hospital/Surgical Facility: [facility] Fax number for surgical facility: [phone] Primary Physician: Dr. Rodney Akhtar Type of [...] evaluation report is provided to requesting physician. UREMENT MANAGER documented in this encounter Nursing Notes 11/02/2007 [...] Exam Other Res ults for this NONLAB PROCUREMENT MANAGER Specified procedure are i n the results section. ZZC Routine 11/02/2007 Preop Exam Other ELECTROCARDIOGRAM, Specified COMP W/READ documented in this encounter Results HGB (11/02/2007 4:46 PM PROCUREMENT MANAGER) athologist Signature Hemoglobin 14.8 13.3 - 17.7 [place] g/dL [facility] Specimen Anatomical Collection Method Collection Time Receive d Time (Source) Location / / Volume Laterality 11/02/2007 4:46 PM 7 4:48 PROCUREMENT MANAGER PM PROCUREMENT MANAGER Rodney Akhtar MD LABORATORY Performing Organization Address City/State/ZIP Code Phon e Number [facility] [address] [place] [address] [facility] ELECTROCARDIOGRAM, COMP W/READ (11/02/2007) Narrative This result has an attachment that is no t available. Rodney Akhtar MD EKG TECHNICAL documented in this encounter Visit Diagnoses Diagnosis Other specified pre-operative examinatio n - Primary Tobacco use disorder Mixed hyperlipidemia Special screening for malignant neoplasm of prostate documented in this encounter Care Teams Stamping Mill Tender Relationship Specialty Start Date End Date Rodney Akhtar MD PCP - General 11/05/06 documented as of this encounter
--- OUTSIDE RECORDS SUMMARY | 2022-08-14 08:47 | XMS_ITS | Encounter Summary ---
:1955 Author Organization [place] Address [address] [place] [address] Care Team Providers Name Role Phone Nimesh Jo MD Primary Care Provider Reason for Visit Reason Comments Abdominal Pain right side pain x2 weeks Encounter Details Date Type Department Care Team Description 12/09/[address] [facility] Nimesh Jo ABDOMI NAL PAIN RUQ [facility] [place] MD Bhupendra (Primary Dx) [address] [place] [phone] Social History Tobacco Use Types Packs/Day Years [...] Comments Blood Pressure 132/84 12/09/2006 9:15 AM TELECOMMUNICATIONS SWITCH TECHNICIAN Pulse - - Temperature 36.9 ??C (98.4 ??F) 12/09/2006 9:15 AM TELECOMMUNICATIONS SWITCH TECHNICIAN Respiratory Rate - - Oxygen Saturation - - Inhaled Oxygen Concentration - - Weight 115.2 kg (254 lb) 12/09/2006 9:15 AM TELECOMMUNICATIONS SWITCH TECHNICIAN Height 182.9 cm (6') 12/09/2006 9:15 AM TELECOMMUNICATIONS SWITCH TECHNICIAN Body Mass Index 34.45 12/09/2006 9:15 AM TELECOMMUNICATIONS SWITCH TECHNICIAN documented in this encounter Progress Notes Nimesh [...] appointment if any problems or failureto improve. COMMUNICATIONS SWITCH TECHNICIAN documented in this encounter Nursing Notes 12/09/2006 [...] Ruq Results for this PYLORI HAYDER IGG TELECOMMUNICATIONS SWITCH TECHNICIAN procedure are in the results section. HCL UA MICRO IF Routine 12/09/2006 9:48 AM Abdominal Pain Ruq Results for this POSITIVE TELECOMMUNICATIONS SWITCH TECHNICIAN procedure are i n the results section. CL AFF CBC WITH Routine 12/09/2006 9:48 AM Abdominal Pain Ruq Results for this PLATELETS, DIFF TELECOMMUNICATIONS SWITCH TECHNICIAN procedure ar e in the results section. documented in this encounter Results HELICOBACTER PYLORI HAYDER IGG (12/09/2006 9:49 AM TELECOMMUNICATIONS SWITCH TECHNICIAN) Component Value Ref Test Analysis Performed At [facility] gist Range Method Time Signature Specimen Serum [place] Description [facility] Heliobacter No detectable IgG antibody t o Helicobacter pylori. If current infection is [place] pylori Antibody suspected, please submit a new specimen in 4 to 6 weeks. Assayed at [facility] Refinder by [employer] [address] CLINIC LAB Report status FINAL [id number] [facility] Specimen Anatomical Collection Method Collection Time Receive d Time (Source) Location / / Volume Laterality 12/09/2006 9:49 AM 7 9:54 TELECOMMUNICATIONS SWITCH TECHNICIAN AM TELECOMMUNICATIONS SWITCH TECHNICIAN Narrative This result has an attachment that is no t available. Nimesh Jo MD LABORATORY Performing Organization Address [facility]/ZIP [facility] Phon e Number [address] [address] [facility] UA MICRO IF POSITIVE (12/09/2006 9:48 AM TELECOMMUNICATIONS SWITCH TECHNICIAN) [facility] gist Method Time Signature Color Urine Yellow [facility] Appearance Urine Clear [facility] Glucose Urine Negative NEG mg/dL [facility] Bilirubin Urine Negative NEG [facility] Ketones Urine Negative NEG mg/dL [facility] Specific [place] <=1.005 1.003 - [place] Urine 1.035 [facility] Blood Urine Negative NEG [facility] pH Urine 5.0 5.0 - 7.0 [place] pH [facility] Protein Albumin Negative NEG mg/dL [place] Urine [facility] Urobilinogen 0.2 0.2 - 1.0 [place] Urine EU/dL [facility] Nitrite Urine Negative NEG [facility] Leukocyte Negative NEG [place] Esterase Urine [facility] Source Midstream [place] Urine [facility] Specimen Anatomical Collection Method Collection Time Receive d Time (Source) Location / / Volume Laterality 12/09/2006 9:48 AM 7 9:54 TELECOMMUNICATIONS SWITCH TECHNICIAN AM TELECOMMUNICATIONS SWITCH TECHNICIAN Nimesh Jo MD LABORATORY Performing Organization Address City/[facility]/ZIP Code Phon e Number [address] [address] [facility] CBC WITH PLATELETS, DIFF (12/09/2006 9:48 AM TELECOMMUNICATIONS SWITCH TECHNICIAN) [facility] Method Time Signature WBC 6.9 4.0 - [place] 11.0 [facility] 10e9/L [facility] RBC Count 5.04 4.4 - 5.9 [place] 10e12/L [facility] Hemoglobin 15.4 13.3 - [place] 17.7 g/dL [facility] Hematocrit 45.7 40.0 - [place] 53.0 % [facility] MCV 91 78 - 100 [place] fl [facility] MCH 30.6 26.5 - [place] 33.0 pg [facility] MCHC 33.7 32.0 - [place] 36.0 g/dL [facility] RDW 13.6 10.0 - [place] 15.0 % [facility] Platelet Count 160 150 - 450 [place] 10e9/L [facility] Diff Method Automated [place] Method [facility] % Lymphocytes 41 20 - 48 % [facility] % Monocytes 10 0 - 12 % [facility] % Granulocytes 49 40 - 75 % [facility] Absolute 2.8 0.8 - 5.3 [place] Lymphocytes 10e9/L [facility] Absolute 0.7 0.0 - 1.3 [place] Monocytes 10e9/L [facility] Absolute 3.4 1.6 - 8.3 [place] Granulocytes 10e9/L [facility] Specimen Anatomical Collection Method Collection Time Receive d Time (Source) Location / / Volume Laterality 12/09/2006 9:48 AM 7 9:53 TELECOMMUNICATIONS SWITCH TECHNICIAN AM TELECOMMUNICATIONS SWITCH TECHNICIAN Nimesh Jo MD LABORATORY Performing Organization Address City/State/ZIP Code Phon e Number [facility] [id number] [place] [address] [facility] documented in this encounter Visit Diagnoses Diagnosis Abdominal pain, right upper quadrant - P rimary documented in this encounter Care Teams Director Health Relationship Specialty Start Date End Date Nimesh Jo MD PCP - General 11/05/06 documented as of this encounter
--- OUTSIDE RECORDS SUMMARY | 2022-08-14 08:47 | XMS_ITS | Encounter Summary ---
:1955 Author Organization [facility] Address [address] [place] [address]. [place] [address] Care Team Providers Name Role Phone Nimesh Jo MD Primary Care Provider [phone] Reason for Referral - Closed Specialty Diagnoses / Procedures Referred By Contact Refer red To Contact Diagnoses Chest pain, unspecified Nimesh Jo MD [address] [place] [address] 05 84 Referral ID Status Reason Start Date Expiration Date Visits Requ ested Visits Authorized [id number] Closed 11/12/2006 11/28/2011 1 1 TH CARE ANALYST Reason for Visit Reason Comments Physical with fasting labs Refill Request Zocor Encounter Details Date Type Department Care Team Description 11/12/2006 Office Visit [facility] Nimesh Jo MEDICAL EXAM; Clinic Janeth Huizar MD MIXED HYPERLIPIDEMIA; [address] [place] [address] TOBACCO USE DISORDER; [place], [place] CHEST P AIN NOS [id number] [phone] Social History Tobacco Use Types Packs/Day Years [...] Comments Blood Pressure 130/90 11/12/2006 9:00 AM HEALTH CARE ANALYST Pulse 60 11/12/2006 9:00 AM HEALTH CARE ANALYST Temperature 36.6 ??C (97.9 ??F) 11/12/2006 9:00 AM HEALTH CARE ANALYST Respiratory Rate - - Oxygen Saturation - - Inhaled Oxygen Concentration - - Weight 110.7 kg (244 lb) 11/12/2006 9:00 AM HEALTH CARE ANALYST Height 180.3 cm (5' 11) 11/12/2006 9:00 AM HEALTH CARE ANALYST Body Mass Index 34.03 11/12/2006 9:00 AM HEALTH CARE ANALYST documented in this encounter Progress Notes Nimesh [...] patch right now, 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 TH CARE ANALYST documented in this encounter Nursing Notes 11/12/2006 [...] AM Chest Pain N os COMP W/READ HEALTH CARE ANALYST HCL COMPREHENSIVE Routine 11/12/2006 9:43 AM Routine Medical R esults for this METABOLIC PANEL HEALTH CARE ANALYST Exam procedure ar e in the results section. CL AFF A.M.A. LIPID Routine 11/12/2006 9:43 AM Routine Medical Results for this PANEL HEALTH CARE ANALYST Exam procedure are i n the results section. documented in this encounter Results ELECTROCARDIOGRAM, COMP W/READ (11/12/2006 9:53 AM HEALTH CARE ANALYST) Narrative This result has an attachment that is no t available. Nimesh Jo MD EKG TECHNICAL A.M.A. COMPREHENSIVE MET.PANEL (11/12/2006 9:43 AM HEALTH CARE ANALYST) Component Value Ref Test Analysis Performed At [facility] gist Range Method Time Signature Sodium 142 133 - [facility] 144 [facility] mmol/L LAB Potassium 4.4 3.4 - [facility] 5.3 [facility] mmol/L LAB Chloride 105 94 - 109 [facility] mmol/L [facility] Carbon Dioxide 25 20 - 32 [facility] mmol/L [facility] Anion Gap 12 6 - 17 [facility] mmol/L [facility] Glucose 109 60 - 110 [facility] mg[facility]dL [facility] Urea Nitrogen 15 5 - 24 [facility] mg/dL [facility] Creatinine 1.00 0.80 [...] or imaging studies. Calcium 9.1 8.5 - [facility] 10.4 [facility] mg/dL LAB Bilirubin Total 0.3 0.2 - [facility] 1.3 [facility] mg/dL LAB Albumin 4.2 3.3 - [facility] 4.6 g/dL [facility] LAB Protein Total 7.6 6.0 - [facility] 8.2 g/dL [facility] LAB Alkaline 88 40 - 150 [facility] Phosphatase U/L [facility] LAB ALT 59 0 - 70 [facility] U/L [facility] LAB AST 36 0 - 55 [facility] U/L [facility] LAB Specimen Anatomical Collection Method Collection Time Receive d Time (Source) Location / / Volume Laterality 11/12/2006 9:43 AM 6 9:45 HEALTH CARE ANALYST AM HEALTH CARE ANALYST Nimesh Jo MD LABORATORY Performing Organization Address City/State/ZIP Code Phon e Number [facility] [address] [place] [phone] [facility] (ABNORMAL) A.M.A. LIPID PANEL (11/12/2006 9:43 AM HEALTH CARE ANALYST) athologist Signature Cholesterol 151 0 - 200 [facility] mg/dL CLINIC LAB Comment: LDL Cholesterol [...] mg/dL. Triglycerides 66 0 - 150 mg/dL [facility] HDL Cholesterol 36 (L) 40 - 110 mg/dL [facility] LDL Cholesterol Calculated 102 0 - 129 mg/dL [facility] Comment: LDL Cholesterol is the primary guide to therapy: LDL-cholesterol goal in high risk patients is <100 mg/dL and in very high risk patients is <70 mg/dL. VLDL-Cholesterol 13 0 - 30 mg/dL [facility] Cholesterol/HDL Ratio 4.2 0.0 - 5.0 [facility] Specimen Anatomical Collection Method Collection Time Receive d Time (Source) Location / / Volume Laterality 11/12/2006 9:43 AM 9:45 HEALTH CARE ANALYST AM HEALTH CARE ANALYST Nimesh Jo MD LABORATORY Performing Organization Address City/State/ZIP Code Phon e Number [facility] [address] [place] [phone] [facility] documented in this encounter Visit Diagnoses Diagnosis Routine general medical examination at a [facility] care facility Mixed hyperlipidemia Tobacco use disorder Chest pain, unspecified documented in this encounter Care Teams Ross Lift Operator Relationship Specialty Start Date End Date Nimesh Jo MD PCP - General 11/05/06 documented as of this encounter
--- OUTSIDE RECORDS SUMMARY | 2022-08-14 08:47 | XMS_ITS | Encounter Summary ---
:1955 Author Organization [place] Address [address] [place] [address] Care Team Providers Name Role Phone Nimesh Jo MD Primary Care Provider Encounter Details Date Type Department Care Team Description 11/15/2006 Historic Results [facility] Heart Unknown, [address] [place] [address] Social History Tobacco Use Types [...] CARDIAC - HIM SCAN 11/15/2006 12:00 AM SURG NURSE - ARCHIVE documented in this encounter Results ECHO CARDIAC - HIM SCAN - ARCHIVE (11/15/2006 12:00 AM SURG NURSE) Specimen (Source) Anatomical Location Collection Method / Collectio n Time Received Time / Laterality Volume 11/15/2006 Narrative This result has an attachment that is no t available. Provider Scan CV ECHO ORDERABLES documented in this encounter Visit Diagnoses Not on filedocumented in this encounter Care Teams Cartography Technician Relationship Specialty Start Date End Date Nimesh Jo MD PCP - General 11/05/06 documented as of this encounter
--- OUTSIDE RECORDS SUMMARY | 2022-08-14 08:47 | XMS_ITS | Encounter Summary ---
:1955 Author Organization [facility] Address [address] [place] [address]. [place] [address] Care Team Providers Name Role Phone Nimesh Jo MD Primary Care Provider [phone] Reason for Visit Reason Onset Date Comments Refill Request 07/04/2007 Encounter Details Date Type Department Care Team Description 07/04/2007 Refill [facility] Nimesh Jo, Refill Request [place] [address] [place] [address] [phone] [place], [place] [id number] (Wo rk) Social History Tobacco Use Types [...] ) He would like zocor sent to [facility] in [place] call him he has questions on the dosage [phone] documented in this encounter Plan of Treatment Not on filedocumented as of this encounter Visit Diagnoses Diagnosis Mixed hyperlipidemia - Primary documented in this encounter Care Teams Blower Room Attendant Relationship Specialty Start Date End Date Nimesh Jo MD PCP - General 11/05/06 documented as of this encounter
--- OUTSIDE RECORDS SUMMARY | 2022-08-14 08:47 | XMS_ITS | Encounter Summary ---
:1955 Author Organization [place] Address [address] [place] [address] Care Team Providers Name Role Phone Nimesh Jo MD Primary Care Provider Encounter Details Date Type Department Care Team Description 11/15/[address] [facility] Nimesh Jo, [facility] Results [address] [place] [address] (Wo rk) Social History Tobacco [...] Procedure Name Priority Date/Time Associated Diagnosis Comme [facility] ECHO HEART Routine 11/15/2006 1:22 PM Result s for this XTHORACIC, MANAGER MILITARY procedure are i n STRESS/REST the results section. documented in this encounter Results ECHO HEART, FULL STRESS/REST (11/15/2006 1:22 PM MANAGER MILITARY) Specimen (Source) Anatomical Collection Method Collection Time Re ceived Time Location / / Volume Laterality 11/15/2006 1:22 PM MANAGER MILITARY Impressions RADIOLOGY RESULTS - 11/18/2006 2:[address] Tape #[id number] ?? Technologist Initials: ??CR ?? The patient [...] on filedocumented in this encounter Care Teams Aquatic Performer Relationship Specialty Start Date End Date Nimesh Jo MD PCP - General 11/05/06 documented as of this encounter
--- OUTSIDE RECORDS SUMMARY | 2022-08-14 08:47 | XMS_ITS | Encounter Summary ---
:1955 Author [facility] Address [address] [place] [address] Care Team Providers Name Role Phone Unavailable Primary Care Provider Unavailable Reason for Visit Reason Comments Neck Pain Neck pain with Bilateral arm pain Encounter Details Date Type Department Care Team Description 10/07/2016 Surgical Consult [facility] Clarence Vasques al stenosis in CENTER MD Gia cervical region [address] [facility] [address] (Primary Dx) [place], [place] [address] [place], [place] [phone] Social History Tobacco Use Types Packs/Day Years [...] 120.2 kg (265 lb) 10/07/2016 8:37 AM NETEZZA DEVELOPER Height 180.3 cm (5' 11) 10/07/2016 8:37 AM NETEZZA DEVELOPER Body Mass Index 36.96 10/07/2016 8:37 AM NETEZZA DEVELOPER documented in this encounter Progress Notes Clarence Vasques MD - 10/07/2016 11:06 AM CST NAME: SURINDER GOETZ MR#: [id number] CSN: [id number] AUTHENTICATING CLINICIAN: Clarence Vasques MD CONFIRM #: [...] as a thorough workup of x-rays at [facility] and an MRI at [facility] on 09/09/2016 and 08/31/2016 shows undoubted cord [...] testing in his right upper extremity; intrinsics, head paper tester strength, biceps and deltoids, triceps 4/5. His [...] will be required to be done at [facility] only under spinal cord monitoring. [place] J collar for 6 weeks to 3 months postoperatively. He understands swallowing difficulties postsurgical as well. KJM:TH C: R:10/07/16 09:16 CONFIRM#:[id number] ZZA DEVELOPER documented in this encounter Plan of Treatment Not on filedocumented as of this encounter Visit Diagnoses Diagnosis Spinal stenosis in cervical region - Katie trujillo documented in this encounter
--- OUTSIDE RECORDS SUMMARY | 2022-08-14 08:47 | XMS_ITS | Encounter Summary ---
:1955 Author Organization [facility] [place] Address [address] [place] [address] Care Team Providers Name Role Phone Nimesh Jo MD Primary Care Provider Encounter Details Date Type Department Care Team Description 11/07/2007 Results Only [facility] Gia Silverman ohn, DPM Hospital Results [facility] [address] [place] [address] (Wo rk) Social History Tobacco [...] Procedure Name Priority Date/Time Associated Diagnosis Comme [facility] RT X-RAY FOOT 2 Routine 11/07/2007 1:55 PM Re sults for this VW FLIGHT FOLLOWER procedure are i n the results section. documented in this encounter Results RT X-RAY FOOT 2 VW (11/07/2007 1:55 PM FLIGHT FOLLOWER) Specimen (Source) Anatomical Collection Method Collection Time Re ceived Time Location / / Volume Laterality 11/07/2007 1:55 PM FLIGHT FOLLOWER Impressions RADIOLOGY RESULTS - 11/07/2007 3:55 PM [...] on filedocumented in this encounter Care Teams Inseminator Relationship Specialty Start Date End Date Nimesh Jo MD PCP - General 11/05/06 documented as of this encounter
--- OUTSIDE RECORDS SUMMARY | 2022-08-14 08:47 | XMS_ITS | Encounter Summary ---
:1955 Author Organization [place] Address [address] [place] [address] Care Team Providers Name Role Phone Unavailable Primary Care Provider Unavailable Reason for Visit Reason Comments Urgent Care Mass lump on epigastric area-noti enmanuel it today, but had soeness on right side since . Encounter Details Date Type Department Care Team Description 08/30/2005 Office Visit [facility] Provider, [facility] ERPES ZOSTER NOS Urgent Care Jagdish Wyatt MD (Primary Dx) [address] [phone] Social History Tobacco Use Types Packs/Day Years [...]
[2022-08-14 14:47] LABS: Creatinine Urine 67.5 mg/dL
[2022-08-14 14:51] LABS: Microalbumin Creatinine Ratio 10 mg/g (0-30); Microalbumin Urine < 1 mg/dL
== END 2022-08-14 08:43 | disposition home or self-care (01) ==
PROVIDERS: PCP Family Medicine; Visit Provider Family Medicine
DX: N40.0 Benign prostatic hyperplasia without lower urinary tract symptoms (principal); E11.10 Type 2 diabetes mellitus with ketoacidosis without coma; E78.00 Pure hypercholesterolemia, unspecified; I10 Essential (primary) hypertension
CPT/HCPCS: 82043; 82570

== ENCOUNTER 2023-01-28 09:07 | Outpatient (CLI) | payer MEDICARE, BC, SELFPAY | END 2023-01-28 09:08 | disposition home or self-care (01) | LOC: LKVREF 09:10 | PROVIDERS: PCP Family Medicine; Visit Provider Family Medicine | DX: E11.9 Type 2 diabetes mellitus without complications (principal); I10 Essential (primary) hypertension; E78.00 Pure hypercholesterolemia, unspecified | CPT/HCPCS: 82306 ==

== ENCOUNTER 2023-08-03 08:10 | Outpatient (CLI) | payer MEDICARE, BC, SELFPAY ==
--- OUTSIDE RECORDS SUMMARY | 2023-08-04 05:51 | XMS_ITS | Continuity of Care Document ---
Author Name Unknown Organization [facility] Address [address] [place] [address] Phone Care Team Providers Care Telephone Recorder Name Role Phone Layo CONRAD, Clarence Unavailable Unavailable Allergies, Adverse Reactions, Alerts Substance Reaction Status Criticality No Known Allergies Active No Inform ation Medications Medication Instructions Dosage Effective Dates (start - stop) Status Comments LISINOPRIL (unknown strength) Not Available - Active HYDROCHLOROTHIAZIDE (unknown strength) Not Available - Active AMLODIPINE BESYLATE (unknown strength) Not Available - Active METFORMIN HCL (unknown strength) Not Available - Active SIMVASTATIN (unknown strength) Not Available - Active ADVIL PM (unknown strength) Not Available - Active Procedures Procedure Date Office/Outpatient Visit,Est, Low 2020 X-Ray Exam Of Neck Spine2-3 Views Office/Outpatient Visit,Est, Mod 2018 X-Ray Exam Of Neck Spine2-3 Views Office/Outpatient Visit,Est, Mod 2016 X-Ray Exam Of Neck Spine2-3 Views Office/Outpatient Visit,Est, Mod 2016 X-Ray Exam Of Neck Spine2-3 Views Postop Followup Visit X-Ray Exam Of Neck Spine2-3 Views Postop Followup Visit X-Ray Exam Of Neck Spine2-3 Views Postop Followup Visit Neck Spine Fusion (Cerv,Below C2) Spine Fusion, Each Add'Lvertebra 2015 Remove Neck Spine Lamina, 1 Seg 016 Remove Added Spine Lamina, 1 Seg 2015 Insert Spine Seg Fix, Post, 3-6 Seg Autograft, Spine Surg, Morselized Pa Assist Neck Spine Fusion (Cerv,Below C2) Pa Assist Spine Fusion, Each Add'Lverteb ra Remove Neck Spine Lamina, 1 Seg 016 Pa Assist Remove Added Spine Lamina, 1 S eg Pa Assist Insert Spine Seg Fix, Post, 3- 6 Seg Pa Assist Autograft, Spine Surg, Morseli zed Advance Directives Directive Yes / No Effective Date File Name No Information Encounters Encounter Description Practice Location Reason(s) For Visit Diagnoses Date Provider Providers Copied on Encounter Office/Outpat ient Visit,Est, Low [facility], [address], [place], [id number], [place] tel:[phone] [facility] Arthrodesis status 1 Layo Lima. [facility], [address], [facility] [place], [id number] , [place]. [phone] Referring Provider: Clarence Vasques, [facility] [address], [place], [address] . tel:[phone] Office/Outpat ient Visit,Est, Mod [facility], [address], [place], [id number], [place] tel:[phone] [facility] Spinal stenosis, cervical region 9 Layo Lima. [facility], [address], [facility] [place], [id number] , [place]. [phone] Referring Provider: Clarence Vasques, [facility] [address], [place], [address] . tel:[phone] Office/Outpat ient Visit,Est, Mod [facility], [address], [place], [id number], [place] tel:[phone] [facility] Spinal stenosis, cervical region 7 Layo Lima. [facility], [address], [place], [place], [id number] , [place]. tel: [phone] Referring Provider: Clarence Vasques, [facility] [address], [place], [address] . tel:[phone] Office/Outpat ient Visit,Est, Mod [facility], [address], [place], [id number], [place] tel:[phone] [facility] - [facility] Spinal stenosis, cervical region Layo Lima. [facility], [address], [place], [place], [id number] , [place]. tel: [phone] Referring Provider: Referring Self, [address] [facility] [address], [place], [address]. tel:[phone] [facility], [address], [place], [id number], [place] tel:[phone] [facility] - [facility] Spinal stenosis, cervical region 7 Layo Lima. [facility], [address], [place], [place], [id number] , [place]. tel: [phone] Referring Provider: Clarence Vasques, [facility] [address], [place], [address] . tel:[phone] [facility], [address], [place], [id number], [place] tel:[phone] [facility] - [place] Spinal stenosis, cervical region 7 Layo Lima. [facility], [address], [place], [place], [id number] , [place]. tel: [phone] Referring Provider: Clarence Vasques, [facility] [address], [place], [address] . tel:[phone] [facility], [address], [place], [id number], [place] tel:[phone] [facility] Encounter for other specified surgical aftercare 6 Darrion Romero. [facility], [address], [place], [id number] , [place]. [phone] Referring Provider: Nick Hobbs, [facility] [address], [place], [address] . tel:[phone] [facility], [address], [place], [id number], [place] tel:[phone] [facility] No Information 6 Layo Lima. [facility], [address], [place], [id number] , [place]. [phone] Referring Provider: Clarence Vasques, [facility] [address], [place], [address] . tel:[phone] Family History Family Member Type Diagnosis Age At Onset No Information Payers Payer name Insurance type Covered libertarian ID Josafat mora(s) [id number] [facility] [id number] Social History Type Description Quantity Date Captured Comments Alcohol Use Details Unknown Caffeine Use Details Unknown Tobacco Use Status Ex-cigarette smoker Smoking Status Former smoker Non-Smoking Tobacco Use Details : No Details Available : No Details Available Sex Male Vital Signs Date / Time: Height Weight BMI Pulse Rate Blood Pressure Temperature Respiratory Rate Body Surface Area Head Circumference Head Circ. Percentile Wt./Vasquez. Percentile BMI percentile Pulse Ox Inhaled Ox 1:38 PM 70.25 in 120.928 kg (266.60 lbs) 37.9 8 kg/m eter (2) Chief Complaint And Reason For Visit No Information Reason For Referral Reason For Referral No Information History Of Present Illness Encounter Date Complaint History Of Prese nt Illness No Information Functional Status Date Functional Assessmen t No Information Instructions Date Instruction Additional Infor miroslava Weight Management Education Rela mary to Overweight Weight management: I nstructed to return to General Practitioner timeframe: 1 Month. Related to Overweight Blood Pressure Management Relate d to Unspecified Essential Hypertension Instructed to return to General Practitioner timeframe: 1 Month. Related to Unspecified Essential Hypertension Weight Management Education Rela mary to Overweight Weight management: I nstructed to return to General Practitioner timeframe: 1 Month. Related to Overweight Assessments Type Assessment Date No Information Patient Care Teams Name Effective Dates (start - stop) Status Members No Information
== END 2023-08-03 08:11 | disposition home or self-care (01) ==
LOC: NFLDREF 08-04 05:49
PROVIDERS: PCP Family Medicine; Referring Provider Family Medicine; Visit Provider Family Medicine
DX: Z00.00 Encounter for general adult medical examination without abnormal findings (principal); E11.9 Type 2 diabetes mellitus without complications; E78.00 Pure hypercholesterolemia, unspecified; N40.0 Benign prostatic hyperplasia without lower urinary tract symptoms; I10 Essential (primary) hypertension; Z12.5 Encounter for screening for malignant neoplasm of prostate
CPT/HCPCS: 80053; 80061; 82043; 82570; 84153

== ENCOUNTER 2023-11-05 11:45 | Outpatient (CLI) | payer MEDICARE, BC, SELFPAY ==
--- OUTSIDE RECORDS SUMMARY | 2023-11-05 11:48 | XMS_ITS | Continuity of Care Document ---
Author Name Unknown Organization [facility] Address [address] [place] [address] Phone Care Team Providers Care Media Marketing Director Name Role Phone Yifan Benjamin MD Unavailable Unavailable Allergies, Adverse Reactions, Alerts Substance Reaction Status Criticality No Known Allergies Active No Inform ation Medications Medication Instructions Dosage Effective Dates (start - stop) Status Comments SIMVASTATIN (unknown strength) Not Available - Active METFORMIN HCL (unknown strength) Not Available - Active AMLODIPINE BESYLATE (unknown strength) Not Available - Active HYDROCHLOROTHIAZIDE (unknown strength) Not Available - Active LISINOPRIL (unknown strength) Not Available - Active ADVIL PM (unknown strength) Not Available - Active Procedures Procedure Date Office/Outpatient Visit,Est, Mod 2022 X-Ray Exam Lwr Spine, Min 4 Views Office/Outpatient Visit,Est, Low 2020 X-Ray Exam Of [...] Diagnoses Date Provider Providers Copied on Encounter [facility], [address], [place], [place], [id number], [place] tel:[phone] [facility] No Information 3 Sourav Saha. [facility] [place], [facility] [address] [place] [address], [address], [facility], [place], [id number] , [place]. [phone] Office/Outpat ient Visit,Est, Mod [facility], [address], [place], [id number], [place] tel:[phone] [facility] Arthrodesis status 3 Layo Lima. [facility] [place], [address] [place] [address] [address], [facility], [place], [id number] , [place]. tel:[phone] Referring Provider: Clarence Vasques, [facility] [place] [address] [place] [address] [address], [place], [address] . tel:[phone] Office/Outpat ient Visit,Est, Low [facility], [address], [place], [id number], [place] tel:[phone] [facility] Arthrodesis status 1 Layo Lima. [facility], [address], [place], [place], [id number] , [place]. tel: [phone] Referring Provider: Clarence Vasques, [facility] [address], [place], [address] . tel:[phone] Office/Outpat ient Visit,Est, Mod [facility], [address], [place], [place], [address], [place] tel:[phone] [facility] Spinal stenosis, cervical region 9 Layo Lima. [facility] [place], [address], [place], [place], [address] , [place]. tel: [phone] Referring Provider: Clarence Vasques, [facility] [place] [address], [place], [address] . tel:[phone] Office/Outpat ient Visit,Est, Mod [facility], [address], [place], [address], [place] tel:[phone] [facility] Spinal stenosis, cervical region 7 Layo Lima. [facility] [place], [address], [place], [address] , [place]. tel: [phone] Referring Provider: Clarence Vasques, [facility] [address], [place], [address] . tel:[phone] Office/Outpat ient Visit,Est, Mod [facility], [address], [place], [place], [address], [place] tel:[phone] [facility] Spinal stenosis, cervical region 7 Layo Lima. [facility] [place], [address], [place], [address] , [place]. tel: [phone] Referring Provider: Referring Self, [address] [facility] [address], [place], [address]. tel:[phone] [facility], [address], [place], [id number], [place] tel:[phone] [facility] Spinal stenosis, cervical region 7 Layo Lima. [facility], [address] [place] [address] [address], [place], [place], [address] , [place]. tel: [phone] Referring Provider: Clarence Vasques, [facility] [address] [place] [address] [address], [place], [address] . tel:[phone] [facility], [address], [place], [address], [place] tel:[phone] [facility] Spinal stenosis, cervical region 7 Layo Lima. [facility], [address], [place], [place], [address] , [place]. tel: [phone] Referring Provider: Clarence Vasques, [facility] [address], [place], [address] . tel:[phone] [facility], [address], [place], [place], [address], [place] tel:[phone] [facility] [address] [facility] Encounter for other specified surgical aftercare 6 Darrion Romero. [facility], [address], [place], [place], [address] , [place]. tel: [phone] Referring Provider: Nick Hobbs, [facility] [address] [place] [address] [address], [place], [address] . tel:[phone] [facility], [address], [place], [address], [place] tel:[phone] [facility] No Information 6 Layo Lima. [facility], [address], [place], [place], [address] , [place]. tel:[phone] Referring Provider: Clarence Vasques, [facility] [address], [place], [address] . tel:[phone] Family History Family Member Type Diagnosis Age At Onset No Information Payers Payer name Insurance type Covered libertarian ID Authorharriet mora(s) Medicare [id number] [facility] [id number] [facility] [id number] Social History Type Description Quantity Date Captured Comments Sex Male Smoking Status No Information Chief Complaint And Reason For Visit No Information Reason For Referral Reason For Referral No Information History Of Present Illness Encounter Date Complaint History Of Prese nt Illness No Information Functional Status Date Functional Assessmen t No Information Instructions Date Instruction Additional Infor mation Instructed to return to General Practitioner timeframe: 1 Month. Related to Unspecified Essential Hypertension Blood Pressure Management Relate d to Unspecified Essential Hypertension Weight management: I nstructed to return to General Practitioner timeframe: 1 Month. Related to Overweight Weight Management Education Rela mary to Overweight Weight Management Education Rela mary to Overweight Weight management: I nstructed to return to General Practitioner timeframe: 1 Month. Related to Overweight Assessments Type Assessment Date No Information Patient Care Teams Name Effective Dates (start - stop) Status Members No Information
== END 2023-11-05 11:46 | disposition home or self-care (01) ==
LOC: LKVREF 11:47
PROVIDERS: PCP Family Medicine; Visit Provider Family Medicine
DX: M54.9 Dorsalgia, unspecified (principal)
CPT/HCPCS: 85651; 86140

== ENCOUNTER 2023-11-09 09:00 | Outpatient (CLI) | payer MEDICARE, BC, SELFPAY ==
--- NOTE | 2023-11-09 09:00 | CRLHL7_ITS ---
For Patients: As a result of the Century Cures Act, medical imaging exams and procedure reports are released immediately into your electronic medical record. You may view this report before your referring provider. If you have questions, please contact your health care provider. NM whole-body bone Scan: Technique: Nuclear medicine whole-body bone scan per protocol was obtained. Additional lateral images of the pelvis are noted. Radiopharmaceutical: 27.5 millicuries technetium 99 M MDP intravenously Clinical information: Ovoid sclerotic lesion in the right posterior iliac bone Comparison: None. Findings: Abnormal focal increased uptake is present within the right posterior iliac. Degenerative type uptake is present within the upper cervical spine, shoulders, hips, knees and ankles. Posttraumatic versus degenerative type uptake is noted within a couple of toes. There is normal renal and urinary bladder activity. There is no abnormal soft tissue uptake. Impression: Focal uptake within the right posterior iliac bone with differential diagnosis to include benign and malignant bone lesions. Does the patient have a prior history of malignancy? MRI would further characterize. Tissue correlation may be warranted. Dictated by Cleveland Kim MD @ 11/09/2023 2:29:42 PM (Electronically Signed)
--- OUTSIDE RECORDS SUMMARY | 2023-11-09 09:03 | XMS_ITS | Patient Health Record ---
Author Name Unknown Organization [facility] Address [address] [place] [address] [address] [place] [address] Care Team Providers Care Perinatal Director Name Role Phone Tee Prince Primary Care Provider Layo [facility] , Clarence Unavailable Unavaila Sandeep Ryder Unavailable [phone] Xavi Kendall Unavailable [phone] ALLERGIES No Known Allergies RESULTS Component Value Reference Range Notes MRI : Lumbar (Not yet review ed by provider) Interpretation: Performing Lab: Notes/Report: Original Report EXAM: MR LUMBAR SPINE WITHOUT CONTRAST CLINICAL INFORMATION: 67-year-old male with low back pain. COMPARISON: None. TECHNICAL INFORMATION: Sagittal T2, sagittal T1, sagittal STIR, coronal T1, axial T2, and axial T1-weighted MR images of the lumbar spine on a 1.5 Helen magnet. CONTRAST: None. SEDATION: None. INTERPRETATION: Lordotic alignment of 5 nonrib-bearing lumbar vertebral bodies with chronic Scheuermann-type endplate Schmorl's nodes at T11-12 and T12-L1, degenerative endplate disruption at L5-S1, and no spondylolysis, vertebral collapse, or acute fracture. 2.7 cm SI x 2.5 cm AP x 1.6 cm transverse T1 hypointense, ellipsoid lesion in the posterior right iliac bone with cortical destruction versus irregularity along the dorsal iliac margin (series 110, image 4; series 107 and 108, images 1-6). Additional 4-5 mm T1 hypointense sclerotic foci along the acetabular margins on both sides (series 110, images 8 and 12). Normal pre and paravertebral soft tissues. Enlarged prostate gland measuring 5.2 cm transverse. Conus medullaris positioned at mid L2, with normal configuration terminal nerve roots. L5-S1: Advanced disc degeneration, diffuse endplate ridging, superimposed 5 mm SI x 5 mm AP caudally extruded left paracentral disc herniation, moderate left/mild right facet degeneration, mild left greater than right subarticular stenosis/descending S1 root encroachment, and severe right/mild to moderate left foraminal stenosis with exiting L5 root impingement on the right/encroachment on the left. Small accessory articulation on the right. L4-5: Degenerative disc desiccation with preserved disc height, bilateral foraminal annular fissures, dorsal to foraminal annular bulge, advanced bilateral facet degeneration with sagittal orientation on the right, mild central/bilateral subarticular stenosis with descending L5 root encroachment, and moderate bilateral foraminal stenosis/exiting L4 root impingement. L3-4: Preserved disc height, left foraminal annular fissure/4 mm AP broad-based protrusion, sagittally oriented/moderately degenerated facets, 3-4 mm ligament flavum thickening, mild central stenosis, and mild to moderate left foraminal stenosis/exiting left L3 root encroachment. L2-3: Mild disc degeneration, 2 mm retrolisthesis, diffuse annular bulge, mild bilateral facet degeneration, and mild bilateral foraminal stenosis. L1-2: Moderate disc degeneration, 1-2 mm retrolisthesis, diffuse bulge, normal facets, and no stenosis or impingement. T12-L1: Mild disc degeneration, normal dorsal disc contours, normal facets, and no stenosis or impingement. T11-12: Mild disc degeneration and mild dorsal annular bulge without central stenosis. Normal facets and patent foramina. CONCLUSION: Multilevel lumbar degenerative changes with specifics as follows: 1. Facet degeneration, advanced bilaterally at L4-5. Moderate bilaterally at L3-4 and on the left at L5-S1. Mild at scattered levels elsewhere. 2. Chronic foraminal stenosis which is severe on the right at L5-S1 and moderate bilaterally at L4-5, with commensurate degrees of exiting nerve root impingement. Mild to moderate on the left at L3-4 and L5-S1, with encroachment of the exiting roots. 3. Mild subarticular encroachment of both descending L5 roots at L4-5, and of the left greater than right S1 roots at L5-S1. 4. 2.7 cm lesion in the posterior right iliac body with overlying cortical irregularity versus destructive change. The differential diagnosis includes both primary secondary neoplastic lesions. Additional nonspecific subcentimeter sclerotic foci along both acetabular margins could represent benign bone islands or sclerotic osseous metastases. Dedicated CT pelvis may aid in further evaluating both of these findings. If there is a high index of suspicion for osseous metastatic disease, whole body bone scan could also be considered. 5. Enlarged prostate gland. PDB Read by: George Rivas M.D. Reviewed and Electronically Signed by: George Rivas M.D. CT: Pelvis (bone) (Not yet r eviewed by provider) Interpretation: Performing Lab: Notes/Report: Original Report EXAM: CT OF THE PELVIS, WITHOUT CONTRAST CLINICAL INFORMATION: 67-year-old man with incidental lesion noted on recent lumbar spine MRI. PRIOR SURGERY: None reported. PLAIN FILMS: None available. COMPARISONS: No prior MRIs available. TECHNICAL INFORMATION Protocol: CT of the pelvis, sacrum and bilateral hips was performed using direct axial images. Coronal and sagittal reformatted images were subsequently performed. FINDINGS Osseous Structures Acute/Chronic Fractures: None. Masses: Approximately 2.8 x 1.8 x 3.2 cm ovoid sclerotic lesion is present in the right posterior iliac bone (axial image 30 and coronal image 29). Small phleboliths are noted in the right & left acetabula. Sacroiliac Joints Joint Spaces: Mild SI joint space narrowing, osteophytosis, and irregularity, bilaterally (coronal image 54 and axial image 40). Subchondral Bone: Normal. Symphysis Pubis Mild hypertrophy and irregularity pubic symphysis, without stress/occult fracture or evidence of osteitis pubis. Bilateral Hip Joints Morphology: Normal. Avascular Necrosis: None. Joint Spaces: Preserved. Intra-articular Bodies: None. Soft Tissues Unremarkable. The intrapelvic soft tissues are unremarkable. No pelvic lymphadenopathy. Lumbar spine Lower lumbar spondylosis, most advanced at L5-S1. Please refer to the recent lumbar spine MRI for detailed findings and impression. IMPRESSION 1. Approximately 2.8 x 1.8 x 3.2 cm ovoid sclerotic lesion in the right posterior iliac bone, which is nonspecific, but remains suspicious for a neoplastic lesion, most commonly prostate cancer metastasis. Further evaluation with a bone scan or bone biopsy is recommended. 2. Mild bilateral SI joint arthropathy, without evidence of sacroiliitis. 3. Lower lumbar spondylosis. Please refer to the recent lumbar spine MRI for detailed findings and impression. 4. Otherwise unremarkable pelvis CT. [facility] is committed to minimizing radiation exposure while maintaining high-quality CT images. Technologists adjust the mA and/or kV according to each patient's size to optimize dose. Since we began voluntarily reporting to the [employer]?s Dose Index Registry, our average CT doses have been consistently lower than the national average. Read by: Mandeep Rushing M.D. Reviewed and Electronically Signed by: Mandeep Rushing M.D. REASON FOR REFERRAL No Information MEDICATIONS Medication SIG (Take, Route, Frequency, Duration) Notes Start Date End Date Status Ozempic Active Tamsulosin HCl Activ e amLODIPine Besylate 10 MG 1 tablet Orally Once a day Active Simvastatin Active metFORMIN HCl Active Lisinopril 40 MG 1 tablet Orally Once a day Active Meloxicam 15 MG 1 tablet Orally Once a day for 30 days Active hydroCHLOROthiazide 25 MG 1 tablet in th e morning Orally Once a day Active SOCIAL HISTORY Tobacco Use: Social History Observation Description Date Details (start date - stop date) Never Smoker NA - NA Sex Assigned At : Social History Observation Description Sex Assigned At Unknown Tobacco Use/Smoking: Question Answer Notes Are you a nonsmoker PROBLEMS Problem Type ICD Code Onset Dates Problem Status W/U Status Risk SNOMED Code Notes Problem Other chronic pain (G89.29) Active confirmed Chronic pain (47199560) Problem Low back pain, unspecified (M54.50) Active confirmed Low back pain (961895824) VITAL SIGNS Blood pressure diastolic 78 mm Hg 10/26/2023 Height 72 in 10/26/2023 Blood pressure systolic 142 mm Hg 10/26/2023 Weight 274 lbs 10/26/2023 BMI 37.16 kg/m2 10/26/2023 Encounters Encounter Location Date Provider Diagnosis [facility] [address] [place] [address] 09/16/2023 Sandeep Rehman [address] [facility] [address] [place] [address] 10/08/2023 Tee Prince Other chronic pain G89.29 and Low back pain, unspecified M54.50 [address] [facility] [address] [place] [address] 10/26/2023 Xavi Kendall Other chronic pain G89.29 and Low back pain, unspecified M54.50 [facility] [address] [place] [address] 10/27/2023 Tee Prince ASSESSMENTS Encounter Date Diagnosis Assessment Notes Treatment Notes Treatment Clinical Notes 10/26/2023 Other chronic pain (ICD-10 - G89.29) Sandeep (Heri) presents to the clinic for an evaluation regarding his chronic low back pain. I have reviewed his symptoms and current medications. I reviewed the patients lumbar MRI and discussed the findings with him. There was an abnormal lesion in his MRI and they mentioned that he should be obtaining a lumbar CT to obtain a better understanding of what this lesion is. Therefore, I will order a lumbar CT to [facility] in [place]. Once he obtains the lumbar CT results, I advised him to follow up with his PCP. Pending the imaging findings, I will consider bilateral L4-S1 MBBs. Regarding medications, I have checked the [facility] database and I did not find any inconsistencies. This treatment plan was reviewed with the patient, and he was agreeable. He will return as needed. I will continue to monitor his progress, adjusting his treatment plan as necessary. Plan: 1. Reviewed lumbar MRI 2. Order lumbar CT scan to [facility] in [place] 3. Follow up with PCP - abnormal lesion on lumbar MRI, review lumbar CT 4. Consider bilateral L4-S1 MBBs 5. Follow up as needed Discharge instructions reviewed verbally. Discussed the risks/benefits of prescribed medication. The patient is aware that medication may be discontinued at any time due to poor compliance with visits. The patient was instructed to return to the office as scheduled and call with any questions, problems or concerns. Lumbar MRI (10/18/2023): CONCLUSION: Multilevel lumbar degenerative changes with specifics as follows: 1. Facet degeneration, advanced bilaterally at L4-5. Moderate bilaterally at L3-4 and on the left at L5-S1. Mild at scattered levels elsewhere. 2. Chronic foraminal stenosis which is severe on the right at L5-S1 and moderate bilaterally at L4-5, with commensurate degrees of exiting nerve root impingement. Mild to moderate on the left at L3-4 and L5-S1, with encroachment of the exiting roots. 3. Mild subarticular encroachment of both descending L5 roots at L4-5, and of the left greater than right S1 roots at L5-S1. 4. 2.7 cm lesion in the posterior right iliac body with overlying cortical irregularity versus destructive change. The differential diagnosis includes both primary secondary neoplastic lesions. Additional nonspecific subcentimeter sclerotic foci along both acetabular margins could represent benign bone islands or sclerotic osseous metastases. Dedicated CT pelvis may aid in further evaluating both of these findings. If there is a high index of suspicion for osseous metastatic disease, whole body bone scan could also be considered. 5. Enlarged prostate gland. 10/08/2023 Other chronic pain (ICD-10 - G89.29) Sandeep Valdez) presents to the clinic for an evaluation regarding his chronic low back pain. I have reviewed his symptoms and current medications. I will consider a bilateral L4-5, L5-S1 MBBs as this was recommended by Dr. Vasques. I discussed this procedure with the patient, outlining the potential risks and benefits in detail and answering all questions to the patient's satisfaction. Following this discussion, he expressed interest in proceeding, I will wait to review his updated imaging before ordering MBBs. I have ordered a lumbar MRI to [facility] as required prior to proceeding with the MBBs. [facility]ly [facility], but he is not interested in physical therapy at this time. Regarding medications, I have checked the [facility] database and I did not find any inconsistencies. I will start him on Meloxicam 15mg to take once a day to help better manage his symptoms. This treatment plan was reviewed with the patient, and he was agreeable. He will return in 2-3 weeks for review of his lumbar MRI. I will continue to monitor his progress, adjusting his treatment plan as necessary. Plan:1. Order lumbar MRI Jeromy Quinn2. Consider MBB/RFA workup pending imaging.3. Start Meloxicam 4. Follow up in 2-3 weeks for lumbar MRI review Discharge instructions reviewed verbally. Discussed the risks/benefits of prescribed medication. The patient is aware that medication may be discontinued at any time due to poor compliance with visits. The patient was instructed to return to the office as scheduled and call with any questions, problems or concerns. We would like to thank Dr. Clarence Vasques for referring sandeep Valdez) to us today. It has been a pleasure to participate in his care. Please feel free to contact me if you have any questions. 10/08/2023 Low back pain, unspecified (ICD-10 - M54.50) 10/26/2023 Low back pain, unspecified (ICD-10 - M54.50) 10/08/2023 Other I, Braulio Hudson , am serving as a scribe to document services personally performed by Xavi Kendall CNP, based upon my observations and the provider's statements to me. All documentation has been reviewed by the aforementioned TRANSMISSION MAINTENANCE SUPERVISOR as well as Tee Prince MD, prior to being entered into the official medical record. I, Tee Prince MD attest that the above named individual is acting in scribe capacity, has observed Xavi Kendall's performance of the services and has documented them in accordance with her direction. The documentation recorded by the scribe accurately reflects the service Xavi Kendall CNP and Tee Prince MD personally performed and the decisions made by them. 10/26/2023 Other I, Cmamy brooks, am serving as a scribe to document services personally performed by Xavi Kendall NP, based upon my observations and the provider's statements to me. All documentation has been reviewed by the aforementioned ELECTRICIAN OFFICE as well as Sandeep Rehman MD, prior to being entered into the official medical record. Sandeep Sandoval MD attest that the above named individual is acting in scribe capacity, has observed Xavi Kendall's performance of the services and has documented them in accordance with his direction. The documentation recorded by the scribe accurately reflects the service Xavi Kendall NP, and Sandeep Rehman MD, personally performed and the decisions made by them. PLAN OF TREATMENT Pending Test Test Name Order Date CT : Lumbar Spine 10/26/2023 CT: Pelvis (bone) 11/01/2023 MRI : Lumbar 10/08/2023 MRI : Lumbar 10/18/2023 Insurance Providers Payer Name Payer Address Payer Phone Subscriber Number Group Number Insured Name Patient Relationship to Insured Coverage Start Date Coverage End Date Medicare Part B [employer] [address] [place] [address] [id number] Sandeep Crooks Self - patient is the insured 2 [facility] [address] [address] [place] [address] [id number] Sandeep Crooks Self - patient is the insured MEDICAL (GENERAL) HISTORY Medical History History ICD Code Arthritis Type 2 diabetes Hearing loss Sleep apnea
--- OUTSIDE RECORDS SUMMARY | 2023-11-09 09:03 | XMS_ITS | Continuity of Care Document ---
Author Name Unknown Organization [facility] Address [address] [place] [address] Phone Care Team Providers Care Manager Sourcing Name Role Phone Yifan Benjamin MD Unavailable [...] C, [address], [place], [place], [id number], [place] tel:[phone] [facility] No Information 3 Sourav Saha. [facility] [place], [facility] [address] [place] [address], [address], [facility] [place], [place], [address] , [place]. [phone] Office/Outpat ient Visit,Est, Mod [facility], [address], [place], [id number], [place] tel:[phone] [facility] Arthrodesis status 3 Layo Lima. [facility] [place], [address] [place] [address] [address], [facility] [place], [place], [address] , [place]. tel:[phone] Referring Provider: Clarence Vasques, [facility] [place] [address] [place] [address] [address], [place], [address] . tel:[phone] Office/Outpat ient Visit,Est, Low [facility], [address], [place], [id number], [place] tel:[phone] [facility] Arthrodesis status 1 Layo Lima. [facility], [address], [place], [place], [address] , [place]. tel: [phone] Referring Provider: Clarence Vasques, [facility] [address], [place], [address] . tel:[phone] Office/Outpat ient Visit,Est, Mod [facility], [address], [place], [place], [address], [place] tel:[phone] [facility] Spinal stenosis, cervical region 9 Layo Lima. [facility] [place], [address], [place], [place], [address] , [place]. tel: [phone] Referring Provider: Clarence Vasques, [facility] [place] [address], [place], [address] . tel:[phone] Office/Outpat ient Visit,Est, Mod [facility], [address], [place], [place], [address], [place] tel:[phone] [facility] Spinal stenosis, cervical region 7 Layo Lima. [facility] [place], [address], [place], [place], [address] , [place]. tel: [phone] Referring Provider: Clarence Vasques, [facility] [address], [place], [address] . tel:[phone] Office/Outpat ient Visit,Est, Mod [facility], [address], [place], [address], [place] tel:[phone] [facility] Spinal stenosis, cervical region 7 Layo Lima. [facility] [place], [address], [place], [address] , [place]. tel: [phone] Referring Provider: Referring Self, [address] [facility] [address], [place], [address]. tel:[phone] [facility], [address], [place], [address], [place] tel:[phone] [facility] Spinal stenosis, cervical region 7 Layo Lima. [facility], [address] [place] [address] [address], [place], [address] , [place]. tel: [phone] Referring Provider: Clarence Vasques, [facility] [address] [place] [address] [address], [place], [address] . tel:[phone] [facility], [address], [place], [place], [address], [place] tel:[phone] [facility] Spinal stenosis, cervical region 7 Layo Lima. [facility], [address], [place], [address] , [place]. tel: [phone] Referring Provider: Clarence Vasques, [facility] [address], [place], [address] . tel:[phone] [facility], [address], [place], [place], [address], [place] tel:[phone] [facility] [place] Encounter for other specified surgical aftercare 6 Darrion Romero. [facility], [address], [place], [place], [address] , [place]. tel: [phone] Referring Provider: Nick Hobbs, [facility] [address] [place] [address] [address], [place], [address] . tel:[phone] [facility], [address], [place], [address], [place] tel:[phone] [facility] No Information 6 Layo Lima. [facility], [address], [place], [place], [address] , [place]. tel:[phone] Referring Provider: Clarence Vasques, [facility] [address], [place], [address] . tel:[phone] Family History Family Member Type Diagnosis Age At Onset No Information Payers Payer name Insurance type Covered green party ID Josafat mora(s) Medicare MB [id number] [facility] [id number] [facility] [id number] Social History Type Description Quantity Date Captured Comments Sex Male Smoking Status No Information Chief Complaint And Reason For Visit No Information Reason For Referral Reason For Referral No Information History Of Present Illness Encounter Date Complaint History Of Prese nt Illness No Information Functional Status Date Functional Assessmen t No Information Instructions Date Instruction Additional Infor mation Weight Management Education Rela mary to Overweight [...]
--- NOTE | 2023-11-09 13:00 | CRLHL7_ITS ---
For Patients: As a result of the Century Cures Act, medical imaging exams and procedure reports are released immediately into your electronic medical record. You may view this report before your referring provider. If you have questions, please contact your health care provider. INDICATION: Right testicular pain COMPARISON: none TECHNIQUE: Jauregui scale imaging was performed of the scrotum. In addition color Doppler and spectral Doppler analysis was performed of the testes. FINDINGS: The testes demonstrate normal arterial and venous blood flow on color Doppler and spectral Doppler analysis. The testes have uniform echogenicity with no evidence of a suspicious mass or area of inflammation. Incidental dilated rete testes bilaterally. The right testis measures 4.9 x 2.0 x 3.5 cm in size and the left testis measures 5.6 x 2.3 x 3.6 cm. The epididymis appears normal bilaterally. A right hydrocele is present. IMPRESSION: Right hydrocele. No torsion. Dictated by Sixto Ta MD @ 11/09/2023 2:58:55 PM (Electronically Signed)
== END 2023-11-09 09:01 | disposition home or self-care (01) ==
PROVIDERS: PCP Family Medicine; Visit Provider Family Medicine
DX: N50.811 Right testicular pain (principal); N43.3 Hydrocele, unspecified; M89.9 Disorder of bone, unspecified
CPT/HCPCS: 76870; 78306; 93976; A9503

== ENCOUNTER 2023-12-08 09:34 | Outpatient (CLI) | payer MEDICARE, BC, SELFPAY ==
--- OUTSIDE RECORDS SUMMARY | 2023-12-13 06:44 | XMS_ITS | Clinical Summary ---
Author Name Unknown Organization [employer] [facility] [employer] Address [place], [place] [address] Care Team Providers Care Bilingual Teacher Aide Name Role Phone Kang Mcgee MD Primary Care Provider [phone] Allergies No known active allergies Medications Medication Sig Dispensed Refills Start Date End Date Status simvastatin (ZOCOR) 20 mg tablet Take 1 tablet by mouth at bedtime. 0 11/11/2010 Active amLODIPine (NORVASC) 5 mg tablet Take 1 tablet by mouth once daily. 30 tablet 5 11/11/2010 Active aspirin chewable 81 mg chewable tablet Take 81 mg by mouth once daily with a meal. 0 Active lisinopril (PRINIVIL; ZESTRIL) 40 mg tabletIndications :hypertension Take 40 mg by mouth once daily. Indications: Hypertension 0 Active metFORMIN (GLUCOPHAGE) 500 mg tabletIndications :type 2 diabetes mellitus Take 500 mg by mouth 2 times daily with meals. Indications: type 2 diabetes mellitus 0 Active difluprednate (DUREZOL) 0.05 % ophthalmic emulsion Place 1 Drop into right eye once daily. 0 Active ketorolac 0.5 % ophthalmic (ACULAR) solution Place 1 Drop into right eye 3 times daily. 0 Active diazePAM (VALIUM) 5 mg tabletIndications :Cervical spondylosis with myelopathy Take 1/2 to 1 tablet by mouth every 6 hours if needed for Muscle Spasm. 60 tablet 0 11/06/2016 Active tamsulosin (FLOMAX) 0.4 mg capsule Take 0.4 mg by mouth once daily after a meal. 0 Active insulin aspart, U-100, (NOVOLOG FLEXPEN) 100 unit/mL (3 mL) pen Inject 15 units subcutaneous three times daily before meals. 0 Active semaglutide (Ozempic) 1 mg/dose (2 mg/1.5 mL) pen Inject 1 mg subcutaneous once weekly. 0 Active hydroCHLOROthiazi de (HCTZ) 25 mg tablet Take 25 mg by mouth once daily. 0 Active oxyCODONE (ROXICODONE) 5 mg immediate release tabletIndications :Cervical spondylosis with myelopathy Take 1-2 tablets by mouth every 4 hours if needed for Pain (For moderate pain). 120 tablet 0 11/06/2016 3 Discontinue d(*Patient states no longer taking) prochlorperazine (COMPAZINE) 10 mg tabletIndications :Cervical spondylosis with myelopathy Take 1 tablet by mouth every 6 hours if needed for Nausea/Vomiting. 40 tablet 0 11/06/2016 3 Discontinue d(*Patient states no longer taking) sennosides-docusa te, 8.6-50 mg, (SENOKOT S) 8.6-50 mg tabletIndications :Cervical spondylosis with myelopathy Take 1-4 tablets by mouth 2 times daily. 120 tablet 0 11/06/2016 3 Discontinue d(*Patient states no longer taking) Active Problems Problem Noted Date Diagnosed Date Episodic lightheadedness 07/26/2020 High coronary artery calcium score 07/26/2020 Morbid obesity due to excess calories 07/26/2020 SOB (shortness of breath) 07/26/2020 Type 2 diabetes mellitus 11/02/2016 Cervical spondylosis with myelopathy 11/02/2016 Sleep apnea 11/11/2010 Chest pain 11/11/2010 Family history of coronary arteriosclerosis 10/29 Hyperlipidemia 11/11/2010 HTN (hypertension) 11/11/2010 Encounters Date Type Department Care Team Description 11/25/2023 10:30 AM SHIRRING MACHINE OPERATOR AUTOMATIC - 11/25/2023 11:59 PM SHIRRING MACHINE OPERATOR AUTOMATIC Hospital Encounter [facility] [address] [place] [address] Kang Mcgee MD Disorder of bone 11/25/2023 Travel 10/18/2023 Orders Only [facility] Scanner 1 scan: (1-Ord) [facility], MR LUMBAR SPINE W/O CONTRAST, 10/18/2023 09/16/2023 8:45 AM CDT - 09/16/2023 11:59 PM CDT Hospital Encounter [facility] [address] [facility] [place] [address] Clarence Vasques MD Back pain from Last 3 Months Social History Tobacco Use Types Packs/Day Years Used Date Smoking Tobacco: Former Cigarettes 1.5 35 0 11/29/1971 - 11/29/2006 Alcohol Use Standard Drinks/Week Comments No 0 (1 standard drink = 0.6 oz pur e alcohol) Social Connections Answer Date Recorded Frequency of Communication with Friends and Fami ly Not on file 11/29/2021 Financial Resource Strain Answer Date R ecorded Difficulty of Paying Living Expenses Not on file 11/29/2021 Difficulty of Paying Living Expenses Not on file 11/29/2021 Sex and Gender Information Value Date Recorded Sex Assigned at Not on file Gender Identity Not on file Sexual Orientation Not on file Obstetrics History Last Filed Vital Signs Vital Sign Reading Time Taken Comments Blood Pressure 133/72 11/25/2023 1:40 PM SHIRRING MACHINE OPERATOR AUTOMATIC Pulse 78 11/25/2023 1:30 PM SHIRRING MACHINE OPERATOR AUTOMATIC Temperature 36.7 ??C (98 ??F) 11/25/2023 11:10 AM SHIRRING MACHINE OPERATOR AUTOMATIC Respiratory Rate 16 11/25/2023 1:30 PM SHIRRING MACHINE OPERATOR AUTOMATIC Oxygen Saturation 96% 11/25/2023 1:15 PM SHIRRING MACHINE OPERATOR AUTOMATIC Inhaled Oxygen Concentration - - Weight 120.2 kg (265 lb) 11/25/2023 11:10 AM SHIRRING MACHINE OPERATOR AUTOMATIC Height 182.9 cm (6') 11/25/2023 11:10 AM SHIRRING MACHINE OPERATOR AUTOMATIC Body Mass Index 35.94 11/25/2023 11:10 AM SHIRRING MACHINE OPERATOR AUTOMATIC Plan of Treatment Health Maintenance Due Date Last Done Comments Tdap 1967 Depression screening for age 12+ 1968 BMI (ht and wt on same day) for age 18+ 1974 Hepatitis C screening for age 18-79 1974 Tetanus booster 1976 Colonoscopy through age 75 2001 Lipids for age 45-75 2001 Zoster (shingles) series for age 50+ (1 of 2) 2006 AAA screening age 65-74 2021 Pneumococcal series for age 65+ (1 of 1 - PCV) 2021 COVID-19 vaccine series ( - ) 07/30/2023 01/02/2022, 03/04/2021, 02/11/2021 Influenza for age 65+ 07/30/2023 Medical Devices Implanted Type Area Fur Finisher Seamstress Device Identifier Shelf Expiration Date Model / Serial / Lot Sleeve Silcn 1.00i.D.X2.1mm Od Sty70 [id number] Lab[employer]ian - [id number] Implanted:Qty: 1 on 07/17/2015 by Sixto Becerril MD at [facility] Right: Eye [employer] 02/26/2022 [id number]# / / [id number] Silcn 0.75x3.5x125 [id number] - [id number] Implanted:Qty: 1 on 07/17/2015 by Sixto Becerril MD at [facility] Right: Eye [employer] 02/26/2022 [id number]# / / [id number] Screw Lmbr Post 5.5x25mm Solera 4.75 Va - [id number] Implanted:Qty: 2 on 11/02/2016 by Clarence Vasques MD at [facility] N/A: Spine Medtronic Spine/Ortho [id number]# / / [id number] 1-4mm 30cc Medtronic Chips Canclls Frozen Implanted:Qty: 1 on 11/02/2016 by Clarence Vasques MD at [facility] Explanted:at [facility] (Quantity not on file) N/A: Spine Medtronic Spine/Ortho 04/24/2019 [id number] / [id number] / Set Screw Cerv Vertex Select - [id number] Implanted:Qty: 6 on 11/02/2016 by Clarence Vasques MD at [facility] N/A: Spine Medtronic Spine/Ortho [id number] / / Screw Cerv Post 3.5x16mm Vertex Select Va - [id number] Implanted:Qty: 2 on 11/02/2016 by Clarence Vasques MD at [facility] N/A: Spine Medtronic Spine/Ortho [id number] / / Screw Cerv Post 3.5x18mm Vertex Select Va - [id number] Implanted:Qty: 4 on 11/02/2016 by Clarence Vasques MD at [facility] N/A: Spine Medtronic Spine/Ortho [id number]# / / Cnnctr Cerv Md Roland Vertex Select Variable - [id number] Implanted:Qty: 1 on 11/02/2016 by Clarence Vasques MD at [facility] N/A: Spine Medtronic Spine/Ortho [id number]# / / Roland Cerv 420x3.5/4.75mm Vertex Select - [id number] Implanted:Qty: 2 on 11/02/2016 by Clarence Vasques MD at [facility] N/A: Spine Medtronic Spine/Ortho [id number] / / Set Screw Lmbr 4.26x23pe Solera 4.75 Ns Brk Off - [id number] Implanted:Qty: 2 on 11/02/2016 by Clarence Vasques MD at [facility] N/A: Spine Medtronic Spine/Ortho [id number] / / Procedures Procedure Name Priority Date/Time Associated Diagnosis Comments CT BIOPSY BONE DEEP Routine 11/25/2023 1 2:56 PM SHIRRING MACHINE OPERATOR AUTOMATIC Disorder of bone PATH [facility] CYTOLOGY ASP CYTOLOGY Today 11/25/2023 12:15 PM SHIRRING MACHINE OPERATOR AUTOMATIC HEMOGLOBIN STAT 11/25/2023 11:00 AM SHIRRING MACHINE OPERATOR AUTOMATIC PLATELET COUNT STAT 11/25/2023 11:00 AM SHIRRING MACHINE OPERATOR AUTOMATIC PROTIME-INR STAT 11/25/2023 11:00 AM SHIRRING MACHINE OPERATOR AUTOMATIC SCAN-MRI INTERPRETATION 10/18/20 23 12:00 AM SHIRRING MACHINE OPERATOR AUTOMATIC XR SPINE LUMBAR MINIMUM 4 VIEWS Routine 09/16/2023 9:06 AM CDT Back pain from Last 3 Months Results * CT BIOPSY BONE DEEP (11/25/2023 12:56 PM SHIRRING MACHINE OPERATOR AUTOMATIC) Anatomical Region Laterality Modality Computed Tomogra phy, Other, Other, Other Narrative 11/25/2023 3:02 PM SHIRRING MACHINE OPERATOR AUTOMATIC RADIOLOGY POST PROCEDURE NOTE ?? 11/25/2023 Sandeep Crooks [id number] INFORMEDCONSENT: In my discussion, prior to the signing of the consent, I reviewed the procedure, benefits, risks, long-term effects, treatment options, possible use of pain or sedation medications, and how the procedure will meet the treatment goal with the patient and/or family. The patient was given ample time to ask questions. All questions were answered. ?? MODERATESEDATION: Under physician supervision, midazolam and fentanyl were administered intravenously for moderate sedation. Pulse oximetry, heart rate, and blood pressure were continuously monitored by a trained, dedicated nurse. The physician who performed the procedure provided 34 minutes of intra-service time with the patient. INDICATIONS: Lesion in the posterior aspect of the right iliac bone. PROCEDURE PERFORMED: ??CT guided biopsy of a lesion in the posterior aspect of the right iliac bone. ?? PROCEDURE NARRATIVE: ??With the patient prone, and using intermittent CT guidance, an 11g core biopsy device was inserted into a lesion in the posterior aspect of the right iliac bone and 1 core specimen was obtained without complication. ??Preliminary cytologic evaluation revealed adequate material. POST-PROCEDURE DIAGNOSIS: ??Status post CT guided biopsy of a lesion in the posterior aspect of the right iliac bone. ?? PATIENT POSITION: prone ANTISEPTIC PREPARATION and BARRIER TECHNIQUES USED: ??Skin was prepped and draped in the usual sterile fashion. IMAGING GUIDANCE FOR ACCESS / PROCEDURE: ??CT ?Permanently recorded images are archived in PACS. ACCESS LOCATION / SITE / TECHNIQUE: ??Posterior pelvis. EQUIPMENT UTILIZED: 11g core biopsy device. CLOSURE: ??none RADIATION DOSE: ?? total exam DLP: ??835 mGy-cm MEDICATIONS GIVEN: ??versed 4 mg IV and fentanyl 100 mcg IV. ??1% Lidocaine was used for local anesthesia. SPECIMEN(S): 11g core biopsy x 1. COMPLICATIONS: no complications noted DRAINS: ??None ?? ESTIMATED BLOOD LOSS: ??Less than 10 cc. PHYSICIAN(S) AND ASSISTANTS (if any): ??Marcos Jaimes MD Additional Comments: Please call with questions. Marcos Jaimes MD Jena Protocol A. Pre-procedure verification complete yes 1-relevant information / documentation available, reviewed and properly matched to the patient; 2-consent accurate and complete, 3-equipment and supplies available B. Site marking complete Yes Site marked if not in continuous attendance with patient C. TIME OUT completed yes Time Out was conducted just prior to starting procedure to verify the eight required elements: 1-patient identity, 2-consent accurate and complete, 3-position, 4-correct side/site marked (if applicable), 5-procedure, 6-relevant images / results properly labeled and displayed (if applicable), 7-antibiotics / irrigation fluids (if applicable), 8-safety precautions. Please note that all CT scans at this facility use dose modulation, iterative reconstruction, and/or weight-based dosing when appropriate to reduce radiation dose to as low as reasonably achievable. Kang Mcgee MD CT * [facility] Cytology ORTHOPAEDIC NURSE (11/25/2023 12:15 PM SHIRRING MACHINE OPERATOR AUTOMATIC) Case Report Medical Cytology Report ? Case: [id number] ? Authorizing Provider: ??Marcos Jaimes MD ? Collected: ? 11/25/2023 1215 ? Ordering Location: ? [facility] ?Received: ?11/25/2023 1226 ? [facility] ? Pathologist: ? Kang Sagastume Jr., ? MD ? Specimen: ?Bone Biopsy, Right iliac bone ? 12/02/2023 2:17 PM [facility] Final Diagnosis BONE, RIGHT ILIAC, CT-GUIDED CORE BIOPSY: 1. Markedly hypercellular bone marrow with trilineage hematopoiesis 2. Plasma cells with slight lambda predominance, but no definitive plasma cell neoplasm 3. Negative for metastatic carcinoma 4. See microscopic description and comment 12/02/2023 2:17 PM [facility] Comment A definitive explanation for the lesion noted on imaging is not identified in this biopsy. Serum protein electrophoresis (SPEP) with reflex immunofixation, plus peripheral blood CBC, are recommended for further evaluation. If these studies suggest a hematolymphoid lesion, a standard posterior iliac crest bone marrow examination is suggested. Dr. Wang reviewed selected slides from this case. 12/02/2023 2:17 PM [facility] Clinical Information Mr. Crooks is a 67 y.o. male with a 2.7 cm lesion in posterior right iliac body with overlying cortical irregularity, with additional subcentimeter sclerotic foci along both acetabular margins representing bone islands or sclerotic metastases. 12/02/2023 2:17 PM [facility] Gross Description A) Received identified as Right iliac bone is a radiologic guided biopsy specimen. The core biopsy sampling measures 0.3 cm x 0.3 cm in aggregate. The specimen consists of: ? -2 Air dried slides ? -2 Formalin vials ? -0 RPMI vials The following were prepared from the specimen submitted: ? -2 Diff-Quik stained slides ? -2 H&E stained cell block slides The biopsy material is entirely submitted in 2 cassettes. A2 Cell block material was removed from the patient and placed directly in formalin at 1215 on 11/25/23 and fixed in formalin at least 6 hours and no more than 72 hours. A3 Cell block material was removed from the patient and placed directly in formalin at 1215 on 11/25/23 and fixed in formalin at least 6 hours and no more than 72 hours. The cell block was decalcified. 12/02/2023 2:17 PM SHIRRING MACHINE OPERATOR AUTOMATIC [facility] Adequacy Assessment A) Tameka assessed adequacy from the air-dried smears at the time of the procedure with an impression of Adequate. 12/02/2023 2:17 PM SHIRRING MACHINE OPERATOR AUTOMATIC [facility] Microscopic Description Specimen adequacy: Adequate for interpretation. All slides were reviewed. The microscopic appearance substantiates the diagnosis. The biopsy demonstrates hypercellular bone marrow with trilineage hematopoiesis in the marrow space; the bone itself appears normal. The following immunohistochemical stain was performed on blocks A2 and A3: Cytokeratin cocktail: negative The following immunohistochemical stains were then performed on block A3: CD3: positive in T cells CD20: positive in B cells CD138: positive in plasma cells [facility]/lambda: lambda predominance CD68: positive in histiocytes Mast cell tryptase: positive in scattered cells C-kit: positive in scattered cells 12/02/2023 2:17 PM SHIRRING MACHINE OPERATOR AUTOMATIC [facility] Additional Information Cytology is screened at [facility] - [address], [place] [address] [facility] - [address], [place] [address] and [facility] - [address] [place] [address] Interpreted at [facility] - [address], [place] [address] 12/02/2023 2:17 PM SHIRRING MACHINE OPERATOR AUTOMATIC [facility] Aspirate (Bone Biopsy) 11/25/2023 12:15 PM SHIRRING MACHINE OPERATOR AUTOMATIC 11/25/2023 12:26 PM SHIRRING MACHINE OPERATOR AUTOMATIC Marcos Jaimes MD PATHOLOGY/CYTOLOGY [facility] [address] [place] [address], [place] * Platelet Count (11/25/2023 11:00 AM SHIRRING MACHINE OPERATOR AUTOMATIC) PLATELET COUNT 172 140 - 440 thou/cu mm 11/25/2023 11:12 AM SHIRRING MACHINE OPERATOR AUTOMATIC [facility] MPV 10.0 6.5 - 11.0 fL 11/25/2023 11:12 AM SHIRRING MACHINE OPERATOR AUTOMATIC [facility] Blood BLOOD SPECIMEN / Unknown Venipuncture / Unknown 11/25/2023 11:00 AM SHIRRING MACHINE OPERATOR AUTOMATIC 11/25/2023 11:07 AM SHIRRING MACHINE OPERATOR AUTOMATIC Marcos Jaimes MD HEMATOLOGY Performing Organization Address City/[facility] Co de Phone Number [facility] [address] [place] [address], [place] * Hemoglobin (11/25/2023 11:00 AM SHIRRING MACHINE OPERATOR AUTOMATIC) HEMOGLOBIN 14.4 13.5 - 17.5 g/dL 11/25/2023 11:12 AM SHIRRING MACHINE OPERATOR AUTOMATIC [facility] MCV 87 80 - 100 fL 11/25/2023 11:12 AM SHIRRING MACHINE OPERATOR AUTOMATIC [facility] Blood BLOOD SPECIMEN / Unknown Venipuncture / Unknown 11/25/2023 11:00 AM SHIRRING MACHINE OPERATOR AUTOMATIC 11/25/2023 11:07 AM SHIRRING MACHINE OPERATOR AUTOMATIC Marcos Jaimes MD HEMATOLOGY Performing Organization Address City/[facility] Co de Phone Number [facility] [address] [place] [address], [place] * (ABNORMAL) Protime-INR (11/25/2023 11:00 AM SHIRRING MACHINE OPERATOR AUTOMATIC) INR 1.1 <1.3 11/25/2023 11:16 AM SHIRRING MACHINE OPERATOR AUTOMATIC [facility] PROTIME 12.6(H) 10.3 - 12.3 sec 11/25/2023 11:16 AM SHIRRING MACHINE OPERATOR AUTOMATIC [facility] Blood BLOOD SPECIMEN / Unknown Venipuncture / Unknown 11/25/2023 11:00 AM SHIRRING MACHINE OPERATOR AUTOMATIC 11/25/2023 11:07 AM SHIRRING MACHINE OPERATOR AUTOMATIC Narrative [facility] - 11/25/2023 11:16 AM SHIRRING MACHINE OPERATOR AUTOMATIC ?Therapeutic Range 2.0-3.0 for most anticoagulated patients 2.5-3.5 or 4.0 for high risk patients The INR is only used for patients on stable oral anticoagulant therapy. It makes no significant contribution to the diagnosis or treatment of patients whose Protime is prolonged for other reasons. INR results are increased when heparin levels exceed 1.0 U/mL, which corresponds to an aPTT >125 seconds if the patient is on UFH. Marcos Jaimes MD HEMATOLOGY [facility] [address] [place] [address], * SCAN-MRI INTERPRETATION (10/18/2023 12:00 AM SHIRRING MACHINE OPERATOR AUTOMATIC) Anatomical Region Laterality Modality Other Scanner OTHER * XR SPINE LUMBAR MINIMUM 4 VIEWS (09/16/2023 9:06 AM CDT) Anatomical Region Laterality Modality Spine, LUMBAR SPINE Computed Rad iography Narrative 09/16/2023 9:00 AM CDT Report is available in patient chart at [facility]. Clarence Vasques MD GENERAL IMAGING from Last 3 Months Advance Directives Latest Code Status on File Code Status Date Activated Date Inactivated Comments Full Code 11/02/2016 6:12 PM 11/06/2016 10:20 PM Code Status History Code Status Date Activated Date Inactivated Comments Full Code 11/02/2016 6:41 AM 11/02/2016 6:12 PM Question Answer Comments Code Status Discussion: Not Discussed Full Code 07/17/2015 9:21 AM 07/17/2015 3:48 PM Care Teams Bilingual Teacher Aide Relationship Specialty Start Date End Date Kang Mcgee MD [address] [place] [address] PCP - General Family Practice 06/07/20
--- OUTSIDE RECORDS SUMMARY | 2023-12-13 06:44 | XMS_ITS | Encounter Summary ---
Author Name Unknown Organization [facility] Address [address] [address] Care Team Providers Care Chemical Process Operator Name Role Phone Found, No Pcp MD Primary Care Provider Unavailab le Reason for Visit * Reason Comments SKIN LESION Encounter Details Date Type Department Care Team Description 09/27/2023 Telephone [facility] - Dermatology [address] [place] [address] [place] [address] [place] [address] [phone] SKIN LESION Social History Tobacco Use Types Packs/Day Years Used Date Smoking Tobacco: Never Sex and Gender Information Value Date Recorded Sex Assigned at Not on file Gender Identity Not on file Sexual Orientation Not on file documented as of this encounter Nursing Notes * Yamila Lund LPN - 09/29/2023 9:45 AM CDT Spoke with pt and scheduled as below for evaluation of pigmented lesion on lip per JL. Future Dermatology Appointments Provider Department Center 10/14/2023 11:45 AM Mary Shaw MD [facility] * Yamila Lund LPN - 09/27/2023 4:17 PM CDT [facility] [phone] as VM informed JTL ok spot check that was referred by dentist pigmented lesion on lip. documented in this encounter Plan of Treatment Not on file documented as of this encounter Visit Diagnoses Not on filedocumented in this encounter Care Teams Chemical Process Operator Relationship Specialty Start Date End Date Found, No Pcp, [address] [place] [address] PCP - General 09/28/23 documented as of this encounter
--- OUTSIDE RECORDS SUMMARY | 2023-12-13 06:44 | XMS_ITS | Encounter Summary ---
Author Name Unknown Organization [facility] Address [address], [place] [address] Care Team Providers Care Golf Ball Cover Treater Name Role Phone Found, No Pcp MD Primary Care Provider Unavailab le Reason for Visit * Reason Comments CANCEL APPOINTMENT Encounter Details Date Type Department Care Team Description 12/01/2023 Telephone [facility] Dermatology [address] [place], [place] [id number] [place] [address] [place] [address] [phone] CANCEL APPOINTMENT Social History Tobacco Use Types Packs/Day Years Used Date Smoking Tobacco: Never Sex and Gender Information Value Date Recorded Sex Assigned at Not on file Gender Identity Not on file Sexual Orientation Not on file documented as of this encounter Nursing Notes * Mary Shaw MD - 12/02/2023 5:22 PM CST Thank you for the update [place] [address] [employer] * Yamila Lund LPN - 12/01/2023 3:55 PM CST FYI: Pt called requesting cancellation of upcoming 12/08/23 L[address]2 appointment d/t other health issues that have arose and he is trying to get answers for those before further treatment with Derm. Pt informed nurse he will return call and get rescheduled when he is ready but does not know when that will be. [place] [address] [employer] documented in this encounter Plan of Treatment Not on file documented as of this encounter Visit Diagnoses Not on filedocumented in this encounter Care Teams Golf Ball Cover Treater Relationship Specialty Start Date End Date Found, No Pcp, [address] [place] [address] PCP - General 09/28/23 documented as of this encounter
--- OUTSIDE RECORDS SUMMARY | 2023-12-13 06:44 | XMS_ITS | Referral Summary ---
Author Name Unknown Organization [facility] Address [address] [place] [address] Care Team Providers Care Dental Hygienist Mobile Coordinator Name Role Phone Unavailable Primary Care Provider Unavailabl e Allergies No known active allergies Medications Medication Sig Dispensed Refills Start Date End Date Status ORDER FOR DMEIndications:HTN (hypertension) Equipment being ordered: Blood pressure monitor 1 each 0 11/03/2012 Active aspirin 81 MG tablet Take 1 tablet by mouth daily 0 Active simvastatin (ZOCOR) 20 MG tabletIndications:Hyp erlipidemia LDL goal <130 Take 1 tablet (20 mg) by mouth At Bedtime MD/LABS DUE NOW 90 tablet 3 03/28/2014 Active lisinopril (PRINIVIL,ZESTRIL) 5 MG tabletIndications:Kasi ign hypertension Take 1 tablet (5 mg) by mouth daily SEE MD 30 tablet 0 04/03/2015 Active amLODIPine (NORVASC) 5 MG tabletIndications:HTN , goal below 140/90 Take 1 tablet (5 mg) by mouth daily 0 09/27/2015 Active Active Problems Problem Noted Date Diagnosed Date Ventral hernia 12/26/2012 LVH (left ventricular hypertrophy) 11/04/2012 HTN, goal below 140/90 11/04/2012 Hepatic steatosis 11/03/2012 Gallstones 11/03/2012 Advanced directives, counseling/discussion 11/03 Overview: Discussed advance care planning with patient; however, patient declined at this time. 11/03/2012 Obesity 11/02/2012 ADRIEN (obstructive sleep apnea) 10/27/2012 Venous stasis of lower extremity 10/27/2012 HYPERLIPIDEMIA LDL GOAL <130 09/28/2010 Chronic rhinitis 01/30/2010 Trigger finger, acquired 01/30/2010 Overview: Problem list name updated by automated process. Provider to review Eczema 05/16/2008 Immunizations Name Administration Dates Next Due TD,PF 7+ (Tenivac) 11/29/2006 TDAP Vaccine (Adacel) 10/27/2012 Social History Tobacco Use Types Packs/Day Years Used Date Smoking Tobacco: Former Cigarettes 1 35 Q uit: 11/06/2007 Smokeless Tobacco: Never Alcohol Use Standard Drinks/Week Comments No 0 (1 standard drink = 0.6 oz pur e alcohol) Adolescent Education Answer Date Record ed Getting School Help Needed Not on file 08/30 Sex and Gender Information Value Date Recorded Sex Assigned at Not on file Gender Identity Not on file Sexual Orientation Not on file Last Filed Vital Signs Vital Sign Reading Time Taken Comments Blood Pressure 138/78 03/28/2014 9:35 AM CDT Pulse 52 03/28/2014 9:35 AM CDT Temperature 36.6 ??C (97.9 ??F) 03/28/2014 9:35 AM CD T Respiratory Rate 12 03/28/2014 9:35 AM CDT Oxygen Saturation 96% 03/28/2014 9:35 AM CDT Inhaled Oxygen Concentration - - Weight 120.7 kg (266 lb) 03/28/2014 9:35 AM CDT Height 182.9 cm (6') 03/28/2014 9:35 AM CDT Body Mass Index 36.08 03/28/2014 9:35 AM CDT Plan of Treatment Not on file
--- OUTSIDE RECORDS SUMMARY | 2023-12-13 06:44 | XMS_ITS | Clinical Summary ---
Author Name Unknown Organization [facility] Address [address] [address] Care Team Providers Care Per Diem Rn Name Role Phone Found, No Pcp MD Primary Care Provider Unavailab le Source Comments You are receiving this document as you are listed as the primary care provider,follow-up provider, or the patient has been referred to you for consultation.This is in compliance with the Medicare and[facility] EHR Incentive Program,which states Providers who transition their patient to another setting of careor provider of care or refers their patient to another provider of care shouldprovide summary care record for each transition of care or referral. [facility] Allergies No known active allergies Medications Medication Sig Dispensed Refills Start Date End Date Status lisinopril (ZESTRIL) 10 MG tablet Take 10 mg by mouth daily. 0 Active amLODIPine (NORVASC) 10 MG tablet Take 10 mg by mouth daily. 0 Active metFORMIN (GLUCOPHAGE) 1000 MG tablet Take 1,000 mg by mouth two times a day with meals. 0 Active hydroCHLOROthiazid e (ORETIC) 25 MG tablet Take 1 Tablet (25 mg) by mouth daily. 0 08/20/2023 Active insulin glargine-yfgn (SEMGLEE) 100 unit/mL injection pen SMARTSI Unit(s) SUB-Q Every Evening 0 08/23/2023 Active OZEMPIC, 0.25 OR 0.5 MG/DOSE, 2 MG/3ML injection Inject 0.5 mg subcutaneously once every week. 0 10/12/2023 Active simvastatin (ZOCOR) 20 MG tablet Take 1 Tablet (20 mg) by mouth daily. 0 06/08/2023 Active tamsulosin (FLOMAX) 0.4 MG CAPS capsule Take 1 Capsule (0.4 mg) by mouth daily. 0 08/20/2023 Active Active Problems No known active problems Encounters Date Type Department Care Team Description 12/01/2023 Telephone [facility] - Dermatology [address] [place] [address] Mary Shaw MD CANCEL APPOINTMENT 10/14/2023 11:45 AM FISHERIES DIRECTOR Office Visit [facility] - Dermatology [address] [place] [address] Mary Shaw MD Neoplasm of skin (HRC) (Primary Dx); Actinic cheilitis 09/27/2023 Telephone [facility] - Dermatology [address] [place] [address] Mary Shaw MD SKIN LESION from Last 3 Months Social History Tobacco [...] 120.2 kg (265 lb) 10/07/2016 8:37 AM FISHERIES DIRECTOR Height 180.3 cm (5' 11) 10/07/2016 8:37 AM FISHERIES DIRECTOR Body Mass Index 36.96 10/07/2016 8:37 AM FISHERIES DIRECTOR Plan of Treatment Health Maintenance Due Date Last Done Comments Colon Cancer Screening Plan Due 1955 Hep C Screening (Preventive Services) 1955 Medicare Annual Wellness Visit 1955 PSA Screening Discussion 1955 COVID-19 Vaccine (#1) 06/26/1957 DTaP/Tdap/Td (1 - Tdap) 1975 Cholesterol 1991 Zoster/Shingles (1 of 2) 2006 Pneumococcal 65+ Yrs (1 - PCV) 2021 Influenza (#1) 2023 HepA Aged Out No longer eligi ble based on patient's age to complete this topic HepB Aged Out No longer eligi ble based on patient's age to complete this topic Hib Aged Out No longer eligi ble based on patient's age to complete this topic IPV (Polio) Aged Out No longer eligi ble based on patient's age to complete this topic MCV4 Aged Out No longer eligi ble based on patient's age to complete this topic Procedures Procedure Name Priority Date/Time Associated Diagnosis Comments SKIN BIOPSY Routine 10/14/2023 12:46 PM FISHERIES DIRECTOR Neoplasm of skin (HRC) SURGICAL PATHOLOGY, DERMATOLOGY Routine 10/14/2023 12:46 PM FISHERIES DIRECTOR Neoplasm of skin (HRC) from Last 3 Months Results * Skin Biopsy (No CPT) (10/14/2023 12:46 PM FISHERIES DIRECTOR) Narrative EXTERNAL RESULTS - 10/14/2023 12:46 PM FISHERIES DIRECTOR Type of biopsy: tangential ?? Informed consent: discussed and consent obtained ?? Timeout: patient name, date of , surgical site, and procedure verified ?? Procedure prep: ??Patient was prepped and draped in usual sterile fashion Prep type: ??Chlorhexidine Anesthesia: the lesion was anesthetized in a standard fashion ?? Anesthetic: ??1% lidocaine w/ epinephrine 1-100,000 local infiltration Instrument used: #15 blade ?? Hemostasis achieved with: aluminum chloride ?? Outcome: patient tolerated procedure well ?? Post-procedure details: sterile dressing applied and wound care instructions given ?? Dressing type: petrolatum and bandage ?? Mary Shaw MD DERM PROCEDURE ORDER SHAAN EXTERNAL RESULTS * Surgical Path, Dermatology (10/14/2023 12:46 PM FISHERIES DIRECTOR) Case Report Surgical Pathology Report ? Case: [id number] ? Authorizing Provider: ??Mary Shaw MD ?Collected: ? 10/14/2023 1246 ? Ordering Location: ? [facility] ??Received: ?10/15/2023 0706 ? Center - Dermatology ? Pathologist: ? Rhys Mcmillan MD ? Specimen: ?Skin, Mid Lower Vermilion Lip ? 10/26/2023 10:21 AM FISHERIES DIRECTOR COMMERCIAL REAL ESTATE MANAGER 3800 DERMATOLOGY FINAL DIAGNOSIS A. Skin, Mid Lower Vermilion Lip, shave: - Lichenoid dermatitis with pigment incontinence, see comment. COMMENT: The histologic differential diagnosis includes lichen planus, lichenoid medication reaction (including fixed drug), lichenoid actinic keratosis, cutaneous manifestation of a connective tissue disorder, and other forms of lichenoid dermatitis. Clinical correlation is advised. 10/26/2023 10:21 AM FISHERIES DIRECTOR COMMERCIAL REAL ESTATE MANAGER 3800 DERMATOLOGY Clinical Information Clinical Impression: actinic cheilitis vs scc 10/26/2023 10:21 AM FISHERIES DIRECTOR COMMERCIAL REAL ESTATE MANAGER 3800 DERMATOLOGY Microscopic Description Microscopic examination is performed. The microscopic findings reveal a band like lymphocytic infiltrate partially obscuring the dermoepidermal junction and associated colloid bodies. Pigment incontinence is evident in the dermis. Focal parakeratosis is evident. The process extends to the sampled tissue margin. 10/26/2023 10:21 AM FISHERIES DIRECTOR COMMERCIAL REAL ESTATE MANAGER 3800 DERMATOLOGY Technical Information A portion of the technical staining was performed at [facility], [facility] [place] [address]. The professional interpretation was performed at [facility]. 10/26/2023 10:21 AM [facility] COMMERCIAL REAL ESTATE MANAGER 3800 DERMATOLOGY Gross Description A: Received in formalin, labeled with the patient's name and Skin, Mid Lower Vermilion Lip is a 6 x 6 x 1 mm shave biopsy of skin. The specimen is marked with blue ink, bisected, and submitted entirely in one cassette. The tissue fragmented upon sectioning. AM 10/26/2023 10:21 AM FISHERIES DIRECTOR COMMERCIAL REAL ESTATE MANAGER 3800 DERMATOLOGY Embedded Images 10/26/2023 10:21 AM FISHERIES DIRECTOR COMMERCIAL REAL ESTATE MANAGER 3800 DERMATOLOGY Skin (Skin) 10/14/2023 12:4 6 PM FISHERIES DIRECTOR 10/15/2023 7:06 AM FISHERIES DIRECTOR Comment:Clinical Impression: actinic cheilitis vs scc Mary Shaw MD LAB PATHOLOGY COMMERCIAL REAL ESTATE MANAGER [address] DERMATOLOGY [address] [place] [address], [facility] from Last 3 Months Care Teams Per Diem Rn Relationship Specialty Start Date End Date Found, No Pcp, [address] [place] [address] PCP - General 09/28/23
--- OUTSIDE RECORDS SUMMARY | 2023-12-13 06:44 | XMS_ITS | Continuity of Care Document ---
Author Name Unknown Organization [facility] Address [address] [place] [address] Phone Care Team Providers Care Detention Attendant Name Role Phone Yifan Benjamin MD Unavailable [...] C, [address], [place], [place], [id number], [place] tel:[phone] [facility] No Information 3 Sourav Saha. [facility] [place], [facility] [address] [place] [address], [address], [facility], [place], [id number] , [place]. [phone] Office/Outpat ient Visit,Est, Mod [facility], [address], [place], [id number], [place] tel:[phone] [facility] Arthrodesis status 3 Layo Lima. [facility], [address] [place] [address] [address], [facility] [place], [id number] , [place]. tel:[phone] Referring Provider: Clarence Vasques, [facility] [address] [place] [address] [address], [place], [address] . tel:[phone] Office/Outpat ient Visit,Est, Low [facility], [address], [place], [id number], [place] tel:[phone] [facility] Arthrodesis status 1 Layo Lima. [facility], [address], [place], [place], [address] , [place]. tel: [phone] Referring Provider: Clarence Vasques, [facility] [address], [place], [address] . tel:[phone] Office/Outpat ient Visit,Est, Mod [facility], [address], [place], [place], [id number], [place] tel:[phone] [facility] Spinal stenosis, cervical region 9 Layo Lima. [facility] [place], [address], [place], [place], [address] , [place]. tel: [phone] Referring Provider: Clarence Vasques, [facility] [address], [place], [address] . tel:[phone] Office/Outpat ient Visit,Est, Mod [facility], [address], [place], [address], [place] tel:[phone] [facility] Spinal stenosis, cervical region 7 Layo Lima. [facility] [place], [address], [place], [address] , [place]. tel: [phone] Referring Provider: Clarence Vasques, [facility] [address], [place], [address] . tel:[phone] Office/Outpat ient Visit,Est, Mod [facility], [address], [place], [address], [place] tel:[phone] [facility] Spinal stenosis, cervical region 7 Layo Lima. [facility] [place], [address], [place], [place], [address] , [place]. tel: [phone] Referring Provider: Referring Self, [address] [facility] [address], [place], [address]. tel:[phone] [facility], [address], [place], [address], [place] tel:[phone] [facility] Spinal stenosis, cervical region 7 Layo Lima. [facility], [address] [place] [address] [address], [place], [place], [address] , [place]. tel: [phone] Referring Provider: Clarence Vasques, [facility] [address] [place] [address] [address], [place], [address] . tel:[phone] [facility], [address], [place], [address], [place] tel:[phone] [facility] Spinal stenosis, cervical region 7 Layo Lima. [facility], [address], [place], [place], [address] , [place]. tel: [phone] Referring Provider: Clarence Vasques, [facility] [address], [place], [address] . tel:[phone] [facility], [address], [place], [place], [address], [place] tel:[phone] [facility] [address] [place] Encounter for other specified surgical aftercare 6 Darrion Romero. [facility], [address], [place], [place], [address] , [place]. tel: [phone] Referring Provider: Nick Hobbs, [facility] [address] [place] [address] [address], [place], [address] . tel:[phone] [facility], [address], [place], [address], [place] tel:[phone] [facility] No Information 6 Layo Lima. [facility], [address], [place], [place], [address] , [place]. tel:[phone] Referring Provider: Clarence Vasques, [facility] [address], [place], [address] . tel:[phone] Family History Family Member Type Diagnosis Age At Onset No Information Payers Payer name Insurance type Covered republican ID Josafat mora(s) Medicare MB [id number] [facility] [id number] [facility] [id number] Social History Type Description Quantity Date Captured [...]
--- OUTSIDE RECORDS SUMMARY | 2023-12-13 06:44 | XMS_ITS | Clinical Summary ---
Author Name Unknown Organization [facility] Address [address] [place] [address] Care Team Providers Care Computer Graphic Designer Name Role Phone Unavailable Primary Care Provider [...] 7+ (Tenivac) 11/29/2006 TDAP Vaccine (Adacel) 10/27/2012 Family History [...] OF HM ORDERS 1955 CT COLONOGRAPHY 1955 FIT 1955 FLEX SIG 1956 sDNA (Cologuard) 1955 HEPATITIS C SCREENING 1974 LUNG CANCER SCREENING 2006 RSV VACCINE ( & 60+) (1 - 1-dose 60+ series) 2016 ADVANCE CARE PLANNING 11/03/2017 11/03/2012 COLONOSCOPY 08/27/2018 08/27/2008 COLORECTAL CANCER SCREENING 08/27/2018 LIPID 03/28/2019 03/28/2014, 07/30, 10/30/2010, Additional history exists AORTIC ANEURYSM SCREENING (SYSTEM ASSIGNED) 2021 FALL RISK ASSESSMENT 2021 MEDICARE ANNUAL WELLNESS VISIT 2021 03/28/2014, 11/12/2006 Pneumococcal Vaccine: 65+ Years (1 of 1 - PCV) 2021 DTAP/TDAP/TD IMMUNIZATION (2 - Td or Tdap) 10/27/2022 10/27/2012, 11/29/2006 COVID-19 Vaccine (3 - season) 2023 03/04/2021, 02/11/2021 INFLUENZA VACCINE (#1) 2023 PHQ-2 (once per calendar year) 2023 ZOSTER IMMUNIZATION Completed 01/11/2020, 9 HPV IMMUNIZATION Aged Out No longer e ligible based on patient's age to complete this topic IPV IMMUNIZATION Aged Out No longer e ligible based on patient's age to complete this topic MENINGITIS IMMUNIZATION Aged Out No l onger eligible based on patient's age to complete this topic RSV MONOCLONAL ANTIBODY Aged Out No l onger eligible based on patient's age to complete this topic
--- OUTSIDE RECORDS SUMMARY | 2023-12-13 06:44 | XMS_ITS | Data Portability ---
Author Name Unknown Address [address] [place] [address] Phone [phone] Organization [facility], [facility] Address [address] [place] [address] Assessment Encounter Date Assessment Date Assessment LastModified by Organization Details LastModified Time 06/18/2020 06/18/2020 64 Y/O MALE, HX BPH, DOING WELL ON FLOMAX. . HX CHAPARRO'S PALSY. NO COMPLAINTS. ssamb Not available 06/18/2020 17:04:23 07/03/2021 07/03/2021 65 Y/O MALE, HX OF BALANITIS, BPH, AODM. OVERALL DOING WELL WITH FLOMAX AND CLOBETALOL CREAM. PVR 5CC, U/A NEG. ORDERED AND REVIEWED U/A,PVR. PLAN RTC 1 YR. CLOBETALOL CREAM DAILY NEEDED, FLOMAX 0.4 MG DAY. Not available 07/03/2021 12:05:33 12/23/2021 12/23/2021 65 Y/O MALE, SEE N FOR SCROTAL DISCOMFORT, SCROTAL MASSES. EXAM LARGE SUSPECTED SPERMATOCELES , REVIEWED FINDINGS. PLAN SCROTAL U/S AND LATER HE WILL DECIDE ON TREATMENT. Not available 12/26/2021 09:27:43 02/20/2022 02/20/2022 66 Y/O MALE, S/P BILATERAL SPERMATOCELECTOMY , RELEASE OF PENILE ADHESIONS. SUTIURES REMOVED. PLAN RTC PRN OR ANNUAL VISIT. Not available 02/20/2022 10:07:29 Plan of Treatment Reminders Order Date Submit Date Provider Last Modified By Organization Details Last Modified Time Details Appointments None recorded. Lab urinalysis, dipstick 2020 021 Not available 11:58:47 urinalysis, dipstick 2019 020 ssamb Not available 0 16:49:55 Referral None recorded. Procedures None recorded. Surgeries None recorded. Imaging None recorded. Medication Orders tamsulosin 0.4 mg capsule 2020 021 [facility] [address] [address] [place], [address], 11:59:16 Patient TargetsNo targets recorded. Patient Instructions Encounter Date Encounter Id Patient Instructions Last Modified By Organization Details Last Modified Time 06/18/2020 [id number] RTC 6-12 MO. PVR , U/A. Not available 06/18/2020 17:59:27 Reason for Referral None Reported. Results Created Date Observation Date Name Description Value Unit Range Abnormal Flag LastModifiedBy Organization Detail LastModifiedTime 07/03/2021 urina lysis , dipst ick Color-Status Yellow Not Available [facility] [address], [place], [address], 07/03/2021 11:56:06 07/03/2021 urina lysis , dipst ick Clarity-Stat us Clear Not Available [facility] [address], [place], [address], 07/03/2021 11:56:06 07/03/2021 urina lysis , dipst ick Leuko-Status Modera te Not Available [facility] [address], [place], [address], 07/03/2021 11:56:06 06/18/20 20 06/18/2020 urina lysis , dipst ick Nitrates-Sta tus negati ve Not Available [facility] [address], [place], [address], 06/18/2020 16:49:23 06/18/20 20 06/18/2020 urina lysis , dipst ick Blood-Status Negati ve Not Available [facility] [address], [place], [address], 06/18/2020 16:49:23 06/18/20 20 06/18/2020 urina lysis , dipst ick Leuko-Status Trace Not Available [facility] [address], [place], [address], 06/18/2020 16:49:23 06/18/20 20 06/18/2020 urina lysis , dipst ick Specimen Type Voided Not Available [facility] [address], [place], [address], 06/18/2020 16:49:23 06/19/20 20 06/18/2020 bladd er scan (PROC ) No observ ation record ed. BARCODE Not Available 06/19/2020 12:05:39 07/03/20 21 07/03/2021 bladd er scan (PROC ) No observ ation record ed. BARCODE Not Available 07/03/2021 16:34:54 12/31/19 22 12/31/2021 US, karenot um No observ ation record ed. [facility] (Radiology) [address], [place], [address], 01/06/2022 14:01:54 Result Notes None recorded. Problems Name Status Onset Date Resolution Date Notes Provider Name and Address Organization Details Recorded Time Benign prostatic hyperplasia Active 06/18/20 Sushil mcneal [facility] 06/18/2020 16:36:18 Phimosis Active 06/18/20 Sushil mcneal [facility] 06/18/2020 16:36:23 Problem Notes None recorded. Procedures Surgical History Date Name Laterality Status Provider Name and Address Organization Details Recorded Time Bladder Scan completed Willie Buckner MD [address] [place] [address],[address], [place], [address], [facility] 07/03/2021 11:59:10 0 Bladder Scan completed Sushil Elinor mcneal [facility] 06/18/2020 16:46:59 Cataract Surgery completed Sushilramesh mcneal [facility] 06/18/2020 16:33:10 cervical arthrodesis completed Sushil mcneal [facility] 06/18/2020 16:34:29 procedure on wrist completed Sushil mcneal [facility] 06/18/2020 16:34:51 Imaging Results Imaging Date Name Status LastModified by Organiz ation Details LastModified Time 06/18/2020 bladder scan (PROC) completed BARCODE Information not available 06/19/2020 12:05:39 07/03/2021 bladder scan (PROC) completed BARCODE Information not available 07/03/2021 16:34:54 12/31/2021 US, scrotum completed [facility] (Radiology) [address], [place], [address], 01/06/2022 14:01:54 Procedure Notes None recorded. Medical Equipment None Reported. Allergies No known drug allergies Medications Name Sig Start Date Stop Date Status Note LastModified by Organization Details LastModified Time metformin 500 mg tablet TAKE 1 TABLET BY MOUTH TWICE DAILY WITH MEALS active Not Available Not Available No t Available Accu-Chek Softclix Lancets USE 1 TO CHECK GLUCOSE TWICE DAILY NEEDED active Not Available Not Available No t Available tramadol 50 mg tablet TAKE 1 TABLET BY MOUTH EVERY 6 TO 8 HOURS NEEDED active Not Available Not Available No t Available tamsulosin 0.4 mg capsule TAKE 1 CAPSULE BY MOUTH ONCE DAILY active Not Available Not Available No t Available [place] EnergyTouch Ultra Test strips active Not Available Not Available Not Available amlodipine 10 mg tablet TAKE 1 TABLET BY MOUTH ONCE DAILY active Not Available Not Available No t Available cephalexin 500 mg capsule TAKE 1 CAPSULE BY MOUTH TWICE DAILY active Not Available Not Available No t Available simvastatin 20 mg tablet TAKE 1 TABLET BY MOUTH AT BEDTIME active Not Available Not Available No t Available hydrochlorot hiazide 25 mg tablet TAKE 1 TABLET BY MOUTH ONCE DAILY active Not Available Not Available No t Available lisinopril 40 mg tablet TAKE 1 TABLET BY MOUTH ONCE DAILY active Not Available Not Available No t Available metformin ER 500 mg tablet,exten ded release 24 hr TAKE 2 TABLETS BY MOUTH ONCE DAILY active Not Available Not Available No t Available pen needle, diabetic 31 gauge x 1/4 USE DIRECTED active Not Available Not Available No t Available Asprin Ec Low Dose 81 mg tablet,delay ed release Take 1 tablet every day by oral route. active Not Available Not Available No t Available hydrochlorot hiazide active Not Available Not Available Not Available amlodipine active Not Available Not Av ailable Not Available simvastatin active Not Available Not A vailable Not Available lisinopril active Not Available Not Av ailable Not Available metformin active Not Available Not Andria ilable Not Available Lantus Solostar U-100 Insulin 100 unit/mL (3 mL) subcutaneous pen INJECT 20 UNITS SUBCUTANEOU SLY AT BEDTIME active Not Available Not Available No t Available Jardiance 10 mg tablet TAKE 1 TABLET BY MOUTH ONCE DAILY active Not Available Not Available No t Available OneTouch Ultra Blue Test Strip USE 1 STRIP TO CHECK GLUCOSE TWICE DAILY NEEDED active Not Available Not Available No t Available OneTouch Delica Plus Lancet 33 gauge USE 1 TO CHECK GLUCOSE TWICE DAILY NEEDED active Not Available Not Available No t Available Vitals Date Recorded Body height Body mass index (BMI) Body weight Provider Name and Address Organization Details Last Updated DateTime 06/18/2020 180.34 cm 37.7 kg/m2 374071.94 g Sushil mcneal [facility] 06/18/2020 16:42:55 Date Recorded Body height Body mass index (BMI) Body weight Provider Name and Address Organization Details Last Updated DateTime 07/03/2021 180.34 cm 37.7 kg/m2 286915.94 g Sushil mcneal [facility] 07/03/2021 11:51:10 Date Recorded Body height Body mass index (BMI) Body weight Provider Name and Address Organization Details Last Updated DateTime 12/23/2021 180.34 cm 37.7 kg/m2 561346.94 lauro Buckner MD [address] [place] [address], [address], [facility] 12/23/2021 14:20:19 Date Recorded Body height Body mass index (BMI) Body weight Provider Name and Address Organization Details Last Updated DateTime 02/20/2022 180.34 cm 37.7 kg/m2 164481.94 lauro Buckner MD [address] [facility],[address], [place], [address] 02/20/2022 09:25:58 Social History Question Answer Notes LastModified by Organizat ion Details LastModified Time Tobacco Smoking Status Former Smoker QUIT: 2003 Sushil Elinor mcneal [facility] 06/18/2020 16:36:44 What Was The Date Of Your Most Recent Tobacco Screening? 02/20/2022 Information not available 02/20/2022 Sex: Male Functional Status None recorded. Mental Status None recorded. Family History Relationship Description Onset Age of this Age Resolved Age Notes Sister Family history of ca ncer of colon Father Family history of ca rdiac disorder Medical History Condition Response Other Y High Blood Pressure Y Kidney Stones N Lung Disease N Depression N GERD/Acid Reflux N Diabetes Y Sexually Transmitted Infection N Bleeding Disorder N Cancer N High Cholesterol Y Heart Disease N Past Encounters Encounter ID Performer Location Encounter Start Date Encounter Closed Date Diagnosis/Indication [id number] MD ESTEBAN [facility] [address] [place] [address] 06/18/2020 16:25:56 06/18/2020 18:07:26 Benign prostatic hyperplasia [id number] MD ESTEBAN [facility] [address] [place] [address] 07/03/2021 11:39:42 07/07/2021 14:42:18 Benign prostatic hyperplasia Balanitis Benign prostatic hyperplasia with outflow obstruction Type 2 diabetes mellitus without complication [id number] MD Timo Case [address] [place] [address] 12/23/2021 13:58:21 12/29/2021 12:15:46 Spermatocele [id number] MD Timo Case [address] [place] [address] 02/20/2022 09:17:52 02/23/2022 10:10:49 Spermatocele Health Concerns Section Related Observation LastModified by Organization Detai ls LastModified Time None Recorded Concern Status LastModified by Organization Details LastModified Time None Recorded Advance Directives Directive None Recorded Payers Encounter Date Sequence Insurance Name Policy Number Policy Castillo Covered Member ID Castillo Member ID Guarantor Name 02/20/2022 2 [place] [id number] Sandeep Cosmel [id number] Sandeep Cosmel 02/20/2022 1 [place] [employer] [place] [facility] Sandeep Cosmel [id number] Sandeep Douglasasl 12/23/2021 2 [place] [id number] Sandeep Cosmel [id number] Sandeep Lopez Pomasl 07/03/2021 1 [place] [id number] Sandeep Cosmel [id number] Sandeep Lopez Pomasl 06/18/2020 1 [place] [id number] Sandeep Cosmel [id number] Sandeep Cosmel Notes Date Note Type Note Provider Name and Address Organization Details Recorded Time 06/18/2020 text/html HPI Notes: 64 YO M HERE TODAY FOR A FOLLOW UP. HE HAS A HISTORY OF BPH and BALANITIS. HE WAS LAST SEEN (05-15-19) and WAS GIVEN CLOBETASOL CREAM AND TAMSULOSIN .DOING WELL ON MEDICAL THERAPY. Willie Buckner MD [address] [place] [address],[address], [address], [facility] 06/18/2020 18:00:14 07/03/2021 text/html HPI Notes: 65 YO M ,aodm .HERE TODAY FOR A FOLLOW UP. HE HAS A HISTORY OF BPH and BALANITIS. HE WAS LAST SEEN (06-18-20) and WAS GIVEN CLOBETASOL CREAM AND TAMSULOSIN .DOING WELL ON MEDICAL THERAPY. Willie Buckner MD [address] [place] [address],[address], [address], [facility] 07/05/2021 11:46:53 12/23/2021 text/html HPI Notes: 65 YO M HERE TODAY FOR A FOLLOW UP FOR TESTICULAR DISCOMFORT. HE HAS A HISTORY OF BPH and BALANITIS. HE WAS LAST SEEN (07-03-21)ON CLOBETASOL CREAM AND TAMSULOSIN .DOING WELL ON MEDICAL THERAPY. RT SIDED TESTICULAR PAIN AND SWELLING Willie Buckner MD [address] [place] [address],[address], [address], [facility] 12/26/2021 09:28:18 02/20/2022 text/html HPI Notes: 66 YO M HERE TODAY FOR A FOLLOW UP FOR POST OP BILATERAL SPERMATOCELECTOMY AND RELEASE OF PENILE ADHESION RELESE. HE HAS A HISTORY OF BPH and BALANITIS. HE WAS LAST SEEN (07-03-21)ON CLOBETASOL CREAM AND TAMSULOSIN .DOING WELL ON MEDICAL THERAPY. RT SIDED TESTICULAR PAIN AND SWELLING Willie Buckner MD [address], [place], [address], [facility] 02/20/2022 10:07:49
--- OUTSIDE RECORDS SUMMARY | 2023-12-13 06:44 | XMS_ITS | Patient Health Record ---
Author Name Unknown Organization [facility] Address [address] [place] [address] [address] [place] [address] Care Team Providers Care Mortician Investigator Name Role Phone Tee Prince Primary Care Provider Layo [facility] , Clarence Unavailable Unavaila Sandeep Ryder Unavailable [phone] Xavi Kendall Unavailable [phone] ALLERGIES No Known Allergies RESULTS Component Value [...] Since we began voluntarily reporting to the [employer]?s Dose Index Registry, our [...] chronic pain (G89.29) Active confirmed Chronic pain (61226402) Problem Low back pain, unspecified (M54.50) Active confirmed Low back pain (600255024) VITAL SIGNS Blood pressure diastolic 78 mm Hg 10/26/2023 Height 72 in 10/26/2023 Blood pressure systolic 142 mm Hg 10/26/2023 Weight 274 lbs 10/26/2023 BMI 37.16 kg/m2 10/26/2023 Encounters Encounter Location Date Provider Diagnosis [facility] [address] [place] [address] 09/16/2023 Sandeep Ori [facility] [address] [place] [address] 10/27/2023 Tee Prince [address] [facility] [address] [place] [address] 10/08/2023 Tee Niki Other chronic pain G89.29 and Low back pain, unspecified M54.50 [address] [facility] [address] [place] [address] 10/26/2023 Xavi Kendall Other chronic pain G89.29 and Low back pain, unspecified M54.50 ASSESSMENTS Encounter Date Diagnosis Assessment Notes Treatment Notes Treatment Clinical Notes 10/08/2023 Other chronic pain (ICD-10 - G89.29) [...] I have ordered a lumbar MRI to [facility] as required prior to proceeding with the MBBs. [facility], but he is not interested in physical therapy at this time. Regarding medications, I have checked the [facility] database and I did not find any [...] plan as necessary. Plan:1. [facility]. Consider MBB/RFA workup pending imaging.3. Start Meloxicam [...] contact me if you have any questions. 10/26/2023 Other chronic pain (ICD-10 - G89.29) [...] I will order a lumbar CT to [facility] in [place]. Once he obtains the lumbar CT results, I advised him to follow up with his PCP. Pending the imaging findings, I will consider bilateral L4-S1 MBBs. Regarding medications, I have checked the [facility] database and I did not find any inconsistencies. This treatment plan was reviewed with the patient, and he was agreeable. He will return as needed. I will continue to monitor his progress, adjusting his treatment plan as necessary. Plan: 1. Reviewed lumbar MRI 2. Order lumbar CT scan to [facility] in [place] 3. Follow up with PCP - abnormal [...] also be considered. 5. Enlarged prostate gland. 10/26/2023 Low back pain, unspecified (ICD-10 - M54.50) 10/08/2023 Low back pain, unspecified (ICD-10 - M54.50) 10/08/2023 Other I, Braulio Hudson , am serving as a scribe to document services personally performed by Xavi Kendall CNP, based upon my observations and the provider's statements to me. All documentation has been reviewed by the aforementioned INOCULATOR as well as Tee Prince MD, prior [...] decisions made by them. 10/26/2023 Other I, Cammy brooks, am serving as a scribe to document services personally performed by Xavi Kendall NP, based upon my observations and the provider's statements to me. All documentation has been reviewed by the aforementioned ALLIED HEALTH PROFESSIONAL as well as Sandeep Rehman MD, prior [...] CT: Pelvis (bone) 11/01/2023 MRI : Lumbar 10/18/2023 MRI : Lumbar 10/08/2023 Insurance Providers Payer Name Payer Address Payer Phone Subscriber Number Group Number Insured Name Patient Relationship to Insured Coverage Start Date Coverage End Date Medicare Part B [employer] [address] [place] [address] [id number] Sandeep Crooks Self - patient is the insured 2 [facility] [address] [address] [place] [address] [id number] Sandeep Crooks Self - patient is the insured MEDICAL (GENERAL) HISTORY Medical History History ICD Code Arthritis Type 2 diabetes Hearing loss Sleep apnea
--- OUTSIDE RECORDS SUMMARY | 2023-12-13 06:44 | XMS_ITS | Encounter Summary ---
Author Name Unknown Organization [facility] Address [address], [place] [address] Care Team Providers Care Folder Machine Name Role Phone Found, No Pcp MD Primary Care Provider Unavailab le Reason for Visit * Reason Comments SKIN LESION Encounter Details Date Type Department Care Team Description 10/14/2023 11:45 AM CHAINSAW MECHANIC Office Visit [facility] - Dermatology [address] [place], [place] [id number] [place] [id number] [place] [address] [id number] Neoplasm of skin (HRC) (Primary Dx); Actinic cheilitis Social History Tobacco Use Types Packs/Day Years Used Date Smoking Tobacco: Never Sex and Gender Information Value Date Recorded Sex Assigned at Not on file Gender Identity Not on file Sexual Orientation Not on file documented as of this encounter Patient Instructions * Patient Instructions* Yamila Lund LPN - 10/14/2023 11:45 AM CHAINSAW MECHANIC Care Instructions after a shave skin biopsy/removal When do I start changing the bandage on my wound site? Leave the original bandage/dressing in place for 24 to 48 hours. If you develop bleeding from the site, apply firm pressure directly over the bandage, using the heel of your hand, for [address] bandage on top of the first one - don???t keep removing and replacing dressings. NO PEEKING! Notify us if the bleeding still does not stop. How do I change the bandage on my wound? Clean the area once a day with warm soap and water. Gently pat dry the area. After the area has been cleaned and is dry, apply a small amount of petroleum jelly or Aquaphor healing ointment and apply a new bandage. We prefer that you do not use an antibacterial ointment (i.e. bacitracin, Neosporin) as many peopledevelop a hypersensitivity including a rash and even blistering related to these. Is it okay to shower after having a skin biopsy/removal? Showering is okay, but please do not soak in a bathtub, hot tub, or pool. This will slow the healing process and may create infection. When can I stop bandaging my wound? Continue the wound care process until the area is healed. Complete healing usually takes 2-4 weeks.Wounds heal best when kept moist, try not to let the area dry out. During this process you may see a white film develop over your wound and this is part of the normal healing process. Letting them open to air, drying out, and having a scab form actually causes wounds to take longer to heal. If yourskin is getting sensitive to the bandage, use gauze and paper tape. Can I exercise after having a skin biopsy/removal? Avoid exercising for 2 days. What signs or symptoms should I call the dermatology department about? Infection after a biopsy is not likely, but can occur. Mild amounts of redness, bruising, swelling,discomfort and a clear to yellowish to blood-tinged discharge are normal. Signs of Infection include: fever, increasing pain, blood blister, drainage of pus, and extreme heat from the site. Please call the clinic if you experience any of these symptoms. When will I receive my skin biopsy/removal results? Your skin biopsy specimen will be sent to our laboratory for processing. It will then be interpreted by one of our board-certified dermatopathologists. The dermatopathologist will write their findings in a pathology report. Your pathology report will be released automatically to your [employer] account. If you don't have an active [employer] account, your care team will contact you with the results of this pathology report when it is available. Typically your pathology report will be available 7 to 14 days after your biopsy or procedure. Our pathology services will be listed separately on your bill. If you have further questions about the biopsy process or if you have not received your biopsy results within 2 weeks, please call us. NSAW MECHANIC documented in this encounter Progress Notes * Mary Shaw MD - 10/14/2023 11:45 AM CST Pt called and informed , Mid Lower Vermilion Lip, Lichenoid dermatitis with pigment incontinence COMMENT: The histologic differential diagnosis includes lichen planus, lichenoid medication reaction (including fixed drug), lichenoid actinic keratosis, cutaneous manifestation of a connective tissue disorder, and other forms of lichenoid dermatitis. Clinical correlation is advised. 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 If he does not respond to this may do tria lof topical steroid and possibly D/C HCTZ if no response with the first 2 plans . Finally he notes that there was an incidental finding of a bone lesion on a Spine scan and he id now going to under go work up of this through his primary care. We reiterated that there is no signs of cancer in the biopsy at this time and he should pursue the bone lesion work up and we can work aroud that schedule with any follow up . RTC 3 weeks liquid N2 NSAW MECHANIC * Mary Shaw MD - 10/14/2023 12:00 AM CST NAME: SURINDER GOETZ CSN: [id number] CLINIC NOTE DATE OF SERVICE: 10/14/2023 : 1955 SUBJECTIVE: The patient is a 67-year-old male, who presents for evaluation of scaling ulcerative macule on his lower lip. This was recently noted by his dental hygienist, who voiced concerns over it being a possible cancer. He feels he has had peeling and erosion of the lip, has been up to a year'sduration. He thought it was a cold sore in the past and has tried Abreva on the site without much avail. 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 Most of the construction work was outdoors and so he had extensive sun exposure. He feels that he has really been having difficulty battling his diabetes. MEDICATIONS: His medications include insulin and metformin and Ozempic. In addition, he has underlying hypertension for which he is on Norvasc, hydrochlorothiazide. His medications are reviewed in Epic. ALLERGIES: HE HAS NO KNOWN DRUG ALLERGIES. PHYSICAL EXAMINATION: GENERAL: He is awake, alert, appropriately groomed and dressed, pleasant and outgoing with a marsha complexion. SKIN: From his outdoor sun exposure, his lip shows superficial whitening consistent with actinic cheilitis with one focal area of erosion just to the right of midline on the lip, but this is the sitehe states never really healed. On palpation, there is no deep induration and association. He has nopalpable lymphadenopathy. ASSESSMENT AND PLAN: Differential diagnosis includes superficial squamous cell carcinoma in situ versus actinic cheilitis versus invasive squamous cell cancer. We did discuss the relationship of these 3 entities and that we would recommend a shave biopsy for evaluation. In some instances, shave biopsy would potentially even be curative if this is an actinic cheilitis problem and will get to a level in which the mucosal epithelium would re-epithelialize without difficulty. If in fact it is more in full-thickness or invasive, then we would recommend Mohs surgery. Biopsy was performed today. We will contact him with the results as they become available. 1. Neoplasm of skin (HRC) Mid Lower Vermilion Lip Skin Biopsy Type of biopsy: tangential Informed consent: discussed and consent obtained Timeout: patient name, date of , surgical site, and procedure verified Procedure prep: Patient was prepped and draped in usual sterile fashion Prep type: Chlorhexidine Anesthesia: the lesion was anesthetized in a standard fashion Anesthetic: 1% lidocaine w/ epinephrine 1-100,000 local infiltration Instrument used: #15 blade Hemostasis achieved with: aluminum chloride Outcome: patient tolerated procedure well Post-procedure details: sterile dressing applied and wound care instructions given Dressing type: petrolatum and bandage Specimen 1 - Surgical Path, Dermatology Clinical Impression: actinic cheilitis vs scc MD BOB ROBISON/ANDRESSA /[id number] NSAW MECHANIC documented in this encounter Plan of Treatment Not on file documented as of this encounter Procedures Procedure Name Priority Date/Time Associated Diagnosis Comments SKIN BIOPSY Routine 10/14/2023 12:46 PM CHAINSAW MECHANIC Neoplasm of skin (HRC) SURGICAL PATHOLOGY, DERMATOLOGY Routine 10/14/2023 12:46 PM CHAINSAW MECHANIC Neoplasm of skin (HRC) documented in this encounter Results * Skin Biopsy (No CPT) (10/14/2023 12:46 PM CHAINSAW MECHANIC) Narrative EXTERNAL RESULTS - 10/14/2023 12:46 PM CHAINSAW MECHANIC Type of biopsy: tangential ?? Informed consent: [...] * Surgical Path, Dermatology (10/14/2023 12:46 PM CHAINSAW MECHANIC) Case Report Surgical Pathology Report ? Case: [id number] ? Authorizing Provider: ??Mary Shaw MD ?Collected: ? 10/14/2023 1246 ? Ordering Location: ? [facility] ??Received: ?10/15/2023 0706 ? Center - Dermatology ? Pathologist: ? Rhys Mcmillan MD ? Specimen: ?Skin, Mid Lower Vermilion Lip ? 10/26/2023 10:21 AM CHAINSAW MECHANIC [facility] [employer] DERMATOLOGY FINAL DIAGNOSIS A. Skin, Mid Lower Vermilion Lip, shave: - Lichenoid dermatitis with pigment incontinence, see comment. COMMENT: The histologic differential diagnosis includes lichen planus, lichenoid medication reaction (including fixed drug), lichenoid actinic keratosis, cutaneous manifestation of a connective tissue disorder, and other forms of lichenoid dermatitis. Clinical correlation is advised. 10/26/2023 10:21 AM CHAINSAW MECHANIC [employer] [address] DERMATOLOGY Clinical Information Clinical Impression: actinic cheilitis vs scc 10/26/2023 10:21 AM [facility] 3800 DERMATOLOGY Microscopic Description Microscopic examination is performed. The microscopic findings reveal a band like lymphocytic infiltrate partially obscuring the dermoepidermal junction and associated colloid bodies. Pigment incontinence is evident in the dermis. Focal parakeratosis is evident. The process extends to the sampled tissue margin. 10/26/2023 10:21 AM [facility] [address]00 DERMATOLOGY Technical Information A portion of the technical staining was performed at [facility], [address] [place] [address]. The professional interpretation was performed at [facility]. 10/26/2023 10:21 AM [facility] [address]00 DERMATOLOGY Gross Description A: Received in formalin, labeled with the patient's name and Skin, Mid Lower Vermilion Lip is a 6 x 6 x 1 mm shave biopsy of skin. The specimen is marked with blue ink, bisected, and submitted entirely in one cassette. The tissue fragmented upon sectioning. AM 10/26/2023 10:21 AM [facility] [address]00 DERMATOLOGY Embedded Images 10/26/2023 10:21 AM [facility] [address]00 DERMATOLOGY Skin (Skin) 10/14/2023 12:4 6 PM CHAINSAW MECHANIC 10/15/2023 7:06 AM CHAINSAW MECHANIC Comment:Clinical Impression: actinic cheilitis vs scc Mary Shaw MD LAB PATHOLOGY Performing Organization Address City/State/[facility] Co de Phone Number [facility] [address] [place] [address], [facility] documented in this encounter Visit Diagnoses Diagnosis Neoplasm of skin (HRC)- Primary Neoplasm of unspecified nature of bone, soft tissue, and skin Actinic cheilitis Acute dermatitis due to solar radiation documented in this encounter Care Teams Folder Machine Relationship Specialty Start Date End Date Found, No Pcp, [address] [place] [id number] PCP - General 09/28/23 documented as of this encounter
== END 2023-12-08 09:35 | disposition home or self-care (01) ==
LOC: NFLDREF 12-13 06:42
PROVIDERS: PCP Family Medicine; Referring Provider Family Medicine; Visit Provider Family Medicine
DX: M89.9 Disorder of bone, unspecified (principal)
CPT/HCPCS: 84165

== ENCOUNTER 2023-12-30 11:25 | Outpatient (CLI) | payer MEDICARE, BC, SELFPAY ==
--- OUTSIDE RECORDS SUMMARY | 2023-12-31 07:05 | XMS_ITS | Clinical Summary ---
Author Name Unknown Organization [facility] Address [place], [place] [address] Care Team Providers Care Upholstery Technician Name Role Phone Kang Mcgee MD Primary Care Provider [phone] Allergies No known active allergies Medications Medication [...] 0 Active lisinopril (PRINIVIL; ZESTRIL) 40 mg tabletIndications:h ypertension Take 40 mg by mouth once daily. Indications: Hypertension 0 Active metFORMIN (GLUCOPHAGE) 500 mg tabletIndications:t ype 2 diabetes mellitus Take 500 mg by mouth 2 times daily with meals. Indications: type 2 diabetes mellitus 0 Active difluprednate (DUREZOL) 0.05 % ophthalmic emulsion Place 1 Drop into right eye once daily. 0 Active ketorolac 0.5 % ophthalmic (ACULAR) solution Place 1 Drop into right eye 3 times daily. 0 Active diazePAM (VALIUM) 5 mg tabletIndications:C ervical spondylosis with myelopathy Take 1/2 to 1 [...] 1 mg subcutaneous once weekly. 0 Active hydroCHLOROthiazide (HCTZ) 25 mg tablet Take 25 mg by mouth once daily. 0 Active Active Problems Problem Noted Date Diagnosed Date Episodic lightheadedness 07/26/2020 High coronary artery calcium score 07/26/2020 Morbid obesity due to excess calories 07/26/2020 SOB (shortness of breath) 07/26/2020 Type 2 diabetes mellitus 11/02/2016 Cervical spondylosis with myelopathy 11/02/2016 Sleep apnea 11/11/2010 Chest pain 11/11/2010 Family history of coronary arteriosclerosis 10/29 Hyperlipidemia 11/11/2010 HTN (hypertension) 11/11/2010 Encounters Date Type Department Care Team Description 12/30/2023 Lab Requisition [facility] [phone] Kang Mcgee MD 11/25/2023 10:30 AM TYPE SOLDERING MACHINE TENDER - 11/25/2023 11:59 PM TYPE SOLDERING MACHINE TENDER Hospital Encounter [facility] [address] [place] [address] Kang Mcgee MD Disorder of bone 11/25/2023 Travel 10/18/2023 Orders Only [facility] Scanner 1 scan: (1-Ord) [facility], MR LUMBAR SPINE W/O CONTRAST, 10/18/2023 from Last 3 Months Social History Tobacco [...] Comments Blood Pressure 133/72 11/25/2023 1:40 PM TYPE SOLDERING MACHINE TENDER Pulse 78 11/25/2023 1:30 PM TYPE SOLDERING MACHINE TENDER Temperature 36.7 ??C (98 ??F) 11/25/2023 11:10 AM TYPE SOLDERING MACHINE TENDER Respiratory Rate 16 11/25/2023 1:30 PM TYPE SOLDERING MACHINE TENDER Oxygen Saturation 96% 11/25/2023 1:15 PM TYPE SOLDERING MACHINE TENDER Inhaled Oxygen Concentration - - Weight 120.2 kg (265 lb) 11/25/2023 11:10 AM TYPE SOLDERING MACHINE TENDER Height 182.9 cm (6') 11/25/2023 11:10 AM TYPE SOLDERING MACHINE TENDER Body Mass Index 35.94 11/25/2023 11:10 AM TYPE SOLDERING MACHINE TENDER Plan of Treatment Health Maintenance Due Date [...] 1 - PCV) 2021 COVID-19 vaccine series (2022-24 season) 2023 01/02/2022, 03/04/2021, 02/11/2021 Influenza for age 65+ 07/30/2023 Medical Devices Implanted Type Area Agricultural Lender Device Identifier Shelf Expiration Date Model / Serial / Lot Sleeve Silcn 1.00i.D.X2.1mm Od Sty70 [id number] Labtician - [id number] Implanted:Qty: 1 on 07/17/2015 by Sixto Becerril MD at [facility] Right: Eye [employer] 02/26/2022 [id number]# / / [id number] Strip Silcn 0.75x3.5x125 [id number] - [id number] Implanted:Qty: 1 on 07/17/2015 by Sixto Becerril MD at [facility] Right: Eye [employer] 02/26/2022 [id number]# / / [id number] Screw Lmbr Post 5.5x25mm Solera 4.75 Va - [id number] Implanted:Qty: 2 on 11/02/2016 by Clarence Vasques MD at [facility] N/A: Spine Medtronic Spine/Ortho [id number]# / / [id number] 1-4mm 30cc Medtronic Chips Canclls Frozen Implanted:Qty: 1 on 11/02/2016 by Clarence Vasques MD at [facility] Explanted:at [facility] (Quantity not on file) N/A: Spine Medtronic Spine/Ortho 04/24/2019 [id number] / [id number] / Set Screw Cerv Vertex Select - [id number] Implanted:Qty: 6 on 11/02/2016 by Clarence Vasques MD at [facility] N/A: Spine Medtronic Spine/Ortho [id number]# / / Screw Cerv Post 3.5x16mm Vertex Select Va - [id number] Implanted:Qty: 2 on 11/02/2016 by Clarence Vasques MD at [facility] N/A: Spine Medtronic Spine/Ortho [id number]# / / Screw Cerv Post 3.5x18mm Vertex Select Va - [id number] Implanted:Qty: 4 on 11/02/2016 by Clarence Vasques MD at [facility] N/A: Spine Medtronic Spine/Ortho [id number]# / / Cnnctr Cristhian Md Roland Vertex Select Variable - [id number] Implanted:Qty: 1 on 11/02/2016 by Clarence Vasques MD at [facility] N/A: Spine Medtronic Spine/Ortho [id number]# / / Roland Cerv 420x3.5/4.75mm Vertex Select - [id number] Implanted:Qty: 2 on 11/02/2016 by Clarence Vasques MD at [facility] N/A: Spine Medtronic Spine/Ortho [id number]# / / Set Screw Lmbr 4.60d88my Solera 4.75 Ns Brk Off - [id number] Implanted:Qty: 2 on 11/02/2016 by Clarence Vasques MD at [facility] N/A: Spine Medtronic Spine/Ortho [id number] / / Procedures Procedure Name Priority Date/Time Associated Diagnosis Comments CBC WITH AUTO DIFFERENTIAL Routine 12/30/2023 11:25 AM TYPE SOLDERING MACHINE TENDER RETICULOCYTES Routine 12/30/2023 11:25 AM TYPE SOLDERING MACHINE TENDER CBC WITH AUTO DIFFERENTIAL Routine 12/30/2023 11:25 AM TYPE SOLDERING MACHINE TENDER CT BIOPSY BONE DEEP Routine 11/25/2023 1 2:56 PM TYPE SOLDERING MACHINE TENDER Disorder of bone PATH [facility] CYTOLOGY ASP CYTOLOGY Today 11/25/2023 12:15 PM TYPE SOLDERING MACHINE TENDER HEMOGLOBIN STAT 11/25/2023 11:00 AM TYPE SOLDERING MACHINE TENDER PLATELET COUNT STAT 11/25/2023 11:00 AM TYPE SOLDERING MACHINE TENDER PROTIME-INR STAT 11/25/2023 11:00 AM TYPE SOLDERING MACHINE TENDER SCAN-MRI INTERPRETATION 10/18/20 12:00 AM TYPE SOLDERING MACHINE TENDER from Last 3 Months Results * CBC WITH AUTO DIFFERENTIAL (12/30/2023 11:25 AM TYPE SOLDERING MACHINE TENDER) Pathologist [facility] WHITE BLOOD COUNT 5.3 4.5 - 11.0 thou/cu mm 12/30/2023 4:01 PM TYPE SOLDERING MACHINE TENDER [facility] RED BLOOD COUNT 4.76 4.30 - 5.90 mil/cu mm 12/30/2023 4:01 PM TYPE SOLDERING MACHINE TENDER [facility] HEMOGLOBIN 14.2 13.5 - 17.5 g/dL 12/30/2023 4:01 PM TYPE SOLDERING MACHINE TENDER [facility] HEMATOCRIT 41.7 37.0 - 53.0 % 12/30/2023 4:01 PM TYPE SOLDERING MACHINE TENDER [facility] MCV 88 80 - 100 fL 12/30/2023 4:01 PM TYPE SOLDERING MACHINE TENDER [facility] MCH 29.8 26.0 - 34.0 pg 12/30/2023 4:01 PM TYPE SOLDERING MACHINE TENDER [facility] MCHC 34.1 32.0 - 36.0 g/dL 12/30/2023 4:01 PM [facility] RDW 12.2 11.5 - 15.5 % 12/30/2023 4:01 PM [facility] PLATELET COUNT 172 140 - 440 thou/cu mm 12/30/2023 4:01 PM [facility] MPV 10.8 6.5 - 11.0 fL 12/30/2023 4:01 PM [facility] NRBC 0.0 % 12/30/2023 4:01 PM [facility] ABS NRBC 0.0 thou /cu mm 12/30/2023 4:01 PM [facility] % NEUT 57.6 % 12/30/2023 4:01 PM [facility] % LYMPH 25.5 % 12/30/2023 4:01 PM [facility] % MONO 7.8 % 12/30/2023 4:01 PM [facility] % EOS 7.6 % 12/30/2023 4:01 PM [facility] % BASO 1.3 % 12/30/2023 4:01 PM [facility] % IMMATURE GRAN (METAS,MYELOS,MD OS) 0.2 % 12/30/2023 4:01 PM [facility] ABSOLUTE NEUTROPHILS 3.0 1.7 - 7.0 thou/cu mm 12/30/2023 4:01 PM [facility] ABSOLUTE LYMPHOCYTES 1.3 0.9 - 2.9 thou/cu mm 12/30/2023 4:01 PM [facility] ABSOLUTE MONOCYTES 0.4 <0.9 thou/cu mm 12/30/2023 4:01 PM [facility] ABSOLUTE EOSINOPHILS 0.4 <0.5 thou/cu mm 12/30/2023 4:01 PM [facility] ABSOLUTE BASOPHILS 0.1 <0.3 thou/cu mm 12/30/2023 4:01 PM [facility] ABSOLUTE IMMATURE GRANULOCYTES(MET ,MYELOS,PROS) 0.0 <0.3 thou/cu mm 12/30/2023 4:01 PM TYPE SOLDERING MACHINE TENDER [facility] Blood BLOOD SPECIMEN / Unknown Client Collect / Unknown 12/30/2023 11:25 AM TYPE SOLDERING MACHINE TENDER 12/30/2023 3:55 PM TYPE SOLDERING MACHINE TENDER Kang Mcgee MD HEMATOLOGY Performing Organization Address [facility] Phone Number [facility] [address] [place] [address], * (ABNORMAL) RETICULOCYTES (12/30/2023 11:25 AM TYPE SOLDERING MACHINE TENDER) RETIC% 1.6(H) 0.5 - 1.5 % 12/30/2023 4:01 PM TYPE SOLDERING MACHINE TENDER [facility] RETIC (ABSOLUTE) 0.08 0.03 - 0.08 mil/cu mm 12/30/2023 4:01 PM TYPE SOLDERING MACHINE TENDER [facility] Blood BLOOD SPECIMEN / Unknown Client Collect / Unknown 12/30/2023 11:25 AM TYPE SOLDERING MACHINE TENDER 12/30/2023 3:55 PM TYPE SOLDERING MACHINE TENDER Kang Mcgee MD HEMATOLOGY Performing Organization Address [facility] Phone Number [facility] [address] [place] [address], * CT BIOPSY BONE DEEP (11/25/2023 12:56 PM TYPE SOLDERING MACHINE TENDER) Anatomical Region Laterality Modality Computed Tomogra phy, Other, Other, Other Narrative 11/25/2023 3:02 PM TYPE SOLDERING MACHINE TENDER RADIOLOGY POST PROCEDURE NOTE ?? 11/25/2023 Sandeep Crooks [id number] INFORMEDCONSENT: In my discussion, prior to [...] Please call with questions. Marcos Jaimes MD [place] Protocol A. Pre-procedure verification complete yes 1-relevant [...] Kang Mcgee MD CT * [facility] Cytology MATERIAL HANDLING SUPERVISOR (11/25/2023 12:15 PM TYPE SOLDERING MACHINE TENDER) [facility] Case Report Medical Cytology Report ? Case: [id number] ? Authorizing Provider: ??Marcos Jaimes MD ? Collected: ? 11/25/2023 1215 ? Ordering Location: ? [facility] ?Received: ?11/25/2023 1226 ? [facility] ? Pathologist: ? Kang Sagastume Jr., ? MD ? Specimen: ?Bone Biopsy, Right iliac bone ? 12/02/2023 2:17 PM [facility] Final Diagnosis BONE, RIGHT ILIAC, CT-GUIDED CORE BIOPSY: 1. Markedly hypercellular bone marrow with trilineage hematopoiesis 2. Plasma cells with slight lambda predominance, but no definitive plasma cell neoplasm 3. Negative for metastatic carcinoma 4. See microscopic description and comment 12/02/2023 2:17 PM [facility] Comment A definitive explanation for the lesion noted on imaging is not identified in this biopsy. Serum protein electrophoresis (SPEP) with reflex immunofixation, plus peripheral blood CBC, are recommended for further evaluation. If these studies suggest a hematolymphoid lesion, a standard posterior iliac crest bone marrow examination is suggested. Dr. Wang reviewed selected slides from this case. 12/02/2023 2:17 PM [facility] Clinical Information Mr. Crooks is a 67 y.o. male with a 2.7 cm lesion in posterior right iliac body with overlying cortical irregularity, with additional subcentimeter sclerotic foci along both acetabular margins representing bone islands or sclerotic metastases. 12/02/2023 2:17 PM [facility] Gross Description A) Received identified [...] cell block was decalcified. 12/02/2023 2:17 PM TYPE SOLDERING MACHINE TENDER [facility] Adequacy Assessment Trupti English assessed adequacy from the air-dried smears at the time of the procedure with an impression of Adequate. 12/02/2023 2:17 PM TYPE SOLDERING MACHINE TENDER [facility] Microscopic Description Specimen adequacy: Adequate for interpretation. [...] B cells CD138: positive in plasma cells [place]/lambda: lambda predominance CD68: positive in histiocytes Mast cell tryptase: positive in scattered cells C-kit: positive in scattered cells 12/02/2023 2:17 PM TYPE SOLDERING MACHINE TENDER [facility] Additional Information Cytology is screened at [facility] - [address], [place] [address] and [facility] - [address] [place] [address] and [facility] - [address] [place] [address] Interpreted at [facility] - [address], [place] [address] 12/02/2023 2:17 PM TYPE SOLDERING MACHINE TENDER [facility] Aspirate (Bone Biopsy) 11/25/2023 12:15 PM TYPE SOLDERING MACHINE TENDER 11/25/2023 12:26 PM TYPE SOLDERING MACHINE TENDER Marcos Jaimes MD PATHOLOGY/CYTOLOGY [facility] [address] [place] [address], * Platelet Count (11/25/2023 11:00 AM TYPE SOLDERING MACHINE TENDER) PLATELET COUNT 172 140 - 440 thou/cu mm 11/25/2023 11:12 AM TYPE SOLDERING MACHINE TENDER [facility] MPV 10.0 6.5 - 11.0 fL 11/25/2023 11:12 AM TYPE SOLDERING MACHINE TENDER [facility] Blood BLOOD SPECIMEN / Unknown Venipuncture / Unknown 11/25/2023 11:00 AM TYPE SOLDERING MACHINE TENDER 11/25/2023 11:07 AM TYPE SOLDERING MACHINE TENDER Marcos Jaimes MD HEMATOLOGY Performing Organization Address [facility]/ZIP Co de Phone Number [facility] [address] [place] [address], * Hemoglobin (11/25/2023 11:00 AM TYPE SOLDERING MACHINE TENDER) HEMOGLOBIN 14.4 13.5 - 17.5 g/dL 11/25/2023 11:12 AM TYPE SOLDERING MACHINE TENDER [facility] MCV 87 80 - 100 fL 11/25/2023 11:12 AM TYPE SOLDERING MACHINE TENDER [facility] Blood BLOOD SPECIMEN / Unknown Venipuncture / Unknown 11/25/2023 11:00 AM TYPE SOLDERING MACHINE TENDER 11/25/2023 11:07 AM TYPE SOLDERING MACHINE TENDER Marcos Jaimes MD HEMATOLOGY Performing Organization Address [facility] de Phone Number [facility] [address] [place] [address], * (ABNORMAL) Protime-INR (11/25/2023 11:00 AM TYPE SOLDERING MACHINE TENDER) INR 1.1 <1.3 11/25/2023 11:16 AM TYPE SOLDERING MACHINE TENDER [facility] PROTIME 12.6(H) 10.3 - 12.3 sec 11/25/2023 11:16 AM TYPE SOLDERING MACHINE TENDER [facility] Blood BLOOD SPECIMEN / Unknown Venipuncture / Unknown 11/25/2023 11:00 AM TYPE SOLDERING MACHINE TENDER 11/25/2023 11:07 AM TYPE SOLDERING MACHINE TENDER Narrative [facility] - 11/25/2023 11:16 AM TYPE SOLDERING MACHINE TENDER ?Therapeutic Range 2.0-3.0 for most anticoagulated patients [...] is on [facility]. Marcos Jaimes MD HEMATOLOGY [employer] [facility] [address] [place] [address], * SCAN-MRI INTERPRETATION (10/18/2023 12:00 AM TYPE SOLDERING MACHINE TENDER) Anatomical Region Laterality Modality Other Scanner OTHER from Last 3 Months Advance Directives Latest Code Status on File Code Status Date Activated Date Inactivated Comments Full Code 11/02/2016 6:12 PM 11/06/2016 10:20 PM Code Status History Code Status Date Activated Date Inactivated Comments Full Code 11/02/2016 6:41 AM 11/02/2016 6:12 PM Question Answer Comments Code Status Discussion: Not Discussed Full Code 07/17/2015 9:21 AM 07/17/2015 3:48 PM Care Teams Upholstery Technician Relationship Specialty Start Date End Date Kang Mcgee MD [address] [place] [address] PCP - General Family Practice 06/07/20
--- OUTSIDE RECORDS SUMMARY | 2023-12-31 07:05 | XMS_ITS | Clinical Summary ---
Author Name Unknown Organization [facility] Address [address] [place] [address] Care Team Providers Care Loading Inspector Name Role Phone Unavailable Primary Care Provider [...]
--- OUTSIDE RECORDS SUMMARY | 2023-12-31 07:05 | XMS_ITS | Referral Summary ---
Author Name Unknown Organization [facility] Address [address] [place] [address] Care Team Providers Care Item Processor Name Role Phone Unavailable Primary Care Provider [...]
--- OUTSIDE RECORDS SUMMARY | 2023-12-31 07:05 | XMS_ITS | Patient Health Record ---
Author Name Unknown Organization [facility] Address [address] [place] [address] [address] [place] [address] Care Team Providers Care Regulatory Scientist Name Role Phone Tee Prince Primary Care Provider [phone] [facility] , Clarence Unavailable Unavaila Sandeep Ryder Unavailable [phone] Xavi Kendall Unavailable [phone] ALLERGIES No Known Allergies RESULTS Component Value Reference Range Notes CT: Pelvis (bone) (Not yet r eviewed [...] Since we began voluntarily reporting to the [employer]?s Dose Index Registry, our average CT doses have been consistently lower than the national average. Read by: Mandeep Rushing M.D. Reviewed and Electronically Signed by: Mandeep Rushing M.D. MRI : Lumbar (Not yet review ed [...] and Electronically Signed by: George Rivas M.D. REASON FOR REFERRAL No Information MEDICATIONS [...] chronic pain (G89.29) Active confirmed Chronic pain (35266588) Problem Low back pain, unspecified (M54.50) Active confirmed Low back pain (102559377) VITAL SIGNS Blood pressure diastolic 78 mm Hg 10/26/2023 Height 72 in 10/26/2023 Blood pressure systolic 142 mm Hg 10/26/2023 Weight 274 lbs 10/26/2023 BMI 37.16 kg/m2 10/26/2023 Encounters Encounter Location Date Provider Diagnosis [facility] [address] [place] [address] 09/16/2023 Sandeep Rehman [address] [facility] [address] [place] [address] 10/08/2023 Tee Niki Other chronic pain G89.29 and Low back pain, unspecified M54.50 [address] [facility] [address] [place] [address] 10/26/2023 Xavi Kendall Other chronic pain G89.29 and Low back pain, unspecified M54.50 [facility] [address] [facility] [place] [address] 10/27/2023 Tee Prince ASSESSMENTS Encounter Date Diagnosis [...] I have ordered a lumbar MRI to [facility] as required prior to proceeding with the MBBs. [facility], but he is not interested in physical therapy at this time. Regarding medications, I have checked the [facility] database and I did not find [...] plan as necessary. Plan:1. Order lumbar MRI [facility]. Consider MBB/RFA workup pending imaging.3. Start Meloxicam [...] I will order a lumbar CT to [facility] in [place]. Once he obtains the lumbar CT results, I advised him to follow up with his PCP. Pending the imaging findings, I will consider bilateral L4-S1 MBBs. Regarding medications, I have checked the [facility] database and I did not find any inconsistencies. This treatment plan was reviewed with the patient, and he was agreeable. He will return as needed. I will continue to monitor his progress, adjusting his treatment plan as necessary. Plan: 1. Reviewed lumbar MRI 2. Order lumbar CT scan to [facility] in [place] 3. Follow up with PCP - abnormal [...] documentation has been reviewed by the aforementioned WEED BURNER as well as Tee Prince MD, prior [...] documentation has been reviewed by the aforementioned DIRECTOR [facility] as well as Sandeep Rehman MD, prior [...] Date Coverage End Date Medicare Part B [employer] [address] [place] [address] [id number] Sandeep Crooks Self - patient is the insured 2 [facility] [address] [address] [place] [address] [id number] Sandeep Crooks Self - patient is the insured MEDICAL (GENERAL) HISTORY Medical History History ICD Code Arthritis Type 2 diabetes Hearing loss Sleep apnea
--- OUTSIDE RECORDS SUMMARY | 2023-12-31 07:06 | XMS_ITS | Clinical Summary ---
Author Name Unknown Organization [facility] Address [address], [place] [address] Care Team Providers Care Top Executive Name Role Phone Found, No Pcp MD Primary Care Provider Unavailab le Source Comments You are receiving this document as you are listed as the primary care provider,follow-up provider, or the patient has been referred to you for consultation.This is in compliance with the Medicare and[facility] EHR Incentive Program,which states Providers who transition their patient to another setting of careor provider of care or refers their patient to another provider of care shouldprovide summary care record for each transition of care or referral. [facility] Allergies No known active allergies Medications Medication [...] Type Department Care Team Description 12/01/2023 Telephone [facility] - Dermatology [address] [facility] [place] [address] Mary Shaw MD CANCEL APPOINTMENT 10/14/2023 11:45 AM CHEESE PANCAKE ROLLER Office Visit [facility] - Dermatology [address] [place] [address] Mary Shaw MD Neoplasm of skin (HRC) (Primary Dx); Actinic cheilitis from Last 3 Months Social History Tobacco [...] 120.2 kg (265 lb) 10/07/2016 8:37 AM CHEESE PANCAKE ROLLER Height 180.3 cm (5' 11) 10/07/2016 8:37 AM CHEESE PANCAKE ROLLER Body Mass Index 36.96 10/07/2016 8:37 AM CHEESE PANCAKE ROLLER Plan of Treatment Health Maintenance Due Date [...] Comments SKIN BIOPSY Routine 10/14/2023 12:46 PM CHEESE PANCAKE ROLLER Neoplasm of skin (HRC) SURGICAL PATHOLOGY, DERMATOLOGY Routine 10/14/2023 12:46 PM CHEESE PANCAKE ROLLER Neoplasm of skin (HRC) from Last 3 Months Results * Skin Biopsy (No CPT) (10/14/2023 12:46 PM CHEESE PANCAKE ROLLER) Narrative EXTERNAL RESULTS - 10/14/2023 12:46 PM CHEESE PANCAKE ROLLER Type of biopsy: tangential ?? Informed consent: [...] * Surgical Path, Dermatology (10/14/2023 12:46 PM CHEESE PANCAKE ROLLER) Case Report Surgical Pathology Report ? Case: [id number] ? Authorizing Provider: ??Mary Shaw MD ?Collected: ? 10/14/2023 1246 ? Ordering Location: ? [facility] ??Received: ?10/15/2023 0706 ? Center - Dermatology ? Pathologist: ? Rhys Mcmillan MD ? Specimen: ?Skin, Mid Lower Vermilion Lip ? 10/26/2023 10:21 AM [facility] 3800 DERMATOLOGY FINAL DIAGNOSIS A. Skin, Mid Lower Vermilion Lip, shave: - Lichenoid dermatitis with pigment incontinence, see comment. COMMENT: The histologic differential diagnosis includes lichen planus, lichenoid medication reaction (including fixed drug), lichenoid actinic keratosis, cutaneous manifestation of a connective tissue disorder, and other forms of lichenoid dermatitis. Clinical correlation is advised. 10/26/2023 10:21 AM [facility] 3800 DERMATOLOGY Clinical Information Clinical Impression: actinic cheilitis vs scc 10/26/2023 10:21 AM [facility] 3800 DERMATOLOGY Microscopic Description Microscopic examination is performed. The microscopic findings reveal a band like lymphocytic infiltrate partially obscuring the dermoepidermal junction and associated colloid bodies. Pigment incontinence is evident in the dermis. Focal parakeratosis is evident. The process extends to the sampled tissue margin. 10/26/2023 10:21 AM [facility] 3800 DERMATOLOGY Technical Information A portion of the technical staining was performed at [facility], [address] [place] [address]. The professional interpretation was performed at [facility]. 10/26/2023 10:21 AM CHEESE PANCAKE ROLLER PIPE AND TEST SUPERVISOR 3800 DERMATOLOGY Gross Description A: Received in formalin, labeled with the patient's name and Skin, Mid Lower Vermilion Lip is a 6 x 6 x 1 mm shave biopsy of skin. The specimen is marked with blue ink, bisected, and submitted entirely in one cassette. The tissue fragmented upon sectioning. AM 10/26/2023 10:21 AM CHEESE PANCAKE ROLLER PIPE AND TEST SUPERVISOR 3800 DERMATOLOGY Embedded Images 10/26/2023 10:21 AM CHEESE PANCAKE ROLLER PIPE AND TEST SUPERVISOR 3800 DERMATOLOGY Skin (Skin) 10/14/2023 12:4 6 PM CHEESE PANCAKE ROLLER 10/15/2023 7:06 AM CHEESE PANCAKE ROLLER Comment:Clinical Impression: actinic cheilitis vs scc Mary Shaw MD LAB PATHOLOGY PIPE AND TEST SUPERVISOR 3800 DERMATOLOGY [address] [place] [address], [facility] from Last 3 Months Care Teams Top Executive Relationship Specialty Start Date End Date Found, No Pcp, [address] [place] [address] PCP - General 09/28/23
--- OUTSIDE RECORDS SUMMARY | 2023-12-31 07:06 | XMS_ITS | Encounter Summary ---
Author Name Unknown Organization [facility] Address [address] [address] Care Team Providers Care Rn Anesthetist Name Role Phone Found, No Pcp MD Primary Care Provider Unavailab le Reason for Visit * Reason Comments CANCEL APPOINTMENT Encounter Details Date Type Department Care Team Description 12/01/2023 Telephone [facility] - Dermatology [address] [place], [place] [id number] [place] [address] [place] [id number] CANCEL APPOINTMENT Social History Tobacco Use Types Packs/Day Years Used Date Smoking Tobacco: Never Sex and Gender Information Value Date Recorded Sex Assigned at Not on file Gender Identity Not on file Sexual Orientation Not on file documented as of this encounter Nursing Notes * Mary Shaw MD - 12/02/2023 5:22 PM CST Thank you for the update ERY MACHINE OPERATOR * Yamila Lund LPN - 12/01/2023 3:55 PM CST FYI: Pt called requesting cancellation of upcoming 12/08/23 Ln2 appointment d/t other health issues that have arose and he is trying to get answers for those before further treatment with Derm. Pt informed nurse he will return call and get rescheduled when he is ready but does not know when that will be. ERY MACHINE OPERATOR documented in this encounter Plan of Treatment Not on file documented as of this encounter Visit Diagnoses Not on filedocumented in this encounter Care Teams Rn Anesthetist Relationship Specialty Start Date End Date Found, No Pcp, [address] [place] [address] PCP - General 09/28/23 documented as of this encounter
--- OUTSIDE RECORDS SUMMARY | 2023-12-31 07:06 | XMS_ITS | Continuity of Care Document ---
Author Name Unknown Organization [facility] Address [address] [place] [address] Phone Care Team Providers Care Correction Officer Supervisor Name Role Phone Yifan Benjamin MD Unavailable [...] C, [address], [place], [place], [id number], [place] tel:[phone] [facility] No Information 3 Sourav Saah. [facility], [facility] [address] [place] [address], [address], [facility], [place], [id number] , [place]. [phone] Office/Outpat ient Visit,Est, Mod [facility] C, [address], [place], [id number], [place] tel:[phone] [facility] Arthrodesis status 3 Layo Lima. [facility], [address] [place] [address] [address], [facility] [place], [id number] , [place]. tel:[phone] Referring Provider: Clarence Vasques, [facility] [address] [place] [address] [address], [place], [address] . tel:[phone] Office/Outpat ient Visit,Est, Low [facility] C, [address], [place], [id number], [place] tel:[phone] [facility] Arthrodesis status 1 Layo Lima. [facility], [address], [place], [place], [id number] , [place]. tel: [phone] Referring Provider: Clarence Vasques, [facility] [address], [place], [address] . tel:[phone] Office/Outpat ient Visit,Est, Mod [facility] C, [address], [place], [place], [address], [place] tel:[phone] [facility] Spinal stenosis, cervical region 9 Layo Lima. [facility], [address], [place], [address] , [place]. tel: [phone] Referring Provider: Clarence Vasques, [facility] [address], [place], [address] . tel:[phone] Office/Outpat ient Visit,Est, Mod [facility] C, [address], [place], [address], [place] tel:[phone] [facility] Spinal stenosis, cervical region 7 Layo Lima. [facility], [address], [place], [id number] , [place]. tel: [phone] Referring Provider: Clarence Vasques, [facility] [address], [place], [address] . tel:[phone] Office/Outpat ient Visit,Est, Mod [facility], [address], [place], [id number], [place] tel:[phone] [facility] Spinal stenosis, cervical region 7 Layo Lima. [facility], [address], [place], [address] , [place]. tel: [phone] Referring Provider: Referring Self, [address] [facility] [address], [place], [address]. tel:[phone] [facility], [address], [place], [address], [place] tel:[phone] [facility] - [facility] Spinal stenosis, cervical region 7 Layo Lima. [facility], [address] [place] [address] [address], [place], [id number] , [place]. tel: [phone] Referring Provider: Clarence Vasques, [facility] [address] [place] [address] [address], [place], [address] . tel:[phone] [facility], [address], [place], [id number], [place] tel:[phone] [facility] Spinal stenosis, cervical region 7 Layo Lima. [facility], [address], [place], [address] , [place]. tel: [phone] Referring Provider: Clarence Vasques, [facility] [address], [place], [address] . tel:[phone] [facility], [address], [place], [id number], [place] tel:[phone] [facility] [place] Encounter for other specified surgical aftercare 6 Darrion Romero. [facility], [address], [place], [id number] , [place]. tel: [phone] Referring Provider: Nick Hobbs, [facility] [address] [place] [address] [address], [place], [address] . tel:[phone] [facility], [address], [place], [id number], [place] tel:[phone] [facility] No Information 6 Layo Lima. [facility], [address], [place], [place], [address] , [place]. tel:[phone] Referring Provider: Clarence Vasques, [facility] [address], [place], [address] . tel:[phone] Family History Family Member Type Diagnosis Age At Onset No Information Payers Payer name Insurance type Covered green party ID Josafat mora(s) Medicare [id number] [facility] [id number] [facility] [id number] Social History Type Description Quantity Date Captured [...] Weight Management Education Rela mary to Overweight Assessments Type Assessment Date No Information Patient Care Teams Name Effective Dates (start - stop) Status Members No Information
--- OUTSIDE RECORDS SUMMARY | 2023-12-31 07:06 | XMS_ITS | Encounter Summary ---
Author Name Unknown Organization [facility] Address [address], [place] [address] Care Team Providers Care Plasterer Stucco Name Role Phone Found, No Pcp MD Primary Care Provider Unavailab le Reason for Visit * Reason Comments SKIN LESION Encounter Details Date Type Department Care Team Description 10/14/2023 11:45 AM ORGANIZATIONAL DEVELOPMENT MANAGER Office Visit [facility] - Dermatology [address] [place], [place] [id number] [place] [address] [place] [address] [phone] Neoplasm of skin (HRC) (Primary Dx); Actinic cheilitis Social History Tobacco Use Types Packs/Day Years Used Date Smoking Tobacco: Never Sex and Gender Information Value Date Recorded Sex Assigned at Not on file Gender Identity Not on file Sexual Orientation Not on file documented as of this encounter Patient Instructions * Patient Instructions* Yamila Lund LPN - 10/14/2023 11:45 AM ORGANIZATIONAL DEVELOPMENT MANAGER Care Instructions after a shave skin biopsy/removal [...] report will be released automatically to your [employer] account. If you don't have an active [employer] account, your care team will contact you [...] results within 2 weeks, please call us. NIZATIONAL DEVELOPMENT MANAGER documented in this encounter Progress Notes * [...] up . RTC 3 weeks liquid N2 NIZATIONAL DEVELOPMENT MANAGER * Mary Shaw MD - 10/14/2023 12:00 AM CST NAME: SURINDER GOETZ CSN: [id number] CLINIC NOTE DATE OF SERVICE: 10/14/2023 : [...] actinic cheilitis vs scc MD BOB ROBISON/ANDRESSA /[id number] NIZATIONAL DEVELOPMENT MANAGER documented in this encounter Plan of Treatment Not on file documented as of this encounter Procedures Procedure Name Priority Date/Time Associated Diagnosis Comments SKIN BIOPSY Routine 10/14/2023 12:46 PM ORGANIZATIONAL DEVELOPMENT MANAGER Neoplasm of skin (HRC) SURGICAL PATHOLOGY, DERMATOLOGY Routine 10/14/2023 12:46 PM ORGANIZATIONAL DEVELOPMENT MANAGER Neoplasm of skin (HRC) documented in this encounter Results * Skin Biopsy (No CPT) (10/14/2023 12:46 PM ORGANIZATIONAL DEVELOPMENT MANAGER) Narrative EXTERNAL RESULTS - 10/14/2023 12:46 PM ORGANIZATIONAL DEVELOPMENT MANAGER Type of biopsy: tangential ?? Informed consent: [...] * Surgical Path, Dermatology (10/14/2023 12:46 PM ORGANIZATIONAL DEVELOPMENT MANAGER) Case Report Surgical Pathology Report ? Case: [id number] ? Authorizing Provider: ??Mary Shaw MD ?Collected: ? 10/14/2023 1246 ? Ordering Location: ? [facility] ??Received: ?10/15/2023 0706 ? Center - Dermatology ? Pathologist: ? Rhys Mcmillan MD ? Specimen: ?Skin, Mid Lower Vermilion Lip ? 10/26/2023 10:21 AM ORGANIZATIONAL DEVELOPMENT MANAGER CASKET COVERER 3800 DERMATOLOGY FINAL DIAGNOSIS A. Skin, Mid Lower Vermilion Lip, shave: - Lichenoid dermatitis with pigment incontinence, see comment. COMMENT: The histologic differential diagnosis includes lichen planus, lichenoid medication reaction (including fixed drug), lichenoid actinic keratosis, cutaneous manifestation of a connective tissue disorder, and other forms of lichenoid dermatitis. Clinical correlation is advised. 10/26/2023 10:21 AM ORGANIZATIONAL DEVELOPMENT MANAGER CASKET COVERER 3800 DERMATOLOGY Clinical Information Clinical Impression: actinic cheilitis vs scc 10/26/2023 10:21 AM [facility] 3800 DERMATOLOGY Microscopic Description Microscopic examination is performed. The microscopic findings reveal a band like lymphocytic infiltrate partially obscuring the dermoepidermal junction and associated colloid bodies. Pigment incontinence is evident in the dermis. Focal parakeratosis is evident. The process extends to the sampled tissue margin. 10/26/2023 10:21 AM [facility] 3800 DERMATOLOGY Technical Information A portion of the technical staining was performed at [facility], [address] [place] [address]. The professional interpretation was performed at [facility]. 10/26/2023 10:21 AM [facility] 3800 DERMATOLOGY Gross Description A: Received in formalin, labeled with the patient's name and Skin, Mid Lower Vermilion Lip is a 6 x 6 x 1 mm shave biopsy of skin. The specimen is marked with blue ink, bisected, and submitted entirely in one cassette. The tissue fragmented upon sectioning. AM 10/26/2023 10:21 AM [facility] 3800 DERMATOLOGY Embedded Images 10/26/2023 10:21 AM [facility] 3800 DERMATOLOGY Skin (Skin) 10/14/2023 12:4 6 PM ORGANIZATIONAL DEVELOPMENT MANAGER 10/15/2023 7:06 AM ORGANIZATIONAL DEVELOPMENT MANAGER Comment:Clinical Impression: actinic cheilitis vs scc Mary Shaw MD LAB PATHOLOGY Performing Organization Address City/State/[facility] Co de Phone Number [facility] [address] [place] [address], [facility] documented in this encounter Visit Diagnoses Diagnosis Neoplasm of skin (HRC)- Primary Neoplasm of unspecified nature of bone, soft tissue, and skin Actinic cheilitis Acute dermatitis due to solar radiation documented in this encounter Care Teams Plasterer Stucco Relationship Specialty Start Date End Date Found, No Pcp, [address] [place] [address] PCP - General 09/28/23 documented as of this encounter
--- OUTSIDE RECORDS SUMMARY | 2023-12-31 07:06 | XMS_ITS | Encounter Summary ---
Author Name Unknown Organization [facility] Address [address], [place] [address] Care Team Providers Care Cloud Physicist Name Role Phone Found, No Pcp MD Primary Care Provider Unavailab le Reason for Visit * Reason Comments SKIN LESION Encounter Details Date Type Department Care Team Description 09/27/2023 Telephone [facility] - Derm[facility]ology [address] [place] [address] [place] [address] [place] [id number] SKIN LESION Social History Tobacco Use Types [...] [facility] * Yamila Lund LPN - 09/27/2023 4:17 PM CDT [facility] [phone] as VM informed JTL ok spot check that was referred by dentist pigmented lesion on lip. documented in this encounter Plan of Treatment Not on file documented as of this encounter Visit Diagnoses Not on filedocumented in this encounter Care Teams Cloud Physicist Relationship Specialty Start Date End Date Found, No Pcp, [address] [place] [address] PCP - General 09/28/23 documented as of this encounter
== END 2023-12-30 11:26 | disposition home or self-care (01) ==
LOC: NFLDREF 12-31 07:03
PROVIDERS: PCP Family Medicine; Referring Provider Family Medicine; Visit Provider Family Medicine
DX: N40.0 Benign prostatic hyperplasia without lower urinary tract symptoms (principal)
CPT/HCPCS: 84153

== ENCOUNTER 2024-01-27 09:12 | Outpatient (CLI) | payer MEDICARE, BC, SELFPAY ==
--- NOTE | 2024-01-27 10:00 | PE_ITS ---
[facility] [address] [facility] [address] Phone:?[phone] Fax:?[phone] Referring Physician Information: Kang Mcgee M.D. [address] [facility] [address] Phone:?[phone] Fax:?[phone] Patient:?Sandeep Crooks D.O.B:?1955 Sex:?Male Phone:?[phone] [facility] MRN:?[id number] Exam Date:?01/27/2024 EXAM:?PET/CT WHOLE BODY, CANCER INITIAL STAGING CLINICAL INFORMATION: Bone mass TECHNICAL INFORMATION: Helical acquisition of data was obtained from the vertex to the toes with reconstruction of 3.75 mm thick images at 3.[address] data was used for attenuation correction. PET scanning was performed through the same anatomic range 60 minutes following administration of 12.6 mCi of 18-FDG delivered intravenously. The patient's glucose at the time of the injection was 137 mg/dL. PET, CT and PET/CT fusion images are interpreted using a computer viewing workstation. PET, CT and PET/CT fusion images were archived and saved in the patient's permanent medical record. COMPARISON: CT pelvis 11/01/2023 INTERPRETATION: Head and Neck: There are no abnormal hypermetabolic foci within the head or neck. There is physiologic uptake in the intracranial soft tissues. Posterior fixation hardware in the cervical spine. Chest: There are no abnormal hypermetabolic foci within the chest. A 5 mm nodule in the right lower lobe (image 172). A 3 mm nodule in the left lower lobe (image 153). A 5 mm nodule in the right upper lobe (image 144). No lymphadenopathy detected. Coronary artery atherosclerosis. Abdomen and Pelvis: Average background liver parenchymal uptake of 2.3 SUV. There are no abnormal hypermetabolic foci within the abdomen or pelvis. There is physiologic excretion of radiotracer in the urine and bowel. Skeleton, Musculature, and Integument: Redemonstrated sclerotic lesion in the right posterior iliac bone measuring 2.6 x 1.7 cm. Minimal radiotracer uptake with an SUV max of 2.73. A few small sclerotic foci in the pelvis are too small to evaluate. CONCLUSION: * A sclerotic lesion in the right posterior iliac bone which appears stable from the prior exams. There is minimal radiotracer uptake in the lesion which remains nonspecific but is favored to be benign. Correlate with pathology results. Consider follow-up with CT or MRI pelvis in 3-6 months. * A few lung nodules measuring up to 5 mm. Consider follow-up CT chest in one year. Electronically signed on 01/28/2024 4:19:00 PM by Demond Chacon D.O
== END 2024-01-27 09:13 | disposition home or self-care (01) ==
PROVIDERS: PCP Family Medicine; Visit Provider Family Medicine
DX: D48.0 Neoplasm of uncertain behavior of bone and articular cartilage (principal); R91.8 Other nonspecific abnormal finding of lung field
CPT/HCPCS: 78816; A9552

== ENCOUNTER 2024-02-02 09:07 | Outpatient (RCR) | payer MEDICARE, BC, SELFPAY | END 2024-07-31 23:59 | disposition home or self-care (01) | LOC: CCIC 09:07 | PROVIDERS: PCP Family Medicine; Visit Provider Internal Medicine Hematology & Oncology | DX: M89.9 Disorder of bone, unspecified (principal) | CPT/HCPCS: 99202; 99204 ==

== ENCOUNTER 2024-02-27 18:47 | Emergency (ER) | payer MEDICARE, BC, SELFPAY ==
[2024-02-27] VITALS (7 sets, daily range): BP systolic 158–180; BP diastolic 80–91; PULSE 77–88; RESP 12–14; TEMP 37.1; O2SAT 96–98; BMI 37.0
--- NOTE | 2024-02-27 | CT_ITS ---
Patient: SURINDER GOETZ Facility:?[facility] Patient ID:?[id number] Site Patient ID:?[id number]. Site :?1955 Study:?CT-Head STROKE PROTOCOL-02/27/2024 6:58:43 PM Ordering Physician:Ryan Martin Final Report: INDICATION: FACIAL DROOP, STROKE CT HEAD WITHOUT CONTRAST TECHNIQUE: Multiple axial CT images were performed through the head without intravenous contrast administration. COMPARISON: No previous studies are currently available for comparison. FINDINGS: No acute intracranial hemorrhage is identified. No extra-axial collections are evident and there is no mass effect or midline shift. There is mild diffuse age-related brain atrophy. Ventricular size and configuration are within normal limits for the patient`s age. Jauregui-white differentiation is within normal limits. There is very mild patchy hypodensity in the periventricular white matter, a nonspecific finding which most likely reflects chronic small vessel ischemic change. Mild intracranial atherosclerotic vascular calcifications are noted. Osseous structures are within normal limits and no fractures are seen. Included portions of the paranasal sinuses and mastoid air cells are normally aerated. IMPRESSION: 1. No acute intracranial abnormality identified. 2. Mild age-related brain atrophy, white matter hypodensity consistent with chronic small vessel ischemic change, and intracranial atherosclerotic vascular calcifications. BRANDAN MENDEZ MD [facility] Please note that all CT scans at this facility use dose modulation, iterative reconstruction, and/or weight-based dosing when appropriate to reduce radiation dose to as low as reasonably achievable. Dictated by: Betito Mendez MD @ 02/27/2024 19:07:17 Signed by:?Betito Mendez MD @02/27/2024 7:07:17 PM (Electronic Signature)
--- NOTE | 2024-02-27 18:57 | ED.NEUROSD ---
HPI - Neuro Symptoms/Deficit General Time Seen by Provider: 18:57 Date Seen: 02/27/24 Chief Complaint: Neuro Symptoms/Altered Deficit Stated Complaint: right facial droop Time Seen by Provider: 02/27/24 18:57 Source: patient and RN notes reviewed Mode of arrival: ambulatory Limitations: no limitations History of Present Illness HPI Narrative: Patient is a 68-year-old male coming in ambulatory accompanied by his with concern of possible stroke. He noted Wednesday night maybe a little drooping of the right corner of his mouth, noted tearing of his right eye. 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 He has progressed to have full right facial droop being, continue tearing of his eye. He did complain of a little pain in his jaw. No numbness tingling. His speech is normal, has not noted any loss of taste. No involvement of his right arm or leg. He is diabetic. Stroke code was called by staff on patient's arrival P Related Data Home Medications Medication Instructions Recorded Confirmed ascorbic acid (vitamin C) 1,000 mg 1,000 mg PO QDAY 07/06/22 02/03/24 tablet,extended release aspirin 81 mg tablet,delayed 81 mg PO QDAY 07/06/22 02/03/24 release Previous Rx's Medication Instructions Recorded flash glucose scanning reader #2 ea 01/28/23 (FreeStyle Vishal 2 [place]) flash glucose sensor (FreeStyle #6 ea 01/28/23 Vishal 14 Day Sensor kit) amlodipine 10 mg tablet 10 mg PO DAILY #90 tabs 08/05/23 hydrochlorothiazide 25 mg tablet 25 mg PO DAILY #90 tabs 08/05/23 insulin glargine 100 unit/mL (3 15 unit (0.15 mL) subcut QPM #15 mL 08/05/23 mL) subcutaneous pen (Lantus Solostar U-100 Insulin) lisinopril 40 mg tablet 40 mg PO DAILY #90 tabs 08/05/23 metformin 500 mg tablet,extended 1,500 mg (3 x 500 mg) PO DAILY 08/05/23 release 24 hr #270 tabs simvastatin 20 mg tablet 20 mg PO DAILY #90 tabs 08/05/23 tamsulosin 0.4 mg capsule 0.4 mg PO QDAY #90 caps 09/07/23 semaglutide 1 mg/dose (2 mg/1.5 1 mg (0.75 mL) subcut QWEEK #3 mL 01/11/24 mL) subcutaneous pen injector pen needle, diabetic 32 gauge x #100 ea 02/03/24 (Ultra Thin Pen Needle) semaglutide 2 mg/dose (8 mg/3 mL) 2 mg (0.75 mL) subcut QWEEK #3 mL 02/03/24 subcutaneous pen injector (Ozempic) valacyclovir 1 gram tablet 1,000 mg PO TID #20 tabs 02/27/24 Allergies Allergy/AdvReac Type Severity Reaction Status Date / Time No Known Drug Allergies Allergy Verified 02/03/24 09:07 Review of Systems Status of ROS: Reports: 6 or more systems reviewed and unremarkable except as noted in History and below PFSH [facility] Medical History Back pain ?M54.9 - Dorsalgia, unspecified (ICD-10) Diabetes type 2, controlled ?E11.9 - Type 2 diabetes mellitus without complications (ICD-10) Cough in adult ?R05.9 - Cough, unspecified (ICD-10) BPH (benign prostatic hyperplasia) ?N40.0 - Benign prostatic hyperplasia without lower urinary tract symptoms (ICD-10) Hypercholesterolemia ?E78.00 - Pure hypercholesterolemia, unspecified (ICD-10) HTN (hypertension) ?I10 - Essential (primary) hypertension (ICD-10) Diabetes mellitus type 2 with ketoacidosis, uncontrolled ?E11.10 - Type 2 diabetes mellitus with ketoacidosis without coma (ICD-10) Diabetes type 2, uncontrolled Social History Smoking Status: Former smoker What tobacco products do you use: cigarettes Smoking quit date/years: >15 years ago Do you use any of these nicotine containing products: None Second hand tobacco smoke exposure: No How often do you have a drink containing alcohol: never How often do you have six or more drinks on one occasion: Never AUDIT-C Alcohol total score: 0 Non-prescribed substance use: denies use Little interest or pleasure in doing things: not at all Feeling down, depressed, or hopeless: not at all Exam Const: Vital Signs, click to edit/add: Vital Signs - 24 hr 02/27/24 18:48 02/27/24 18:51 Temperature 98.7 F Pulse Rate [Pulse Oximeter] 88 Respiratory Rate 14 Blood Pressure [Le ft Upper Arm] 180/91 H Pulse Oximetry 98 98 Oxygen Delivery Me thod Room Air Patient is ambulatory into the ED of his own accord, gait is normal. Pupils are equal round reactive, sclera clear, extraocular muscles intact, no nystagmus. He can raise his eyebrows, right eyelid actually looks a little ptotic compared to the left but he absolutely is not blinking with his right eyelid. He has complete loss of right lower facial motor control with full drooping of the corner of his mouth. Oropharynx is normal. Neck is supple, no adenopathy. External ears and right ear canal, right tympanic membrane normal, no evidence of any vesicles. Lungs are clear, good air entry. CV regular rate and rhythm, no murmur. Strength is 5/5 and symmetric no dysmetria, normal sensation. No deficit neurologically noted in his extremities. Documenting provider has reviewed patient's vital signs: yes Course Course ED Course: His is extensively concerned that this is a stroke. Will have him do noncontrast head CT while I talk to Neurology. He does not have complete upper facial involvement and do want to confirm with Neurology. We will have him on cardiac monitoring, pulse oximetry, obtain EKG. Reevaluation(s) Time of Reevaluation #1: 19:15 Reevaluation #1: Have reviewed with him that this certainly fits with Jha's palsy, have discussed with Neurology. He and I discussed treatment steroids, would have him do Valtrex just to ensure that we are giving all potential treatment that we can. He does have dense lower facial paralysis. He is aware that he will need to monitor sugars, follow his diabetes closely. Consultations Consultation #1: Did speak with Dr. Sales from Neurology. Did review that we had a negative head CT but did not have the patient go for CTA as I was suspecting Jha's palsy. Reviewed the neurologic exam, he states that this is Jha's palsy, the lack blinking does confirm the upper facial involvement. He would recommend that the patient have an MRI of his brain and brainstem with and without contrast outpatient just to look for lesions within the cranial nerve. Otherwise treatment as we would for Jha's palsy. Time: 19:01 Vital Signs Vital signs: Initial Vital Signs Temperature 98.7 F 02/27/24 18:48 Temperature Source Temporal Artery Scan 02/27/24 18:48 Pulse Rate 88 02/27/24 18:48 Pulse Rhythm Regular 02/27/24 18:48 Respiratory Rate 14 02/27/24 18:48 Blood Pressure 180/91 H 02/27/24 18:48 Blood Pressure Mean 120 H 02/27/24 18:48 Blood Pressure Position Supine 02/27/24 18:48 Pulse Oximetry 98 02/27/24 18:48 Oxygen Delivery Method Room Air 02/27/24 18:48 Vital Signs Temperature 98.7 F 02/27/24 18:48 Pulse Rate 88 02/27/24 18:48 Respiratory Rate 14 02/27/24 18:48 Blood Pressure 180/91 H 02/27/24 18:48 Pulse Oximetry 98 02/27/24 18:48 Oxygen Delivery Method Room Air 02/27/24 18:48 Temperature 98.7 F 02/27/24 18:48 Pulse Rate 88 02/27/24 18:48 Respiratory Rate 14 02/27/24 18:48 Blood Pressure 180/91 H 02/27/24 18:48 Pulse Oximetry 98 02/27/24 18:51 Oxygen Delivery Method Room Air 02/27/24 18:48 MDM - Neuro Symptoms/Deficit Imaging Data CT scan - head: Attestation: I have reviewed the pertinent imaging results. Radiologist's impression: Patient: SURINDER GOETZ Facility:?[facility] Patient ID:?[id number] Site Patient ID:?[id number]. Site :?[id number] Study:?CT Head STROKE PROTOCOL-02/27/2024 6:58:43 PM Ordering Physician:?Osiris Martin Final Report: INDICATION: FACIAL DROOP, STROKE CT HEAD WITHOUT CONTRAST TECHNIQUE: Multiple axial CT images were performed through the head without intravenous contrast administration. COMPARISON: No previous studies are currently available for comparison. FINDINGS: No acute intracranial hemorrhage is identified. No extra-axial collections are evident and there is no mass effect or midline shift. There is mild diffuse age-related brain atrophy. Ventricular size and configuration are within normal limits for the patient`s age. Jauregui-white differentiation is within normal limits. There is very mild patchy hypodensity in the periventricular white matter, a nonspecific finding which most likely reflects chronic small vessel ischemic change. Mild intracranial atherosclerotic vascular calcifications are noted. Osseous structures are within normal limits and no fractures are seen. Included portions of the paranasal sinuses and mastoid air cells are normally aerated. IMPRESSION: 1. No acute intracranial abnormality identified. 2. Mild age-related brain atrophy, white matter hypodensity consistent with chronic small vessel ischemic change, and intracranial atherosclerotic vascular calcifications. BRANDAN MENDEZ MD [facility] Please note that all CT scans at this facility use dose modulation, iterative reconstruction, and/or weight-based dosing when appropriate to reduce radiation dose to as low as reasonably achievable. Dictated by: Betito Mendez MD @ 02/27/2024 19:07:17 (Electronic Signature) ECG Data Attestation: I personally reviewed and interpreted this ECG as follows: (Sinus rhythm with first-degree AV block, 78 beats per minute. No active ischemia on a or infarct noted. QT corrected is 467 milliseconds.) ECG interpretation date: 02/27/24 ECG interpretation time: 19:30 Discharge Plan Discharge Clinical Impression: Right-sided Jha's palsy Patient Disposition: Home, Self-Care Condition: Stable Instructions: Jha Palsy (ED) Additional Instructions: Start prednisone tonight, 60 mg daily for 7 days. You will need to monitor your diabetes and follow-up with your primary care provider if you need further assistance with regulation during prednisone use. Next dose of Valtrex due tomorrow morning, take as prescribed. The neurologist has recommended that you have an MRI of your brain and brainstem with and without IV contrast on an outpatient basis to ensure no lesions of the cranial nerve given that you are having recurrent Jha's palsy. Use eye lubrication hourly until I symptoms are improving, may need to use paper tape to tape her eye shut at night if your eye is not closing. Follow-up with primary care provider in clinic for recheck within the next week. May need referral to ENT if ongoing or worsening symptoms of Jha's palsy. Activity Level: Activity as Tolerated Prescriptions: New valacyclovir 1 gram tablet 1,000 mg PO TID Qty: 20 0RF No Action (DME) FreeStyle Vishal 2 [place] Misc See Rx Instructions .Route Qty: 2 12RF Rx Instructions: As directed (DME) FreeStyle Vishal 14 Day Sensor Kit See Rx Instructions .Route Qty: 6 12RF Rx Instructions: As directed metformin 500 mg tablet extended release 24 hr 1,500 mg PO DAILY Qty: 270 3RF insulin glargine [Lantus Solostar U-100 Insulin] 100 unit/mL (3 mL) insulin pen 15 unit subcut QPM Qty: 15 6RF hydrochlorothiazide 25 mg tablet 25 mg PO DAILY Qty: 90 3RF amlodipine 10 mg tablet 10 mg PO DAILY Qty: 90 3RF lisinopril 40 mg tablet 40 mg PO DAILY Qty: 90 3RF simvastatin 20 mg tablet 20 mg PO DAILY Qty: 90 3RF tamsulosin 0.4 mg capsule 0.4 mg PO QDAY Qty: 90 3RF Ozempic 2 mg/dose (8 mg/3 mL) pen injector 2 mg subcut QWEEK Qty: 3 5RF (DME) pen needle, diabetic [Ultra Thin Pen Needle] 32 gauge x 5/32 needle See Rx Instructions .Route Qty: 100 3RF Rx Instructions: qd aspirin 81 mg tablet,delayed release (DR/EC) 81 mg PO QDAY ascorbic acid (vitamin C) 1,000 mg tablet extended release 1,000 mg PO QDAY semaglutide 1 mg/dose (2 mg/1.5 mL) pen injector 1 mg subcut QWEEK Qty: 3 1RF Follow Up/Referrals: Kang Mcgee MD [Primary Care Provider] - Stand Alone Forms: [facility] Inst[facility]
[2024-02-27] MEDS: VALACYCLOVIR HCL 500 MG TABLET 1000 MG PO (19:41)
== END 2024-02-27 19:45 | disposition home or self-care (01) ==
PROVIDERS: Emergency Provider Family Medicine; PCP Family Medicine
DX: G51.0 Bell's palsy (principal)
CPT/HCPCS: 36415; 70450; 80053; 85025; 85610; 85730; 93005; 94761; 99284; 99285; A9270

== ENCOUNTER 2024-03-08 10:02 | Outpatient (CLI) | payer MEDICARE, BC, SELFPAY ==
--- OUTSIDE RECORDS SUMMARY | 2024-03-08 10:14 | XMS_ITS | Encounter Summary ---
Author Name Unknown Organization [facility] Address [address], [place] [address] Care Team Providers Care Aboriginal Community Council Member Name Role Phone Found, No Pcp MD Primary Care Provider Unavailab le Reason for Visit * Reason Comments CANCEL APPOINTMENT Encounter Details Date Type Department Care Team (Late st Contact Info) Description 12/01/2023 Telephone [facility] - Dermatology [address] [place], [place] [phone] [place] [address] [place] [id number] CANCEL APPOINTMENT Social History Tobacco Use Types Packs/Day Years Used Date Smoking Tobacco: Never Sex and Gender Information Value Date Recorded Sex Assigned at Not on file Gender Identity Not on file Sexual Orientation Not on file documented as of this encounter Nursing Notes * Mary Shaw MD - 12/02/2023 5:22 PM CST Thank you for the update [employer] * Yamila Lund LPN - 12/01/2023 3:55 PM CST FYI: Pt called requesting cancellation of upcoming 12/08/23 [address] appointment d/t other health issues that have arose and he is trying to get answers for those before further treatment with Derm. Pt informed nurse he will return call and get rescheduled when he is ready but does not know when that will be. [place] [place] documented in this encounter Plan of Treatment Not on file documented as of this encounter Visit Diagnoses Not on filedocumented in this encounter Care Teams Aboriginal Community Council Member Relationship Specialty Start Date End Date Found, No Pcp, [address] [place] [address] PCP - General 09/28/23 documented as of this encounter
--- OUTSIDE RECORDS SUMMARY | 2024-03-08 10:14 | XMS_ITS | Referral Summary ---
Author Name Unknown Organization [facility] Address [address] [place] [address] Care Team Providers Care Toll Line Repairer Name Role Phone Unavailable Primary Care Provider Unavailabl e Allergies No known active allergies Medications Medication Sig Dispensed Refills Start Date End Date Status ORDER FOR DMEIndications:HTN (hypertension) Equipment being ordered: Blood pressure monitor 1 each 0 11/03/2012 Active aspirin 81 MG tablet Take 1 tablet by mouth daily Active simvastatin (ZOCOR) 20 MG tabletIndications:Hyp erlipidemia [...] 1 tablet (5 mg) by mouth daily 09/27/2015 Active Active Problems Problem Noted Date [...] Date Smoking Tobacco: Former Cigarettes 1 35 1 01/07/1972 - 11/06/2007 Smokeless Tobacco: Never Alcohol Use Standard [...] CDT Plan of Treatment Not on file Procedures Procedure Name Priority Date/Time Associated Diagnosis Comments COMPREHENSIVE METABOLIC PANEL Routine 03/28/2014 10:11 AM CDT Routine general medical examination at a health care facility LIPID REFLEX TO DIRECT LDL PANEL Routine 03/28/2014 10:11 AM CDT Routine general medical examination at a health care facility COLONOSCOPY Routine 08/27/2008 9:40 AM CDT from Last 3 Months or Most Recently Relevant to Health Maintenance Results * (ABNORMAL) Lipid panel reflex to direct LDL (03/28/2014 10:11 AM CDT) Cholesterol 158 <200 mg/dL [facility] Comment: LDL Cholesterol is the primary guide to therapy. The NCEP recommends further evaluation of: patients with cholesterol greater than 200 mg/dL if additional risk factors are present, cholesterol greater than 240 mg/dL, triglycerides greater than 150 mg/dL, or HDL less than 40 mg/dL. Triglycerides 95 0 - 150 mg/dL [facility] HDL Cholesterol 31(L) >40 mg/dL [facility] LDL Cholesterol Calculated 107 0 - 129 mg/dL [facility] Comment: LDL Cholesterol is the primary guide to therapy: LDL-cholesterol goal in high risk patients is <100 mg/dL and in very high risk patients is <70 mg/dL. VLDL-Cholesterol 19 0 - 30 mg/dL [facility] Cholesterol/HDL Ratio 5.0 0.0 - 5.0 [facility] Blood specimen (specimen) 03/28/2014 10:11 AM CDT 03/28/2014 10:12 AM CDT Nimesh Jo MD LAB - BLOOD ORD ERABLES [facility] [address] [id number] * Comprehensive metabolic panel (03/28/2014 10:11 AM CDT) Sodium 143 133 - 144 mmol/L [facility] Potassium 4.4 3.4 - 5.3 mmol/L [facility] Chloride 104 94 - 109 mmol/L [facility] Carbon Dioxide 25 20 - 32 mmol/L [facility] Anion Gap 14 6 - 17 mmol/L [facility] Glucose 98 60 - 99 mg/dL [facility] Comment:Fasting specimen Urea Nitrogen 15 7 - 30 mg/dL [facility] Creatinine 0.82 0.66 - 1.25 mg/dL [facility] GFR Estimate >90 >60 mL/min/1.7 m2 [facility] GFR Estimate If Black >90 >60 mL/min/1.7 m2 [facility] Calcium 9.1 8.5 - 10.4 mg/dL [facility] Bilirubin Total 0.6 0.2 - 1.3 mg/dL [facility] Albumin 4.2 3.3 - 4.9 g/dL [facility] Comment:Reference range huang ged on 08/21/2008. Protein Total 7.5 6.8 - 8.8 g/dL [facility] Comment:As of 08, refer ence range reflects plasma specimen type. Alkaline Phosphatase 68 40 - 150 U/L [facility] ALT 57 0 - 70 U/L [facility] AST 37 0 - 45 U/L [facility] Blood specimen (specimen) 03/28/2014 10:11 AM CDT 03/28/2014 10:12 AM CDT Nimesh Jo MD LAB - BLOOD ORD ERABLES [facility] [address], [place] [id number] * COLONOSCOPY (08/27/2008 9:40 AM CDT) COLONOSCOPY Endoscopy Patient Name: Sandeep Crooks ?Gender: M ? Procedure Date: 08/27/2008 9:40 AM ? Date of : 1955 ?Age: 52 ? Admit Type: Outpatient ? Attending MD: Tian Juarez MD ? Procedure: ? Colonoscopy Indications: ? Average risk screening for malignant neoplasm in the ? colon Providers: ? Tian Juarez MD Referring MD: ?Nimesh Jo MD Medicines: ? Fentanyl 100 micrograms IV, Midazolam 2 mg IV, [...] alert and oriented. Airway Examination: ? normal oropharyngeal airway and neck mobility. ? Respiratory Examination: clear to auscultation. CV ? Examination: normal. ASA Grade Assessment: II - A ? patient with mild systemic disease. After reviewing the ? risks and benefits, the patient was deemed in ? satisfactory condition to undergo the procedure. The ? anesthesia plan was to use moderate sedation / analgesia ? (conscious sedation). Immediately prior to ? administration of medications, the patient was ? re-assessed for adequacy to receive sedatives. The heart ? rate, respiratory rate, oxygen saturations, blood ? pressure, adequacy of pulmonary ventilation, and ? response to care were monitored throughout the ? procedure. The physical status of the patient was ? re-assessed after the procedure. ? After obtaining informed consent, the colonoscope was ? passed under direct vision. Throughout the procedure, ? the patient's blood pressure, pulse, and oxygen ? saturations were monitored continuously. The [id number] ? #[id number] was introduced through the anus and advanced to ? the cecum, identified by appendiceal orifice & IC valve. ? The colonoscopy was performed without difficulty. The ? patient tolerated the procedure well. The quality of the ? prep was good. ? Findings: ? The digital rectal exam was normal. The rectum, sigmoid colon, ? descending colon, splenic flexure, transverse colon, hepatic flexure, ? ascending colon, cecum and ileocecal valve appeared normal. The ? retroflexed view of the anal verge was normal and showed no anal or ? rectal abnormalities. ? Impression: ?- The rectum, sigmoid colon, descending colon, splenic ? flexure, transverse colon, hepatic flexure, ascending ? colon, cecum and ileocecal valve are normal. Recommendation: ?- Discharge patient to home (ambulatory). ? - Collect Hemoccults on three spontaneously passed ? stools annually. ? - Flexible Sigmoidoscopy in 3 years. ? - Return to primary care physician PRN. ? R Ann Jerry Tian Juarez MD Signed Date: 08/27/2008 9:54 AM Number of Addenda: 0 I was physically present for the entire viewing portion of the exam. Note initiated on 08/27/2008 9:38 AM RADIOLOGY RESULTS COLONOSCOPY RADIOLOG Y RESULTS 08/27/2008 9:40 AM CDT Nimesh Jo MD PROCEDURES RADIOLOGY RESULTS from Last 3 Months or Most Recently Relevant to Health Maintenance
--- OUTSIDE RECORDS SUMMARY | 2024-03-08 10:14 | XMS_ITS | Data Portability ---
Author Name Unknown Address [address] [place] [address] Phone [phone] Organization [facility], [facility] Address [address] [place] [address] Assessment Encounter Date Assessment Date Assessment LastModified [...] Orders tamsulosin 0.4 mg capsule 2020 021 [facility] [address], [address] [place], [address], 11:59:16 Patient TargetsNo targets recorded. Patient Instructions Encounter Date Encounter Id Patient Instructions Last Modified By Organization Details Last Modified Time 06/18/2020 [id number] RTC 6-12 MO. PVR , U/A. Not available 06/18/2020 17:59:27 Reason for Referral None Reported. Results Created Date Observation Date Name Description Value Unit Range Abnormal Flag LastModifiedBy Organization Detail LastModifiedTime 07/03/2021 urina lysis , dipst ick Color-Status Yellow Not Available [facility] [address], [place], [address], 07/03/2021 11:56:06 07/03/2021 urina lysis , dipst ick Clarity-Stat us Clear Not Available [facility] [address], [place], [address], 07/03/2021 11:56:06 07/03/2021 urina lysis , dipst ick Leuko-Status Modera te Not Available [facility] [address], [place], [address], 07/03/2021 11:56:06 06/18/20 20 06/18/2020 urina lysis , dipst ick Nitrates-Sta tus negati ve Not Available [facility] [address], [place], [address], 06/18/2020 16:49:23 06/18/20 20 06/18/2020 urina lysis , dipst ick Blood-Status Negati ve Not Available [facility] [address], [place], [address], 06/18/2020 16:49:23 06/18/20 20 06/18/2020 urina lysis , dipst ick Leuko-Status Trace Not Available [facility] [address], [place], [address], 06/18/2020 16:49:23 06/18/20 20 06/18/2020 urina lysis , dipst ick Specimen Type Voided Not Available [facility] [address], [place], [address], 06/18/2020 16:49:23 06/19/20 20 06/18/2020 bladd er scan (PROC ) No observ ation record ed. BARCODE Not Available 06/19/2020 12:05:39 07/03/20 21 07/03/2021 bladd er scan (PROC ) No observ ation record ed. BARCODE Not Available 07/03/2021 16:34:54 12/31/19 22 12/31/2021 US, karenot um No observ ation record ed. [facility] (Radiology) [address], [place], [address], 01/06/2022 14:01:54 Result Notes None recorded. Problems Name Status Onset Date Resolution Date Notes Provider Name and Address Organization Details Recorded Time Benign prostatic hyperplasia Active 06/18/20 Sushil mcneal [facility] 06/18/2020 16:36:18 Phimosis Active 06/18/20 Sushil mcneal [facility] 06/18/2020 16:36:23 Problem Notes None recorded. Procedures Surgical History Date Name Laterality Status Provider Name and Address Organization Details Recorded Time Bladder Scan completed Willie Buckner MD [address] [place] [address],[address], [place], [address], [facility] 07/03/2021 11:59:10 0 Bladder Scan completed Sushil Elinor mcneal [facility] 06/18/2020 16:46:59 Cataract Surgery completed Sushilramesh mcneal [facility] 06/18/2020 16:33:10 cervical arthrodesis completed Sushil mcneal [facility] 06/18/2020 16:34:29 procedure on wrist completed Sushil mcneal [facility] 06/18/2020 16:34:51 Imaging Results Imaging Date Name Status LastModified by Organiz ation Details LastModified Time 06/18/2020 bladder scan (PROC) completed BARCODE Information not available 06/19/2020 12:05:39 07/03/2021 bladder scan (PROC) completed BARCODE Information not available 07/03/2021 16:34:54 12/31/2021 US, scrotum completed [facility] (Radiology) [address], [place], [address], 01/06/2022 14:01:54 Procedure Notes None recorded. Medical [...] Not Available Not Available No t Available TechliciousTouch Ultra Test strips active Not Available Not [...] Updated DateTime 06/18/2020 180.34 cm 37.7 kg/m2 950807.94 g Sushil mcneal [facility] 06/18/2020 16:42:55 Date Recorded Body height Body mass index (BMI) Body weight Provider Name and Address Organization Details Last Updated DateTime 07/03/2021 180.34 cm 37.7 kg/m2 035272.94 g Sushil mcneal [facility] 07/03/2021 11:51:10 Date Recorded Body height Body mass index (BMI) Body weight Provider Name and Address Organization Details Last Updated DateTime 12/23/2021 180.34 cm 37.7 kg/m2 222240.94 lauro Buckner MD [address] [place] [address], [address], [facility] 12/23/2021 14:20:19 Date Recorded Body height Body mass index (BMI) Body weight Provider Name and Address Organization Details Last Updated DateTime 02/20/2022 180.34 cm 37.7 kg/m2 385931.94 lauro Buckner MD [address], [place], [address] 02/20/2022 09:25:58 Social History Question Answer Notes LastModified by Organizat ion Details LastModified Time Tobacco Smoking Status Former Smoker QUIT: 2003 Sushil Elinor mcneal [facility] 06/18/2020 16:36:44 What Was The Date Of Your Most Recent Tobacco Screening? 02/20/2022 Information not available 02/20/2022 Sex: Male Functional Status None recorded. Mental Status None recorded. Family History Relationship Description Onset Age of this Age Resolved Age Notes Sister Family history of ca ncer of colon Father Family history of ca rdiac disorder Medical History Condition Response Sexually Transmitted Infection N Diabetes Y Other Y Bleeding Disorder N High Blood Pressure Y Kidney Stones N High Cholesterol Y GERD/Acid Reflux N Heart Disease N Cancer N Lung Disease N Depression N Past Encounters Encounter ID Performer Location Encounter Start Date Encounter Closed Date Diagnosis/Indication Diagnosis SNOMED-CT Code [id number] [place] [address] 06/18/2020 16:25:56 06/18/2020 18:07:26 Benign prostatic hyperplasia [id number] MD Timo Case [employer] [address] [place] [address] 07/03/2021 11:39:42 07/07/2021 14:42:18 Benign prostatic hyperplasia 715059615 Balanitis 84508645 Benign pro static hyperplasia with outflow obstruction 457313672 Type 2 jemma betes mellitus without complication [id number] MD Timo [address] [place] [address] 12/23/2021 13:58:21 12/29/2021 12:15:46 Spermatocele [id number] MD Timo Case [address] [place] [address] 02/20/2022 09:17:52 02/23/2022 10:10:49 Spermatocele 78431326 Health Concerns Section Related Observation LastModified by Organization Detai ls LastModified Time None Recorded Concern Status LastModified by Organization Details LastModified Time None Recorded Advance Directives Directive None Recorded Payers Encounter Date Sequence Insurance Name Policy Number Policy Castillo Covered Member ID Castillo Member ID Guarantor Name 02/20/2022 2 [place] [id number] Sandeep Cosmel [id number] Sandeep Lopez Pomasl 02/20/2022 1 [place] [employer] [facility] Sandeep Juarez Pomasl [id number] Sandeep Lopez Pomasl 12/23/2021 2 [place] [id number] Sandeep Juarez Pomasl [id number] Sandeep Lopez Pomasl 07/03/2021 1 [place] [id number] Sandeep Cosmel [id number] Sandeep Lopez Pomasl 06/18/2020 1 [place] [id number] Sandeep Douglasasl [id number] Sandeep Lopez Pomasl Notes Date Note Type Note Provider Name and Address Organization Details Recorded Time 06/18/2020 text/html HPI Notes: 64 YO M HERE TODAY FOR A FOLLOW UP. HE HAS A HISTORY OF BPH and BALANITIS. HE WAS LAST SEEN (05-15-19) and WAS GIVEN CLOBETASOL CREAM AND TAMSULOSIN .DOING WELL ON MEDICAL THERAPY. Willie Buckner MD [address] [place] [address],[address], [address], [facility] 06/18/2020 18:00:14 07/03/2021 text/html HPI Notes: 65 YO M ,aodm .HERE TODAY FOR A FOLLOW UP. HE HAS A HISTORY OF BPH and BALANITIS. HE WAS LAST SEEN (06-18-20) and WAS GIVEN CLOBETASOL CREAM AND TAMSULOSIN .DOING WELL ON MEDICAL THERAPY. Willie Buckner MD [address] [place] [address],[facility] [address], [place], [address], [facility] 07/05/2021 11:46:53 12/23/2021 text/html HPI Notes: 65 YO M HERE TODAY FOR A FOLLOW UP FOR TESTICULAR DISCOMFORT. HE HAS A HISTORY OF BPH and BALANITIS. HE WAS LAST SEEN (07-03-21)ON CLOBETASOL CREAM AND TAMSULOSIN .DOING WELL ON MEDICAL THERAPY. RT SIDED TESTICULAR PAIN AND SWELLING Willie Buckner MD [address] [facility] [facility] [address], [place], [address], [facility] 12/26/2021 09:28:18 02/20/2022 text/html HPI Notes: 66 YO M HERE TODAY FOR A FOLLOW UP FOR POST OP BILATERAL SPERMATOCELECTOMY AND RELEASE OF PENILE ADHESION RELESE. HE HAS A HISTORY OF BPH and BALANITIS. HE WAS LAST SEEN (07-03-21)ON CLOBETASOL CREAM AND TAMSULOSIN .DOING WELL ON MEDICAL THERAPY. RT SIDED TESTICULAR PAIN AND SWELLING Willie Buckner MD [address], [place], [address], [facility] 02/20/2022 10:07:49
--- OUTSIDE RECORDS SUMMARY | 2024-03-08 10:14 | XMS_ITS | Continuity of Care Document ---
Author Name Unknown Organization [facility] Address [address] [place] [address] Phone Care Team Providers Care Fountain Supervisor Name Role Phone Yifan Benjamin MD [...] C, [address], [place], [place], [id number], [place] tel:[phone] [facility] No Information 3 Sourav Saha. [facility] [place], [facility], [facility] [address] [place] [address], [address], [facility], [place], [id number] , [place]. [phone] Office/Outpat ient Visit,Est, Mod [facility] C, [address], [place], [id number], [place] tel:[phone] [facility] Arthrodesis status 3 Layo Lima. [facility] [place], [address] [place] [address] [address], [facility] [place], [id number] , [place]. tel:[phone] Referring Provider: Clarence Vasques, [facility] [place] [address] [place] [address] [address], [place], [address] . tel:[phone] Office/Outpat ient Visit,Est, Low [facility] C, [address], [place], [id number], [place] tel:[phone] [facility] Arthrodesis status 1 Layo Lima. [facility], [address], [place], [place], [id number] , [place]. tel: [phone] Referring Provider: Clarence Vasques, [facility] [address], [place], [address] . tel:[phone] Office/Outpat ient Visit,Est, Mod [facility] C, [address], [place], [id number], [place] tel:[phone] [facility] Spinal stenosis, cervical region 9 Layo Lima. [facility] [place], [address], [place], [id number] , [place]. tel: [phone] Referring Provider: Clarence Vasques, [facility] [place] [address], [place], [address] . tel:[phone] Office/Outpat ient Visit,Est, Mod [facility] C, [address], [place], [id number], [place] tel:[phone] [facility] Spinal stenosis, cervical region 7 Layo Lima. [facility] [place], [address], [place], [address] , [place]. tel: [phone] Referring Provider: Clarence Vasques, [facility] [address], [place], [address] . tel:[phone] Office/Outpat ient Visit,Est, Mod [facility], [address], [place], [id number], [place] tel:[phone] [facility] Spinal stenosis, cervical region 7 Layo Lima. [facility] [place], [address], [place], [id number] , [place]. tel: [phone] Referring Provider: Referring Self, [address] [facility] [address], [place], [address]. tel:[phone] [facility], [address], [place], [id number], [place] tel:[phone] [facility] Spinal stenosis, cervical region 7 Layo Lima. [facility], [address] [place] [address] [address], [place], [id number] , [place]. tel: [phone] Referring Provider: Clarence Vasques, [facility] [address] [place] [address] [address], [place], [address] . tel:[phone] [facility], [address], [place], [id number], [place] tel:[phone] [facility] Spinal stenosis, cervical region 7 Layo Lima. [facility], [address], [place], [id number] , [place]. tel: [phone] Referring Provider: Clarence Vasques, [facility] [address], [place], [address] . tel:[phone] [facility], [address], [place], [id number], [place] tel:[phone] [employer] [place] Encounter for other specified surgical aftercare 6 Darrion Romero. [facility], [address], [place], [place], [id number] , [place]. tel: [phone] Referring Provider: Nick Hobbs, [facility] [address] [place] [address] [address], [place], [address] . tel:[phone] [facility], [address], [place], [id number], [place] tel:[phone] [facility] No Information 6 Layo iLma. [facility], [address], [place], [place], [id number] , [place]. tel:[phone] Referring Provider: Clarence Vasques, [facility] [address], [place], [address] . tel:[phone] Family History Family Member Type Diagnosis Age At Onset No Information Payers Payer name Insurance type Covered libertarian ID Josafat mora(s) Medicare [place] [id number] [facility] [id number] [facility] [id number] Social History Type Description Quantity Date Captured [...]
--- OUTSIDE RECORDS SUMMARY | 2024-03-08 10:14 | XMS_ITS | Clinical Summary ---
Author Name Unknown Organization [facility] Address [place], [place] [address] Care Team Providers Care Business Technology Professor Name Role Phone Kang Mcgee MD Primary Care Provider [phone] Allergies No known active allergies Medications Medication Sig Dispensed Refills Start Date End Date Status simvastatin (ZOCOR) 20 mg tablet Take 1 tablet by mouth at bedtime. 0 11/11/2010 Active amLODIPine (NORVASC) 5 mg tablet Take 1 tablet by mouth once daily. 30 tablet 5 11/11/2010 Active aspirin chewable 81 mg chewable tablet Take 81 mg by mouth once daily with a meal. Active lisinopril (PRINIVIL; ZESTRIL) 40 mg tabletIndications:h ypertension Take 40 mg by mouth once daily. Indications: Hypertension Active metFORMIN (GLUCOPHAGE) 500 mg tabletIndications:t ype 2 diabetes mellitus Take 500 mg by mouth 2 times daily with meals. Indications: type 2 diabetes mellitus Active difluprednate (DUREZOL) 0.05 % ophthalmic emulsion Place 1 Drop into right eye once daily. Active ketorolac 0.5 % ophthalmic (ACULAR) solution Place 1 Drop into right eye 3 times daily. Active diazePAM (VALIUM) 5 mg tabletIndications:C ervical spondylosis with myelopathy Take 1/2 to 1 tablet by mouth every 6 hours if needed for Muscle Spasm. 60 tablet 11/06/2016 Active tamsulosin (FLOMAX) 0.4 mg capsule Take 0.4 mg by mouth once daily after a meal. Active insulin aspart, U-100, (NOVOLOG FLEXPEN) 100 unit/mL (3 mL) pen Inject 15 units subcutaneous three times daily before meals. Active semaglutide (Ozempic) 1 mg/dose (2 mg/1.5 mL) pen Inject 1 mg subcutaneous once weekly. Active hydroCHLOROthiazide (HCTZ) 25 mg tablet Take 25 mg by mouth once daily. Active Active Problems Problem Noted Date Diagnosed [...] Department Care Team Description 12/30/2023 Lab Requisition [facility] [phone] Kang Mcgee MD from Last 3 Months Social History Tobacco [...] Comments Blood Pressure 133/72 11/25/2023 1:40 PM DOCUMENTATION SPEC Pulse 78 11/25/2023 1:30 PM DOCUMENTATION SPEC Temperature 36.7 ??C (98 ??F) 11/25/2023 11:10 AM DOCUMENTATION SPEC Respiratory Rate 16 11/25/2023 1:30 PM DOCUMENTATION SPEC Oxygen Saturation 96% 11/25/2023 1:15 PM DOCUMENTATION SPEC Inhaled Oxygen Concentration - - Weight 120.2 kg (265 lb) 11/25/2023 11:10 AM DOCUMENTATION SPEC Height 182.9 cm (6') 11/25/2023 11:10 AM DOCUMENTATION SPEC Body Mass Index 35.94 11/25/2023 11:10 AM DOCUMENTATION SPEC Plan of Treatment Health Maintenance Due Date [...] 01/02/2022, 03/04/2021, 02/11/2021 Influenza for age 65+ 07/30/2024 Medical Devices Implanted Type Area Covering Machine Operator Device Identifier Shelf Expiration Date Model / Serial / Lot Sleeve Silcn 1.00i.D.X2.1mm Od Sty70 [id number] Labtician - [id number] Implanted:Qty: 1 on 07/17/2015 by Sixto Becerril MD at [facility] Right: Eye [employer] 02/26/2022 [id number]# / / [id number] Strip Silcn 0.75x3.5x125 [id number] - [id number] Implanted:Qty: 1 on 07/17/2015 by Sixto Becerril MD at [facility] Right: Eye [employer] 02/26/2022 [id number]# / / [id number] Screw Lmbr Post 5.5x25mm Solera 4.75 Va - [id number] Implanted:Qty: 2 on 11/02/2016 by Clarence Vasques MD at [facility] N/A: Spine Medtronic Spine/Ortho [id number]# / / [id number] 1-4mm 30cc Medtronic Chips Canclls Frozen Implanted:Qty: 1 on 11/02/2016 by Clarence Vasques MD at [facility] Explanted:at [facility] (Quantity not on file) N/A: Spine Medtronic Spine/Ortho 04/24/2019 [id number] / [id number] / Set Screw Cerv Vertex Select - [id number] Implanted:Qty: 6 on 11/02/2016 by Clarence Vasques MD at [facility] N/A: Spine Medtronic Spine/Ortho [id number] / / Screw Cerv Post 3.5x16mm Vertex Select Va - [id number] Implanted:Qty: 2 on 11/02/2016 by Clarence Vasques MD at [facility] N/A: Spine Medtronic Spine/Ortho [id number] / / Screw Cerv Post 3.5x18mm Vertex Select Va - [id number] Implanted:Qty: 4 on 11/02/2016 by Clarence Vasques MD at [facility] N/A: Spine Medtronic Spine/Ortho [id number]# / / Cnnctr Cerv Md Roland Vertex Select Variable - [id number] Implanted:Qty: 1 on 11/02/2016 by Clarence Vasques MD at [facility] N/A: Spine Medtronic Spine/Ortho [id number]# / / Roland Cerv 420x3.5/4.75mm Vertex Select - [id number] Implanted:Qty: 2 on 11/02/2016 by Clarence Vasques MD at [facility] N/A: Spine Medtronic Spine/Ortho [id number]# / / Set Screw Lmbr 4.68x92vg Solera 4.75 Ns Brk Off - [id number] Implanted:Qty: 2 on 11/02/2016 by Clarence Vasques MD at [facility] N/A: Spine Medtronic Spine/Ortho [id number]# / / Procedures Procedure Name Priority Date/Time Associated Diagnosis Comments LAB TRACKING EVENT Routine 12/30/2023 11 :25 AM DOCUMENTATION SPEC CBC WITH AUTO DIFFERENTIAL Routine 12/30/2023 11:25 AM DOCUMENTATION SPEC RETICULOCYTES Routine 12/30/2023 11:25 AM DOCUMENTATION SPEC CBC WITH AUTO DIFFERENTIAL Routine 12/30/2023 11:25 AM DOCUMENTATION SPEC PERIPHERAL BLD MORPHOLOGY Routine 12/30/2023 11:00 AM DOCUMENTATION SPEC from Last 3 Months Results * LAB TRACKING EVENT (12/30/2023 11:25 AM DOCUMENTATION SPEC) Other (Other) Client Collect / Unknown 12/30/2023 11:25 AM DOCUMENTATION SPEC 12/30/2023 3:21 PM DOCUMENTATION SPEC Kang Mcgee MD LAB BILL ONLY [facility] [address] [place] [address], * CBC WITH AUTO DIFFERENTIAL (12/30/2023 11:25 AM DOCUMENTATION SPEC) Pathologist [facility] WHITE BLOOD COUNT 5.3 4.5 - 11.0 thou/cu mm 12/30/2023 4:01 PM [facility] RED BLOOD COUNT 4.76 4.30 - 5.90 mil/cu mm 12/30/2023 4:01 PM [facility] HEMOGLOBIN 14.2 13.5 - 17.5 g/dL 12/30/2023 4:01 PM [facility] HEMATOCRIT 41.7 37.0 - 53.0 % 12/30/2023 4:01 PM [facility] MCV 88 80 - 100 fL 12/30/2023 4:01 PM [facility] MCH 29.8 26.0 - 34.0 pg 12/30/2023 4:01 PM [facility] MCHC 34.1 32.0 - 36.0 g/dL 12/30/2023 4:01 PM [facility] RDW 12.2 11.5 - 15.5 % 12/30/2023 4:01 PM [facility] PLATELET COUNT 172 140 - 440 thou/cu mm 12/30/2023 4:01 PM [facility] MPV 10.8 6.5 - 11.0 fL 12/30/2023 4:01 PM [facility] NRBC 0.0 % 12/30/2023 4:01 PM [facility] ABS NRBC 0.0 thou /cu mm 12/30/2023 4:01 PM [facility] % NEUT 57.6 % 12/30/2023 4:01 PM [facility] % LYMPH 25.5 % 12/30/2023 4:01 PM [facility] % MONO 7.8 % 12/30/2023 4:01 PM [facility] % EOS 7.6 % 12/30/2023 4:01 PM [facility] % BASO 1.3 % 12/30/2023 4:01 PM [facility] % IMMATURE GRAN (METAS,MYELOS,RI OS) 0.2 % 12/30/2023 4:01 PM [facility] ABSOLUTE NEUTROPHILS 3.0 1.7 - 7.0 thou/cu mm 12/30/2023 4:01 PM [facility] ABSOLUTE LYMPHOCYTES 1.3 0.9 - 2.9 thou/cu mm 12/30/2023 4:01 PM [facility] ABSOLUTE MONOCYTES 0.4 <0.9 thou/cu mm 12/30/2023 4:01 PM [facility] ABSOLUTE EOSINOPHILS 0.4 <0.5 thou/cu mm 12/30/2023 4:01 PM [facility] ABSOLUTE BASOPHILS 0.1 <0.3 thou/cu mm 12/30/2023 4:01 PM [facility] ABSOLUTE IMMATURE GRANULOCYTES(MET ,MYELOS,PROS) 0.0 <0.3 thou/cu mm 12/30/2023 4:01 PM [facility] Blood BLOOD SPECIMEN / Unknown Client Collect / Unknown 12/30/2023 11:25 AM DOCUMENTATION SPEC 12/30/2023 3:55 PM DOCUMENTATION SPEC Kang Mcgee MD HEMATOLOGY [facility] [address] * (ABNORMAL) RETICULOCYTES (12/30/2023 11:25 AM DOCUMENTATION SPEC) Pathologist [facility] RETIC% 1.6(H) 0.5 - 1.5 % 12/30/2023 4:01 PM DOCUMENTATION SPEC [facility] RETIC (ABSOLUTE) 0.08 0.03 - 0.08 mil/cu mm 12/30/2023 4:01 PM DOCUMENTATION SPEC [facility] Blood BLOOD SPECIMEN / Unknown Client Collect / Unknown 12/30/2023 11:25 AM DOCUMENTATION SPEC 12/30/2023 3:55 PM DOCUMENTATION SPEC Kang Mcgee MD HEMATOLOGY [facility] [address] * PERIPHERAL BLD MORPHOLOGY (12/30/2023 11:00 AM DOCUMENTATION SPEC) [facility] Case Report Special Hematology Report ? Case: [id number] ? Authorizing Provider: ??Kang Mcgee MD ?Collected: ? 12/30/2023 1100 ? Ordering Location: ? [facility] ?Received: ?12/30/2023 1710 ? Pathologist: ? Clarence Walker, ? MD ? Specimen: ?Peripheral Blood ? 12/31/2023 5:39 PM DOCUMENTATION SPEC [facility] Final Diagnosis PERIPHERAL BLOOD: No diagnostic abnormalities 12/31/2023 5:39 PM DOCUMENTATION SPEC [facility] Comment This case was also reviewed by Beatrice Hartman MT, MS ([facility]). 12/31/2023 5:39 PM DOCUMENTATION SPEC [facility] Clinical Information The patient is a 68-year-old male. Per CBC scan: Bony sclerotic lesion Per EPIC: Additional history includes diabetes and cervical spondylosis with myelopathy. 12/31/2023 5:39 PM DOCUMENTATION SPEC [facility] CBC and Differential HEMATOLOGY PARAMETERS Tested at: ??[facility] ? RESULTS ??EXPECTED VALUES WBC: ? 5.3 ?4.5-44u4288/cu mm ? RBC: ? 4.76 ? 4.30-5.90 mil/cumm HGB: ? 14.2 ? 13.5-17.5 gm/di ? HCT: ? 41.7 ? 37-53% ? MCV: ? 88.0 ? 80-100 fl ? NORMOCYTIC MCH: ? 29.8 ? 26-34 pg ? MCHC: ?34.1 ? 32-36 gm/dl ? NORMOCHROMIC RDW: ? 12.2 ? 11.5-15.5% ? PLT: ? 172 ?140-104o3206/u L ? MPV: ? 10.8 ? 6.5-11 fl ? Retic: ?? 1.6 ?0.5-1.5% ?ELEVATED Differential ?Absolute (%) ?Expected (%) ?(x10*9/L) ? (x10*9/L) Neutrophils: ?3.0 (56.6) ?1.7-7.0 (42-72%) ? Lymphocytes: ?1.3 (24.5) ?0.9-2.9 (20-44%) ?? Monocytes: ?0.4 (7.5) ?<0.9 (0-11%) ? Eosinophils: ?0.4 (7.5) ?<0.5 (0-2%) ? Basophils: ?0.1 (1.9) ?<0.3 (<3.0%) ? 12/31/2023 5:39 PM [facility] Microscopic Description The final diagnosis is based on microscopic examination of an appropriately stained blood smear. 12/31/2023 5:39 PM [facility] Additional Information Interpreted at [facility], Central Laboratory - [address], [place] [address] 12/31/2023 5:39 PM DOCUMENTATION SPEC [facility]AL LABORATORY Blood (Peripheral Blood) 12/30/2023 11:00 AM DOCUMENTATION SPEC 12/30/2023 5:10 PM DOCUMENTATION SPEC Kang Mcgee MD HEMATOLOGY [facility] [address] [place] [address], from Last 3 Months Advance Directives * Full Code (Latest Code Status on File) Date Activated Date Inactivated Comments 11/02/2016 6:12 PM 11/06/2016 10:20 PM * Full Code Date Activated Date Inactivated Comments 11/02/2016 6:41 AM 11/02/2016 6:12 PM Question Answer Comments Code Status Discussion: Not Discussed * Full Code Date Activated Date Inactivated Comments 07/17/2015 9:21 AM 07/17/2015 3:48 PM Care Teams Business Technology Professor Relationship Specialty Start Date End Date Kang Mcgee MD [address] [place] [address] PCP - General Family Practice 06/07/20
--- OUTSIDE RECORDS SUMMARY | 2024-03-08 10:14 | XMS_ITS | Clinical Summary ---
Author Name Unknown Organization [facility] Address [address] [place] [id number] Care Team Providers Care Net Repairer Name Role Phone Unavailable Primary Care [...] C SCREENING 1974 LUNG CANCER SCREENING 2006 LIPID 03/28/2015 03/28/2014, 07/30, 10/30/2010, Additional history exists RSV VACCINE ( & 60+) (1 - 1-dose 60+ series) 2016 GLUCOSE 03/28/2017 03/28/2014, 09/30, 08/17/2012, Additional history exists ADVANCE CARE PLANNING 11/03/2017 11/03/2012 COLONOSCOPY 08/27/2018 08/27/2008 COLORECTAL CANCER SCREENING 08/27/2018 FALL RISK ASSESSMENT 2021 MEDICARE ANNUAL WELLNESS [...] 10:11 AM CDT) Cholesterol 158 <200 mg/dL [facility] Comment: LDL Cholesterol is the primary guide to therapy. The NCEP recommends further evaluation of: patients with cholesterol greater than 200 mg/dL if additional risk factors are present, cholesterol greater than 240 mg/dL, triglycerides greater than 150 mg/dL, or HDL less than 40 mg/dL. Triglycerides 95 0 - 150 mg/dL [facility] HDL Cholesterol 31(L) >40 mg/dL [facility] LDL Cholesterol Calculated 107 0 - 129 mg/dL [facility] Comment: LDL Cholesterol is the primary guide to therapy: LDL-cholesterol goal in high risk patients is <100 mg/dL and in very high risk patients is <70 mg/dL. VLDL-Cholesterol 19 0 - 30 mg/dL [facility] Cholesterol/HDL Ratio 5.0 0.0 - 5.0 [facility] Blood specimen (specimen) 03/28/2014 10:11 AM CDT 03/28/2014 10:12 AM CDT Nimesh Jo MD LAB - BLOOD ORD ERABLES [facility] [address] [place] [address] * Comprehensive metabolic panel (03/28/2014 10:11 AM CDT) Sodium 143 133 - 144 mmol/L [facility] Potassium 4.4 3.4 - 5.3 mmol/L [facility] Chloride 104 94 - 109 mmol/L [facility] Carbon Dioxide 25 20 - 32 mmol/L [facility] Anion Gap 14 6 - 17 mmol/L [facility] Glucose 98 60 - 99 mg/dL [facility] Comment:Fasting specimen Urea Nitrogen 15 7 - 30 mg/dL [facility] Creatinine 0.82 0.66 - 1.25 mg/dL [facility] GFR Estimate >90 >60 mL/min/1.7 m2 [facility] GFR Estimate If Black >90 >60 mL/min/1.7 m2 [facility] Calcium 9.1 8.5 - 10.4 mg/dL [facility] Bilirubin Total 0.6 0.2 - 1.3 mg/dL [facility] Albumin 4.2 3.3 - 4.9 g/dL [facility] Comment:Reference range huang ged on 08/21/2008. Protein Total 7.5 6.8 - 8.8 g/dL [facility] Comment:As of 08, refer ence range reflects plasma specimen type. Alkaline Phosphatase 68 40 - 150 U/L [facility] ALT 57 0 - 70 U/L [facility] AST 37 0 - 45 U/L [facility] Blood specimen (specimen) 03/28/2014 10:11 AM CDT 03/28/2014 10:12 AM CDT Nimesh Jo MD LAB - BLOOD ORD ERABLES [facility] [address] [place] [address] * COLONOSCOPY (08/27/2008 9:40 AM CDT) COLONOSCOPY [...] saturations were monitored continuously. The [id number] ? #[id number] was introduced through the anus and advanced [...]
--- OUTSIDE RECORDS SUMMARY | 2024-03-08 10:14 | XMS_ITS | Clinical Summary ---
Author Name Unknown Organization [facility] Address [address] [place] [address] Care Team Providers Care Healthcare Applications Analyst Name Role Phone Found, No Pcp MD Primary Care Provider Unavailab le Source Comments You are receiving this document as you are listed as the primary care provider,follow-up provider, or the patient has been referred to you for consultation.This is in compliance with the Medicare and[facility] EHR Incentive Program,which states Providers who transition their patient to another setting of careor provider of care or refers their patient to another provider of care shouldprovide summary care record for each transition of care or referral. [facility] Allerg[facility] No known active allergies Medications Medication Sig Dispensed Refills Start Date End Date Status lisinopril (ZESTRIL) 10 MG tablet Take 10 mg by mouth daily. Active amLODIPine (NORVASC) 10 MG tablet Take 10 mg by mouth daily. Active metFORMIN (GLUCOPHAGE) 1000 MG tablet Take 1,000 mg by mouth two times a day with meals. Active hydroCHLOROthiazid e (ORETIC) 25 MG tablet Take 1 Tablet (25 mg) by mouth daily. 08/20/2023 Active insulin glargine-yfgn (SEMGLEE) 100 unit/mL injection pen SMARTSI Unit(s) SUB-Q Every Evening 08/23/2023 Active OZEMPIC, 0.25 OR 0.5 MG/DOSE, 2 MG/3ML injection Inject 0.5 mg subcutaneously once every week. 10/12/2023 Active simvastatin (ZOCOR) 20 MG tablet Take 1 Tablet (20 mg) by mouth daily. 06/08/2023 Active tamsulosin (FLOMAX) 0.4 MG CAPS capsule Take 1 Capsule (0.4 mg) by mouth daily. 08/20/2023 Active Active Problems No known active problems Social [...] 120.2 kg (265 lb) 10/07/2016 8:37 AM STAFF NURSE Height 180.3 cm (5' 11) 10/07/2016 8:37 AM STAFF NURSE Body Mass Index 36.96 10/07/2016 8:37 AM STAFF NURSE Plan of Treatment Health Maintenance Due Date Last Done Comments Colon Cancer Screening Plan Due 1955 Hep C Screening (Preventive Services) 1955 Medicare Annual Wellness Visit 1955 PSA Screening Discussion 1955 DTaP/Tdap/Td (1 - Tdap) 1975 Cholesterol 1991 Zoster/Shingles (1 of 2) 2006 Pneumococcal 65+ Yrs (1 - PCV) 2021 COVID-19 Vaccine (1 - 2022-2 4 season) 2023 Influenza (#1) 2023 HepA Aged Out No [...] on patient's age to complete this topic Care Teams Healthcare Applications Analyst Relationship Specialty Start Date End Date Found, No Pcp, [address] [place] [address] PCP - General 09/28/23
--- NOTE | 2024-03-08 10:15 | MR_ITS ---
Patient: SURINDER GOETZ Facility:?[facility] Patient ID:?[id number] Site Patient ID:?[id number]. Site :?[id number] Study:?MRI-Head W/ and W/O Cont 20 CC DOATERM-03/08/2024 11:50:49 AM Ordering Physician:?EMILY REHMAN Final Report: Indication: Jha`s palsy. Technique: Multisequence multiplanar MRI of the brain prior to and following the administration of 20 cc Dotarem gadolinium based intravenous contrast. Comparison: MRI brain dated 02/11/2020. Findings: No evidence of acute ischemia. Similar appearance of few scattered foci T2 prolongation within the supratentorial white matter of both cerebral hemispheres. No focus of abnormal susceptibility artifact or enhancement. On limited evaluation, no convincing abnormal enhancement within the facial nerves. The ventricles are normal in size. Flow is preserved within the larger intracranial arteries. Bone marrow signal intensity of the calvarium is within normal limits. There is evidence of prior left cataract surgery. The paranasal sinuses and mastoid air cells are predominantly clear. Impression: 1. No acute intracranial abnormality. 2. Similar few scattered foci of T2 prolongation within the supratentorial white matter, nonspecific, but typical of mild chronic small vessel ischemic changes. 3. On limited evaluation, no convincing abnormal enhancement within the facial nerves. Dictated by Will Valdez MD @ 03/08/2024 2:16:15 PM Signed by:?Will Valdez MD @03/08/2024 2:16:15 PM (Electronic Signature)
== END 2024-03-08 10:03 | disposition home or self-care (01) ==
LOC: MRI 10:03
PROVIDERS: PCP Family Medicine; Visit Provider Family Medicine
DX: G51.0 Bell's palsy (principal); I67.82 Cerebral ischemia
CPT/HCPCS: 70553; A9575

== ENCOUNTER 2024-08-01 08:15 | Outpatient (CLI) | payer MEDICARE, SELFPAY ==
--- OUTSIDE RECORDS SUMMARY | 2024-08-02 15:25 | XMS_ITS | Patient Health Record ---
Author Organization [facility] Address [address] [place] [address] [address] [place] [address] Care Team Providers Care Banking Officer Name Role Phone Tee Prince Primary Care Provider [phone] [facility] [facility] CONRAD, Clarence Unavailable Unavaila Sandeep Ryder Unavailable [phone] Xavi Kendall Unavailable [phone] Allergies No Known Allergies Results Component Value Reference Range Notes MRI : Lumbar Reviewed date:01/21/2024 01:38:06 PM Interpretation: Performing Lab: Notes/Report: Original Report EXAM: [...] and Electronically Signed by: George Rivas M.D. - Original Report EXAM: MR LUMBAR SPIN E WITHOUT CONTRAST CLINICAL INFORMATION : 67-year-old male with low back pain. COMPARISON: None. TECHNICAL INFORMATIO N: Sagittal T2, sagittal T1, sagittal STIR, coronal T1, axial T2, and axial T1-weighted MR images of the lumbar spine on a 1.5 Helen magnet. CONTRAST: None. SEDATION: None. INTERPRETATION: Lord otic alignment of 5 nonrib-bearing lumbar vertebral bodies with chronic Scheuer guzman-type endplate Schmorl's nodes at T11-12 and T12-L1, degenerative endplat e disruption at L5-S1, and no spondylolysis, vertebral collapse, or acute f racture. 2.7 cm SI x 2.5 cm AP x 1.6 cm transverse T1 hypointense, ellipso id lesion in the posterior right iliac bone with cortical destruction versus i rregularity along the dorsal iliac margin (series 110, image 4; series 107 and 10 8, images 1-6). Additional 4-5 mm T1 hypointense sclerotic foci along the aceta bular margins on both sides (series 110, images 8 and 12). Normal pre and parav ertebral soft tissues. Enlarged prostate gland measuring 5.2 cm transverse. Conus medullaris pos itioned at mid L2, with normal configuration terminal nerve roots. L5-S1: Advanced disc degeneration, diffuse endplate ridging, superimposed 5 mm SI x 5 mm AP caudall y extruded left paracentral disc herniation, moderate left/mild right face t degeneration, mild left greater than right subarticular stenosis/descending S1 root encroachment, and severe right/mild to moderate left foraminal stenosis w ith exiting L5 root impingement on the right/encroachment on the left. Small acce ssory articulation on the right. L4-5: Degenerative d isc desiccation with preserved disc height, bilateral foraminal annular fi ssures, dorsal to foraminal annular bulge, advanced bilateral facet dege neration with sagittal orientation on the right, mild central/bilateral maldonado barticular stenosis with descending L5 root encroachment, and moderate bilater al foraminal stenosis/exiting L4 root impingement. L3-4: Preserved disc height, left foraminal annular fissure/4 mm AP broad-based protrusion, sagittal ly oriented/moderately degenerated facets, 3-4 mm ligament flavum thickening, m ild central stenosis, and mild to moderate left foraminal stenosis/exiting lef t L3 root encroachment. L2-3: Mild disc dege neration, 2 mm retrolisthesis, diffuse annular bulge, mild bilateral facet dege neration, and mild bilateral foraminal stenosis. L1-2: Moderate disc degeneration, 1-2 mm retrolisthesis, diffuse bulge, normal facets, and no steno sis or impingement. T12-L1: Mild disc de generation, normal dorsal disc contours, normal facets, and no stenosis or impingement. T11-12: Mild disc de generation and mild dorsal annular bulge without central stenosis. Normal fac ets and patent foramina. CONCLUSION: Multilev el lumbar degenerative changes with specifics as follows: 1. Facet degeneratio n, advanced bilaterally at L4-5. Moderate bilaterally at [...] at L4-5, and of the left greater carline n right S1 roots at L5-S1. 4. 2.7 cm lesion in the posterior right iliac body with overlying cortical irregularity versus destructive change. The differential diagnosis includes both primary seconda ry neoplastic lesions. Additional nonspecific subcentimeter sclerotic foci along both acetabular margins could represent benign bone islands or sclerotic osseous metastases. Dedicated CT pelvis may aid in further evaluating both of t hese findings. If there is a high index of suspicion for osseous metastatic d isease, whole body bone scan could also be considered. 5. Enlarged prostate gland. PDB Read by: George Rivas M.D. Reviewed and Electro nically Signed by: George Rivas M.D. CT: Pelvis (bone) Reviewed date:01/21/2024 01:37:49 PM Interpretation: Performing Lab: Notes/Report: Original Report EXAM: [...] Since we began voluntarily reporting to the [employer]?s Dose Index Registry, our average CT doses have been consistently lower than the national average. Read by: Mandeep Rushing M.D. Reviewed and Electronically Signed by: Mandeep Rushing M.D. - Original Report EXAM: CT OF THE PELV IS, WITHOUT CONTRAST CLINICAL INFORMATION : 67-year-old man with incidental lesion noted on recent lumbar spine MRI. PRIOR SURGERY: None reported. PLAIN FILMS: None available. COMPARISONS: No prio r MRIs available. TECHNICAL INFORMATION Protocol: CT of the pelvis, sacrum and bilateral hips was performed using direct axial images. Coronal and sagittal reformatted images were subsequently performed. FINDINGS Osseous Structures Acute/Chronic Fractures: None. Masses: Approximatel y 2.8 x 1.8 x 3.2 cm ovoid sclerotic lesion is present in the right posterior iliac bone (axial image 30 and coronal image 29). Small phleboliths are note d in the right & left acetabula. Sacroiliac Joints Joint Spaces: Mild S I joint space narrowing, osteophytosis, and irregularity, bilaterally (coronal image 54 and axial image 40). Subchondral Bone: Normal. Symphysis Pubis Mild hypertrophy and irregularity pubic symphysis, without stress/occult fracture or evidence of osteitis pubis. Bilateral Hip Joints Morphology: Normal. Avascular Necrosis: None. Joint Spaces: Preserved. Intra-articular Bodies: None. Soft Tissues Unremarkable. The in trapelvic soft tissues are unremarkable. No pelvic lymphadenopathy. Lumbar spine Lower lumbar spondyl osis, most advanced at L5-S1. Please refer to the recent lumbar spine MRI for detailed findings and impression. IMPRESSION 1. Approximately 2.8 x 1.8 x 3.2 cm ovoid sclerotic lesion in the right posterior iliac bone , which is nonspecific, but remains suspicious for a neoplastic lesion, m ost commonly prostate cancer metastasis. Further evaluation with a bone scan or bone biopsy is recommended. 2. Mild bilateral SI joint arthropathy, without evidence of sacroiliitis. 3. Lower lumbar spon dylosis. Please refer to the recent lumbar spine MRI for detailed findings an d impression. 4. Otherwise unremar kable pelvis CT. [facility] is c ommitted to minimizing radiation exposure while maintaining high-quality CT imag es. Technologists adjust the mA and/or kV according to each patient's size to op timize dose. Since we began voluntarily reporting to the [employer]?s Dose Index Registry, our average CT doses have been consistently lo wer than the national average. Read by: Mandeep Rushing M.D. Reviewed and Electro nically Signed by: Mandeep Rushing M.D. Reason For Referral No Information Medications Medication SIG (Take, Route, Frequency, Duration) Notes Start Date End Date Status Ozempic Active Tamsulosin HCl Activ e amLODIPine Besylate 10 MG 1 tablet Orally Once a day Active Simvastatin Active metFORMIN HCl Active Lisinopril 40 MG 1 tablet Orally Once a day Active Meloxicam 15 MG 1 tablet Orally Once a day for 30 days Active hydroCHLOROthiazide 25 MG 1 tablet in e morning Orally Once a day Active Social History Tobacco Use: Social History Observation Description Date Details (start date - stop date) Never Smoker NA - NA Tobacco Use/Smoking: Question Answer Notes Are you a nonsmoker Problems Problem Type SNOMED Code ICD Code Onset Dates Problem Status W/U Status Risk Notes Problem Chronic pain (08142888) Other chronic pain (G89.29) Active confirmed Problem Low back pain (966212852) Low back pain, unspecified (M54.50) Active confirmed Vital Signs Blood pressure diastolic 78 mm Hg 10/26/2023 Height 72 in 10/26/2023 Blood pressure systolic 142 mm Hg 10/26/2023 Weight 274 lbs 10/26/2023 BMI 37.16 kg/m2 10/26/2023 Encounters Encounter Location Date Provider Diagnosis [facility] [address] [place] [address] 10/08/2023 Tee Prince Other chronic pain G89.29 and Low back pain, unspecified M54.50 [facility] [address] [place] [address] 10/26/2023 Xavi Kendall Other chronic pain G89.29 and Low back pain, unspecified M54.50 [facility] [address] [place] [address] 09/16/2023 Sandeep Rehman [facility] [address] [place] [address] 10/27/2023 Tee Prince Assessments Encounter Date Diagnosis (ICD Code) Assessment Notes Treatment Notes Treatment Clinical Notes 10/08/2023 Other chronic pain (ICD-10 - G89.29) Sandeep (Heri) presents to the clinic for an evaluation regarding his chronic low back pain. I have reviewed his symptoms and current medications. I will consider a bilateral L4-5, L5-S1 MBBs as this was recommended by Dr. Vasquse. I discussed this procedure with the patient, outlining the potential risks and benefits in detail and answering all questions to the patient's satisfaction. Following this discussion, he expressed interest in proceeding, I will wait to review his updated imaging before ordering MBBs. I have ordered a lumbar MRI to [facility] as required prior to proceeding with the MBBs. I breifly discussed physical therapy at [facility] with him today, but he is not interested in physical therapy at this time. Regarding medications, I have checked the [facility] database and I did not find any [...] plan as necessary. Plan:1. Order lumbar MRI [facility]2. Consider MBB/RFA workup pending imaging.3. Start [...] I will order a lumbar CT to [facility] in [place]. Once he obtains the lumbar CT results, I advised him to follow up with his PCP. Pending the imaging findings, I will consider bilateral L4-S1 MBBs. Regarding medications, I have checked the [facility] database and I did not find any inconsistencies. This treatment plan was reviewed with the patient, and he was agreeable. He will return as needed. I will continue to monitor his progress, adjusting his treatment plan as necessary. Plan: 1. Reviewed lumbar MRI 2. Order lumbar CT scan to [facility] 3. Follow up with PCP - abnormal [...] documentation has been reviewed by the aforementioned BRASS RECLAIMER as well as Tee Prince MD, prior [...] the decisions made by them. 10/26/2023 Other Jaime, Cammy brooks, am serving as a scribe to document services personally performed by Xavi Kendall NP, based upon my observations and the provider's statements to me. All documentation has been reviewed by the aforementioned FOOTWEAR FACTORY WORKER as well as Sandeep Rehman MD, prior [...] performed and the decisions made by them. Plan Of Treatment Pending Test Test Name Order Date CT : Lumbar Spine 10/26/2023 MRI : Lumbar 10/08/2023 Insurance Providers Payer Name Payer Address Payer Phone Subscriber Number Group Number Insured Name Patient Relationship to Insured Coverage Start Date Coverage End Date Medicare Part B [employer] [address] [place] [address] [id number] Sandeep Crooks Self - patient is the insured [address] [place] [address] [address] [address] [place] [address] [id number] Sandeep Crooks Self - patient is the insured Medical (General) History Medical History History ICD Code Arthritis Type 2 diabetes Hearing loss Sleep apnea
--- OUTSIDE RECORDS SUMMARY | 2024-08-02 15:26 | XMS_ITS | Referral Summary ---
Author Organization [facility] Address [address] [place] [address] Care Team Providers Care Fuel Dock Attendant Name Role Phone Unavailable Primary Care Provider [...] 140/90 11/04/2012 Hepatic steatosis 11/03/2012 Gallstones 11/03/2012 Obesity 11/02/2012 ADRIEN (obstructive sleep apnea) 10/27/2012 Venous stasis of lower extremity 10/27/2012 HYPERLIPIDEMIA LDL GOAL <130 09/28/2010 Chronic rhinitis 01/30/2010 Trigger finger, acquired 01/30/2010 Overview: Problem list name updated by automated process. Provider to review Eczema 05/16/2008 Resolved Problems Problem Noted Date Diagnosed Date Resolved Date Advanced directives, counseling/discussion 11/03/2012 05/15/2024 Overview: Discussed advance care planning with patient; however, patient declined at this time. 11/03/2012 Immunizations Name Administration Dates Next Due TD,PF [...] 10:11 AM CDT) Cholesterol 158 <200 mg/dL [facility] Comment: LDL Cholesterol is the primary guide to therapy. The NCEP recommends further evaluation of: patients with cholesterol greater than 200 mg/dL if additional risk factors are present, cholesterol greater than 240 mg/dL, triglycerides greater than 150 mg/dL, or HDL less than 40 mg/dL. Triglycerides 95 0 - 150 mg/dL [facility] HDL Cholesterol 31(L) >40 mg/dL [facility] LDL Cholesterol Calculated 107 0 - 129 mg/dL [facility] Comment: LDL Cholesterol is the primary guide to therapy: LDL-cholesterol goal in high risk patients is <100 mg/dL and in very high risk patients is <70 mg/dL. VLDL-Cholesterol 19 0 - 30 mg/dL [facility] Cholesterol/HDL Ratio 5.0 0.0 - 5.0 [facility] Blood specimen (specimen) 03/28/2014 10:11 AM CDT 03/28/2014 10:12 AM CDT Nimesh Jo MD LAB - BLOOD ORD ERABLES [facility] [address] [place], [place] [id number] * Comprehensive metabolic panel (03/28/2014 10:11 AM CDT) Sodium 143 133 - 144 mmol/L [facility] Potassium 4.4 3.4 - 5.3 mmol/L [facility] Chloride 104 94 - 109 mmol/L [facility] Carbon Dioxide 25 20 - 32 mmol/L [facility] Anion Gap 14 6 - 17 mmol/L [facility] Glucose 98 60 - 99 mg/dL [facility] Comment:Fasting specimen Urea Nitrogen 15 7 - 30 mg/dL [facility] Creatinine 0.82 0.66 - 1.25 mg/dL [facility] GFR Estimate >90 >60 mL/min/1.7 m2 [facility] GFR Estimate If Black >90 >60 mL/min/1.7 m2 [facility] Calcium 9.1 8.5 - 10.4 mg/dL [facility] Bilirubin Total 0.6 0.2 - 1.3 mg/dL [facility] Albumin 4.2 3.3 - 4.9 g/dL [facility] Comment:Reference range huang ged on 08/21/2008. Protein Total 7.5 6.8 - 8.8 g/dL [facility] Comment:As of 08, refer ence range reflects plasma specimen type. Alkaline Phosphatase 68 40 - 150 U/L [facility] ALT 57 0 - 70 U/L [facility] AST 37 0 - 45 U/L [facility] Blood specimen (specimen) 03/28/2014 10:11 AM CDT 03/28/2014 10:12 AM CDT Nimesh Jo MD LAB - BLOOD ORD ERABLES [facility] [address] [place], [place] [id number] * COLONOSCOPY (08/27/2008 9:40 AM CDT) COLONOSCOPY [...] saturations were monitored continuously. The [id number] ? #[id number] was introduced through the anus and advanced [...] Return to primary care physician PRN. ? Anjel Juarez M.D Tian Juarez [...]
--- OUTSIDE RECORDS SUMMARY | 2024-08-02 15:26 | XMS_ITS | Encounter Summary ---
Author Organization [facility] Address [address] [place] [address] Care Team Providers Care Informatics Developer Name Role Phone Found, No Pcp MD Primary Care Provider Unavailab le Reason for Visit * Reason Comments Wound Check Encounter Details Date Type Department Care Team (Late st Contact Info) Description 07/05/2024 1:00 PM CDT Office Visit [facility]ology [address] [place], [place] [phone] [place] [address] [place] [id number] Actinic cheilitis (Primary Dx); Lichenoid dermatitis; Actinic keratosis Social History Tobacco Use Types Packs/Day Years Used Date Smoking Tobacco: Never Sex and Gender Information Value Date Recorded Sex Assigned at Not on file Gender Identity Not on file Sexual Orientation Not on file documented as of this encounter Patient Instructions * Patient Instructions* Yamila Lund LPN - 07/05/2024 1:00 PM CDT Thank you for choosing Dermatology at [facility]! We welcome your feedback. Comment cards are located in our lobby. For questions, please call the Dermatology department or log in to [employer] to send us a [employer] message. For medication refills, please contact your pharmacy. For questions regarding billing, please contact [facility] at . Please consider enrolling in [employer]. Please follow the instructions below to securely access your online medical record. [employer] allows you to send messages to your doctor, view your test results, renew your prescriptions, schedule appointments, and more. How Do I Sign Up? In your Internet browser, go to: [email or web address] Click on the Enter Activation Code link under the New User? section. You will see the New Member Sign Up page. Enter your [employer] Activation Code exactly as it appears below. You will not need to use this code after you???ve completed the sign-up process. If you do not sign up before the expiration date, you must request a new code. [employer] Activation Code: [email or web address] Expires: 08/04/2024 1:51 PM Enter the last four digits of your Social Security Number ([id number]) and Date of (mm/dd/yyyy) as indicated and click Next. You will be taken to the next sign-up page. Create a [employer] ID. This will be your [employer] login ID and cannot be changed, so think of one thatis secure and easy to remember. Create a [employer] password. You can change your password at any time. Enter your Security Question and Answer. This can be used at a later time if you forget your password. Click Next. Enter your e-mail address. You will receive e-mail notification when new information is available -- in [employer]. Click Sign In. You can now view your medical record. Once [employer] is set up you can upload a photo. Please upload a photo of the surgical site (free of bandages) prior to upcoming phone visit with Dr. Shaw as scheduled. Please take a photo close up and from a distance making sure photos are clearand not blurry. A Photo link will be sent to your [employer] a few days prior to your scheduled phone visit. If you have difficulties with the photo process you can call [phone] and ask to speak with a nurse. documented in this encounter Progress Notes * Mary Shaw MD - 07/05/2024 12:00 AM CDT NAME: SURINDER GOETZ CSN: [id number] CLINIC NOTE DATE OF SERVICE: 07/05/2024 : 1955 SUBJECTIVE: Mr. 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 The differential diagnosis included lichenoid AK, cutaneous manifestation of connective tissue disorder, lichen planus, or lichenoid drug reaction. Because of his sun exposure history, we treated the left lip with liquid nitrogen therapy at the last visit. He states that it did crust up and peels off and feels it feels much better than it did. The right side was not treated. He has continued on hydrochlorothiazide in the intervening time period. Not seen his primary as of yet due to the of his mother and having to deal with arrangements with that regard. On physical examination, his lip appears improved on the left side. He still has some reticulated leukoplakic change consistent with lichen planus and erosion on the right lip. Left lip substantiallyimproved. The right lip is now the more significant with erosion. ASSESSMENT: Actinic erosion of the lip versus lichenoid drug reaction. Liquid nitrogen applied x 5-10seconds x 2 freeze-thaw cycles. Alternative treatments (i.e.cream/home therapy) discussed. Chance of recurrence, further treatment necessary, and hypopigmentation discussed. Aftercare reviewed verbally and written handouts (cryotherapy instructions) given as well. We have also asked that he contact his primary care doctor to consider discontinuation of hydrochlorothiazide, which may be a contributing factor. He continues to have some white leukoplakic changes on his upper gum. He feels this is from wearing his dentures because he needs the support of the dentures to hold his CPAP mask in place. There is no significant erythema. We still would recommend he have this reevaluated to make sure there are no signs of deterioration, malignancy within it. He seems to understand. We will send a letter to his primary care doctor for consideration of changing hismedication. MD BOB ROBISON/ANDRESSA /[id number] documented in this encounter Plan of Treatment Upcoming Encounters Date Type Department Care Team (Late st Contact Info) Description 08/17/2024 3:30 PM CDT Appointment [facility] D[facility]ology [address] [place] [address] [place] [address] [place] [phone] documented as of this encounter Visit Diagnoses Diagnosis Actinic cheilitis- Primary Acute dermatitis due to solar radiation Lichenoid dermatitis Contact dermatitis and other eczema, due to unspecified cause Actinic keratosis documented in this encounter Care Teams Informatics Developer Relationship Specialty Start Date End Date Found, No Pcp, [address] [place] [address] PCP - General 09/28/23 documented as of this encounter
--- OUTSIDE RECORDS SUMMARY | 2024-08-02 15:26 | XMS_ITS | Clinical Summary ---
Author Organization [facility] Address [address] [place] [address] Care Team Providers Care Date Pitter Name Role Phone Unavailable Primary Care Provider [...] 07/30, 10/30/2010, Additional history exists RSV VACCINE (1 - 1-dose 60+ series) 2016 GLUCOSE 03/28/2017 03/28/2014, 09/30, 08/17/2012, Additional history exists ADVANCE CARE PLANNING 11/03/2017 11/03/2012, 012 COLONOSCOPY 08/27/2018 08/27/2008 COLORECTAL CANCER SCREENING 08/27/2018 FALL RISK ASSESSMENT 2021 MEDICARE ANNUAL WELLNESS VISIT 2021 03/28/2014, 11/12/2006 Pneumococcal Vaccine: 65+ Years (1 of 1 - PCV) 2021 DTAP/TDAP/TD IMMUNIZATION (2 - Td or Tdap) 10/27/2022 10/27/2012, 11/29/2006 COVID-19 Vaccine (3 - season) 2023 03/04/2021, 02/11/2021 PHQ-2 (once per calendar year) 2023 INFLUENZA VACCINE (#1) 2024 ZOSTER IMMUNIZATION Completed 01/11/2020, 9 HPV IMMUNIZATION [...] mg/dL. Triglycerides 95 0 - 150 mg/dL [facility] HDL Cholesterol 31(L) >40 mg/dL [facility] LDL Cholesterol Calculated 107 0 - 129 mg/dL [facility] Comment: LDL Cholesterol is the primary guide to therapy: LDL-cholesterol goal in high risk patients is <100 mg/dL and in very high risk patients is <70 mg/dL. VLDL-Cholesterol 19 0 - 30 mg/dL [facility] Cholesterol/HDL Ratio 5.0 0.0 - 5.0 [facility] Blood specimen (specimen) 03/28/2014 10:11 AM CDT 03/28/2014 10:12 AM CDT Nimesh Jo MD LAB - BLOOD ORD ERABLES Performing Organization Address City/State/[facility] Co de Phone Number [facility] [address] [place] [address] * Comprehensive metabolic panel (03/28/2014 10:11 AM CDT) Sodium 143 133 - 144 mmol/L [facility] Potassium 4.4 3.4 - 5.3 mmol/L [facility] Chloride 104 94 - 109 mmol/L [facility] Carbon Dioxide 25 20 - 32 mmol/L [facility] Anion Gap 14 6 - 17 mmol/L [facility] Glucose 98 60 - 99 mg/dL [facility] Comment:Fasting specimen Urea Nitrogen 15 7 - 30 mg/dL [facility] Creatinine 0.82 0.66 - 1.25 mg/dL [facility] GFR Estimate >90 >60 mL/min/1.7 m2 [facility] GFR Estimate If Black >90 >60 mL/min/1.7 m2 [facility] Calcium 9.1 8.5 - 10.4 mg/dL [facility] Bilirubin Total 0.6 0.2 - 1.3 mg/dL [facility] Albumin 4.2 3.3 - 4.9 g/dL [facility] Comment:Reference range huang ged on 08/21/2008. Protein Total 7.5 6.8 - 8.8 g/dL [facility] Comment:As of 08, refer ence range reflects plasma specimen type. Alkaline Phosphatase 68 40 - 150 U/L [facility] ALT 57 0 - 70 U/L [facility] AST 37 0 - 45 U/L [facility] Blood specimen (specimen) 03/28/2014 10:11 AM CDT 03/28/2014 10:12 AM CDT Nimesh Jo MD LAB - BLOOD ORD ERABLES [facility] [address] [place] [address] * COLONOSCOPY (08/27/2008 9:40 AM CDT) COLONOSCOPY [...] saturations were monitored continuously. The [id number] ? #[id number] was introduced through the anus and advanced [...]
--- OUTSIDE RECORDS SUMMARY | 2024-08-02 15:26 | XMS_ITS | Encounter Summary ---
Author Organization [facility] Address [address], [place] [address] Care Team Providers Care Jewelry Casting Model Maker Apprentice Name Role Phone Found, No Pcp Primary Care Provider Unavailab le Encounter Details Date Type Department Care Team (Late Contact Info) Description 07/19/2024 E-Visit [facility]ology [address] [place], [place] [phone] Mychart, [place] [address] Social History Tobacco Use Types Packs/Day Years Used Date Smoking Tobacco: Never Sex and Gender Information Value Date Recorded Sex Assigned at Not on file Gender Identity Not on file Sexual Orientation Not on file documented as of this encounter Plan of Treatment Upcoming Encounters Date Type Department Care Team (Late Contact Info) Description 08/17/2024 3:30 PM CDT Appointment [facility] [address] [place], [place] [phone] [place] [address] [place] [address] documented as of this encounter Visit Diagnoses Not on filedocumented in this encounter Care Teams Jewelry Casting Model Maker Apprentice Relationship Specialty Start Date End Date Found, No Pcp, [address] [place] [address] PCP - General 09/28/23 documented as of this encounter
--- OUTSIDE RECORDS SUMMARY | 2024-08-02 15:26 | XMS_ITS | Encounter Summary ---
Author Organization [facility] Address [address], [place] [address] Care Team Providers Care Hadoop Admin Name Role Phone Found, No Pcp MD Primary Care Provider Unavailab le Reason for Visit * Reason Comments Wound Check Encounter Details Date Type Department Care Team (Late st Contact Info) Description 05/22/2024 1:00 PM CDT [facility] Visit [facility] Dermatology [address] [place], [place] [phone] [place] [address] [place] [address] Lichenoid dermatitis (Primary Dx); Actinic cheilitis Social History Tobacco Use Types Packs/Day Years Used Date Smoking Tobacco: Never Sex and Gender Information Value Date Recorded Sex Assigned at Not on file Gender Identity Not on file Sexual Orientation Not on file documented as of this encounter Progress Notes * Mary Shaw MD - 05/22/2024 12:00 AM CDT NAME: SURINDER GOETZ CSN: [id number] CLINIC NOTE DATE OF SERVICE: 05/22/2024 : 1955 SUBJECTIVE: Mr. Goetz is a 68-year-old male who presents in the followup of biopsy-proven lesion on his lip in September 2023. It was a lichenoid dermatitis with pigment incontinence. On the biopsy, considered to have a differential of lichen planus, lichenoid drug reaction, lichenoid actinic keratosis, or manifestation of a connective tissue disorder. In the intervening time frame, he was undergoing a systemic workup for a bone lesion on a spine scan through his primary care clinic and finallyhas received clearance through that workup and now returns to clinic today to address his lip whichhad healed up and then flared again. He does not have any history of oral lesions or lesions elsewhere on his body. PAST MEDICAL HISTORY: Significant for spinal problems that required fusion as well as apparently high blood pressure and diabetes. He is currently on Ozempic and has lost weight. PHYSICAL EXAMINATION: GENERAL: He is awake, alert, appropriately groomed and dressed. SKIN: The lesion on his lip. He continues to have areas of crusting on his lower lip, 2 focal areas, one that looks more reticulated, one that looks more actinically damaged. Intraoral evaluation does not reveal any erosions, but he does have white plaque around his gumline underneath his dentures.He does describe one previous oral erosion. ASSESSMENT: Lichenoid dermatitis of the mid lower lip. This has the appearance in one area of lichen planus and another area as an actinic cheilitis. We will plan to freeze the area of the left lip with liquid nitrogen therapy and see if it is responsive. In addition, our recommendation was to discuss discontinuing his hydrochlorothiazide, blood pressure medication and going on an alternative since this often causes lichenoid reactions. We will plan to see him back in June to see his responsiveness and see if he improves. In addition, we recommend a referral to ENT for evaluation of his oral mucosa to see if they identify any areas of lichen planus or if this represents another process that is causing the whitened plaques along the gum line. MD BOB ROBISON/ANDRESSA /[id number] documented in this encounter Plan of Treatment Upcoming Encounters Date Type Department Care Team (Late st Contact Info) Description 08/17/2024 3:30 PM CDT Appointment [facility] [address] [facility] [place] [address] [place] [address] [place] [address] documented as of this encounter Visit Diagnoses Diagnosis Lichenoid dermatitis- Primary Contact dermatitis and other eczema, due to unspecified cause Actinic cheilitis Acute dermatitis due to solar radiation documented in this encounter Care Teams Hadoop Admin Relationship Specialty Start Date End Date Found, No Pcp, [address] [place] [address] PCP - General 09/28/23 documented as of this encounter
--- OUTSIDE RECORDS SUMMARY | 2024-08-02 15:26 | XMS_ITS | Clinical Summary ---
Author Organization [employer] [employer] [facility] [facility] Address [place], [place] [address] Care Team Providers Care Centrifuge Operator Name Role Phone Kang Mgcee MD Primary Care Provider [phone] Allergies No known active allergies Medications Medication [...] arteriosclerosis 10/29 Hyperlipidemia 11/11/2010 HTN (hypertension) 11/11/2010 Social History [...] Comments Blood Pressure 133/72 11/25/2023 1:40 PM SURVEY AND MAPPING TECHNICIAN Pulse 78 11/25/2023 1:30 PM SURVEY AND MAPPING TECHNICIAN Temperature 36.7 ??C (98 ??F) 11/25/2023 11:10 AM SURVEY AND MAPPING TECHNICIAN Respiratory Rate 16 11/25/2023 1:30 PM SURVEY AND MAPPING TECHNICIAN Oxygen Saturation 96% 11/25/2023 1:15 PM SURVEY AND MAPPING TECHNICIAN Inhaled Oxygen Concentration - - Weight 120.2 kg (265 lb) 11/25/2023 11:10 AM SURVEY AND MAPPING TECHNICIAN Height 182.9 cm (6') 11/25/2023 11:10 AM SURVEY AND MAPPING TECHNICIAN Body Mass Index 35.94 11/25/2023 11:10 AM SURVEY AND MAPPING TECHNICIAN Plan of Treatment Health Maintenance Due Date [...] PCV) 2021 COVID-19 vaccine series (2022-24 season) 2024 01/02/2022, 03/04/2021, 02/11/2021 Influenza for age 65+ 07/30/2024 Medical Devices Implanted Type Area Ocean Export Account Manager Device Identifier Shelf Expiration Date Model / Serial / Lot Sleeve Silcn 1.00i.D.X2.1mm Od Sty70 [id number] Labtician - [id number] Implanted:Qty: 1 on 07/17/2015 by Sixto Becerril MD at [facility] Right: Eye [employer]ian [employer] 02/26/2022 [id number]# / / [id number] Strip Silcn 0.75x3.5x125 Gel64exshowqqu - [id number] Implanted:Qty: 1 on 07/17/2015 by Sixto Becerril MD at [facility] Right: Eye [employer]ian [employer] 02/26/2022 [id number]# / / [id number] Screw Lmbr Post 5.5x25mm Solera 4.75 Va - [id number] Implanted:Qty: 2 on 11/02/2016 by Clarence Vasques MD at [facility] N/A: Spine Medtronic Spine/Ortho [id number]# / / [id number] ne 1-4mm 30cc Medtronic Chips Canclls Frozen Implanted:Qty: 1 on 11/02/2016 by Clarence Vasques MD at [facility] Explanted:at [facility] (Quantity not on file) N/A: Spine Medtronic Spine/Ortho 04/24/2019 [id number]# / [id number] / Set Screw Cerv Vertex Select - [id number] Implanted:Qty: 6 on 11/02/2016 by Clarence Vasques MD at [facility] N/A: Spine Medtronic Spine/Ortho [id number]# / / Screw Cerv Post 3.5x16mm Vertex Select Va - [id number] Implanted:Qty: 2 on 11/02/2016 by Clarence Vasques MD at [facility] N/A: Spine Medtronic Spine/Ortho [id number]# / / Screw Cerv Post 3.5x18mm Vertex Select Va - [id number] Implanted:Qty: 4 on 11/02/2016 by Clarence Vasques MD at [facility] N/A: Spine Medtronic Spine/Ortho [id number]# / / Cnnctr Cristhian Md Roland Vertex Select Variable - [id number] Implanted:Qty: 1 on 11/02/2016 by Clarence Vasques MD at [facility] N/A: Spine Medtronic Spine/Ortho [id number]# / / Roland Cerv 420x3.5/4.75mm Vertex Select - [id number] Implanted:Qty: 2 on 11/02/2016 by Clarence Vasques MD at [facility] N/A: Spine Medtronic Spine/Ortho [id number]# / / Set Screw Lmbr 4.64l10us Solera 4.75 Ns Brk Off - [id number] Implanted:Qty: 2 on 11/02/2016 by Clarence Vasques MD at [facility] N/A: Spine Medtronic Spine/Ortho [id number]# / / Advance Directives * Full Code (Latest Code Status on File) Date Activated Date Inactivated Comments 11/02/2016 6:12 PM 11/06/2016 10:20 PM * Full Code Date Activated Date Inactivated Comments 11/02/2016 6:41 AM 11/02/2016 6:12 PM Question Answer Comments Code Status Discussion: Not Discussed * Full Code Date Activated Date Inactivated Comments 07/17/2015 9:21 AM 07/17/2015 3:48 PM Care Teams Centrifuge Operator Relationship Specialty Start Date End Date Kang Mcgee MD [address] [place] [address] PCP - General Family Practice 06/07/20
--- OUTSIDE RECORDS SUMMARY | 2024-08-02 15:26 | XMS_ITS | Continuity of Care Document ---
Author Organization [facility] Address [address] [place] [address] Phone Care Team Providers Care Assistant Womens Volleyball Coach Name Role Phone Yifan Benjamin MD Unavailable [...] on Encounter [facility], [address], [place], [id number], [place] tel:[phone] [facility] No Information 3 Sourav Saha. [facility], [address], [address], [place], [id number], [place]. tel:[phone] Office/Outpat ient Visit,Est, Mod [facility], [address], [place], [id number], [place] tel:[phone] [facility] Arthrodesis status 3 Layo Lima. [facility], [address], [place], [address], [place]. tel:[phone] Referring Provider: Clarence Vasques, [facility] [address], [place], [address]. tel:[phone] Office/Outpat ient Visit,Est, Low [facility], [address], [place], [id number], [place] tel:[phone] [facility] Arthrodesis status 1 Layo Lima. [facility], [address] [facility] , [place], [address], [place]. tel:[phone] Referring Provider: [facility] [address] [place] [address] , [place], [address]. tel:[phone] Office/Outpat ient Visit,Est, Mod [facility], [address], [place], [id number], [place] tel:[phone] [facility] Spinal stenosis, cervical region 0 [phone] Layo Lima. [facility], [address] [place] [address] , [facility] [place], [address], [place]. tel:[phone] Referring Provider: Clarence Vasques, [facility] [address] [place] [address] , [place], [address]. tel:[phone] Office/Outpat ient Visit,Est, Mod [facility], [address], [place], [id number], [place] tel:[phone] [facility] Spinal stenosis, cervical region 201 7 Layo Lima. [facility], [facility] , [place], [address], [place]. tel:[phone] Referring Provider: [facility] [address] [place] [address] , [place], [address]. tel:[phone] Office/Outpat ient Visit,Est, Mod [facility], [address], [place], [id number], [place] tel:[phone] [facility] Spinal stenosis, cervical region 7 Layo Lima. [facility], [facility] , [place], [address], [place]. tel:[phone] Referring Provider: Referring Self, [address] [place] [address] [address], [place], [address]. tel:[phone] [facility], [address], [place], [id number], [place] tel:[phone] [facility] Spinal stenosis, cervical region Layo Lima. [facility], [address] [facility] , [place], [address], [place]. tel:[phone] Referring Provider: Clarence Vasques, [facility] [address] [facility] , [place], [address]. tel:[phone] [facility], [address], [place], [id number], [place] tel:[phone] [facility] - [facility] Spinal stenosis, cervical region Layo Lima. [facility], [address] [facility] , [place], [address], [place]. tel:[phone] Referring Provider: Clarence Vasques, [facility] , [place], [address]. tel:[phone] [facility], [address], [place], [id number], [place] tel:[phone] [facility] Encounter for other specified surgical aftercare 6 Darrion Romero. [facility] [place], [address] [place] [address] [address], [place], [place], [id number], [place]. tel:[phone] Referring Provider: Nick Hobbs, [facility] [place] [address], [place], [address]. tel:[phone] [facility], [address], [place], [id number], [place] tel:[phone] [facility] No Information 6 Layo Lima. [facility], [address] [facility] , [place], [address], [place]. tel:[phone] Referring Provider: Clarence Vasques, [facility] [address], [place], [address]. tel:[phone] Family History Family Member Type Diagnosis Age At Onset No Information Payers Payer name Insurance type Covered constitution party ID Josafat mora(s) Medicare MB [id number] [facility] [address] [facility] [id number] Social History Type Description Quantity Date Captured [...]
--- OUTSIDE RECORDS SUMMARY | 2024-08-02 15:26 | XMS_ITS | Encounter Summary ---
Author Organization [facility] Address [address], [place] [address] Care Team Providers Care Financial Wellness Coach Name Role Phone Found, No Pcp MD Primary Care Provider Unavailab le Reason for Visit * Reason Comments Follow-up Encounter Details Date Type Department Care Team (Late st Contact Info) Description 07/28/2024 Telephone [facility] [address] Dermatology [address] [place], [place] [phone] [place] [address] [place] [phone] Follow-up Social History Tobacco Use Types Packs/Day Years Used Date Smoking Tobacco: Never Sex and Gender Information Value Date Recorded Sex Assigned at Not on file Gender Identity Not on file Sexual Orientation Not on file documented as of this encounter Nursing Notes * Rita Calles RN - 08/02/2024 12:29 PM CDT Phone visit changed to in person clinic visit on at 3:30p. Patient aware appointment is in [place]. * Mary Shaw MD - 07/28/2024 9:37 AM CDT Pt called called today because found out he is having persistent erosion on the lower lip subsequent to the last liquid N2 treatment . He has been wearing a Zinc based sun screen . He currently has 2focal areas of erosion that are not healing. Differential is slow healing from hard liquid N2 , contact derm , allergic derm from sun screen product , erosive LP/ drug reaction or erythroplasia . He may require a new biopsy since our current biopsy is almost a year old . In the interim will recommend trial of Hydrocortisone OTC and RTC in 3 weeks documented in this encounter Plan of Treatment Upcoming Encounters Date Type Department Care Team (Late st Contact Info) Description 08/17/2024 3:30 PM CDT Appointment [facility] - Dermatology [address] [place], [place] [phone] [place] [address] [place], [place] [address] [phone] documented as of this encounter Visit Diagnoses Not on filedocumented in this encounter Care Teams Financial Wellness Coach Relationship Specialty Start Date End Date Found, No PcpMD [address] [place] [address] PCP - General 09/28/23 documented as of this encounter
--- OUTSIDE RECORDS SUMMARY | 2024-08-02 15:26 | XMS_ITS | Clinical Summary ---
Author Organization [facility] Address [address] [place] [address] Care Team Providers Care Network Professional Name Role Phone Found, No Pcp MD Primary Care Provider Unavailab le Source Comments You are receiving this document as you are listed as the primary care provider,follow-up provider, or the patient has been referred to you for consultation.This is in compliance with the Medicare and[facility] EHR Incentive Program,which states Providers who transition their patient to another setting of careor provider of care or refers their patient to another provider of care shouldprovide summary care record for each transition of care or referral. Cumed Allergies No known active allergies Medications Medication [...] Encounters Date Type Department Care Team Description 07/28/2024 Telephone [facility] [address] [facility] [address] Mary Shaw MD Follow-up 07/[facility] [address] [facility] [place] [address] Mychart, Generic Provider 07/05/2024 1:00 PM CDT [facility] [address] [place] [address] Mary Shaw MD Actinic cheilitis (Primary Dx); Lichenoid dermatitis; Actinic keratosis 05/22/2024 1:00 PM CDT [facility] [address] [facility] [place] [address] Mary Shaw MD Lichenoid dermatitis (Primary Dx); Actinic cheilitis from Last 3 [...] 120.2 kg (265 lb) 10/07/2016 8:37 AM REWORK MACHINE OPERATOR Height 180.3 cm (5' 11) 10/07/2016 8:37 AM REWORK MACHINE OPERATOR Body Mass Index 36.96 10/07/2016 8:37 AM REWORK MACHINE OPERATOR Plan of Treatment Upcoming Encounters Date Type Department Care Team (Late st Contact Info) Description 08/17/2024 3:30 PM CDT [facility] [address] [facility] [place] [address] [place] [address] [place] [address] Health Maintenance Due Date Last Done Comments Colon Cancer Screening Plan Due 1955 Hep C Screening (Preventive Services) 1955 Medicare Annual Wellness Visit 1955 PSA Screening Discussion 1955 Cholesterol 1991 COVID-19 Vaccine (4 - 2022-2 4 season) 2024 01/02/2022, 03/04/2021, 02/11/2021 Influenza (#1) 2024 DTaP/Tdap/Td (3 - Tdap) 05/14/2032 05/14/20, 10/27/2012 Zoster/Shingles Completed 01/11/2020, 11/06/2019 Pneumococcal 65+ Yrs Completed 08/05/2023, 05/14/2022 HepA Aged Out No longer eligi ble [...] age to complete this topic Care Teams Network Professional Relationship Specialty Start Date End Date Found, No Pcp, [address] [place] [address] PCP - General 09/28/23
--- OUTSIDE RECORDS SUMMARY | 2024-08-02 15:26 | XMS_ITS | Encounter Summary ---
Author Organization [facility] Address [address], [place] [address] Care Team Providers Care Aeronautics Teacher Name Role Phone Found, No Pcp Primary Care Provider Unavailab le Reason for Visit * Reason Comments Appt. Needed Encounter Details Date Type Department Care Team (Late st Contact Info) Description 05/01/2024 Telephone [facility] [address] [place], [place] [phone] [place] [address] [place] [address] [id number] Appt. Needed Social History Tobacco Use Types Packs/Day Years Used Date Smoking Tobacco: Never Sex and Gender Information Value Date Recorded Sex Assigned at Not on file Gender Identity Not on file Sexual Orientation Not on file documented as of this encounter Nursing Notes * Yamila Lund LPN - 05/01/2024 11:46 AM CDT Future Dermatology Appointments Provider Department Center 05/22/2024 1:00 PM Mary Shaw MD [facility] * Yamila Lund LPN - 05/01/2024 11:45 AM CDT ----- Message from Yamila Lund LPN sent at 04/26/2024 4:52 PM CDT ----- LMTRC 5/29 ----- Message ----- From: Mary Shaw MD Sent: 04/25/2024 9:12 PM CDT To: Colin Hernandez Care Team Needs to return for treatment of the lip which was deferred documented in this encounter Plan of Treatment Upcoming Encounters Date Type Department Care Team (Late st Contact Info) Description 08/17/2024 3:30 PM CDT Appointment [facility] [address] [facility] [place], [place] [phone] [place] [address] [place] [address] DONOVAN BAÑUELOS [place] [phone] documented as of this encounter Visit Diagnoses Not on filedocumented in this encounter Care Teams Aeronautics Teacher Relationship Specialty Start Date End Date Found, No Pcp, [address] [place] [address] PCP - General 09/28/23 documented as of this encounter
== END 2024-08-01 08:16 | disposition home or self-care (01) ==
LOC: NFLDREF 08-02 15:24
PROVIDERS: PCP Family Medicine; Referring Provider Family Medicine; Visit Provider Family Medicine
DX: E11.65 Type 2 diabetes mellitus with hyperglycemia (principal); I10 Essential (primary) hypertension; E78.00 Pure hypercholesterolemia, unspecified; Z79.84 Long term (current) use of oral hypoglycemic drugs
CPT/HCPCS: 80053; 80061; 82043; 82570

== ENCOUNTER 2024-08-11 08:39 | Outpatient (CLI) | payer MEDICARE, BC, SELFPAY ==
--- OUTSIDE RECORDS SUMMARY | 2024-08-11 08:44 | XMS_ITS | Referral Summary ---
Author Organization [facility] Address [address] [place] [address] Care Team Providers Care Inbound Sales Representative Name Role Phone Unavailable Primary Care Provider [...] 10:11 AM CDT) Cholesterol 158 <200 mg/dL [facility] Comment: LDL Cholesterol is the primary guide to therapy. The NCEP recommends further evaluation of: patients with cholesterol greater than 200 mg/dL if additional risk factors are present, cholesterol greater than 240 mg/dL, triglycerides greater than 150 mg/dL, or HDL less than 40 mg/dL. Triglycerides 95 0 - 150 mg/dL [facility]3] HDL Cholesterol 31(L) >40 mg/dL [facility] LDL Cholesterol Calculated 107 0 - 129 mg/dL [facility]3] Comment: LDL Cholesterol is the primary guide to therapy: LDL-cholesterol goal in high risk patients is <100 mg/dL and in very high risk patients is <70 mg/dL. VLDL-Cholesterol 19 0 - 30 mg/dL [facility]3] Cholesterol/HDL Ratio 5.0 0.0 - 5.0 [facility]3] Blood specimen (specimen) 03/28/2014 10:11 AM CDT 03/28/2014 10:12 AM CDT Nimesh Jo MD LAB - BLOOD ORD ERABLES [facility]3] [address] [place], [place] [id number] * Comprehensive metabolic panel (03/28/2014 10:11 AM CDT) Sodium 143 133 - 144 mmol/L [facility]3] Potassium 4.4 3.4 - 5.3 mmol/L [facility]3] Chloride 104 94 - 109 mmol/L [facility]3] Carbon Dioxide 25 20 - 32 mmol/L [facility]3] Anion Gap 14 6 - 17 mmol/L [facility]3] Glucose 98 60 - 99 mg/dL [facility]3] Comment:Fasting specimen Urea Nitrogen 15 7 - 30 mg/dL [facility]3] Creatinine 0.82 0.66 - 1.25 mg/dL [facility]3] GFR Estimate >90 >60 mL/min/1.7 m2 [facility]3] GFR Estimate If Black >90 >60 mL/min/1.7 m2 [facility]3] Calcium 9.1 8.5 - 10.4 mg/dL [facility]3] Bilirubin Total 0.6 0.2 - 1.3 mg/dL [facility]3] Albumin 4.2 3.3 - 4.9 g/dL [facility]3] Comment:Reference range huang ged on 08/21/2008. Protein Total 7.5 6.8 - 8.8 g/dL [facility]3] Comment:As of 08, refer ence range reflects plasma specimen type. Alkaline Phosphatase 68 40 - 150 U/L [facility]3] ALT 57 0 - 70 U/L [facility]3] AST 37 0 - 45 U/L [facility]3] Blood specimen (specimen) 03/28/2014 10:11 AM CDT 03/28/2014 10:12 AM CDT Nimesh Jo MD LAB - BLOOD ORD ERABLES [facility]3] [address] [place], [place] [phone] * COLONOSCOPY (08/27/2008 9:40 AM CDT) COLONOSCOPY [...] saturations were monitored continuously. The [id number] ? #[id number] was introduced through the anus and advanced [...]
--- OUTSIDE RECORDS SUMMARY | 2024-08-11 08:44 | XMS_ITS | Encounter Summary ---
Author Organization [facility] Address [address], [place] [address] Care Team Providers Care Field Service Supervisor Name Role Phone Found, No Pcp Primary Care Provider Unavailab le Encounter Details Date Type Department Care Team (Late Contact Info) Description 07/19/2024 E-Visit [facility] [address] [place], [place] [phone] Mychart, [place] [address] Social History Tobacco Use Types Packs/Day Years [...] [facility] [address] [place], [place] [phone] [place] [address] [place] [address] documented as of this encounter Visit Diagnoses Not on filedocumented in this encounter Care Teams Field Service Supervisor Relationship Specialty Start Date End Date Found, No Pcp, [address] [place] [address] PCP - General 09/28/23 documented as of this encounter
--- OUTSIDE RECORDS SUMMARY | 2024-08-11 08:44 | XMS_ITS | Clinical Summary ---
Author Organization [employer] [facility] Address [address] [place] [address] Care Team Providers Care Porcelain Turner Name Role Phone Found, No Pcp MD Primary Care Provider Unavailab le Source Comments You are receiving this document as you are listed as the primary care provider,follow-up provider, or the patient has been referred to you for consultation.This is in compliance with the Medicare and[facility] EHR Incentive Program,which states Providers who transition their patient to another setting of careor provider of care or refers their patient to another provider of care shouldprovide summary care record for each transition of care or referral. [employer] Allergies No known active allergies Medications Medication [...] Type Department Care Team Description 07/28/2024 Telephone [facility] [address] Dermatology [address] [facility] [facility] [address] Mary Shaw MD Follow-up 07/19/2024 E-Visit [facility] [address] [facility] [place] [address] Mychart, Generic Provider 07/05/2024 1:00 PM CDT Office Visit [facility] [address] [place] [address] Mary Shaw MD Actinic cheilitis (Primary Dx); Lichenoid dermatitis; Actinic keratosis 05/22/2024 1:00 PM CDT Office Visit [facility] [address] [facility] [place] [address] Mary Shaw MD Lichenoid dermatitis (Primary Dx); [...] 120.2 kg (265 lb) 10/07/2016 8:37 AM 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 Height 180.3 cm (5' 11) 10/07/2016 8:37 AM 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 Body Mass Index 36.96 10/07/2016 8:37 AM 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 Plan of Treatment Upcoming Encounters Date Type Department Care Team (Late st Contact Info) Description 08/17/2024 3:30 PM CDT [facility]ment [facility] [address] [facility] [place] [address] [place] [address] [place] [address] Health Maintenance Due Date Last Done Comments [...] age to complete this topic Care Teams Porcelain Turner Relationship Specialty Start Date End Date Found, No Pcp, [address] [facility] [address] PCP - General 09/28/23
--- OUTSIDE RECORDS SUMMARY | 2024-08-11 08:44 | XMS_ITS | Patient Health Record ---
Author Organization [facility] Address [address] [place] [address] [address] [place] [address] Care Team Providers Care Retail Property Manager Name Role Phone Robert Princeson Primary Care Provider Layo [facility] CONRAD, Clarence Unavailable Unavaila Sandeep Ryder Unavailable [phone] Xavi Kendall Unavailable [phone] Allergies No Known Allergies Results Component Value Reference Range Notes CT: Pelvis (bone) Reviewed date:01/21/2024 01:37:49 PM [...] and impression. 4. Otherwise unremarkable pelvis CT. [facility] is committed to minimizing radiation exposure while maintaining high-quality CT images. Technologists adjust the mA and/or kV according to each patient's size to optimize dose. Since we began voluntarily reporting to the [employer]?s Dose Index Registry, our [...] Since we began voluntarily reporting to the [employer]?s Dose Index Registry, our average CT doses have been consistently lo wer than the national average. Read by: Mandeep Rushing M.D. Reviewed and Electro nically Signed by: Mandeep Rushing M.D. MRI : Lumbar Reviewed date:01/21/2024 01:38:06 PM [...] at L4-5, and of the left greater acrline n right S1 roots at L5-S1. 4. [...] Electro nically Signed by: George Rivas M.D. Reason For Referral No Information Medications [...] Active hydroCHLOROthiazide 25 MG 1 tablet in morning Orally Once a day Active Social History Tobacco Use: Social History Observation Description Date Details (start date - stop date) Never Smoker NA - NA Tobacco Use/Smoking: Question Answer Notes Are you a nonsmoker Problems Problem Type SNOMED Code ICD Code Onset Dates Problem Status W/U Status Risk Notes Problem Chronic pain (22081912) Other chronic pain (G89.29) Active confirmed Problem Low back pain (389696919) Low back pain, unspecified (M54.50) Active confirmed Vital Signs Blood pressure diastolic 78 mm Hg 10/26/2023 Height 72 in 10/26/2023 Blood pressure systolic 142 mm Hg 10/26/2023 Weight 274 lbs 10/26/2023 BMI 37.16 kg/m2 10/26/2023 Encounters Encounter Location Date Provider Diagnosis [address] [facility] [address] [place] [address] 10/08/2023 Tee Prince Other chronic pain G89.29 and Low back pain, unspecified M54.50 [facility] [address] [place] [address] 10/26/2023 Xavi Kendall Other chronic pain G89.29 and Low back pain, unspecified M54.50 [facility] [address] [place] [address] 09/16/2023 Sandeep Rehman [facility] [address] [place] [address] 10/27/2023 Tee Prince Assessments Encounter Date Diagnosis [...] I have ordered a lumbar MRI to [facility] as required prior to proceeding with the MBBs. I breifly discussed physical therapy at [facility] with him today, but he is not interested in physical therapy at this time. Regarding medications, I have checked the [facility] database and I did not find any [...] plan as necessary. Plan:1. Order lumbar MRI [facility]2. Consider MBB/RFA workup pending imaging.3. Start Meloxicam [...] I will order a lumbar CT to [facility] in [place]. Once he obtains the lumbar CT results, I advised him to follow up with his PCP. Pending the imaging findings, I will consider bilateral L4-S1 MBBs. Regarding medications, I have checked the [facility] database and I did not find any inconsistencies. This treatment plan was reviewed with the patient, and he was agreeable. He will return as needed. I will continue to monitor his progress, adjusting his treatment plan as necessary. Plan: 1. Reviewed lumbar MRI 2. Order lumbar CT scan to [facility] 3. Follow up with PCP - abnormal [...] documentation has been reviewed by the aforementioned COAT MAKER as well as Tee Prince MD, prior [...] documentation has been reviewed by the aforementioned LUMBER SORTER MACHINE as well as Sandeep Rehman MD, prior [...] Date Coverage End Date Medicare Part B [employer] [address] [place] [address] [phone] [id number] Sandeep Crooks Self - patient is the insured [address] [place] [address] [address] [address] [place] [address] [id number] Sandeep Crooks Self - patient is the insured Medical (General) History Medical History History ICD Code Arthritis Type 2 diabetes Hearing loss Sleep apnea
--- OUTSIDE RECORDS SUMMARY | 2024-08-11 08:44 | XMS_ITS | Clinical Summary ---
Author Organization [facility] Address [place], [place] [address] Care Team Providers Care Profiling Machine Set Up Operator Name Role Phone Kang Mcgee MD Primary Care Provider [phone] Allergies No known active allergies Medications Medication [...] Comments Blood Pressure 133/72 11/25/2023 1:40 PM COIL BUILDER Pulse 78 11/25/2023 1:30 PM COIL BUILDER Temperature 36.7 ??C (98 ??F) 11/25/2023 11:10 AM COIL BUILDER Respiratory Rate 16 11/25/2023 1:30 PM COIL BUILDER Oxygen Saturation 96% 11/25/2023 1:15 PM COIL BUILDER Inhaled Oxygen Concentration - - Weight 120.2 kg (265 lb) 11/25/2023 11:10 AM COIL BUILDER Height 182.9 cm (6') 11/25/2023 11:10 AM COIL BUILDER Body Mass Index 35.94 11/25/2023 11:10 AM COIL BUILDER Plan of Treatment Health Maintenance Due Date [...] 65+ 07/30/2024 Medical Devices Implanted Type Area Chain Person Device Identifier Shelf Expiration Date Model / Serial / Lot Sleeve Silcn 1.00i.D.X2.1mm Od Sty70 [id number] Labtician - [id number] Implanted:Qty: 1 on 07/17/2015 by Sixto Becerril MD at [facility] Right: Eye [employer] 02/26/2022 [id number]# / / [id number] Strip Silcn 0.75x3.5x125 [id number] - [id number] Implanted:Qty: 1 on 07/17/2015 by Sixto Becerril MD at [facility] Right: Eye [employer] 02/26/2022 [id number]# / / [id number] Screw Lmbr Post 5.5x25mm Solera 4.75 Va - [id number] Implanted:Qty: 2 on 11/02/2016 by Clarence Vasques MD at [facility] N/A: Spine Medtronic Spine/Ortho [id number]# / / [id number] 1-4mm 30cc Medtronic Chips Canclls Frozen Implanted:Qty: 1 on 11/02/2016 by Clarence Vasques MD at [facility] Explanted:at [facility] (Quantity not on file) N/A: Spine Medtronic Spine/Ortho 04/24/2019 [id number]# / [id number] / Set Screw Cerv Vertex Select - [id number] Implanted:Qty: 6 on 11/02/2016 by Clarence Vasques MD at [facility] N/A: Spine Medtronic Spine/Ortho [id number]# / / Screw Cerv Post 3.5x16mm Vertex Select Va - [id number] Implanted:Qty: 2 on 11/02/2016 by Clarence Vasques MD at [facility] N/A: Spine Medtronic Spine/Ortho [id number]# / / Screw Cerv Post 3.5x18mm Vertex Select Va - [id number] Implanted:Qty: 4 on 11/02/2016 by Clarence Vasques MD at [facility] N/A: Spine Medtronic Spine/Ortho [id number]# / / Cnnctr Cristhian Md Roland Vertex Select Variable - [id number] Implanted:Qty: 1 on 11/02/2016 by Clarence Vasques MD at [facility] N/A: Spine Medtronic Spine/Ortho [id number]# / / Roland Cerv 420x3.5/4.75mm Vertex Select - [id number] Implanted:Qty: 2 on 11/02/2016 by Clarence Vasques MD at [facility] N/A: Spine Medtronic Spine/Ortho [id number]# / / Set Screw Lmbr 4.01c68tp Solera 4.75 Ns Brk Off - [id number] Implanted:Qty: 2 on 11/02/2016 by Clarence Vasques MD at [facility] N/A: Spine Medtronic Spine/Ortho [id number]# / / Advance Directives * Full Code (Latest Code Status on File) Date Activated Date Inactivated Comments 11/02/2016 6:12 PM 11/06/2016 10:20 PM * Full Code Date Activated Date Inactivated Comments 11/02/2016 6:41 AM 11/02/2016 6:12 PM Question Answer Comments Code Status Discussion: Not Discussed * Full Code Date Activated Date Inactivated Comments 07/17/2015 9:21 AM 07/17/2015 3:48 PM Care Teams Profiling Machine Set Up Operator Relationship Specialty Start Date End Date Kang Mcgee MD [address] [place] [address] PCP - General Family Practice 06/07/20
--- OUTSIDE RECORDS SUMMARY | 2024-08-11 08:44 | XMS_ITS | Encounter Summary ---
Author Organization [facility] Address [address], [place] [address] Care Team Providers Care Marine Engineering Technicians Name Role Phone Found, No Pcp MD Primary Care Provider Unavailab le Reason for Visit * Reason Comments Wound Check Encounter Details Date Type Department Care Team (Late st Contact Info) Description 05/22/2024 1:00 PM CDT Office Visit [facility] - Dermatology [address] [place], [place] [address] [place] [address] [place] [address] Lichenoid dermatitis (Primary Dx); Actinic cheilitis Social History Tobacco Use Types Packs/Day Years Used Date Smoking Tobacco: Never Sex and Gender Information Value Date Recorded Sex Assigned at Not on file Gender Identity Not on file Sexual Orientation Not on file documented as of this encounter Progress Notes * Mary Shaw MD - 05/22/2024 12:00 AM CDT NAME: SURINDER GOETZ CSN: [id number] CLINIC NOTE DATE OF SERVICE: 05/22/2024 : [...] plaques along the gum line. MD BOB ROIBSON/ANDRESSA /[id number] documented in this encounter Plan of Treatment Upcoming Encounters Date Type Department Care Team (Late st Contact Info) Description 08/17/2024 3:30 PM CDT Appointment [facility] [address] [facility] [place] [address] [place] [address] [place] [address] documented as of this encounter Visit Diagnoses Diagnosis Lichenoid dermatitis- Primary Contact dermatitis and other eczema, due to unspecified cause Actinic cheilitis Acute dermatitis due to solar radiation documented in this encounter Care Teams Marine Engineering Technicians Relationship Specialty Start Date End Date Found, No Pcp, [address] [place] [address] PCP - General 09/28/23 documented as of this encounter
--- OUTSIDE RECORDS SUMMARY | 2024-08-11 08:44 | XMS_ITS | Clinical Summary ---
Author Organization [facility] Address [address] [place] [address] Care Team Providers Care Cover Mat Machine Operator Name Role Phone Unavailable Primary Care Provider [...] Additional history exists RSV VACCINE (1 - Risk 60-74 years 1-dose series) 2016 GLUCOSE 03/28/2017 03/28/2014, 09/30, 08/17/2012, Additional history exists ADVANCE CARE PLANNING 11/03/2017 11/03/2012, 012 COLONOSCOPY 08/27/2018 08/27/2008 COLORECTAL CANCER SCREENING 08/27/2018 FALL RISK ASSESSMENT 2021 MEDICARE ANNUAL WELLNESS VISIT 2021 03/28/2014, 11/12/2006 Pneumococcal Vaccine: 65+ Years (1 of 1 - PCV) 2021 DTAP/TDAP/TD IMMUNIZATION (2 - Td or Tdap) 10/27/2022 10/27/2012, 11/29/2006 PHQ-2 (once per calendar year) 2023 COVID-19 Vaccine (3 - season) 2024 03/04/2021, 02/11/2021 INFLUENZA VACCINE (#1) 2024 ZOSTER IMMUNIZATION Completed [...] mg/dL. Triglycerides 95 0 - 150 mg/dL [facility] HDL Cholesterol 31(L) >40 mg/dL [facility] LDL Cholesterol Calculated 107 0 - 129 mg/dL [facility] Comment: LDL Cholesterol is the primary guide to therapy: LDL-cholesterol goal in high risk patients is <100 mg/dL and in very high risk patients is <70 mg/dL. VLDL-Cholesterol 19 0 - 30 mg/dL [facility] Cholesterol/HDL Ratio 5.0 0.0 - 5.0 [facility] Blood specimen (specimen) 03/28/2014 10:11 AM CDT 03/28/2014 10:12 AM CDT Nimesh Jo MD LAB - BLOOD ORD ERABLES [facility] [address] [place] [address] * Comprehensive metabolic panel (03/28/2014 10:11 AM CDT) Sodium 143 133 - 144 mmol/L [facility] Potassium 4.4 3.4 - 5.3 mmol/L [facility] Chloride 104 94 - 109 mmol/L [facility] Carbon Dioxide 25 20 - 32 mmol/L [facility] Anion Gap 14 6 - 17 mmol/L [facility] Glucose 98 60 - 99 mg/dL [facility] Comment:Fasting specimen Urea Nitrogen 15 7 - 30 mg/dL [facility] Creatinine 0.82 0.66 - 1.25 mg/dL [facility] GFR Estimate >90 >60 mL/min/1.7 m2 [facility] GFR Estimate If Black >90 >60 mL/min/1.7 m2 [facility] Calcium 9.1 8.5 - 10.4 mg/dL [facility] Bilirubin Total 0.6 0.2 - 1.3 mg/dL [facility] Albumin 4.2 3.3 - 4.9 g/dL [facility] Comment:Reference range huang ged on 08/21/2008. Protein Total 7.5 6.8 - 8.8 g/dL [facility] Comment:As of 08, refer ence range reflects plasma specimen type. Alkaline Phosphatase 68 40 - 150 U/L [facility] ALT 57 0 - 70 U/L [facility] AST 37 0 - 45 U/L [facility] Blood specimen (specimen) 03/28/2014 10:11 AM CDT 03/28/2014 10:12 AM CDT Nimesh Jo MD LAB - BLOOD ORD ERABLES [facility] [address] [place] [address] * COLONOSCOPY (08/27/2008 9:40 AM CDT) COLONOSCOPY [...] saturations were monitored continuously. The [id number]-[id number] ? #[id number] was introduced through the anus and advanced [...]
--- OUTSIDE RECORDS SUMMARY | 2024-08-11 08:44 | XMS_ITS | Encounter Summary ---
Author Organization [facility] Address [address] [address] Care Team Providers Care Driver Salesman Name Role Phone Found, No Pcp MD Primary Care Provider Unavailab le Reason for Visit * Reason Comments Wound Check Encounter Details Date Type Department Care Team (Late st Contact Info) Description 07/05/2024 1:00 PM CDT Office Visit [facility] - Dermatology [address] [place], [place] [phone] [place] [address] [place] [phone] Actinic cheilitis (Primary Dx); Lichenoid dermatitis; Actinic [...] CDT Thank you for choosing Dermatology at [facility]! We welcome your feedback. Comment cards are located in our lobby. For questions, please call the Dermatology department or log in to [facility] to send us a [facility] message. For medication refills, please contact your pharmacy. For questions regarding billing, please contact [facility] at . Please consider enrolling in Awesome [employer]. Please follow the instructions below to securely access your online medical record. [employer] allows you to send messages to your doctor, view your test results, renew your prescriptions, schedule appointments, and more. How Do I Sign Up? In your Internet browser, go to: [email or web address] Click on the Enter Activation Code link under the New User? section. You will see the New Member Sign Up page. Enter your [facility] Activation Code exactly as it appears below. You will not need to use this code after you???ve completed the sign-up process. If you do not sign up before the expiration date, you must request a new code. [employer] [facility] Activation Code: [email or web address] Expires: 08/04/2024 1:51 PM Enter the last four digits of your Social Security Number ([id number]) and Date of (mm/dd/yyyy) as indicated and click Next. You will be taken to the next sign-up page. Create a Awesome [facility] ID. This will be your [facility] login ID and cannot be changed, so think of one thatis secure and easy to remember. Create a [employer] password. You can change your password at any time. Enter your Security Question and Answer. This can be used at a later time if you forget your password. Click Next. Enter your e-mail address. You will receive e-mail notification when new information is available -- in [facility]. Click Sign In. You can now view your medical record. Once [facility] is set up you can upload a photo. Please upload a photo of the surgical site (free of bandages) prior to upcoming phone visit with Dr. Shaw as scheduled. Please take a photo close up and from a distance making sure photos are clearand not blurry. A Photo link will be sent to your [facility] a few days prior to your scheduled phone visit. If you have difficulties with the photo process you can call [phone] and ask to speak with a nurse. documented in this encounter Progress Notes * Mary Shaw MD - 07/05/2024 12:00 AM CDT NAME: SURINDER GOETZ CSN: [id number] CLINIC NOTE DATE OF SERVICE: 07/05/2024 : [...] consideration of changing hismedication. MD BOB ROBISON/ANDRESSA /[id number] documented in this encounter Plan of Treatment Upcoming Encounters Date Type Department Care Team (Late st Contact Info) Description 08/17/2024 3:30 PM CDT Appointment [facility] - Dermatology [address] [place] [address] [place] [address] [place] [address] [phone] documented as of this encounter Visit Diagnoses Diagnosis Actinic cheilitis- Primary Acute dermatitis due to solar radiation Lichenoid dermatitis Contact dermatitis and other eczema, due to unspecified cause Actinic keratosis documented in this encounter Care Teams Driver Salesman Relationship Specialty Start Date End Date Found, No Pcp, [address] [place] [address] PCP - General 09/28/23 documented as of this encounter
--- OUTSIDE RECORDS SUMMARY | 2024-08-11 08:44 | XMS_ITS | Continuity of Care Document ---
Author Organization [facility] Address [address] [place] [address] Phone Care Team Providers Care Residential Nurse Name Role Phone Yifan Benjamin MD Unavailable [...] [facility], [address], [place], [id number], [place] tel:[phone] [facility] No Information 3 Sourav Saha. [facility], [address], [address], [place], [id number], [place]. tel:[phone] Office/Outpat ient Visit,Est, Mod [facility], [address], [place], [id number], [place] tel:[phone] [facility] Arthrodesis status 3 Layo Lima. [facility], [address], [place], [address], [place]. tel:[phone] Referring Provider: Clarence Vasques, [facility] [address], [place], [address]. tel:[phone] Office/Outpat ient Visit,Est, Low [facility], [address], [place], [id number], [place] tel:[phone] [facility] Arthrodesis status 1 Layo Lima. [facility], [address] [facility] , [place], [address], [place]. tel:[phone] Referring Provider: [facility] [address] [place] [address] , [place], [address]. tel:[phone] Office/Outpat ient Visit,Est, Mod [facility], [address], [place], [id number], [place] tel:[phone] [facility] Spinal stenosis, cervical region 0 [phone] Layo Lima. [facility], [address] [place] [address] , [facility] [place] [place], [address], [place]. tel:[phone] Referring Provider: Clarence Vasques, [facility] [address] [place] [address] , [place], [address]. tel:[phone] Office/Outpat ient Visit,Est, Mod [facility], [address], [place], [id number], [place] tel:[phone] [facility] Spinal stenosis, cervical region 201 7 Layo Lima. [facility], [facility] , [place], [address], [place]. tel:[phone] Referring Provider: [facility]EN [facility] [address] [place] [address] , [place], [address]. tel:[phone] Office/Outpat ient Visit,Est, Mod [facility], [address], [place], [id number], [place] tel:[phone] [facility] Spinal stenosis, cervical region 7 Layo Lima. [facility], [address] , [place], [address], [place]. tel:[phone] Referring Provider: Referring Self, [address] [place] [address] [address], [place], [address]. tel:[phone] [facility], [address], [place], [id number], [place] tel:[phone] [facility] - [facility] Spinal stenosis, cervical region Layo Lima. [facility], [address] [facility] , [place], [address], [place]. tel:[phone] Referring Provider: Clarence Vasques, [facility] [address] [facility] , [place], [address]. tel:[phone] [facility], [address], [place], [id number], [place] tel:[phone] [facility] - [facility] Spinal stenosis, cervical region Layo Lima. [facility], [address] [facility] , [place], [address], [place]. tel:[phone] Referring Provider: Clarence Vasques, [facility] , [place], [address]. tel:[phone] [facility], [address], [place], [id number], [place] tel:[phone] [facility] - [facility] Encounter for other specified surgical aftercare 6 Darrion Romero. [facility] [place], [address] [place] [address] [address], [place], [place], [id number], [place]. tel:[phone] Referring Provider: Nick Hobbs, [facility] [place] [address], [place], [address]. tel:[phone] [facility], [address], [place], [id number], [place] tel:[phone] [facility] No Information 6 Layo Lima. [facility], [address] [facility] , [place], [address], [place]. tel:[phone] Referring Provider: Clarence Vasques, [facility] [address], [place], [address]. tel:[phone] Family History Family Member Type Diagnosis Age At Onset No Information Payers Payer name Insurance type Covered democrat ID Josafat mora(s) Medicare MB [id number] [facility] [id number] [facility] [id number] Social History Type Description Quantity Date Captured [...]
--- OUTSIDE RECORDS SUMMARY | 2024-08-11 08:44 | XMS_ITS | Encounter Summary ---
Author Organization [facility] Address [address] [address] Care Team Providers Care Loop Cutter Name Role Phone Found, No Pcp MD Primary Care Provider Unavailab le Reason for Visit * Reason Comments Follow-up Encounter Details Date Type Department Care Team (Late st Contact Info) Description 07/28/2024 Telephone [facility] [address] Dermatology [address] [place], [place] [phone] [place] [address] [place] [address] [phone] Follow-up Social History Tobacco Use Types Packs/Day [...] Info) Description 08/17/2024 3:30 PM CDT Appointment [facility] - Dermatology [address] [place], [place] [phone] [place] [address] [place], [place] [address] [phone] documented as of this encounter Visit Diagnoses Not on filedocumented in this encounter Care Teams Loop Cutter Relationship Specialty Start Date End Date Found, No PcpMD [address] [place] [address] PCP - General 09/28/23 documented as of this encounter
--- OUTSIDE RECORDS SUMMARY | 2024-08-11 08:44 | XMS_ITS | Data Portability ---
Author Organization [place] [facility] [place] [facility] Address [address] [facility] [address] [place] [address] Assessment Encounter Date Assessment Date Assessment LastModified [...] Details Appointments None recorded. Lab urinalysis, dipstick 2019 020 ssamb Not available 0 16:49:55 urinalysis, dipstick 2020 021 Not available 11:58:47 Referral None recorded. Procedures None recorded. Surgeries None recorded. Imaging None recorded. Medication Orders tamsulosin 0.4 mg capsule 2020 021 [facility], [address] [place], [address], 11:59:16 Patient TargetsNo targets recorded. Patient Instructions Encounter Date Encounter Id Patient Instructions Last Modified By Organization Details Last Modified Time 06/18/2020 [id number] RTC 6-12 [place]. PVR , U/A. Not available 06/18/2020 17:59:27 Reason for Referral None Reported. Results Created Date Observation Date Name Description Value Unit Range Abnormal Flag Note LastModifiedBy Organization Detail LastModifiedTime 07/03/2021 urina lysis , dipst ick Color-Status Yellow Not Available [facility] [address], [place], [address], 07/03/2021 11:56:06 07/03/2021 urina lysis , dipst ick Clarity-Stat us Clear Not Available [facility] [address], [place], [address], 07/03/2021 11:56:06 07/03/2021 urina lysis , dipst ick Leuko-Status Modera te Not Available [facility] [address], [place], [address], 07/03/2021 11:56:06 06/18/20 20 06/18/2020 urina lysis , dipst ick Nitrates-Sta tus negati ve Not Available [facility] [address], [place], [address], 06/18/2020 16:49:23 06/18/20 20 06/18/2020 urina lysis , dipst ick Blood-Status Negati ve Not Available [facility] [address], [place], [address], 06/18/2020 16:49:23 06/18/20 20 06/18/2020 urina lysis , dipst ick Leuko-Status Trace Not Available [facility] [address], [place], [address], 06/18/2020 16:49:23 06/18/20 20 06/18/2020 urina lysis , dipst ick Specimen Type Voided Not Available [facility] [address], [place], [address], 06/18/2020 16:49:23 06/19/20 20 06/18/2020 bladd er scan (PROC ) No observ ation record ed. BARCODE Not Available 2019 12:05:39 07/03/20 21 07/03/2021 bladd er scan (PROC ) No observ ation record ed. BARCODE Not Available 2020 16:34:54 12/31/19 22 12/31/2021 US, scrot um No observ ation record ed. [facility] (Radiology) [address] [facility], [place], [address], 01/06/2022 14:01:54 Result Notes None recorded. Problems Name Problem SNOMED Code Status Onset Date Resolution Date Notes Provider Name and Address Organization Details Recorded Time Benign prostatic hyperplasia 949878452 Active 2019 Sushil mcneal [facility] 0 16:36:18 Phimosis 674416359 Active 2019 Sushil mcneal [facility] 0 16:36:23 Problem Notes None recorded. Procedures Surgical History Date Name Laterality Status Provider Name and Address Organization Details Recorded Time 1 Bladder Scan completed Willie Buckner MD [address] [place] [address],[address], [place], [address], [place] [facility] 07/03/2021 11:59:10 0 Bladder Scan completed Sushil Melgozapaulette mcneal [facility] 06/18/2020 16:46:59 Cataract Surgery completed Sushil Melgozapaulette mcneal [facility] 06/18/2020 16:33:10 cervical arthrodesis completed Sushil Melgozapaulette mcneal [facility] 06/18/2020 16:34:29 procedure on wrist completed Sushil Elinor mcneal [facility] 06/18/2020 16:34:51 Imaging Results Imaging Date Name Status LastModified by Organiz ation Details LastModified Time 06/18/2020 bladder scan (PROC) completed BAR[facility] Information not available 06/19/2020 12:05:39 07/03/2021 bladder scan (PROC) completed BARCODE Information not available 07/03/2021 16:34:54 12/31/2021 US, scrotum completed [facility] (Radiology) [address] [facility], [place], [address], 01/06/2022 14:01:54 Procedure Notes None recorded. Medical [...] Not Available No t Available OneTouch Ultra Test strips active Not Available Not [...] Updated DateTime 06/18/2020 180.34 cm 37.7 kg/m2 870829.94 g Sushil Aldrich [facility] 06/18/2020 16:42:55 Date Recorded Body height Body mass index (BMI) Body weight Provider Name and Address Organization Details Last Updated DateTime 07/03/2021 180.34 cm 37.7 kg/m2 405329.94 g Sushil Aldrich [facility] 07/03/2021 11:51:10 Date Recorded Body height Body mass index (BMI) Body weight Provider Name and Address Organization Details Last Updated DateTime 12/23/2021 180.34 cm 37.7 kg/m2 159337.94 g Willie Buckner MD [address] [place] [address],[address], [address], [facility] 12/23/2021 14:20:19 Date Recorded Body height Body mass index (BMI) Body weight Provider Name and Address Organization Details Last Updated DateTime 02/20/2022 180.34 cm 37.7 kg/m2 667021.94 g Willie Buckner MD [address] [place] [address],[address], [address], [facility] 02/20/2022 09:25:58 Social History Question Answer Notes LastModified by Organizat ion Details LastModified Time Tobacco Smoking Status Former Smoker QUIT: 2003 Sushil Melgozapaulette mcneal, [facility] 06/18/2020 16:36:44 What Was The Date Of Your Most Recent Tobacco Screening? 02/20/2022 Information not available 02/20/2022 Sex: Unknown Functional Status None recorded. Mental Status None recorded. Family History Relationship Description Onset Age of this Age Resolved Age Notes Sister Family history of ca ncer of colon Father Family history of ca rdiac disorder Medical History Condition Response Other Y High Blood Pressure Y Kidney Stones N Lung Disease N Depression N GERD/Acid Reflux N Sexually Transmitted Infection N Cancer N High Cholesterol Y Diabetes Y Bleeding Disorder N Heart Disease N Past Encounters Encounter ID Performer Location Encounter Start Date Encounter Closed Date Diagnosis/Indication Diagnosis SNOMED-CT Code Diagnosis ICD10 Code [id number] MD [facility] [address] [place] [address] 06/18/2020 16:25:56 06/18/2020 18:07:26 Benign prostatic hyperplasia 371270202 N40.1 [id number] MD [facility] [address] [place] [address] 07/03/2021 11:39:42 07/07/2021 14:42:18 Benign prostatic hyperplasia 989544428 N40.1 Balanitis 25807462 N48.1 Benign pro static hyperplasia with outflow obstruction 345139754 N40.1 Type 2 jemma betes mellitus without complication 826778054 E11.9 [id number] MD [facility] [address] [place] [address] 12/23/2021 13:58:21 12/29/2021 12:15:46 Spermatocele 18273021 N43.40 [id number] MD Timo [facility] [address] [place] [address] 02/20/2022 09:17:52 02/23/2022 10:10:49 Spermatocele 81804102 N43.40 Health Concerns Section Related Observation LastModified by Organization Detai ls LastModified Time None Recorded Concern Status LastModified by Organization Details LastModified Time None Recorded Advance Directives Directive None Recorded Payers Encounter Date Sequence Insurance Name Policy Number Policy Castillo Covered Member ID Castillo Member ID Guarantor Name 06/18/2020 1 [place] [id number] Sandeep Cosmel [id number] Sandeep Lopez Pomasl 07/03/2021 1 [place] [id number] Sandeep Douglasasl [id number] Sandeep Lopez Pomasl 12/23/2021 2 [place] [id number] Sandeep Douglasasl [id number] Sandeep Lopez Pomasl 02/20/2022 2 [place] [id number] Sandeep Cosmel [id number] Sandeep Lopez Pomasl 02/20/2022 1 [place] Sandeep Douglasasl [id number] Sandeep Lopez Pomasl Notes Date Note Type Note Provider Name and Address Organization Details Recorded Time 06/18/2020 text/html HPI Notes: 64 YO M HERE TODAY FOR A FOLLOW UP. HE HAS A HISTORY OF BPH and BALANITIS. HE WAS LAST SEEN (05-15-19) and WAS GIVEN CLOBETASOL CREAM AND TAMSULOSIN .DOING WELL ON MEDICAL THERAPY. Willie Buckner MD [address] [place] [address], [address], [facility] 06/18/2020 18:00:14 07/03/2021 text/html HPI Notes: 65 YO M ,aodm .HERE TODAY FOR A FOLLOW UP. HE HAS A HISTORY OF BPH and BALANITIS. HE WAS LAST SEEN (06-18-20) and WAS GIVEN CLOBETASOL CREAM AND TAMSULOSIN .DOING WELL ON MEDICAL THERAPY. Willie Buckner MD [address] [place] [address],[address], [address], [facility] 07/05/2021 11:46:53 12/23/2021 text/html HPI Notes: 65 YO M HERE TODAY FOR A FOLLOW UP FOR TESTICULAR DISCOMFORT. HE HAS A HISTORY OF BPH and BALANITIS. HE WAS LAST SEEN (07-03-21)ON CLOBETASOL CREAM AND TAMSULOSIN .DOING WELL ON MEDICAL THERAPY. RT SIDED TESTICULAR PAIN AND SWELLING Willie Buckner MD [address] [facility],[address], [place], [address], [facility] 12/26/2021 09:28:18 02/20/2022 text/html HPI Notes: 66 YO M HERE TODAY FOR A FOLLOW UP FOR POST OP BILATERAL SPERMATOCELECTOMY AND RELEASE OF PENILE ADHESION RELESE. HE HAS A HISTORY OF BPH and BALANITIS. HE WAS LAST SEEN (07-03-21)ON CLOBETASOL CREAM AND TAMSULOSIN .DOING WELL ON MEDICAL THERAPY. RT SIDED TESTICULAR PAIN AND SWELLING Willie Buckner MD [address] [facility],[address], [place], [address], [facility] 02/20/2022 10:07:49
--- NOTE | 2024-08-11 09:00 | CRLHL7_ITS ---
For Patients: As a result of the Century Cures Act, medical imaging exams and procedure reports are released immediately into your electronic medical record. You may view this report before your referring provider. If you have questions, please contact your health care provider. Indication: LUNG NODULES AND BONE LESIONS SEEN ON PET Technique: CT Chest/Abd/Pelvis 129CC ISOVUE 370 AND WATER PREP Please note that all CT scans at this facility use dose modulation, iterative reconstruction, and/or weight-based dosing when appropriate to reduce radiation dose to as low as reasonably achievable. Comparison: CT-PET 01/27/2024 Findings: In the chest, right paratracheal lymph node measures 9.3 millimeters, similar to the prior study. Additional right paratracheal lymph node measures 9 millimeters. Incidental pericardial recess noted. Stable subcentimeter AP window lymph nodes. Similar subcarinal subcentimeter lymph nodes and bilateral hilar lymph nodes measuring 1 cm or less. No pleural or pericardial effusion. Degenerative joint disease of both shoulders with subchondral cyst formation within the inferior right glenoid. There is no fracture. Postop changes noted at the cervicothoracic junction. Multiple bilateral pulmonary nodules are present measuring up to 6.2 millimeters. Dependent areas of scarring are present bilaterally. In the abdomen, hepatic steatosis is noted. No intrahepatic mass. Layering stones in the gallbladder noted. No biliary obstruction. The spleen is within normal limits. No adrenal nodule. Tiny bilateral renal stones. No hydronephrosis. Pancreatic parenchyma is unremarkable. Faint stranding within the central mesenteric fat again noted with a few scattered subcentimeter lymph nodes. In the pelvis, the bladder is normal. Prostate calcifications. Normal ureters. No bowel obstruction, free air, free fluid or abscess. Mild diverticulosis. No diverticulitis. Normal appendix. No abdominal wall hernia. Stable sclerotic focus within the right acetabular roof and within the right posterior iliac bone. Degenerative disc disease L5-S1. Facet degeneration lower lumbar spine. Impression: Multiple bilateral pulmonary nodules measuring up to 6.2 millimeters. Direct comparison with the low resolution CT images from the PET scan is difficult although the nodules are likely similar. Mild bilateral hilar and mediastinal adenopathy with numerous lymph nodes measuring up to 1 cm, likely similar. Stable sclerotic focus within the right posterior iliac bone. Please note that all CT scans at this facility use dose modulation, iterative reconstruction, and/or weight-based dosing when appropriate to reduce radiation dose to as low as reasonably achievable. Dictated by Sixto Ta MD @ 08/11/2024 12:11:36 PM (Electronically Signed)
== END 2024-08-11 08:40 | disposition home or self-care (01) ==
LOC: CT 08:41
PROVIDERS: PCP Family Medicine; Visit Provider Internal Medicine Hematology & Oncology
DX: R91.8 Other nonspecific abnormal finding of lung field (principal); M89.9 Disorder of bone, unspecified
CPT/HCPCS: 71260; 74177; Q9967

== ENCOUNTER 2024-08-16 08:07 | Outpatient (RCR) | payer MEDICARE, BC, SELFPAY | END 2025-02-12 23:59 | disposition home or self-care (01) | LOC: CCIC 08:07 | PROVIDERS: PCP Family Medicine; Visit Provider Internal Medicine Hematology & Oncology | DX: M89.9 Disorder of bone, unspecified (principal) | CPT/HCPCS: 99213; G0463 ==

== ENCOUNTER 2024-10-06 14:21 | Outpatient (CLI) | payer MEDICARE, BC, SELFPAY ==
--- OUTSIDE RECORDS SUMMARY | 2024-10-06 14:23 | XMS_ITS | Clinical Summary ---
Author Organization [place] Address [address] [place] [address] Care Team Providers Care Shrinker Name Role Phone Unavailable Primary Care Provider Unavailabl e Allergies No known active allergies Medications ORDER FOR DMEIndications:HT N (hypertension) Equipment being ordered: Blood pressure monitor 1 each 0 2 Active aspirin 81 MG tablet Take 1 tablet by mouth daily Active simvastatin (ZOCOR) 20 MG tabletIndications :Hyperlipidemia LDL goal <130 Take 1 tablet (20 mg) by mouth At Bedtime MD/LABS DUE NOW 90 tablet 3 4 Active lisinopril (PRINIVIL,ZESTRIL ) 5 MG tabletIndications :Benign hypertension Take 1 tablet (5 mg) by mouth daily SEE MD 30 tablet 0 5 Active amLODIPine (NORVASC) 5 MG tabletIndications :HTN, goal below 140/90 Take 1 tablet (5 mg) by mouth daily 5 Active Active Problems Problem Noted Date Diagnosed Date Ventral hernia 12/26/2012 LVH (left ventricular hypertrophy) 11/04/2012 HTN, goal below 140/90 11/04/2012 Hepatic steatosis 11/03/2012 Gallstones 11/03/2012 Obesity 11/02/2012 ADRIEN (obstructive sleep apnea) 10/27/2012 Venous stasis of lower extremity 10/27/2012 HYPERLIPIDEMIA LDL GOAL <130 09/28/2010 Chronic rhinitis 01/30/2010 Trigger finger, acquired 01/30/2010 Overview (08/30/2015): Problem list name updated by automated process. 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 Not on file Not on file Not on fi le Last Filed Vital Signs Vital Sign Reading [...] C SCREENING 1974 LUNG CANCER SCREENING 2006 BMP 03/28/2015 03/28/2014, 09/30, 08/17/2012, Additional history exists LIPID 03/28/2015 03/28/2014, 07/30, 10/30/2010, Additional history [...] Procedure Name Priority Date/Time Associated Diagnosis Comments LIPID REFLEX TO DIRECT LDL PANEL Routine 03/28/2014 10:11 AM CDT Routine general medical examination at a health care facility COMPREHENSIVE METABOLIC PANEL Routine 03/28/2014 10:11 AM CDT Routine general medical examination at a health care facility COLONOSCOPY Routine 08/27/2008 9:40 AM CDT from Last 3 Months or Most Recently Relevant to Health Maintenance Results * (ABNORMAL) Lipid panel reflex to direct LDL (03/28/2014 10:11 AM CDT) Cholesterol 158 <200 mg/dL [facility] Comment: LDL Cholesterol is the primary guide to therapy. The NCEP recommends further evaluation of: patients with cholesterol greater than 200 mg/dL if additional risk factors are present, cholesterol greater than 240 mg/dL, triglycerides greater than 150 mg/dL, or HDL less than 40 mg/dL. Triglycerides 95 0 - 150 mg/dL [facility] HDL Cholesterol 31(L) >40 mg/dL [facility] LDL Cholesterol Calculated 107 0 - 129 mg/dL [facility] Comment: LDL Cholesterol is the primary guide to therapy: LDL-cholesterol goal in high risk patients is <100 mg/dL and in very high risk patients is <70 mg/dL. VLDL-Cholesterol 19 0 - 30 mg/dL [facility] Cholesterol/HDL Ratio 5.0 0.0 - 5.0 [facility] Blood specimen (specimen) 03/28/2014 10:11 AM CDT 03/28/2014 10:12 AM CDT Nimesh Jo MD LAB - BLOOD ORDERABLES Final Result Performing Organization Address City/State/[facility] Co de Phone Number [facility] [address] [place], [place] [phone] * Comprehensive metabolic panel (03/28/2014 10:11 AM CDT) Sodium 143 133 - 144 mmol/L [facility] Potassium 4.4 3.4 - 5.3 mmol/L [facility] Chloride 104 94 - 109 mmol/L [facility] Carbon Dioxide 25 20 - 32 mmol/L [facility] Anion Gap 14 6 - 17 mmol/L [facility] Glucose 98 60 - 99 mg/dL [facility] Comment:Fasting specimen Urea Nitrogen 15 7 - 30 mg/dL [facility] Creatinine 0.82 0.66 - 1.25 mg/dL [facility] GFR Estimate >90 >60 mL/min/1.7 m2 [facility] GFR Estimate If Black >90 >60 mL/min/1.7 m2 [facility] Calcium 9.1 8.5 - 10.4 mg/dL [facility] Bilirubin Total 0.6 0.2 - 1.3 mg/dL [facility] Albumin 4.2 3.3 - 4.9 g/dL [facility] Comment:Reference range huang ged on 08/21/2008. Protein Total 7.5 6.8 - 8.8 g/dL [facility] Comment:As of 08, refer ence range reflects plasma specimen type. Alkaline Phosphatase 68 40 - 150 U/L [facility] ALT 57 0 - 70 U/L [facility] AST 37 0 - 45 U/L [facility] Blood specimen (specimen) 03/28/2014 10:11 AM CDT 03/28/2014 10:12 AM CDT us Nimesh Jo MD LAB - BLOOD ORDERABLES Final Result [facility] [address] [place] [address] * COLONOSCOPY (08/27/2008 9:40 AM CDT) COLONOSCOPY [...] oxygen ? saturations were monitored continuously. The [id number] ? #[id number] was introduced through the anus and advanced [...] RADIOLOG Y RESULTS 08/27/2008 9:40 AM CDT us Nimesh Jo MD PROCEDURES Final R esult RADIOLOGY RESULTS from Last 3 Months or Most Recently Relevant to Health Maintenance Insurance [facility] MEDICARE
--- OUTSIDE RECORDS SUMMARY | 2024-10-06 14:23 | XMS_ITS | Encounter Summary ---
Author Organization [facility] Address [address] [address] Care Team Providers Care Corridor Redevelopment Manager Name Role Phone Found, No Pcp MD Primary Care Provider Unavailab le Reason for Visit * Reason Comments Wound Check Encounter Details Date Type Department Care Team (Late st Contact Info) Description 08/17/2024 3:30 PM CDT Office Visit [facility] - Dermatology [address] [place], [place] [phone] [place] [address] [place] [phone] Cheilitis (Primary Dx) Social History Tobacco Use Types Packs/Day Years Used Date Smoking Tobacco: Never Sex and Gender Information Value Date Recorded Sex Assigned at Not on file Gender Identity Not on file Sexual Orientation Not on file documented as of this encounter Progress Notes * Mary Shaw MD - 08/17/2024 12:00 AM CDT NAME: SURINDER GOETZ CSN: [id number] CLINIC NOTE DATE OF SERVICE: 08/17/2024 : 1955 SUBJECTIVE: Mr. 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 The biopsy was performed in September 2023, which showed a lichenoid dermatitis, but also the differential included lichenoid actinic keratosis as well as with this in mind, we have asked him to discontinue his hydrochlorothiazide. He has done that with his physician. He is on aweit management program and is off all blood pressure medication altogether with this discontinuation. He has been off 2 weeks. He has undergone sequential liquid nitrogen therapy to the lip and hehad a significant blistering reaction on the right and that has reepithelialized. He is no longer using hydrocortisone. We are now going into the fall months when he will have less sun exposure. We will plan to see him. Current Outpatient Medications Medication Instructions amLODIPine (NORVASC) 10 mg, Oral, DAILY hydroCHLOROthiazide (ORETIC) 25 MG tablet 1 Tablet, Oral, DAILY insulin glargine-yfgn (SEMGLEE) 100 unit/mL injection pen SMARTSI Unit(s) SUB-Q Every Evening lisinopril (ZESTRIL) 10 mg, Oral, DAILY metFORMIN (GLUCOPHAGE) 1,000 mg, Oral, BID WITH MEALS Ozempic (0.25 or 0.5 MG/DOSE) 0.5 mg, Subcutaneous, WEEKLY simvastatin (ZOCOR) 20 MG tablet 1 Tablet, Oral, DAILY tamsulosin (FLOMAX) 0.4 MG CAPS capsule 1 Capsule, Oral, DAILY PHYSICAL EXAMINATION: He has healed well. He has a light hint of reticular change at the very vermilion border, but thereis no induration, no erosion, and no peeling on the lip at this time. 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 He seems to have had a good response to liquid nitrogen therapy for the past 2 weeks and has been off his hydrochlorothiazide. Wewould anticipate continued improvement. He will continue to wear sunscreen and sun protection. We encouraged him to use a hat as well. We did discuss risks, benefits since we did a biopsy and that it may be reasonable to do again if he flares. MD BOB ROBISON/ANDRESSA /[id number] documented in this encounter Plan of Treatment Upcoming Encounters Date Type Department Care Team (Late st Contact Info) Description 01/10/2025 2:15 PM PRIMARY SPECIAL EDUCATOR Appointment [facility] [address] [place], [place] [phone] [place] [address] [place] [address] [place] [id number] documented as of this encounter Visit Diagnoses Diagnosis Cheilitis- Primary Diseases of lips documented in this encounter Care Teams Corridor Redevelopment Manager Relationship Specialty Start Date End Date Found, No Pcp, [address] [place] [address] PCP - General 09/28/23 documented as of this encounter
--- OUTSIDE RECORDS SUMMARY | 2024-10-06 14:23 | XMS_ITS | Encounter Summary ---
Author Organization [email or web address] Address [address], [place] [address] Care Team Providers Care Torque Tester Name Role Phone Found, No Pcp MD Primary Care Provider Unavailab le Reason for Visit * Reason Comments Follow-up Encounter Details Date Type Department Care Team (Late st Contact Info) Description 07/28/2024 Telephone [facility] [address] [place], [place] [address] [place] [address] [place], [place] [phone] Follow-up Social History Tobacco Use Types Packs/Day [...] st Contact Info) Description 01/10/2025 2:15 PM DIRECTOR OF PRODUCT MARKETING Appointment [facility] [address] [place] [address] [place] [address] [place] [phone] documented as of this encounter Visit Diagnoses Not on filedocumented in this encounter Care Teams Torque Tester Relationship Specialty Start Date End Date Found, No PcpMD [address] [place] [address] PCP - General 09/28/23 documented as of this encounter
--- OUTSIDE RECORDS SUMMARY | 2024-10-06 14:23 | XMS_ITS | Clinical Summary ---
Author Organization [facility] Address [address], [place] [address] Care Team Providers Care Temper Mill Roller Name Role Phone Found, No Pcp MD Primary Care Provider Unavailab le Source Comments You are receiving this document as you are listed as the primary care provider,follow-up provider, or the patient has been referred to you for consultation.This is in compliance with the Medicare and[facility] Hospital[facility] EHR Incentive Program,which states Providers who transition their patient to another setting of careor provider of care or refers their patient to another provider of care shouldprovide summary care record for each transition of care or referral. Otterology Allergies No known active allergies Medications Medication [...] Encounters Date Type Department Care Team Description 08/17/2024 3:30 PM CDT Office Visit [facility] - Dermatology [address] [place] [address] Mary Shaw MD Cheilitis (Primary Dx) 07/28/[address] [address] Mary Sahw MD Follow-up 07/19/2024 E-Visit [facility] - [address] [address] Mychart, Generic Provider from Last 3 Months Social History Tobacco [...] 120.2 kg (265 lb) 10/07/2016 8:37 AM CASH ACCOUNTANT Height 180.3 cm (5' 11) 10/07/2016 8:37 AM CASH ACCOUNTANT Body Mass Index 36.96 10/07/2016 8:37 AM CASH ACCOUNTANT Plan of Treatment Upcoming Encounters Date Type Department Care Team (Late st Contact Info) Description 01/10/2025 2:15 PM CASH ACCOUNTANT Appointment [address] [address] [place] [address] [facility] [place] [address] Health Maintenance Due Date Last Done Comments Colon Cancer Screening Plan Due 1955 Hep C Screening (Preventive Services) 1955 Medicare Annual Wellness Visit 1955 PSA Screening Discussion 1955 Cholesterol 1991 COVID-19 Vaccine (2023-2 5 season) 2024 01/02/2022, 03/04/2021, 02/11/2021 Influenza (#1) 2024 RSV (1 - 1-dose 75+ series) 2031 DTaP/Tdap/Td (3 - Tdap) 05/14/2032 05/14/20 22, 10/27/2012 Zoster/Shingles Completed 01/11/2020, 11/06/2019 Pneumococcal 65+ [...] patient's age to complete this topic RSV Aged Out No longer eligi ble based on patient's age to complete this topic MCV4 Aged Out No longer eligi ble based on patient's age to complete this topic Care Teams Temper Mill Roller Relationship Specialty Start Date End Date Found, No Pcp, [address] [place] [address] PCP - General 09/28/23
--- OUTSIDE RECORDS SUMMARY | 2024-10-06 14:23 | XMS_ITS | Data Portability ---
Author Organization [place] [facility] [place] [facility] Address [address] [facility] [address] [place] [address] Assessment Encounter Date Assessment Date Assessment LastModified [...] Orders tamsulosin 0.4 mg capsule 2020 021 [facility] [address], [address] [place], [address], 11:59:16 Patient TargetsNo targets recorded. Patient Instructions Encounter Date Encounter Id Patient Instructions Last Modified By Organization Details Last Modified Time 06/18/2020 [id number] RTC 6-12 MO. PVR , U/A. Not available 06/18/2020 17:59:27 Reason for Referral None Reported. Results Created Date Observation Date Name Description Value Unit Range Abnormal Flag Note LastModifiedBy Organization Detail LastModifiedTime 07/03/2021 urina lysis , dipst ick Color-Status Yellow Not Available [facility] [address], [place], [address], 07/03/2021 11:56:06 07/03/2021 urina lysis , dipst ick Clarity-Stat us Clear Not Available [facility] [address], [place], [address], 07/03/2021 11:56:06 07/03/2021 urina lysis , dipst ick Leuko-Status Modera te Not Available [facility] [address], [place], [address], 07/03/2021 11:56:06 06/18/20 20 06/18/2020 urina lysis , dipst ick Nitrates-Sta tus negati ve Not Available [facility] [address], [place], [address], 06/18/2020 16:49:23 06/18/20 20 06/18/2020 urina lysis , dipst ick Blood-Status Negati ve Not Available [facility] [address], [place], [address], 06/18/2020 16:49:23 06/18/20 20 06/18/2020 urina lysis , dipst ick Leuko-Status Trace Not Available [facility] [address], [place], [address], 06/18/2020 16:49:23 06/18/20 20 06/18/2020 urina lysis , dipst ick Specimen Type Voided Not Available [facility] [address], [place], [address], 06/18/2020 16:49:23 06/19/20 20 06/18/2020 bladd er scan (PROC ) No observ ation record ed. BARCODE Not Available 2019 12:05:39 07/03/20 21 07/03/2021 bladd er scan (PROC ) No observ ation record ed. BARCODE Not Available 2020 16:34:54 12/31/19 22 12/31/2021 US, scrot um No observ ation record ed. [facility] (Radiology) [address] [facility], [place], [address], 01/06/2022 14:01:54 Result Notes None recorded. Problems Name Problem SNOMED Code Status Onset Date Resolution Date Notes Provider Name and Address Organization Details Recorded Time Benign prostatic hyperplasia 168154672 Active 2019 Sushil mcneal [facility] 0 16:36:18 Phimosis 270109851 Active 2019 Sushil mcneal [facility] 0 16:36:23 Problem Notes None recorded. Procedures Surgical History Date Name Laterality Status Provider Name and Address Organization Details Recorded Time 1 Bladder Scan completed Willie Buckner MD [address] [place] [address],[address], [place], [address], [place] [facility] 07/03/2021 11:59:10 0 Bladder Scan completed Sushil Melgozab [facility] 06/18/2020 16:46:59 Cataract Surgery completed Sushil Elinor [facility] 06/18/2020 16:33:10 cervical arthrodesis completed Sushil Melgozab [facility] 06/18/2020 16:34:29 procedure on wrist completed Sushil Melgozab [facility] 06/18/2020 16:34:51 Imaging Results Imaging Date Name Status LastModified by Organiz ation Details LastModified Time 06/18/2020 bladder scan (PROC) completed BARCODE Information not available 06/19/2020 12:05:39 07/03/2021 bladder scan (PROC) completed BARCODE Information not available 07/03/2021 16:34:54 12/31/2021 US, scrotum completed [facility] (Radiology) [address] [facility], [place], [address], 01/06/2022 14:01:54 Procedure Notes None recorded. Medical [...] Updated DateTime 06/18/2020 180.34 cm 37.7 kg/m2 701829.94 g Sushil Aldrich [facility] 06/18/2020 16:42:55 Date Recorded Body height Body mass index (BMI) Body weight Provider Name and Address Organization Details Last Updated DateTime 07/03/2021 180.34 cm 37.7 kg/m2 441246.94 g Sushil Aldrich [facility] 07/03/2021 11:51:10 Date Recorded Body height Body mass index (BMI) Body weight Provider Name and Address Organization Details Last Updated DateTime 12/23/2021 180.34 cm 37.7 kg/m2 768697.94 g Willie Buckner MD [address] [place] [address],[address], [address] [place] [address] Urolog 12/23/2021 14:20:19 Date Recorded Body height Body mass index (BMI) Body weight Provider Name and Address Organization Details Last Updated DateTime 02/20/2022 180.34 cm 37.7 kg/m2 608874.94 lauro Buckner MD [address] [place] [address],[address], [address], [place] [facility] [place] [facility] 02/20/2022 09:25:58 Social History Question Answer Notes LastModified by Organizat ion Details LastModified Time Tobacco Smoking Status Former Smoker QUIT: 2003 Sushil Elinor mcneal [place] [facility] [place] [facility] 06/18/2020 16:36:44 What Was The Date Of Your Most Recent Tobacco Screening? 02/20/2022 Information not available 02/20/2022 Sex: Unknown Functional Status None recorded. Mental Status None recorded. Family History Relationship Description Onset Age of this Age Resolved Age Notes LastModified by Organization Details LastModified Time Sister Family history of cancer of colon ssa Not available 2019 16:32:29 Father Family history of cardiac disorder ssamb Not available 2019 16:32:56 Medical History Condition Response Diabetes Y Sexually Transmitted Infection N Other Y Bleeding Disorder N High Blood Pressure Y Kidney Stones N High Cholesterol Y GERD/Acid Reflux N Heart Disease N Cancer N Lung Disease N Depression N Past Encounters Encounter ID Performer Location Encounter Start Date Encounter Closed Date Diagnosis/Indication Diagnosis SNOMED-CT Code Diagnosis ICD10 Code [id number] MD [facility] [address] [place] [address] 06/18/2020 16:25:56 06/18/2020 18:07:26 Benign prostatic hyperplasia 485543259 N40.1 [id number] MD [facility] [address] [place] [address] 07/03/2021 11:39:42 07/07/2021 14:42:18 Benign prostatic hyperplasia 767597928 N40.1 Balanitis 35882916 N48.1 Benign pro static hyperplasia with outflow obstruction 746083953 N40.1 Type 2 jemma betes mellitus without complication 373353139 E11.9 [id number] MD [facility] [address] [place] [address] 12/23/2021 13:58:21 12/29/2021 12:15:46 Spermatocele 43873151 N43.40 [id number] MD [facility] [address] [place] [address] 02/20/2022 09:17:52 02/23/2022 10:10:49 Spermatocele 99254679 N43.40 Health Concerns Section Related Observation LastModified by Organization Detai ls LastModified Time None Recorded Concern Status LastModified by Organization Details LastModified Time None Recorded Advance Directives Directive None Recorded Payers Encounter Date Sequence Insurance Name Policy Number Policy Castillo Covered Member ID Castillo Member ID Guarantor Name 06/18/2020 1 [place] [id number] Sandeep Douglasasl [id number] Sandeep Lopez Pomasl 07/03/2021 1 [place] [id number] Sandeep Juarez Pomasl [id number] Sandeep Lopez Pomasl 12/23/2021 2 [place] [id number] Sandeep Juarez Pomasl [id number] Sandeep Lopez Pomasl 02/20/2022 2 [place] [id number] Sandeep Juarez Pomasl [id number] Sandeep Lopez Pomasl 02/20/2022 1 [place] [employer] Sandeep Juarez Pomasl [id number] Sandeep Lopez Pomasl Notes Date Note Type Note Provider Name and Address Organization Details Recorded Time 06/18/2020 text/html HPI Notes: 64 YO M HERE TODAY FOR A FOLLOW UP. HE HAS A HISTORY OF BPH and BALANITIS. HE WAS LAST SEEN (05-15-19) and WAS GIVEN CLOBETASOL CREAM AND TAMSULOSIN .DOING WELL ON MEDICAL THERAPY. Willie Buckner MD [address] [place] [address],[address], [address], [facility] 06/18/2020 18:00:14 07/03/2021 text/html HPI Notes: 65 YO M ,aodm .HERE TODAY FOR A FOLLOW UP. HE HAS A HISTORY OF BPH and BALANITIS. HE WAS LAST SEEN (06-18-20) and WAS GIVEN CLOBETASOL CREAM AND TAMSULOSIN .DOING WELL ON MEDICAL THERAPY. Willie Buckner MD [address] [place] [address],[address] [place] [address], [address], [facility] 07/05/2021 11:46:53 12/23/2021 text/html HPI Notes: 65 YO M HERE TODAY FOR A FOLLOW UP FOR TESTICULAR DISCOMFORT. HE HAS A HISTORY OF BPH and BALANITIS. HE WAS LAST SEEN (07-03-21)ON CLOBETASOL CREAM AND TAMSULOSIN .DOING WELL ON MEDICAL THERAPY. RT SIDED TESTICULAR PAIN AND SWELLING Willie Buckner MD [address] [facility],[address], [place], [address], [facility] 12/26/2021 09:28:18 02/20/2022 text/html HPI Notes: 66 YO M HERE TODAY FOR A FOLLOW UP FOR POST OP BILATERAL SPERMATOCELECTOMY AND RELEASE OF PENILE ADHESION RELESE. HE HAS A HISTORY OF BPH and BALANITIS. HE WAS LAST SEEN (07-03-21)ON CLOBETASOL CREAM AND TAMSULOSIN .DOING WELL ON MEDICAL THERAPY. RT SIDED TESTICULAR PAIN AND SWELLING Willie Buckner MD [address] [facility],[address], [place], [address], [facility] 02/20/2022 10:07:49
--- OUTSIDE RECORDS SUMMARY | 2024-10-06 14:23 | XMS_ITS | Referral Summary ---
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 The NCEP recommends further evaluation of: patients with cholesterol greater than 200 mg/dL if additional risk factors are present, cholesterol greater than 240 mg/dL, triglycerides greater than 150 mg/dL, or HDL less than 40 mg/dL. Triglycerides 95 0 - 150 mg/dL [facility] HDL Cholesterol 31(L) >40 mg/dL [facility] LDL Cholesterol Calculated 107 0 - 129 mg/dL [facility] Comment: LDL Cholesterol is the primary guide to therapy: LDL-cholesterol goal in high risk patients is <100 mg/dL and in very high risk patients is <70 mg/dL. VLDL-Cholesterol 19 0 - 30 mg/dL [facility] Cholesterol/HDL Ratio 5.0 0.0 - 5.0 [facility] Blood specimen (specimen) 03/28/2014 10:11 AM CDT 03/28/2014 10:12 AM CDT Nimesh Jo MD LAB - BLOOD ORDERABLES Final Result [facility] [address] [place], [place] [id number] * Comprehensive metabolic panel (03/28/2014 10:11 AM CDT) Sodium 143 133 - 144 mmol/L [facility] Potassium 4.4 3.4 - 5.3 mmol/L [facility] Chloride 104 94 - 109 mmol/L [facility] Carbon Dioxide 25 20 - 32 mmol/L [facility] Anion Gap 14 6 - 17 mmol/L [facility] Glucose 98 60 - 99 mg/dL [facility] Comment:Fasting specimen Urea Nitrogen 15 7 - 30 mg/dL [facility] Creatinine 0.82 0.66 - 1.25 mg/dL [facility] GFR Estimate >90 >60 mL/min/1.7 m2 [facility] GFR Estimate If Black >90 >60 mL/min/1.7 m2 [facility] Calcium 9.1 8.5 - 10.4 mg/dL [facility] Bilirubin Total 0.6 0.2 - 1.3 mg/dL [facility] Albumin 4.2 3.3 - 4.9 g/dL [facility] Comment:Reference range huang ged on 08/21/2008. Protein Total 7.5 6.8 - 8.8 g/dL [facility] Comment:As of 08, refer ence range reflects plasma specimen type. Alkaline Phosphatase 68 40 - 150 U/L [facility] ALT 57 0 - 70 U/L [facility] AST 37 0 - 45 U/L [facility] Blood specimen (specimen) 03/28/2014 10:11 AM CDT 03/28/2014 10:12 AM CDT us Nimesh Jo MD LAB - BLOOD ORDERABLES Final Result [facility] [address] [place], [place] [id number] * COLONOSCOPY (08/27/2008 9:40 AM CDT) COLONOSCOPY [...] oxygen ? saturations were monitored continuously. The [facility]-[id number] ? #[id number] was introduced through the anus and advanced [...] Most Recently Relevant to Health Maintenance Insurance [facility]
--- OUTSIDE RECORDS SUMMARY | 2024-10-06 14:23 | XMS_ITS | Patient Health Record ---
Author Organization [facility] Address [address] [place] [address] [address] [place] [address] Care Team Providers Care Classified Advertising Clerk Name Role Phone Tee Prince Primary Care Provider Layo SABILLON MD, Clarence Unavailable Unavaila ashely Xavi Kendall Unavailable [phone] Allergies No Known Allergies Results Component Value [...] Since we began voluntarily reporting to the [employer]?s Dose Index Registry, our average CT doses have been consistently lower than the national average. Read by: Mandeep Rushing M.D. Reviewed and Electronically Signed by: Mandeep Rsuhing M.D. - Original Report EXAM: CT OF [...] Since we began voluntarily reporting to the [employer]?s Dose Index Registry, our [...] W/U Status Risk Notes Problem Chronic pain (99022831) Other chronic pain (G89.29) Active confirmed Problem Low back pain (143814287) Low back pain, unspecified (M54.50) Active confirmed Vital Signs Blood pressure diastolic 78 mm Hg 10/26/2023 Height 72 in 10/26/2023 Blood pressure systolic 142 mm Hg 10/26/2023 Weight 274 lbs 10/26/2023 BMI 37.16 kg/m2 10/26/2023 Encounters Encounter Location Date Provider Diagnosis [facility] [address] [place] [address] 10/08/2023 Tee Prince Other chronic pain G89.29 and Low back pain, unspecified M54.50 [address] [facility] [address] [place] [address] 10/26/2023 Xavi Kendall Other chronic pain G89.29 and Low back pain, unspecified M54.50 [facility] [address] [place] [address] [address] [place] [address] 10/27/2023 Tee Prince Assessments Encounter Date Diagnosis (ICD Code) Assessment Notes Treatment Notes Treatment Clinical Notes 10/08/2023 Other chronic pain (ICD-10 - G89.29) Sandeep FultonHeri) presents to the clinic for an evaluation [...] I have ordered a lumbar MRI to [facility] as required prior to proceeding with the MBBs. I leony discussed [facility] with him today, but he is not interested in physical therapy at this time. Regarding medications, I have checked the [facility] database and I did not find any [...] as necessary. Plan:1. Order lumbar MRI [facility] [place]. Consider MBB/RFA workup pending imaging.3. Start Meloxicam [...] I will order a lumbar CT to [facility] in [place]. Once he obtains the lumbar CT results, I advised him to follow up with his PCP. Pending the imaging findings, I will consider bilateral L4-S1 MBBs. Regarding medications, I have checked the [facility] database and I did not find any inconsistencies. This treatment plan was reviewed with the patient, and he was agreeable. He will return as needed. I will continue to monitor his progress, adjusting his treatment plan as necessary. Plan: 1. Reviewed lumbar MRI 2. Order lumbar CT scan to [facility] in [place] 3. Follow up with PCP - abnormal [...] documentation has been reviewed by the aforementioned TEXTILE MACHINERY SALES REPRESENTATIVE as well as Tee Prince MD, prior to being entered into the official medical record. ITee MD attest that the above named individual [...] documentation has been reviewed by the aforementioned BURR GRINDER as well as Sandeep Rehman MD, prior [...] Date Coverage End Date Medicare Part B [employer] [address] [place] [address] [id number] Sandeep Crooks Self - patient is the insured 2 [facility] [address] [address] [place] [address] [id number] Sandeep Crooks Self - patient is the insured Medical (General) History Medical History History ICD Code Arthritis Type 2 diabetes Hearing loss Sleep apnea
--- OUTSIDE RECORDS SUMMARY | 2024-10-06 14:23 | XMS_ITS | Clinical Summary ---
Author Organization [facility] Address [place], [place] [address] Care Team Providers Care Graphics Intern Name Role Phone Kang Mcgee MD Primary Care Provider [phone] Allergies No known active allergies Medications Medication [...] Comments Blood Pressure 133/72 11/25/2023 1:40 PM CONSERVATION SCIENCE OFFICER Pulse 78 11/25/2023 1:30 PM CONSERVATION SCIENCE OFFICER Temperature 36.7 ??C (98 ??F) 11/25/2023 11:10 AM CONSERVATION SCIENCE OFFICER Respiratory Rate 16 11/25/2023 1:30 PM CONSERVATION SCIENCE OFFICER Oxygen Saturation 96% 11/25/2023 1:15 PM CONSERVATION SCIENCE OFFICER Inhaled Oxygen Concentration - - Weight 120.2 kg (265 lb) 11/25/2023 11:10 AM CONSERVATION SCIENCE OFFICER Height 182.9 cm (6') 11/25/2023 11:10 AM CONSERVATION SCIENCE OFFICER Body Mass Index 35.94 11/25/2023 11:10 AM CONSERVATION SCIENCE OFFICER Plan of Treatment Health Maintenance Due Date [...] 1 - PCV) 2021 COVID-19 vaccine series (2023- season) 2024 01/02/2022, 03/04/2021, 02/11/2021 Influenza for age 65+ 07/30/2024 Medical Devices Implanted Type Area Hydraulic Modeling Engineer Device Identifier Shelf Expiration Date Model / Serial / Lot Sleeve Silcn 1.00i.D.X2.1mm Od Sty70 [id number] Labtician - [id number] Implanted:Qty: 1 on 07/17/2015 by Sixto Becerril MD at [facility] Right: Eye [employer] 02/26/2022 [id number]# / / [id number] Strip Silcn 0.75x3.5x125 [id number] - [id number] Implanted:Qty: 1 on 07/17/2015 by Sixto Becerril MD at [facility] Right: Eye [employer] 02/26/2022 [id number]# / / [id number] Screw Lmbr Post 5.5x25mm Solera 4.75 Va - [id number] Implanted:Qty: 2 on 11/02/2016 by Clarence Vasques MD at [facility] N/A: Spine Medtronic Spine/Ortho [id number]# / / [id number] 1-4mm 30cc Medtronic Chips Canclls Frozen Implanted:Qty: 1 on 11/02/2016 by Clarence Vasques MD at [facility] Explanted:at [facility] (Quantity not on file) N/A: Spine Medtronic Spine/Ortho 04/24/2019 [id number]# / [id number] / Set Screw Cerv Vertex Select - [id number] Implanted:Qty: 6 on 11/02/2016 by Clarence Vasques MD at [facility] N/A: Spine Medtronic Spine/Ortho [id number]# / / Screw Cerv Post 3.5x16mm Vertex Select Va - [id number] Implanted:Qty: 2 on 11/02/2016 by Clarence Vasques MD at [facility] N/A: Spine Medtronic Spine/Ortho [id number]# / / Screw Cerv Post 3.5x18mm Vertex Select Va - [id number] Implanted:Qty: 4 on 11/02/2016 by Clarence Vasques MD at [facility] N/A: Spine Medtronic Spine/Ortho [id number]# / / Cnnctr Cristhian Md Roland Vertex Select Variable - [id number] Implanted:Qty: 1 on 11/02/2016 by Clarence Vasques MD at [facility] N/A: Spine Medtronic Spine/Ortho [id number]# / / Roland Cerv 420x3.5/4.75mm Vertex Select - [id number] Implanted:Qty: 2 on 11/02/2016 by Clarence Vasques MD at [facility] N/A: Spine Medtronic Spine/Ortho [id number]# / / Set Screw Lmbr 4.64d24sc Solera 4.75 Ns Brk Off - [id number] Implanted:Qty: 2 on 11/02/2016 by Clarence Vasques MD at [facility] N/A: Spine Medtronic Spine/Ortho [id number]# / / Advance Directives * Full Code (Latest Code Status on File) Date Activated Date Inactivated Comments 11/02/2016 6:12 PM 11/06/2016 10:20 PM * Full Code Date Activated Date Inactivated Comments 11/02/2016 6:41 AM 11/02/2016 6:12 PM Question Answer Comments Code Status Discussion: Not Discussed * Full Code Date Activated Date Inactivated Comments 07/17/2015 9:21 AM 07/17/2015 3:48 PM Care Teams Graphics Intern Relationship Specialty Start Date End Date Kang Mcgee MD [address] [place] [address] PCP - General Family Practice 06/07/20
--- OUTSIDE RECORDS SUMMARY | 2024-10-06 14:24 | XMS_ITS | Encounter Summary ---
Author Organization [facility] Address [address] [place] [address] Care Team Providers Care Production Control Coordinator Name Role Phone Found, No Pcp MD Primary Care Provider Unavailab le Reason for Visit * Reason Comments Wound Check Encounter Details Date Type Department Care Team (Late st Contact Info) Description 07/05/2024 1:00 PM CDT Office Visit [facility] - Dermatology [address] [place], [place] [phone] [place] [address] [place] [phone] Actinic cheilitis (Primary Dx); Lichenoid dermatitis; Actinic [...] CDT Thank you for choosing Dermatology at [facility]! We welcome your feedback. Comment cards are located in our lobby. For questions, please call the Dermatology department or log in to [employer] to send us a IKOTECH message. For medication refills, please contact your pharmacy. For questions regarding billing, please contact [facility] [employer] at . Please consider enrolling in IKOTECH. Please follow the instructions below to securely access your online medical record. IKOTECH allows you to send messages to your doctor, view your test results, renew your prescriptions, schedule appointments, and more. How Do I Sign Up? In your Internet browser, go to: [email or web address] Click on the Enter Activation Code link under the New User? section. You will see the New Member Sign Up page. Enter your IKOTECH Activation Code exactly as it appears below. You will not need to use this code after you???ve completed the sign-up process. If you do not sign up before the expiration date, you must request a new code. IKOTECH Activation Code: [email or web address] Expires: 08/04/2024 1:51 PM Enter the last four digits of your Social Security Number ([id number]) and Date of (mm/dd/yyyy) as indicated and click Next. You will be taken to the next sign-up page. Create a IKOTECH ID. This will be your IKOTECH login ID and cannot be changed, so think of one thatis secure and easy to remember. Create a IKOTECH password. You can change your password at any time. Enter your Security Question and Answer. This can be used at a later time if you forget your password. Click Next. Enter your e-mail address. You will receive e-mail notification when new information is available -- in IKOTECH. Click Sign In. You can now view your medical record. Once CueSongs is set up you can upload a photo. Please upload a photo of the surgical site (free of bandages) prior to upcoming phone visit with Dr. Shaw as scheduled. Please take a photo close up and from a distance making sure photos are clearand not blurry. A Photo link will be sent to your CueSongs a few days prior to your scheduled phone visit. If you have difficulties with the photo process you can call [phone] and ask to speak with a nurse. documented in this encounter Progress Notes * Mary Shaw MD - 07/05/2024 12:00 AM CDT NAME: SURINDER GOETZ CSN: [id number] CLINIC NOTE DATE OF SERVICE: 07/05/2024 : [...] consideration of changing hismedication. MD BOB ROBISON/ANDRESSA /[id number] documented in this encounter Plan of Treatment Upcoming Encounters Date Type Department Care Team (Late st Contact Info) Description 01/10/2025 2:15 PM TAPPING MACHINE OPERATOR Appointment [facility] [address] Dermatology [address] [place], [place] [address] [place] [address] [place] [phone] documented as of this encounter Visit Diagnoses Diagnosis Actinic cheilitis- Primary Acute dermatitis due to solar radiation Lichenoid dermatitis Contact dermatitis and other eczema, due to unspecified cause Actinic keratosis documented in this encounter Care Teams Production Control Coordinator Relationship Specialty Start Date End Date Found, No Pcp, [address] [place] [address] PCP - General 09/28/23 documented as of this encounter
--- OUTSIDE RECORDS SUMMARY | 2024-10-06 14:24 | XMS_ITS | Continuity of Care Document ---
Author Organization [facility] Address [address] [place] [address] Phone Care Team Providers Care Help Desk Internship Name Role Phone Yifan Benjamin MD Unavailable [...] on Encounter [facility], [address], [place], [id number], [place] tel:[phone] [facility] No Information 3 Sourav Saha. [facility], [address] [place] [address], [address], [place], [id number], [place]. tel:[phone] Office/Outpat ient Visit,Est, Mod [facility], [address], [place], [id number], [place] tel:[phone] [facility] Arthrodesis status 3 Layo Lima. [facility], [address] [facility] [address] [facility], [address], [place]. tel:[phone] Referring Provider: Clarence Vasques, [facility] [address], [place], [address]. tel:[phone] Office/Outpat ient Visit,Est, Low [facility], [address], [place], [id number], [place] tel:[phone] [facility] Arthrodesis status 1 Layo Lima. [facility], [address] [place] [address] [place], [address], [place]. tel:[phone] Referring Provider: Clarence Vasques, [facility] [address] [place] [address] , [place], [address]. tel:[phone] Office/Outpat ient Visit,Est, Mod [facility], [address], [place], [id number], [place] tel:[phone] [facility] Spinal stenosis, cervical region 9 Layo Lima. [facility], [address] [place] [address] [place], [address], [place]. tel:[phone] Referring Provider: Clarence Vasques, [facility] [address] [place] [address] , [place], [address]. tel:[phone] Office/Outpat ient Visit,Est, Mod [facility], [address], [place], [id number], [place] tel:[phone] [facility] Spinal stenosis, cervical region Layo Lima. [facility], [address] [place] [address] [place], [address], [place]. tel:[phone] Referring Provider: Clarence Vasques, [facility] [address] [place] [address] , [place], [address]. tel:[phone] Office/Outpat ient Visit,Est, Mod [facility], [address], [place], [id number], [place] tel:[phone] [facility] Spinal stenosis, cervical region 7 Layo Lima. [facility], [address] [place] [address] [place], [address], [place]. tel:[phone] Referring Provider: Referring Self, [address] [place] [address] [address], [place], [address]. tel:[phone] [facility], [address], [place], [id number], [place] tel:[phone] [facility] Spinal stenosis, cervical region 7 Layo Lima. [facility], [address] [facility] , [place], [address], [place]. tel:[phone] Referring Provider: Clarence Vasques, [facility] [address] [place] [address] , [place], [address]. tel:[phone] [facility], [address], [place], [id number], [place] tel:[phone] [facility] Spinal stenosis, cervical region 7 Layo Lima. [facility], [address] [address] [facility] [place], [address], [place]. tel:[phone] Referring Provider: Clarence Vasques, [facility] [address] [place] [address] , [place], [address]. tel:[phone] [facility], [address], [facility], [id number], [place] tel:[phone] [facility] Encounter for other specified surgical aftercare Darrion Romero. [facility], [address], [facility], [place], [id number], [place]. tel:[phone] Referring Provider: Nick Hobbs, [facility] [address], [place], [address]. tel:[phone] [facility], [address], [place], [id number], [place] tel:[phone] [facility] No Information 6 Layo Lima. [facility], [address] [facility] [address] [facility] [place], [address], [place]. tel:[phone] Referring Provider: [facility] [address] [facility] , [place], [address]. tel:[phone] Family History Family Member Type Diagnosis Age At Onset No Information Payers Payer name Insurance type Covered republican ID Authorharriet mora(s) [place] [address] [facility] [id number] Social History Type Description Quantity Date Captured [...]
--- OUTSIDE RECORDS SUMMARY | 2024-10-06 14:24 | XMS_ITS | Encounter Summary ---
Author Organization [facility] Address [address], [place] [address] Care Team Providers Care Video Presentation Operator Name Role Phone Found, No Pcp Primary Care Provider Unavailab le Encounter Details Date Type Department Care Team (Late st Contact Info) Description 07/19/2024 E-Visit [facility] - Dermatology [address] [place], [place] [phone] Mychart, [place] [address] Social History Tobacco Use Types Packs/Day Years Used Date Smoking Tobacco: Never Sex and Gender Information Value Date Recorded Sex Assigned at Not on file Gender Identity Not on file Sexual Orientation Not on file documented as of this encounter Plan of Treatment Upcoming Encounters Date Type Department Care Team (Late st Contact Info) Description 01/10/2025 2:15 PM ENVIRONMENTAL FIELD OFFICE MANAGER Appointment [facility] [address] Dermatology [address] [place], [place] [address] [place] [address] [place] [phone] documented as of this encounter Visit Diagnoses Not on filedocumented in this encounter Care Teams Video Presentation Operator Relationship Specialty Start Date End Date Found, No Pcp, [address] [place] [address] PCP - General 09/28/23 documented as of this encounter
[2024-10-06 14:49] LABS: Creatinine* 0.8 mg/dL (0.5-1.5); Estimated Glomerular Filt Rate 97 ml/min
--- NOTE | 2024-10-06 15:00 | CRLHL7_ITS ---
For Patients: As a result of the Century Cures Act, medical imaging exams and procedure reports are released immediately into your electronic medical record. You may view this report before your referring provider. If you have questions, please contact your health care provider. INDICATION: Follow-up pulmonary nodules, mediastinal lymphadenopathy, and iliac bone lesion TECHNIQUE: CT chest, abdomen and pelvis acquired with 128 cc Isovue 370 IV contrast. COMPARISON: CT pelvis 11/01/2023, PET-CT 01/27/2024, CT chest abdomen pelvis 08/11/2024 FINDINGS: CHEST Lungs and pleura: Unchanged scattered bilateral subcentimeter ground-glass and solid pulmonary nodules. These are annotated on series 3 and comparison was made to prior CT from 08/11/2024, Index lesions are described below: -right upper lobe ground-glass nodule measuring 6 mm (3/36), previously 7 mm -right lower lobe triangular solid nodule measuring 6 mm (3/58), previously 6 mm -left upper lobe solid nodule measuring 5 mm (3/50), previously 5 mm Heart and vasculature: Heart size is normal. Thoracic aorta and pulmonary artery are normal in caliber. Moderate coronary artery calcifications. Lymph node/mediastinum: Similar to minimally decreased right upper paratracheal lymph nodes measuring up to 9 mm (2/22). Stable to minimally increased right hilar lymph node measuring 1.4 cm (2/47), previously 1.2 cm. Chest wall: Normal. Bones: No suspicious bone lesions. ABDOMEN AND PELVIS: Liver: Normal in caliber and attenuation. No masses. Gallbladder and bile ducts: Cholelithiasis. No biliary dilation. Pancreas: Unremarkable. Spleen: Mild splenomegaly measuring 14 cm. No masses. Adrenal glands: Unremarkable. No masses. Kidneys: Normal in caliber. No suspicious masses. Punctate nonobstructing left renal calculus. GI tract: Normal in caliber and appearance. No sign of mass or inflammation. Vasculature: Moderate atherosclerotic calcifications of the abdominal aorta and branch vasculature. No abdominal aortic aneurysm. Mesenteric arteries are patent. Lymph nodes: No lymphadenopathy. Omentum/peritoneum/retroperitoneum/abdominal wall: No masses. No free air or significant free fluid. Similar mild stranding of the central mesentery. Pelvic organs: Unremarkable. Bones: Stable right acetabular sclerotic lesion measuring 0.9 cm (2/249), likely a bone island. Slightly decreased size of a sclerotic right posterior iliac bone lesion measuring 1.5 x 2.7 cm (2/229), previously 1.8 x 2.[address] from 11/01/2023. IMPRESSION: 1. Largely unchanged scattered subcentimeter pulmonary nodules and mediastinal/hilar lymph nodes compared to prior CT from 08/11/2024 that remain indeterminate. In the absence of known malignancy, consider reimaging in 3-6 months to assess stability. 2. Similar to slightly decreased size of a sclerotic right posterior iliac bone lesion measuring up to 2.7 cm, previously 2.[address] from 11/01/2023. No new or enlarging osseous lesions. 3. Similar mild splenomegaly. 4. Similar mild stranding of the central mesentery, which may represent a mild panniculitis. Please note that all CT scans at this facility use dose modulation, iterative reconstruction, and/or weight-based dosing when appropriate to reduce radiation dose to as low as reasonably achievable. Dictated by Sanna Winkler MD @ 10/09/2024 11:12:54 AM (Electronically Signed)
== END 2024-10-06 14:22 | disposition home or self-care (01) ==
LOC: CT 14:22
PROVIDERS: PCP Family Medicine; Visit Provider Internal Medicine Hematology & Oncology
DX: R91.8 Other nonspecific abnormal finding of lung field (principal); M89.9 Disorder of bone, unspecified; R59.0 Localized enlarged lymph nodes; R16.1 Splenomegaly, not elsewhere classified; M79.3 Panniculitis, unspecified
CPT/HCPCS: 36415; 71260; 74177; 82565; Q9967

== ENCOUNTER 2025-02-02 08:57 | Outpatient (CLI) | payer MEDICARE, BC, SELFPAY | END 2025-02-02 08:58 | disposition home or self-care (01) | LOC: NFLDREF 02-04 19:13 | PROVIDERS: PCP Family Medicine; Referring Provider Family Medicine; Visit Provider Family Medicine | DX: E11.9 Type 2 diabetes mellitus without complications (principal); E78.00 Pure hypercholesterolemia, unspecified; I10 Essential (primary) hypertension; N40.0 Benign prostatic hyperplasia without lower urinary tract symptoms; Z12.5 Encounter for screening for malignant neoplasm of prostate | CPT/HCPCS: 80053; 80061; 82043; 82570; 84153; G0103 ==

== ENCOUNTER 2025-07-20 12:21 | Outpatient (CLI) | payer MEDICARE, BC, SELFPAY ==
[2025-07-20 12:57] LABS: Creatinine* 0.9 mg/dL (0.5-1.5); Estimated Glomerular Filt Rate 93 ml/min
--- NOTE | 2025-07-20 13:00 | CRLHL7_ITS ---
For Patients: As a result of the Century Cures Act, medical imaging exams and procedure reports are released immediately into your electronic medical record. You may view this report before your referring provider. If you have questions, please contact your health care provider. Indication: FU CT FROM 10/22, BAZEK SYNDROME?, LOCALIZED ENLARGED LYMPH NODES Technique: CT Abdomen/Pelvis WITH 99 CC ISOVUE 370 intravenous contrast AND WATER Please note that all CT scans at this facility use dose modulation, iterative reconstruction, and/or weight-based dosing when appropriate to reduce radiation dose to as low as reasonably achievable. Comparison: 10/06/2024 Findings: Dependent atelectasis in both lung bases. No pleural effusion. Stable noncalcified pulmonary nodules in the lung bases measuring up to 6 millimeters. No intrahepatic mass. Calcified stones in the gallbladder again noted. No biliary obstruction. Spleen measures 13.9 cm. Adrenal glands are normal. No hydronephrosis. Atherosclerotic changes. Liver measures 21.0 cm. Stranding in the central mesenteric fat again noted with numerous sub cm lymph nodes, unchanged. Bladder normal. Prostate is similar. Scattered sub cm pelvic and inguinal lymph nodes are again noted. No bowel obstruction or free air. No free fluid or abscess. Similar appearance of the osseous structures with sclerotic focus in the right posterior iliac bone and the supra-acetabular region bilaterally. Degenerative changes within the spine. No acute fracture. Impression: Overall no significant change. Stable sub cm mesenteric, pelvic sidewall and inguinal lymph nodes. Stable bilateral pulmonary nodules in the visualized lungs. Chronic cholelithiasis. Hepatosplenomegaly with hepatic steatosis. No ascites. No intrahepatic mass. Stable osseous structures. Please note that all CT scans at this facility use dose modulation, iterative reconstruction, and/or weight-based dosing when appropriate to reduce radiation dose to as low as reasonably achievable. Dictated by Sixto Ta MD @ 07/23/2025 1:27:09 PM (Electronically Signed)
== END 2025-07-20 12:22 | disposition home or self-care (01) ==
LOC: CT 12:21
PROVIDERS: PCP Family Medicine; Visit Provider Family Medicine
DX: R59.0 Localized enlarged lymph nodes (principal); R91.8 Other nonspecific abnormal finding of lung field; K80.20 Calculus of gallbladder without cholecystitis without obstruction; R16.2 Hepatomegaly with splenomegaly, not elsewhere classified; K76.0 Fatty (change of) liver, not elsewhere classified
CPT/HCPCS: 36415; 74177; 82565; Q9967

== ENCOUNTER 2025-07-26 10:40 | Outpatient (CLI) | payer MEDICARE, BC, SELFPAY ==
--- NOTE | 2025-07-26 11:00 | CRLHL7_ITS ---
For Patients: As a result of the Century Cures Act, medical imaging exams and procedure reports are released immediately into your electronic medical record. You may view this report before your referring provider. If you have questions, please contact your health care provider. Indication: LOCALIZED ENLARGED LYMPH NODES POSSIBLE BAZEK SYNDROME Technique: CT Chest 75CC ISOVUE 370 intravenous contrast Please note that all CT scans at this facility use dose modulation, iterative reconstruction, and/or weight-based dosing when appropriate to reduce radiation dose to as low as reasonably achievable. Comparison: 10/06/2024 Findings: Similar mildly prominent right paratracheal, subcarinal and right hilar lymph nodes without significant change. No pleural or pericardial effusion. Calcified stones in the gallbladder noted. No hiatal hernia. Visualized thyroid is within normal limits. No vertebral body compression fracture. Postop changes to the lower cervical spine. Atherosclerotic changes are present. No infiltrate or edema. Unchanged nodule in the right upper lobe measures 5.8 millimeters, 54. Tiny nodule in the periphery of the right upper lobe is also stable measuring 2.9 millimeters, series 3, image 60. Unchanged nodule within the right lower lobe measuring 4 millimeters, /101. Also similar nodule right lower lobe measuring 5.7 millimeters, 90. Stable small nodular density right upper lobe 39. Stable 4 millimeter nodule within the lingula, 79. Stable subpleural nodule within the lingula, 109. Also stable subpleural nodule left lower lobe, 112. Unchanged small nodule within the left lower lobe 2 . Additional subtle nodularity left lower lobe formation . Impression: Stable bilateral pulmonary nodules. Stable mildly prominent mediastinal and right hilar lymph nodes. Chronic cholelithiasis. Please note that all CT scans at this facility use dose modulation, iterative reconstruction, and/or weight-based dosing when appropriate to reduce radiation dose to as low as reasonably achievable. Dictated by Sixto Ta MD @ 07/26/2025 11:36:28 AM (Electronically Signed)
== END 2025-07-26 10:41 | disposition home or self-care (01) ==
LOC: CT 10:41
PROVIDERS: PCP Family Medicine; Visit Provider Family Medicine
DX: R59.0 Localized enlarged lymph nodes (principal); R91.8 Other nonspecific abnormal finding of lung field; K80.20 Calculus of gallbladder without cholecystitis without obstruction
CPT/HCPCS: 71260; Q9967

== ENCOUNTER 2025-08-09 08:01 | Outpatient (CLI) | payer MEDICARE, BC, SELFPAY | END 2025-08-09 08:02 | disposition home or self-care (01) | LOC: NFLDREF 08-14 06:41 | PROVIDERS: PCP Family Medicine; Referring Provider Family Medicine; Visit Provider Family Medicine | DX: E78.00 Pure hypercholesterolemia, unspecified (principal) | CPT/HCPCS: 80061 ==